=== PATIENT | female | born 1985 | race Caucasian/White ===

== ENCOUNTER 2023-03-07 21:29 | Outpatient (REF) | payer BC, SELFPAY ==
[2023-03-11 16:09] LABS: Age Gdln ACOG Testing Note (.); HPV Aptima Negative (Negative); IGP, Aptima HPV, rfx 16/18,45 Note (.)
== END 2023-03-07 21:30 | disposition home or self-care (01) ==
LOC: LAB 21:29
PROVIDERS: Visit Provider Obstetrics & Gynecology
DX: Z01.419 Encounter for gynecological examination (general) (routine) without abnormal findings (principal)
CPT/HCPCS: 87624; G0145

== ENCOUNTER 2023-04-11 12:19 | Outpatient (OUT) | payer BC, SELFPAY ==
--- OUTSIDE RECORDS SUMMARY | 2023-04-11 12:25 | XMS_ITS | CCD ---
Author Name Unknown Address [address] [place] [id number] Organization [facility] Care Team Providers Care Extraction Supervisor Name Role Phone REQUEST, DR SHERRELL LISTED Primary Care Unavaila ble WOLF ., DR RYAN Green Admitting Unavailable WOLF ., DR RYAN Green Attending Unavailable WOLF ., DR RYAN Green Consulting Unavailable WOLF ., DR RYAN Green Primary Care Unavailable WOLF ., DR RYAN Green Admitting Unavailable WOLF ., DR RYAN Green Attending Unavailable WOLF ., DR RYAN Green Consulting Unavailable REQUEST, DR WYNNE LISTED Primary Care Unavaila ble WOLF ., DR RYAN Green Admitting Unavailable WOLF ., DR RYAN Green Attending Unavailable WOLF ., DR RYAN Green Consulting Unavailable DAMON ., DR DELEON Attending Unavailable DAMON ., DR DELEON Consulting Unavailable DAMON ., DR DELEON Admitting Unavailable REQUEST, DR WYNNE LISTED Primary Care Unavaila ble MUNIRA, MARGOTH Admitting Unavailable REQUEST, DR WYNNE LISTED Primary Care Unavaila ble MUNIRA, MARGOTH Attending Unavailable MUNIRA, MARGOTH Consulting Unavailable REQUEST, DR WYNNE LISTED Primary Care Unavaila ble MUNIRA, MARGOTH Attending Unavailable MUNIRA, MARGOTH Consulting Unavailable MUNIRA, MARGOTH Admitting Unavailable NILMoisés Garcia Attending Unavailable DAMONADRIENNE Attending Unavailable Allergies Allergy Classification Reported Allergen(s) Allergy Type Date of Onset Reaction(s) Facility (1 source) predniSONE Drug Allergy 01-20-2016 [facility] Repository (1 source) rofecoxib; Translations: [Vioxx] Drug Allergy [facility] Repository Problems Active Problems Problem Classification Problem Date Documented Da te Episodic/Chronic Unclassified (3 sources) CONTACT W/AND (SUSP) EXPOS COVID-19; Translations: [CONTACT W/AND (SUSP) EXPOS COVID-19] Onset: 11-06-2021 Viral infection (1 source) COVID-19; Translations: [COVID-19] Onset: 11-03-2021 Past or Other Problems Problem Classification Problem Date Documented Date Episodic/Chronic Abdominal pain (4 sources) Unspecified abdominal pain; Translations: [UNSPECIFIED ABDOMINAL PAIN] Onset: 04-21-2022 Episodic Immunizations and screening for infectious disease (1 source) Encounter for screening for human papillomavirus (HPV); Translations: [ENC SCREENING HUMAN PAPILLOMAVIRUS] Onset: 03-06-2022 Episodic Other screening for suspected conditions (not mental disorders or infectious disease) (4 sources) Encounter for screening for malignant neoplasm of cervix; Translations: [ENC SCREENING MALIG NEOPLASM CERV] Onset: 03-02-2022 Episodic Unclassified (1 source) CONTACT W/AND (SUSP) EXPOS COVID-19; Translations: [CONTACT W/AND (SUSP) EXPOS COVID-19] Onset: 11-03-2021 Results Test Name Value Interpretation Reference Range Facility [facility] 08-11-2022 Lab Reports [id number] .[id number]:127 Normal [facility] Lab Reports [id number] .[id number]:127 Normal [facility] CBC AUTO DIFFon 08-06-2022 BASO # 0.0 103/ul Normal 0.0-0.1 [facility] Comment on above: Performed By: #### C BC #### [facility] [address] [place] [address] Dr. Mikhail Cooney Basophils/100 WBC (Bld) 0.4 % Normal 0.2-2.0 [facility] Comment on above: Performed By: #### C BC #### [facility] [address] [address] [address] Mikhail Cooney EO # 0.1 103/ul Normal 0.0-0.7 [facility] Comment on above: Performed By: #### C BC #### [facility] [address] [place] [address] Dr. Mikhail Cooney Eosinophils/100 WBC (Bld) 1.0 % Normal 0.9-7.0 [facility] Comment on above: Performed By: #### C BC #### [facility] [address] [place] [address] Dr. Mikhail Cooney Erythrocyte distribution width (RBC) [Ratio] 11.9 % Normal 11.0-15.0 [facility] Comment on above: Performed By: #### C BC #### [facility] [address] [place] [address] Dr. Mikhail Cooney Hematocrit (Bld) [Volume fraction] 43.0 % Normal 36.0-48.0 [facility] Comment on above: Performed By: #### C BC #### [facility] [address] [place] [address] Dr. Mikhail Cooney Hemoglobin (Bld) [Mass/Vol] 14.7 g/dL Normal 12.0-16.0 [facility] Comment on above: Performed By: #### C BC #### [facility] [address] [place] [address] Dr. Mikhail Cooney IG # 0.03 10e3/ul Normal 0.00-0.03 [facility] Comment on above: Performed By: #### C BC #### [facility] [address] [place] [address] Dr. Mikhail Cooney IG % 0.3 % Normal 0.0-0.5 [facility] Comment on above: Performed By: #### C BC #### [facility] [address] [place] [address] Dr. Mikhail Cooney LYMPH # 2.4 103/ul Normal 1.2-3.8 [facility] Comment on above: Performed By: #### C BC #### [facility] [address] [place] [address] Dr. Mikhail Cooney Lymphocytes/100 WBC (Bld) 24.4 % Normal 20.5-60.0 [facility] Comment on above: Performed By: #### C BC #### [facility] [address] [place] [address] Dr. Mikhail Cooney MANUAL DIFF REQ NO Normal [facility] Comment on above: Performed By: #### C BC #### [facility] [address] [address] [address] Mikhail Cooney MCH (RBC) [Entitic mass] 29.9 pg Normal 26.7-34.0 [facility] Comment on above: Performed By: #### C BC #### [facility] [address] [place] [address] Dr. Mihkail Cooney MCHC (RBC) [Mass/Vol] 34.2 g/dL Normal 29.9-35.2 [facility] Comment on above: Performed By: #### C BC #### [facility] [address] [place] [address] Dr. Mikhail Cooney MCV (RBC) [Entitic vol] 87.4 fL Normal 81.0-99.0 [facility] Comment on above: Performed By: #### C BC #### [facility] [address] [place] [address] Dr. Mikhail Cooney MONO # 0.6 103/ul Normal 0.3-0.8 [facility] Comment on above: Performed By: #### C BC #### [facility] [address] [place] [address] Dr. Mikhail Cooney Monocytes/100 WBC (Bld) 6.1 % Normal 1.7-12.0 [facility] Comment on above: Performed By: #### C BC #### [facility] [address] [place] [address] Dr. Mikhail Cooney NEUT # 6.7 103/ul Critically high 1.4-6.[address] [facility] Comment on above: Performed By: #### C BC #### [facility] [address] [place] [address] Dr. Mikhail Cooney Neutrophils/100 WBC (Bld) 67.8 % Normal 43.0-75.0 [facility] Comment on above: Performed By: #### C BC #### [facility] [address] [place] [address] Dr. Mikhail Cooney Platelet mean volume (Bld) [Entitic vol] 11.2 fL Normal 9.5-13.5 [facility] Comment on above: Performed By: #### C BC #### [facility] [address] [address] [address] Mikhail Cooney PLT 288 103/ul Normal 150-450 [facility] Comment on above: Performed By: #### C BC #### [facility] [address] [place] [address] Dr. Mikhail Cooney RBC 4.92 106/ul Normal 4.20-5.40 [facility] Comment on above: Performed By: #### C BC #### [facility] [address] [address] [address] Mikhail Cooney WBC 9.8 103/ul Normal 4.0-11.0 [facility] Comment on above: Performed By: #### C BC #### [facility] [address] [place] [address] Dr. Mikhail Cooney LIPID PROFILEon 08-06-2022 CHOL-HDL RATIO NORM SEE BELOW Normal [facility] Comment on above: Result Comment: 3.3 - 4.4 LOW RISK 4.4 - 7.1 AVERAGE RISK 7.1 - 11.0 MODERATE RISK >11.0 HIGH RISK Performed By: #### L IPID, CMP, TSH, T4 #### [facility] [address] [place] [address] Dr. Mikhail Cooney Cholesterol [Mass/Vol] 212 mg/dL Critically high <=200 [facility] Comment on above: Performed By: #### L IPID, CMP, TSH, T4 #### [facility] [address] [place] [address] Dr. Mikhail Cooney Cholesterol in HDL [Mass/Vol] 44 mg/dL Normal 40-60 [facility] Comment on above: Performed By: #### L IPID, CMP, TSH, T4 #### [facility] [address] [place] [address] Dr. Mikhail Cooney Cholesterol in LDL [Mass/Vol] 144.8 mg/dL Normal [facility] Comment on above: Performed By: #### L IPID, CMP, TSH, T4 #### [facility] [address] [place] [address] Dr. Mikhail Cooney Cholesterol.total/ Cholesterol in HDL [Mass ratio] 4.8 {ratio} Normal [facility] Comment on above: Performed By: #### L IPID, CMP, TSH, T4 #### [facility] [address] [address] [address] Mikhail Cooney HDL NORMAL > or = 60 mg/dl - LO W CARDIOVASCULAR RISK <40 mg/dl - HIGH CARDIOVASCULAR RISK Normal [facility] Comment on above: Performed By: #### L IPID, CMP, TSH, T4 #### [facility] [address] [address] [address] Mikhail Cooney LDL CALC NORMAL SEE BELOW Normal [facility] Comment on above: Result Comment: <100 mg/dl OPTIMAL 100 - 129 mg/dl NEAR OR ABOVE OPTIMAL 130 - 159 mg/dl BORDERLINE HIGH 160 - 189 mg/dl HIGH >190 mg/dl VERY HIGH Performed By: #### L IPID, CMP, TSH, T4 #### [facility] [address] [address] [address] Mikhail Cooney Triglyceride [Mass/Vol] 116 mg/dL Normal <=150 [facility] Comment on above: Performed By: #### L IPID, CMP, TSH, T4 #### [facility] [address] [address] [address] Mikhail Cooney VLDL CALC 23.2 mg/dL Normal [facility] Comment on above: Performed By: #### L IPID, CMP, TSH, T4 #### [facility] [address] [address] [address] Mikhail Cooney PROF 14(COMP METB)on 023 Albumin [Mass/Vol] 3.3 g/dL Critically low 3.4-5.0 [facility] Comment on above: Performed By: #### L IPID, CMP, TSH, T4 #### [facility] [address] [address] [address] Mikhail Cooney Albumin/Globulin [Mass ratio] 0.7 {ratio} Normal [facility] Comment on above: Performed By: #### L IPID, CMP, TSH, T4 #### [facility] [address] [place] [address] Dr. Mikhail Cooney ALP [Catalytic activity/Vol] 82 U/L Normal 46-116 [facility] Comment on above: Performed By: #### L IPID, CMP, TSH, T4 #### [facility] [address] [address] [address] Mikhail Cooney ALT [Catalytic activity/Vol] 32 U/L Normal 14-59 [facility] Comment on above: Performed By: #### L IPID, CMP, TSH, T4 #### [facility] [address] [address] [address] Mikhail Cooney Anion gap [Moles/Vol] 9.1 mmol/L Normal [facility] Comment on above: Performed By: #### L IPID, CMP, TSH, T4 #### [facility] [address] [place] [address] Dr. Mikhail Cooney AST [Catalytic activity/Vol] 19 U/L Normal 15-37 [facility] Comment on above: Performed By: #### L IPID, CMP, TSH, T4 #### [facility] [address] [place] [address] Dr. Mikhail Cooney Bilirubin [Mass/Vol] 0.5 mg/dL Normal 0.2-1.0 [facility] Comment on above: Performed By: #### L IPID, CMP, TSH, T4 #### [facility] [address] [place] [address] Dr. Mikhail Cooney Calcium [Mass/Vol] 9.1 mg/dL Normal 8.5-10.1 [facility] Comment on above: Performed By: #### L IPID, CMP, TSH, T4 #### [facility] [address] [place] [address] Dr. Mikhail Cooney Chloride [Moles/Vol] 104 mmol/L Normal 98-107 [facility] Comment on above: Performed By: #### L IPID, CMP, TSH, T4 #### [facility] [address] [address] [address] Mikhail Cooney CO2 [Moles/Vol] 27.6 mmol/L Normal 21.0-32.[address] [facility] Comment on above: Performed By: #### L IPID, CMP, TSH, T4 #### [facility] [address] [address] [address] Mikhail Cooney Creatinine [Mass/Vol] 1.01 mg/dL Normal 0.55-1.02 [facility] Comment on above: Performed By: #### L IPID, CMP, TSH, T4 #### [facility] [address] [place] [address] Dr. Mikhail Cooney EGFR-AF FAROESE >60 Normal >=[address] [facility] Comment on above: Performed By: #### L IPID, CMP, TSH, T4 #### [facility] [address] [place] [address] Dr. Mikhail Cooney EGFR-NON AF FAROESE >60 Normal >=60 [facility] Comment on above: Performed By: #### L IPID, CMP, TSH, T4 #### [facility] [address] [place] [address] Dr. Mikhail Cooney Globulin (S) [Mass/Vol] 4.5 g/dL Normal [facility] Comment on above: Performed By: #### L IPID, CMP, TSH, T4 #### [facility] [address] [place] [address] Dr. Mikhail Cooney Glucose [Mass/Vol] 93 mg/dL Normal 74-106 [facility] Comment on above: Performed By: #### L IPID, CMP, TSH, T4 #### [facility] [address] [place] [address] Dr. Mikhail Cooney Potassium [Moles/Vol] 3.7 mmol/L Normal 3.5-5.1 [facility] Comment on above: Performed By: #### L IPID, CMP, TSH, T4 #### [facility] [address] [place] [address] Dr. Mikhail Cooney Protein [Mass/Vol] 7.8 g/dL Normal 6.4-8.2 [facility] Comment on above: Performed By: #### L IPID, CMP, TSH, T4 #### [facility] [address] [place] [address] Dr. Mikhail Cooney Sodium [Moles/Vol] 137 mmol/L Normal 136-145 [facility] Comment on above: Performed By: #### L IPID, CMP, TSH, T4 #### [facility] [address] [place] [address] Dr. Mikhail Cooney Urea nitrogen [Mass/Vol] 13.0 mg/dL Normal 7.0-18.0 [facility] Comment on above: Performed By: #### L IPID, CMP, TSH, T4 #### [facility] [address] [place] [address] Dr. Mikhail Cooney Urea nitrogen/Creatinin e [Mass ratio] 12.9 mg/mg Normal [facility] Comment on above: Performed By: #### L IPID, CMP, TSH, T4 #### [facility] [address] [place] [address] Dr. Mikhail Cooney T4on 08-06-2022 T4 [Mass/Vol] 13.20 ug/dL Normal 4.80-13.90 [facility] Comment on above: Performed By: #### L IPID, CMP, TSH, T4 #### [facility] [address] [place] [address] Dr. Mikhail Cooney TSHon 08-06-2022 TSH 2.723 uIU/mL Normal 0.358-3.740 [facility] Comment on above: Performed By: #### L IPID, CMP, TSH, T4 #### [facility] [address] [place] [address] Dr. Mikhail Cooney Physician Referralon 023 Physician Referral [id number]:127 Normal [facility] CBC AUTO DIFFon 04-21-2022 BASO # 0.0 103/ul Normal 0.0-0.1 [facility] Comment on above: Performed By: #### C BC #### [facility] [address] [place] [address] Dr. Mikhail Cooney Basophils/100 WBC (Bld) 0.4 % Normal 0.2-2.0 [facility] Comment on above: Performed By: #### C BC #### [facility] [address] [place] [address] Dr. Mikhail Cooney EO # 0.1 103/ul Normal 0.0-0.7 [facility] Comment on above: Performed By: #### C BC #### [facility] [address] [place] [address] Dr. Mikhail Cooney Eosinophils/100 WBC (Bld) 1.3 % Normal 0.9-7.0 [facility] Comment on above: Performed By: #### C BC #### [facility] [address] [place] [address] Dr. Mikhail Cooney Erythrocyte distribution width (RBC) [Ratio] 11.9 % Normal 11.0-15.0 [facility] Comment on above: Performed By: #### C BC #### [facility] [address] [place] [address] Dr. Mikhail Cooney Hematocrit (Bld) [Volume fraction] 44.1 % Normal 36.0-48.0 [facility] Comment on above: Performed By: #### C BC #### [facility] [address] [place] [address] Dr. Mikhail Cooney Hemoglobin (Bld) [Mass/Vol] 14.9 g/dL Normal 12.0-16.0 [facility] Comment on above: Performed By: #### C BC #### [facility] [address] [place] [address] Dr. Mikhail Cooney IG # 0.02 10e3/ul Normal 0.00-0.03 [facility] Comment on above: Performed By: #### C BC #### [facility] [address] [place] [address] Dr. Mikhail Cooney IG % 0.3 % Normal 0.0-0.5 [facility] Comment on above: Performed By: #### C BC #### [facility] [address] [place] [address] Dr. Mikhail Cooney LYMPH # 2.4 103/ul Normal 1.2-3.8 [facility] Comment on above: Performed By: #### C BC #### [facility] [address] [place] [address] Dr. Mikhail Cooney Lymphocytes/100 WBC (Bld) 30.1 % Normal 20.5-60.0 [facility] Comment on above: Performed By: #### C BC #### [facility] [address] [place] [address] Dr. Mikhail Cooney MANUAL DIFF REQ NO Normal [facility] Comment on above: Performed By: #### C BC #### [facility] [address] [place] [address] Dr. Mikhail Cooney MCH (RBC) [Entitic mass] 29.6 pg Normal 26.7-34.0 [facility] Comment on above: Performed By: #### C BC #### [facility] [address] [place] [address] Dr. Mikhail Cooney MCHC (RBC) [Mass/Vol] 33.8 g/dL Normal 29.9-35.2 [facility] Comment on above: Performed By: #### C BC #### [facility] [address] [place] [address] Dr. Mikhail Cooney MCV (RBC) [Entitic vol] 87.5 fL Normal 81.0-99.0 [facility] Comment on above: Performed By: #### C BC #### [facility] [address] [place] [address] Dr. Mikhail Cooney MONO # 0.5 103/ul Normal 0.3-0.8 [facility] Comment on above: Performed By: #### C BC #### [facility] [address] [place] [address] Dr. Mikhail Cooney Monocytes/100 WBC (Bld) 6.9 % Normal 1.7-12.0 [facility] Comment on above: Performed By: #### C BC #### [facility] [address] [place] [address] Dr. Mikhail Cooney NEUT # 4.8 103/ul Normal 1.4-6.5 [facility] Comment on above: Performed By: #### C BC #### [facility] [address] [place] [address] Dr. Mikhail Cooney Neutrophils/100 WBC (Bld) 61.0 % Normal 43.0-75.0 [facility] Comment on above: Performed By: #### C BC #### [facility] [address] [place] [address] Dr. Mikhail Cooney Platelet mean volume (Bld) [Entitic vol] 11.7 fL Normal 9.5-13.5 [facility] Comment on above: Performed By: #### C BC #### [facility] [address] [place] [address] Dr. Mikhail Cooney PLT 235 103/ul Normal 150-450 [facility] Comment on above: Performed By: #### C BC #### [facility] [address] [place] [address] Dr. Mikhail Cooney RBC 5.04 106/ul Normal 4.20-5.40 [facility] Comment on above: Performed By: #### C BC #### [facility] [address] [place] [address] Dr. Mikhail Cooney WBC 7.8 103/ul Normal 4.0-11.0 [facility] Comment on above: Performed By: #### C BC #### [facility] [address] [place] [address] Dr. Mikhail Cooney LIPASEon 04-21-2022 Lipase [Catalytic activity/Vol] 126.0 U/L Normal 73.0-393.0 [facility] Comment on above: Performed By: #### L IPA, CMP #### [facility] [address] [place] [address] Dr. Mikhail Cooney PROF 14(COMP METB)on 023 Albumin [Mass/Vol] 3.2 g/dL Critically low 3.4-5.0 [facility] Comment on above: Performed By: #### L IPA, CMP #### [facility] [address] [place] [address] Dr. Mikhail Cooney Albumin/Globulin [Mass ratio] 0.8 {ratio} Normal [facility] Comment on above: Performed By: #### L IPA, CMP #### [facility] [address] [address] [address] Mikhail Cooney ALP [Catalytic activity/Vol] 87 U/L Normal 46-116 [facility] Comment on above: Performed By: #### L IPA, CMP #### [facility] [address] [address] [address] Mikhail Cooney ALT [Catalytic activity/Vol] 31 U/L Normal 14-59 [facility] Comment on above: Performed By: #### L IPA, CMP #### [facility] [address] [address] [address] Mikhail Cooney Anion gap [Moles/Vol] 10.4 mmol/L Normal [facility] Comment on above: Performed By: #### L IPA, CMP #### [facility] [address] [place] [address] Dr. Mikhail Cooney AST [Catalytic activity/Vol] 28 U/L Normal 15-37 [facility] Comment on above: Performed By: #### L IPA, CMP #### [facility] [address] [address] [address] Mikhail Cooney Bilirubin [Mass/Vol] 0.4 mg/dL Normal 0.2-1.0 [facility] Comment on above: Performed By: #### L IPA, CMP #### [facility] [address] [address] [address] Mikhail Cooney Calcium [Mass/Vol] 8.9 mg/dL Normal 8.5-10.1 [facility] Comment on above: Performed By: #### L IPA, CMP #### [facility] [address] [address] [address] Mikhail Cooney Chloride [Moles/Vol] 104 mmol/L Normal 98-107 [facility] Comment on above: Performed By: #### L IPA, CMP #### [facility] [address] [address] [address] Mikhail Cooney CO2 [Moles/Vol] 29.0 mmol/L Normal 21.0-32.[address] [facility] Comment on above: Performed By: #### L IPA, CMP #### [facility] [address] [address] [address] Mikhail Cooney Creatinine [Mass/Vol] 0.81 mg/dL Normal 0.55-1.02 [facility] Comment on above: Performed By: #### L IPA, CMP #### [facility] [address] [address] [address] Mikhail Cooney EGFR-AF FAROESE >60 Normal >=[address] [facility] Comment on above: Performed By: #### L IPA, CMP #### [facility] [address] [address] [address] Mikhail Cooney EGFR-NON AF FAROESE >60 Normal >=60 [facility] Comment on above: Performed By: #### L IPA, CMP #### [facility] [address] [place] [address] Dr. Mikhail Cooney Globulin (S) [Mass/Vol] 4.0 g/dL Normal [facility] Comment on above: Performed By: #### L IPA, CMP #### [facility] [address] [address] [address] Mikhail Cooney Glucose [Mass/Vol] 100 mg/dL Normal 74-106 [facility] Comment on above: Performed By: #### L IPA, CMP #### [facility] [address] [place] [address] Dr. Mikhail Cooney Potassium [Moles/Vol] 4.4 mmol/L Normal 3.5-5.1 [facility] Comment on above: Performed By: #### L IPA, CMP #### [facility] [address] [address] [address] Mikhail Cooney Protein [Mass/Vol] 7.2 g/dL Normal 6.4-8.2 [facility] Comment on above: Performed By: #### L IPA, CMP #### [facility] [address] [address] [address] Mikhail Cooney Sodium [Moles/Vol] 139 mmol/L Normal 136-145 [facility] Comment on above: Performed By: #### L IPA, CMP #### [facility] [address] [address] [address] Mikhail Cooney Urea nitrogen [Mass/Vol] 9.0 mg/dL Normal 7.0-18.0 [facility] Comment on above: Performed By: #### L IPA, CMP #### [facility] [address] [address] [address] Mikhail Cooney Urea nitrogen/Creatinin e [Mass ratio] 11.1 mg/mg Normal [facility] Comment on above: Performed By: #### L IPA, CMP #### [facility] [address] [place] [address] Dr. Mikhail Cooney PAP ACOG PANEL 2: 30 to 65on 03-09-[address] [facility] Comment on above: Result Comment: Perf ormed at: WB Performed By: #### C VDTBH #### [facility] [address] [place] [address] Dr. Mikhail Cooney Age Gdln ACOG Testing 30-[address] [facility] Comment on above: Performed By: #### C VDTBH #### [facility] [address] [place] [address] Dr. Mikhail Cooney DIAGNOSIS: Comment Normal [facility] Comment on above: Result Comment: NEGA TIVE FOR INTRAEPITHELIAL LESION OR MALIGNANCY. Performed at: WB Performed By: #### C VDTBH #### [facility] [address] [place] [address] Dr. Mikhail Cooney HPV Aptima Negative Normal Negative [facility] Comment on above: Result Comment: This nucleic acid amplification test detects fourteen high-risk HPV types (16,18,31,33,35,39,45,51,52,56,58,59,66,68) without differentiation. Performed at: =G Performed By: #### C VDTBH #### [facility] [address] [place] [address] Dr. Mikhail Cooney HPV Genotype Reflex Comment Normal [facility] Comment on above: Result Comment: Crit eria not met, HPV Genotype not performed. Performed at: WB Performed By: #### C VDTBH #### [facility] [address] [place] [address] Dr. Mikhail Cooney Methodology: Comment Normal [facility] Comment on above: Result Comment: This liquid based ThinPrep(R) pap test was screened with the use of an image guided system. Performed at: WB Performed By: #### C VDTBH #### [facility] [address] [place] [address] Dr. Mikhail Cooney Note: Comment Normal [facility] Comment on above: Result Comment: The Pap smear is a screening test designed to aid in the detection of premalignant and malignant conditions of the uterine cervix. It is not a diagnostic procedure and should not be used as the sole means of detecting cervical cancer. Both false-positive and false-negative reports do occur. . Performed at: WB Performed By: #### C VDTBH #### [facility] [address] [place] [address] Dr. Mikhail Cooney Performed by: Comment Normal [facility] Comment on above: Result Comment: Evangelista Contreras, City Collector (ASCP) Performed at: WB Performed By: #### C VDTBH #### [facility] [address] [place] [address] Dr. Mikhail Cooney Specimen adequacy: Comment Normal [facility] Comment on above: Result Comment: Sati sfactory for evaluation. Endocervical and/or squamous metaplastic cells (endocervical component) are present. Performed at: WB Performed By: #### C VDTBH #### [facility] [address] [place] [address] Dr. Mikhail Cooney ASYMPTOMATIC COVID-19 ANTIGE Non 11-03-2021 EUA Statement SEE BELOW [facility] Comment on above: Result Comment: This test has not been FDA cleared or approved, but has been authorized by the FDA under an Emergency Use Authorization (EUA) for use by authorized laboratories certified under CLIA that meet the requirements to perform moderate or high complexity testing. This test has been authorized only for the detection of proteins from SARS-CoV-2, not for any other viruses or pathogens. The emergency use of this test is authorized for the duration of the declaration that circumstances exist justifying the authorization of emergency use of in vitro diagnostic tests for detection and/or diagnosis of Covid-19 under section 564(b)(1) of the Act, 21 U.S.C. 360bbb-3(b)(1), unless the declaration is terminated or authorization is revoked sooner. Performed By: #### C VDAGA #### [facility] [address] [place] [address] Dr. Mikhail Cooney SARS-CoV-2 (COVID-19) RNA JORGE+probe Ql (Unsp spec) Negative Normal NEGATIVE [facility] Comment on above: Result Comment: Nega tive results are presumptive. They do not preclude infection and should not be used as the sole basis for treatment decisions. Additional confirmatory testing by a molecular method should be considered. Performed By: #### C VDAGA #### [facility] [address] [place] [address] Dr. Mikhail Cooney Covid-19 PCR (CVDTB)on 10-03 SARS-CoV-2 (COVID-19) RNA JORGE+probe Ql (Unsp spec) Detected Critically abnormal NOT DETECTED [facility] Comment on above: Result Comment: This test is not yet approved or cleared by the [place] FDA. When there are no FDA-approved or cleared tests available, and other criteria are met, FDA can make tests available under an emergency access mechanism called an Emergency Use Authorization (EUA). The EUA for this test is supported by the [place] of Health and Human Service's declaration that circumstances exist to justify the emergency use of in vitro diagnostics for the detection and/or diagnosis of the virus that causes COVID-19. This EUA will remain in effect for the duration of the COVID-19 declaration justifying emergency of IVDs, unless it is terminated or revoked by the FDA (after which the test may no longer be used). Performed By: #### C VDTBH #### [facility] [address] [place] [address] Dr. Mikhail Cooney Encounters Encounter Date Encounter Type Care Provider Facility Start: 03-07-2023 End: 03-07-2023 ambulatory ADRIENNE JOSE Not Available Start: 08-06-2022 ambulatory Moisés LITTLEJOHN Facility:[facility] Start: 08-06-2022 End: 08-07-[address] RYAN WOLF . Facility:[facility] Start: 05-05-2022 ambulatory Moisés LITTLEJOHN Facility :[facility] Start: 04-22-2022 ambulatory Moisés LITTLEJOHN Facility:[facility] Start: 04-21-2022 End: 04-22-2022 ambulatory NONE LISTED REQUEST Facility:[facility] Start: 03-02-2022 End: 03-02-[address] ADRIENNE JOSE . Facility:[facility] Start: 11-03-2021 End: 11-03-2021 ambulatory MARGOTH LOMBARDO Facility:[facility] Start: 10-29-2021 End: 10-29-2021 ambulatory NONE LISTED REQUEST Facility:[facility] Start: 08-11-2021 End: 08-12-2021 ambulatory NONE LISTED REQUEST Facility: Payers Date Payer Category Payer Unknown [id number] 1985 Unknown [id number] 2.16.84 [id number] 1985 Unknown [id number] 2.16.84 [id number] 1985 Unknown [id number] 2.16.84 [id number] 1985 Unknown [id number] 2.16.84 [id number] 1985 Unknown [id number] 2.16.8 [id number] 1985 Unknown [id number] 1958 Self-pay 1958 Unknown [id number] Unknown [id number] 2.16.84 [id number] Unknown [id number] 2.16.84 [id number] Summary Purpose Family History No Family History Records FoundNo Family History Records FoundNo Family History Records Found Advance Directives No Advanced Directives Records FoundNo Advanced Directives Records FoundNo Advanced Directives Records Found Additional Source Comments INFORMATION SOURCE (unrecogn ized section and content) DATE CREATED AUTHOR 08/06/2022 [facility] DATE CREATED AUTHOR AUTHOR'S ORGANIZ ATION 08/12/2022 Rohan Bunch [facility] DATE CREATED AUTHOR AUTHOR'S ORGANIZ ATION 03/09/2023 [facility] FOR RECORDS PERTAINING TO PATIENTS WHO ARE OR HAVE BEEN ENROLLED IN A CHEMICAL DEPENDENCY/SUBSTANCEABUSE PROGRAM, SOME INFORMATION MAY BE OMITTED. This clinical summary was aggregated from multiple sources. Caution should be exercised in using it in the provision of clinical care. This summary normalizes information from multiple sources, and as a consequence, information in this document may materially change the coding, format and clinical context of patient data. In addition, data may be omitted in some cases. CLINICAL DECISIONS SHOULD BE BASED ON THE PRIMARY CLINICAL RECORDS. [facility]. provides no warranty or guarantee of the accuracy or completeness of information in this document.
--- NOTE | 2023-04-11 12:41 | US_ITS ---
The [address] [address] Patient Name: BASIL CARRANZA MRN: [id number] date: 1985 Sex: F Assigned Patient Location: LAB Current Patient Location: LAB Accession/Order Number: [id number] Exam Date: 04/11/2023 12:42 Report Date: 04/11/2023 13:17 At the request of: ADRIENNE JOSE Procedure: US pelvis w/ transvaginal EXAMINATION: US pelvis w/ transvaginal HISTORY: encounter for weight loss management [id number], sterilization COMPARISON: No relevant comparison available. FINDINGS: Transabdominal and transvaginal images The uterus is normal in size, contour and echotexture measuring 8.9 x 4.3 x 5.4 cm. Anteverted. Endometrium measures 5 mm, normal The right ovary is normal measuring 3.7 x 1.8 x 2.7 cm. Normal color Doppler flow. Multiple subcentimeter areas of anechoic echogenicity noted peripherally consistent with follicles The left ovary is normal measuring 3.2 x 1.8 x 1.3 cm. Normal color Doppler flow. Multiple subcentimeter areas of anechoic echogenicity noted peripherally consistent with follicles No free fluid US/US pelvis w/ transvaginal IMPRESSION: Multiple peripheral subcentimeter follicles. 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
[2023-04-11 13:04] LABS: Basophils Percent Auto 0.4 % (0.2-2.0); Eosinophils Absolute Auto 0.1 10^3/uL (0.0-0.7); Eosinophils Percent Auto 1.7 % (0.9-7.0); Hematocrit 43.5 % (36.0-48.0); Hemoglobin 14.4 g/dL (12.0-16.0); Immature Granulocytes Abs Auto 0.01 10^3/uL (0.00-0.03); Immature Granulocytes Pct Auto 0.1 % (0.0-0.5); Lymphocytes Absolute Auto 2.7 10^3/uL (1.2-3.8); Lymphocytes Percent Auto 35.8 % (20.5-60.0); Mean Corpuscular HGB Conc 33.1 g/dL (29.9-35.2); Mean Corpuscular Hemoglobin 29.8 pg (26.7-34.0); Mean Corpuscular Volume 90.1 fL (81.0-99.0); Mean Platelet Volume 10.7 fL (9.5-13.5); Monocytes Absolute Auto 0.4 10^3/uL (0.3-0.8); Monocytes Percent Auto 5.7 % (1.7-12.0); Neutrophils Absolute Auto 4.2 10^3/uL (1.4-6.5); Neutrophils Percent Auto 56.3 % (43.0-75.0); Platelet Count 251 10^3/uL (150-450); Red Blood Count 4.83 10^6/uL (4.20-5.40); Red Cell Distribution Width 11.9 % (11.0-15.0); White Blood Count 7.4 10^3/uL (4.0-11.0)
[2023-04-11 14:14] LABS: Estimated Average Glucose 108 mg/dL; Glycohemoglobin A1C 5.4 % (4.5-6.2)
[2023-04-11 14:48] LABS: Free T4 0.89 ng/dL (0.76-1.46)
[2023-04-11 14:56] LABS: HCG Quantitative <1 mIU/mL; Thyroid Stimulating Hormone 2.248 uIU/mL (0.358-3.740)
[2023-04-12 04:09] LABS: FSH 2.6 mIU/mL (.); Luteinizing Hormone(LH) 1.3 mIU/mL (.)
[2023-04-14 16:09] LABS: DHEA, Serum 220 ng/dL (31-701)
== END 2023-04-11 12:20 | disposition home or self-care (01) ==
LOC: LAB 12:22
PROVIDERS: PCP Family Medicine; Visit Provider Obstetrics & Gynecology
DX: R12 Heartburn (principal); Z76.89 Persons encountering health services in other specified circumstances; Z30.09 Encounter for other general counseling and advice on contraception; K21.9 Gastro-esophageal reflux disease without esophagitis
CPT/HCPCS: 36415; 76830; 76856; 82626; 82627; 83001; 83002; 83036; 84439; 84443; 84702; 85025

== ENCOUNTER 2023-04-12 10:00 | Outpatient (REF) | payer BC, SELFPAY ==
--- OUTSIDE RECORDS SUMMARY | 2023-06-15 09:21 | XMS_ITS | CCD ---
Author Name Unknown Address [address] [place] [address] Organization [facility] Care Team Providers Care Linoleum Printer Name Role Phone REQUEST, DR SHERRELL LISTED Primary Care Unavaila ble WOLF ., DR RYAN Hu Admitting Unavailable WOLF ., DR RYAN Hu Attending Unavailable WOLF ., DR RYAN Hu Consulting Unavailable WOLF ., DR RYAN Hu Primary Care Unavailable WOLF ., DR RYAN Hu Admitting Unavailable WOLF ., DR RYAN Hu Attending Unavailable WOLF ., DR RYAN Hu Consulting Unavailable REQUEST, NONE LISTED Primary Care Unavaila ble WOLF ., DR RYAN Hu Admitting Unavailable WOLF ., DR RYAN Hu Attending Unavailable WOLF ., DR RYAN Hu Consulting Unavailable JIM ., DR DELEON Attending Unavailable JIM ., DR DELEON Consulting Unavailable JIM ., DR DELEON Admitting Unavailable REQUEST, NONE LISTED Primary Care Unavaila ble MUNIRA, MARGOTH Admitting Unavailable REQUEST, NONE LISTED Primary Care Unavaila ble MARGOTH LOMBARDO Attending Unavailable MARGOTH LOMBARDO Consulting Unavailable REQUEST, NONE LISTED Primary Care Unavaila ble MUNIRA, MARGOTH Attending Unavailable MUNIRA, MARGOTH Consulting Unavailable MUNIRA, MARGOTH Admitting Unavailable Moisés LITTLEJOHN Attending Unavailable Adrienne Fernandez Attending Provider Adrienne Fernandez Attending Unavailable Adrienne Fernandez Admitting Unavailable ADRIENNE FERNANDEZ Attending Unavailable MICHELLE KEITH Attending Unavailable ADRIENNE FERNANDEZ Attending Unavailable Raffaele Thomas MD Primary Care Provider [phone] Allergies Allergy Classification Reported Allergen(s) Allergy Type Date of Onset Reaction(s) Facility (1 source) predniSONE Drug Allergy 01-20-2016 [facility] Repository (1 source) rofecoxib; Translations: [Vioxx] Drug Allergy [facility] Repository Medications Current Medications Medication Drug Class(es) Dates Sig (Normalized) Sig (Original) cephalexin 500 mg oral capsule (2 sources) Cephalosporin Antibacterial Start: 4 End: 4 take 1 capsule by mouth in the morning cephalexin (Keflex) 500 MG capsule Indications: Postoperative examination Take 1 capsule (500 mg) by mouth in the morning and 1 capsule (500 mg) before bedtime. Do all this for 7 days. 14 capsule 0 05/12/2023 05/19/2023 Active methylPREDNISolone (2 sources) Corticosteroid Start: 4 methylPREDNISolone (Medrol Dospak) 4 MG tablets Indications: Postoperative examination Day 1: 6 tablets Day 2: 5 tablets Day 3: 4 tablets Day 4: 3 tablets Day 5: 2 tablets Day 6: 1 tablet 21 tablet 0 05/12/2023 Active Completed/Discontinued Medications Medication Drug Class(es) Dates Sig (Normalized) Sig (Original) ethinyl estradiol 0.035 mg / norethindrone 0.75 mg oral tablet (2 sources) Estrogen Start: 05-02-2023 End: 05-12-2023 take 1 tablet by mouth in the morning norethindrone-ethin yl estradiol (Nortrel ) 0.5/0.75/1-35 MG-MCG tablet Indications: Encounter for surveillance of contraceptive pills Take 1 tablet by mouth in the morning. 28 tablet 11 05/02/2023 05/12/2023 Discontinued (Therapy completed) Problems Active Problems Problem Classification Problem Date Documented Da te Episodic/Chronic Genitourinary symptoms and ill-defined conditions (2 sources) Dysuria; Translations: [Dysuria] 05-12-2023 Episodic Other aftercare (2 sources) Surgical follow-up; Translations: [Encounter for follow-up examination after completed treatment for conditions other than malignant neoplasm] 05-12-2023 Episodic Unclassified (3 sources) CONTACT W/AND (SUSP) EXPOS COVID-19; Translations: [CONTACT W/AND (SUSP) EXPOS COVID-19] Onset: 11-06-2021 Viral infection (1 source) COVID-19; Translations: [COVID-19] Onset: 08-02-2022 Past or Other Problems Problem Classification Problem [...] Test Name Value Interpretation Reference Range Facility Urinalysis macro (dipstick) panel (U)on 05-12-2023 Bilirubin, UA Negative Negative - 4(70) +++ mg/dL [facility] Blood, UA Positive Negative - 50 Cj/mcL [facility] Clarity, UA Clear [facility] Color, UA Yellow [facility] Glucose, UA Negative Negative - 1999(110) ++++ mg/dL [facility] Interpretation and review of laboratory results Abnormal [facility] Ketones, UA Negative Negative - 160(16) ++++ mg/dL [facility] Leukocytes, UA Positive Negative - 500+++ Kateryna/mcL [facility] Nitrite, UA Negative Negative - Positive [facility] pH, UA 6.0 5 - 9 [facility] Protein, UA Negative Negative - 2000(20) ++++ mg/dL [facility] Spec Grav, UA 1.015 1 - 1.03 [facility] Urobilinogen, UA 0.2 0.2 - 12 mg/dL [facility] 05-06-2023 L Specimen: [id number] Received: 05/09/23 Status: STEVE Link Num: [id number] Spec Type: Surgical Subm Dr: Adrienne Fernandez Tissues: A Fallopian Tube - Sterilization (SOTERO FT) Procedures: HE/3, Gross/Micro L2 Age/ Patient Sex Location Account Attending Physician Basil Carranza 37/F LABELL [id number] Adrienne Fernandez SPEC NUM: [id number] RECD: 05/09/23 STATUS: STEVE LINK NUM: [id number] SANTINO: 05/06/[address]: Adrienne Fernandez ENTERED: 05/09/23 [facility] DR: Christopher,Lab SPEC TYPE: Surgical DEPT: DESIRAE JAY ORDERED: HE/3, Gross/Micro L2 ORDERED: HE/3, Gross/Micro L2 Pathological Diagnosis Bilateral fallopian tubes, resection: No pathologic abnormality. Clinical Information Request for sterilization, menorrhagia, abnormal uterine bleeding, pelvic pain Gross Description Received in formalin labeled with the patient's name, date of and bilateral fallopian tubes are two purple-fairchild fimbriated fallopian tubes measuring 5.2 x 0.6 x 0.5 cm (inked black) and 5.6 x 0.7 x 0.5 cm. The uninked fallopian tube has an attached previously collapsed cyst measuring up to 1.5 cm. Each tube has a pinpoint lumen on cut section. Additionally received within the same container is a 1.5 x 1.2 x 0.7 cm fairchild-rivera, rubbery tissue with a rubbery, rivera-white cut surface. Data Recovery Planner sections are submitted in 3 cassettes as follows: A1-A2 - Data Recovery Planner fallopian tubes A3 - Detached tissue in its entirety Microscopic Description Three H E slides reviewed. The microscopic examination confirms the diagnosis. -------- Specimen: [id number] Received: 05/09/23 Status: ASADenice Link Num: [id number] Spec Type: Surgical Subm Dr: Adrienne Fernandez Tissues: A Fallopian Tube - Sterilization (SOTERO FT) Procedures: HE/3, Gross/Micro L2 -------- Patient: TereBasil [id number] (Continued) -------- Specimen: [id number] Received: 05/09/23 (Continued) Signed (signature on file) Patrick Post MD 05/10/23 2317 -------- Specimen: [id number] Received: 05/09/23 Status: STEVE Link Num: [id number] Spec Type: Surgical Subm Dr: Adrienne Fernandez Tissues: A Fallopian Tube - Sterilization (SOTERO FT) Procedures: OBDULIA/Shelli Montalvo/Jt L2 -------- Patient: Basil Carranza [id number] (Continued) -------- Specimen: [id number] Received: 05/09/23 (Continued) CPT Codes 98805 -------- -------- Specimen: [id number] Received: 05/09/23 Status: STEVE Link Num: [id number] Spec Type: Surgical Subm Dr: Adrienne Fernandez Tissues: A Fallopian Tube - Sterilization (SOTREO FT) Procedures: HE/Shelli Montalvo/Jt L2 -------- Patient: RushBasil hu [id number] (Continued) -------- Signed (signature on file) Patrick Post MD 05/10/23 2317 Normal [facility] Reportson 08-11-2022 Lab Reports [id number] .[id number]:[address] [facility] Lab Reports [id number]:[address] [facility] CBC AUTO DIFFon 08-06-2022 BASO # 0.0 103/ul Normal 0.0-0.1 [facility] Comment on above: Performed By: #### C BC #### [facility] [address] [place] [address] Dr. Mikhail Cooney Basophils/100 WBC (Bld) 0.4 % Normal 0.2-2.0 [facility] Comment on above: Performed By: #### C BC #### [facility] [address] [place] [address] Dr. Mikhail Cooney EO # 0.1 103/ul Normal 0.0-0.7 [facility] Comment on above: Performed By: #### C BC #### [facility] [address] [place] [address] Dr. Mikhail Cooney Eosinophils/100 WBC (Bld) 1.0 % Normal 0.9-7.0 [facility] Comment on above: Performed By: #### C BC #### [facility] [address] [place] [address] Dr. Mikhail Cooney Erythrocyte distribution width (RBC) [Ratio] 11.9 % Normal 11.0-15.0 [facility] Comment on above: Performed By: #### C BC #### [facility] [address] [place] [address] Dr. Mikhail Cooney Hematocrit (Bld) [Volume fraction] 43.0 % Normal 36.0-48.0 [facility] Comment on above: Performed By: #### C BC #### [facility] [address] [place] [address] Dr. Mikhail Cooney Hemoglobin (Bld) [Mass/Vol] 14.7 g/dL Normal 12.0-16.0 [facility] Comment on above: Performed By: #### C BC #### [facility] [address] [place] [address] Dr. Mikhail Cooney IG # 0.03 10e3/ul Normal 0.00-0.03 [facility] Comment on above: Performed By: #### C BC #### [facility] [address] [place] [address] Dr. Mikhail Cooney IG % 0.3 % Normal 0.0-0.5 [facility] Comment on above: Performed By: #### C BC #### [facility] [address] [place] [address] Dr. Mikhail Cooney LYMPH # 2.4 103/ul Normal 1.2-3.8 [facility] Comment on above: Performed By: #### C BC #### [facility] [address] [place] [address] Dr. Mikhail Cooney Lymphocytes/100 WBC (Bld) 24.4 % Normal 20.5-60.0 [facility] Comment on above: Performed By: #### C BC #### [facility] [address] [place] [address] Dr. Mikhail Cooney MANUAL DIFF REQ NO Normal [facility] Comment on above: Performed By: #### C BC #### [facility] [address] [place] [address] Dr. Mikhail Cooney MCH (RBC) [Entitic mass] 29.9 pg Normal 26.7-34.0 [facility] Comment on above: Performed By: #### C BC #### [facility] [address] [place] [address] Dr. Mikhail Cooney MCHC (RBC) [Mass/Vol] 34.2 g/dL Normal 29.9-35.2 [facility] Comment on above: Performed By: #### C BC #### [facility] [address] [address] [address] Mikhail Cooney MCV (RBC) [Entitic vol] 87.4 fL Normal 81.0-99.0 [facility] Comment on above: Performed By: #### C BC #### [facility] [address] [address] [address] Mikhail Cooney MONO # 0.6 103/ul Normal 0.3-0.8 [facility] Comment on above: Performed By: #### C BC #### [facility] [address] [address] [address] Mikhail Cooney Monocytes/100 WBC (Bld) 6.1 % Normal 1.7-12.0 [facility] Comment on above: Performed By: #### C BC #### [facility] [address] [address] [address] Mikhail Cooney NEUT # 6.7 103/ul Critically high 1.4-6.5 [facility] Comment on above: Performed By: #### C BC #### [facility] [address] [address] [address] Mikhail Cooney Neutrophils/100 WBC (Bld) 67.8 % Normal 43.0-75.0 [facility] Comment on above: Performed By: #### C BC #### [facility] [address] [address] [address] Mikhail Cooney Platelet mean volume (Bld) [Entitic vol] 11.2 fL Normal 9.5-13.5 [facility] Comment on above: Performed By: #### C BC #### [facility] [address] [address] [address] Mikhail Cooney PLT 288 103/ul Normal 150-450 [facility] Comment on above: Performed By: #### C BC #### [facility] [address] [address] [address] Mikhail Cooney RBC 4.92 106/ul Normal 4.20-5.40 [facility] Comment on above: Performed By: #### C BC #### [facility] [address] [address] [address] Mikhail Cooney WBC 9.8 103/ul Normal 4.0-11.0 [facility] Comment on above: Performed By: #### C BC #### [facility] [address] [address] [address] Mikhail Cooney LIPID PROFILEon 08-06-2022 CHOL-HDL RATIO NORM SEE BELOW Normal [facility] Comment on above: Result Comment: 3.3 - 4.4 LOW RISK 4.4 - 7.1 AVERAGE RISK 7.1 - 11.0 MODERATE RISK >11.0 HIGH RISK Performed By: #### L IPID, CMP, TSH, T4 #### [facility] [address] [place] [address] Dr. Mikhail Cooney Cholesterol [Mass/Vol] 212 mg/dL Critically high <=200 [facility] Comment on above: Performed By: #### L IPID, CMP, TSH, T4 #### [facility] [address] [address] [address] Mikhail Cooney Cholesterol in HDL [Mass/Vol] 44 mg/dL Normal 40-60 [facility] Comment on above: Performed By: #### L IPID, CMP, TSH, T4 #### [facility] [address] [place] [address] Dr. Mikhail Cooney Cholesterol in LDL [Mass/Vol] 144.8 mg/dL Normal [facility] Comment on above: Performed By: #### L IPID, CMP, TSH, T4 #### [facility] [address] [address] [address] Mikhail Cooney Cholesterol.total/C holesterol in HDL [Mass ratio] 4.8 {ratio} Normal [facility] Comment on above: Performed By: #### L IPID, CMP, TSH, T4 #### [facility] [address] [place] [address] Dr. Mikhail Cooney HDL NORMAL > or = 60 mg/dl - LO W CARDIOVASCULAR RISK <40 mg/dl - HIGH CARDIOVASCULAR RISK Normal [facility] Comment on above: Performed By: #### L IPID, CMP, TSH, T4 #### [facility] [address] [address] [address] Mikhail Cooney LDL CALC NORMAL SEE BELOW Normal [facility] Comment on above: Result Comment: <100 mg/dl OPTIMAL 100 - 129 mg/dl NEAR OR ABOVE OPTIMAL 130 - 159 mg/dl BORDERLINE HIGH 160 - 189 mg/dl HIGH >190 mg/dl VERY HIGH Performed By: #### L IPID, CMP, TSH, T4 #### [facility] [address] [address] [address] Mikhail Cooney Triglyceride [Mass/Vol] 116 mg/dL Normal <=150 [facility] Comment on above: Performed By: #### L IPID, CMP, TSH, T4 #### [facility] [address] [address] [address] Mikhail Cooney VLDL CALC 23.2 mg/dL Normal [facility] Comment on above: Performed By: #### L IPID, CMP, TSH, T4 #### [facility] [address] [address] [address] Mikhail Cooney PROF 14(COMP METB)on 023 Albumin [Mass/Vol] 3.3 g/dL Critically low 3.4-5.0 [facility] Comment on above: Performed By: #### L IPID, CMP, TSH, T4 #### [facility] [address] [address] [address] Mikhail Cooney Albumin/Globulin [Mass ratio] 0.7 {ratio} Normal [facility] Comment on above: Performed By: #### L IPID, CMP, TSH, T4 #### [facility] [address] [address] [address] Mikhail Cooney ALP [Catalytic activity/Vol] 82 U/L Normal 46-116 [facility] Comment on above: Performed By: #### L IPID, CMP, TSH, T4 #### [facility] [address] [address] [address] Mikhail Cooney ALT [Catalytic activity/Vol] 32 U/L Normal 14-59 [facility] Comment on above: Performed By: #### L IPID, CMP, TSH, T4 #### [facility] [address] [address] [address] Mikhail Cooney Anion gap [Moles/Vol] 9.1 mmol/L Normal [facility] Comment on above: Performed By: #### L IPID, CMP, TSH, T4 #### [facility] [address] [place] [address] Dr. Mikhail Cooney AST [Catalytic activity/Vol] 19 U/L Normal 15-37 [facility] Comment on above: Performed By: #### L IPID, CMP, TSH, T4 #### [facility] [address] [place] [address] Dr. Mikhail Cooney Bilirubin [Mass/Vol] 0.5 mg/dL Normal 0.2-1.0 [facility] Comment on above: Performed By: #### L IPID, CMP, TSH, T4 #### [facility] [address] [place] [address] Dr. Mikhail Cooney Calcium [Mass/Vol] 9.1 mg/dL Normal 8.5-10.1 [facility] Comment on above: Performed By: #### L IPID, CMP, TSH, T4 #### [facility] [address] [place] [address] Dr. Mikhail Cooney Chloride [Moles/Vol] 104 mmol/L Normal 98-107 [facility] Comment on above: Performed By: #### L IPID, CMP, TSH, T4 #### [facility] [address] [place] [address] Dr. Mikhail Cooney CO2 [Moles/Vol] 27.6 mmol/L Normal 21.0-32.0 [facility] Comment on above: Performed By: #### L IPID, CMP, TSH, T4 #### [facility] [address] [place] [address] Dr. Mikhail Cooney Creatinine [Mass/Vol] 1.01 mg/dL Normal 0.55-1.02 [facility] Comment on above: Performed By: #### L IPID, CMP, TSH, T4 #### [facility] [address] [place] [address] Dr. Mikhail Cooney EGFR-AF CITIZEN [place] >60 Normal >=60 [facility] Comment on above: Performed By: #### L IPID, CMP, TSH, T4 #### [facility] [address] [address] [address] Mikhail Cooney EGFR-NON AF CITIZEN OF [place] >60 Normal >=60 [facility] Comment on above: Performed By: #### L IPID, CMP, TSH, T4 #### [facility] [address] [address] [address] Mikhail Cooney Globulin (S) [Mass/Vol] 4.5 g/dL Normal [facility] Comment on above: Performed By: #### L IPID, CMP, TSH, T4 #### [facility] [address] [address] [address] Mikhail Cooney Glucose [Mass/Vol] 93 mg/dL Normal 74-106 [facility] Comment on above: Performed By: #### L IPID, CMP, TSH, T4 #### [facility] [address] [place] [address] Dr. Mikhail Cooney Potassium [Moles/Vol] 3.7 mmol/L Normal 3.5-5.1 [facility] Comment on above: Performed By: #### L IPID, CMP, TSH, T4 #### [facility] [address] [address] [address] Mikhail Cooney Protein [Mass/Vol] 7.8 g/dL Normal 6.4-8.2 [facility] Comment on above: Performed By: #### L IPID, CMP, TSH, T4 #### [facility] [address] [address] [address] Mikhail Cooney Sodium [Moles/Vol] 137 mmol/L Normal 136-145 [facility] Comment on above: Performed By: #### L IPID, CMP, TSH, T4 #### [facility] [address] [address] [address] Mikhail Cooney Urea nitrogen [Mass/Vol] 13.0 mg/dL Normal 7.0-18.0 [facility] Comment on above: Performed By: #### L IPID, CMP, TSH, T4 #### [facility] [address] [place] [address] Dr. Mikhail Cooney Urea nitrogen/Creatinine [Mass ratio] 12.9 mg/mg Normal [facility] Comment on above: Performed By: #### L IPID, CMP, TSH, T4 #### [facility] [address] [place] [address] Dr. Mikhail Cooney T4on 08-06-2022 T4 [Mass/Vol] 13.20 ug/dL Normal 4.80-13.90 [facility] Comment on above: Performed By: #### L IPID, CMP, TSH, T4 #### [facility] [address] [place] [address] Dr. Mikhail Cooney TSHon 08-06-2022 TSH 2.723 uIU/mL Normal 0.358-3.740 [facility] Comment on above: Performed By: #### L IPID, CMP, TSH, T4 #### [facility] [address] [place] [address] Dr. Mikhail Cooney Physician Referralon 023 Physician Referral [id number]:[address] [facility] CBC AUTO DIFFon 04-21-2022 BASO # 0.0 103/ul Normal 0.0-0.1 [facility] Comment on above: Performed By: #### C BC #### [facility] [address] [place] [address] Dr. Mikhail Cooney Basophils/100 WBC (Bld) 0.4 % Normal 0.2-2.0 [facility] Comment on above: Performed By: #### C BC #### [facility] [address] [place] [address] Dr. Mikhail Cooney EO # 0.1 103/ul Normal 0.0-0.7 [facility] Comment on above: Performed By: #### C BC #### [facility] [address] [place] [address] Dr. Mikhail Cooney Eosinophils/100 WBC (Bld) 1.3 % Normal 0.9-7.0 [facility] Comment on above: Performed By: #### C BC #### [facility] [address] [place] [address] Dr. Mikhail Cooney Erythrocyte distribution width (RBC) [Ratio] 11.9 % Normal 11.0-15.0 [facility] Comment on above: Performed By: #### C BC #### [facility] [address] [place] [address] Dr. Mikhail Cooney Hematocrit (Bld) [Volume fraction] 44.1 % Normal 36.0-48.0 [facility] Comment on above: Performed By: #### C BC #### [facility] [address] [place] [address] Dr. Mikhail Cooney Hemoglobin (Bld) [Mass/Vol] 14.9 g/dL Normal 12.0-16.0 [facility] Comment on above: Performed By: #### C BC #### [facility] [address] [place] [address] Dr. Mikhail Cooney IG # 0.02 10e3/ul Normal 0.00-0.03 [facility] Comment on above: Performed By: #### C BC #### [facility] [address] [place] [address] Dr. Mikhail Cooney IG % 0.3 % Normal 0.0-0.5 [facility] Comment on above: Performed By: #### C BC #### [facility] [address] [place] [address] Dr. Mikhail Cooney LYMPH # 2.4 103/ul Normal 1.2-3.8 [facility] Comment on above: Performed By: #### C BC #### [facility] [address] [place] [address] Dr. Mikhail Cooney Lymphocytes/100 WBC (Bld) 30.1 % Normal 20.5-60.0 [facility] Comment on above: Performed By: #### C BC #### [facility] [address] [place] [address] Dr. Mikhail Cooney MANUAL DIFF REQ NO Normal [facility] Comment on above: Performed By: #### C BC #### [facility] [address] [address] [address] Mikhail Cooney MCH (RBC) [Entitic mass] 29.6 pg Normal 26.7-34.0 [facility] Comment on above: Performed By: #### C BC #### [facility] [address] [address] [address] Mikhail Cooney MCHC (RBC) [Mass/Vol] 33.8 g/dL Normal 29.9-35.2 [facility] Comment on above: Performed By: #### C BC #### [facility] [address] [place] [address] Dr. Mikhail Cooney MCV (RBC) [Entitic vol] 87.5 fL Normal 81.0-99.0 [facility] Comment on above: Performed By: #### C BC #### [facility] [address] [place] [address] Dr. Mikhail Cooney MONO # 0.5 103/ul Normal 0.3-0.8 [facility] Comment on above: Performed By: #### C BC #### [facility] [address] [place] [address] Dr. Mikhail Cooney Monocytes/100 WBC (Bld) 6.9 % Normal 1.7-12.0 [facility] Comment on above: Performed By: #### C BC #### [facility] [address] [place] [address] Dr. Mikhail Cooney NEUT # 4.8 103/ul Normal 1.4-6.5 [facility] [place] [facility] Comment on above: Performed By: #### C BC #### [facility] [place] [facility] [address] [place] [address] Dr. Mikhail Cooney Neutrophils/100 WBC (Bld) 61.0 % Normal 43.0-75.0 [facility] [place] [facility] Comment on above: Performed By: #### C BC #### [facility] [place] [facility] [address] [place] [address] Dr. Mikhail Cooney Platelet mean volume (Bld) [Entitic vol] 11.7 fL Normal 9.5-13.5 [facility] Comment on above: Performed By: #### C BC #### [facility] [place] [facility] [address] [place] [address] Dr. Mikhail Cooney PLT 235 103/ul Normal 150-450 [facility] [place] [facility] Comment on above: Performed By: #### C BC #### [facility] [place] [facility] [address] [place] [address] Dr. Mikhail Cooney RBC 5.04 106/ul Normal 4.20-5.40 [facility] Comment on above: Performed By: #### C BC #### [facility] [place] [facility] [address] [place] [address] Dr. Mikhail Cooney WBC 7.8 103/ul Normal 4.0-11.0 [facility] Comment on above: Performed By: #### C BC #### [facility] [place] [facility] [address] [place] [address] Dr. Mikhail Cooney LIPASEon 04-21-2022 Lipase [Catalytic activity/Vol] 126.0 U/L Normal 73.0-393.0 [facility] Comment on above: Performed By: #### L IPA, CMP #### [facility] [place] [facility] [address] [place] [address] Dr. Mikhail Cooney PROF 14(COMP METB)on 023 Albumin [Mass/Vol] 3.2 g/dL Critically low 3.4-5.0 [facility] Comment on above: Performed By: #### L IPA, CMP #### [facility] [place] [facility] [address] [place] [address] Dr. Mikhail Cooney Albumin/Globulin [Mass ratio] 0.8 {ratio} Normal [facility] Comment on above: Performed By: #### L IPA, CMP #### [facility] [place] [facility] [address] [place] [address] Dr. Mikhail Cooney ALP [Catalytic activity/Vol] 87 U/L Normal 46-116 [facility] [place] [facility] Comment on above: Performed By: #### L IPA, CMP #### [facility] [place] [facility] [address] [place] [address] Dr. Mikhail Cooney ALT [Catalytic activity/Vol] 31 U/L Normal 14-59 [facility] Comment on above: Performed By: #### L IPA, CMP #### [facility] [place] [facility] [address] [address] [address] Mikhail Cooney Anion gap [Moles/Vol] 10.4 mmol/L Normal [facility] Comment on above: Performed By: #### L IPA, CMP #### [facility] [place] [facility] [address] [address] [address] Mikhail Cooney AST [Catalytic activity/Vol] 28 U/L Normal 15-37 [facility] Comment on above: Performed By: #### L IPA, CMP #### [facility] [place] [facility] [address] [address] [address] Mikhail Cooney Bilirubin [Mass/Vol] 0.4 mg/dL Normal 0.2-1.0 [facility] Comment on above: Performed By: #### L IPA, CMP #### [facility] [place] [facility] [address] [address] [address] Mikhail Cooney Calcium [Mass/Vol] 8.9 mg/dL Normal 8.5-10.1 [facility] Comment on above: Performed By: #### L IPA, CMP #### [facility] [place] [facility] [address] [address] [address] Mikhail Cooney Chloride [Moles/Vol] 104 mmol/L Normal 98-107 [facility] Comment on above: Performed By: #### L IPA, CMP #### [facility] [place] [facility] [address] [address] [address] Mikhail Cooney CO2 [Moles/Vol] 29.0 mmol/L Normal 21.0-32.0 [facility] Comment on above: Performed By: #### L IPA, CMP #### [facility] [place] [facility] [address] [address] [address] Mikhail Cooney Creatinine [Mass/Vol] 0.81 mg/dL Normal 0.55-1.02 [facility] Comment on above: Performed By: #### L IPA, CMP #### [facility] [place] [facility] [address] [address] [address] Mikhail Cooney EGFR-AF CITIZEN OF [place] >60 Normal >=60 [facility] Comment on above: Performed By: #### L IPA, CMP #### [facility] [place] [facility] [address] [address] [address] Mikhail Cooney EGFR-NON AF CITIZEN OF [place] >60 Normal >=60 [facility] Comment on above: Performed By: #### L IPA, CMP #### [facility] [place] [facility] [address] [address] [address] Mikhail Cooney Globulin (S) [Mass/Vol] 4.0 g/dL Normal [facility] Comment on above: Performed By: #### L IPA, CMP #### [facility] [place] [facility] [address] [address] [address] Mikhail Cooney Glucose [Mass/Vol] 100 mg/dL Normal 74-106 [facility] Comment on above: Performed By: #### L IPA, CMP #### [facility] [place] [facility] [address] [address] [address] Mikhail Cooney Potassium [Moles/Vol] 4.4 mmol/L Normal 3.5-5.1 [facility] Comment on above: Performed By: #### L IPA, CMP #### [facility] [place] [facility] [address] [address] [address] Mikhail Cooney Protein [Mass/Vol] 7.2 g/dL Normal 6.4-8.2 [facility] Comment on above: Performed By: #### L IPA, CMP #### [facility] [place] [facility] [address] [address] [address] Mikhail Cooney Sodium [Moles/Vol] 139 mmol/L Normal 136-145 [facility] Comment on above: Performed By: #### L IPA, CMP #### [facility] [place] [facility] [address] [address] [address] Mikhail Cooney Urea nitrogen [Mass/Vol] 9.0 mg/dL Normal 7.0-18.0 [facility] Comment on above: Performed By: #### L IPA, CMP #### [facility] [place] [facility] [address] [address] [address] Mikhail Cooney Urea nitrogen/Creatinine [Mass ratio] 11.1 mg/mg Normal [facility] Comment on above: Performed By: #### L IPA, CMP #### [facility] [place] [facility] [address] [address] [address] Mikhail Cooney PAP ACOG PANEL 2: 30 to 65on 03-09-2022 . . Normal [facility] Comment on above: Result Comment: Perf ormed at: WB Performed By: #### C VDTBH #### [facility] [place] [facility] [address] [place] [address] Dr. Mikhail Cooney Age Gdln ACOG Testing 30-65 [facility] Comment on above: Performed By: #### C VDTBH #### [facility] [place] [facility] [address] [address] [address] Mikhail Cooney DIAGNOSIS: Comment Normal [facility] Comment on above: Result Comment: NEGA TIVE FOR INTRAEPITHELIAL LESION OR MALIGNANCY. Performed at: WB Performed By: #### C VDTBH #### [facility] [place] [facility] [address] [place] [address] Dr. Mikhail Cooney HPV Aptima Negative Normal [facility] Comment on above: Result Comment: This nucleic acid amplification test detects fourteen high-risk HPV types (16,18,31,33,35,39,45,51,52,56,58,59,66,68) without differentiation. Performed at: =G Performed By: #### C VDTBH #### [facility] [place] [facility] [address] [place] [address] Dr. Mikhail Cooney HPV Genotype Reflex Comment Normal [facility] Comment on above: Result Comment: Crit eria not met, HPV Genotype not performed. Performed at: WB Performed By: #### C VDTBH #### [facility] [place] [facility] [address] [place] [address] Dr. Mikhail Cooney Methodology: Comment Normal [facility] Comment on above: Result Comment: This liquid based ThinPrep(R) pap test was screened with the use of an image guided system. Performed at: WB Performed By: #### C VDTBH #### [facility] [place] [facility] [address] [place] [address] Dr. Mikhail Cooney Note: Comment Normal [facility] Comment on above: Result Comment: The [...] WB Performed By: #### C VDTBH #### [facility] [place] [facility] [address] [place] [address] Dr. Mikhail Cooney Performed by: Comment Normal [facility] Comment on above: Result Comment: Evangelista Contreras, [employer] (ASCP) Performed at: WB Performed By: #### C VDTBH #### [facility] [place] [facility] [address] [place] [address] Dr. Mikhail Cooney Specimen adequacy: Comment Normal [facility] Comment on above: Result Comment: Sati sfactory for evaluation. Endocervical and/or squamous metaplastic cells (endocervical component) are present. Performed at: WB Performed By: #### C VDTBH #### [facility] [place] [facility] [address] [place] [address] Dr. Mikhail Cooney ASYMPTOMATIC COVID-19 ANTIGE Non 11-03-2021 EUA Statement SEE BELOW [facility] Comment on above: Result Comment: This test [...] sooner. Performed By: #### C VDAGA #### [facility] [place] [facility] [address] [place] [address] Dr. Mikhail Cooney SARS-CoV-2 (COVID-19) RNA JORGE+probe Ql (Unsp spec) Negative Normal NEGATIVE [facility] [place] [facility] Comment on above: Result Comment: Nega tive results are presumptive. They do not preclude infection and should not be used as the sole basis for treatment decisions. Additional confirmatory testing by a molecular method should be considered. Performed By: #### C VDAGA #### [facility] [place] [facility] [address] [place], [place] [address] Dr. Mikhail Cooney Covid-19 PCR ([facility])on 10-03 SARS-CoV-2 (COVID-19) RNA JORGE+probe Ql (Unsp spec) Detected Critically abnormal NOT DETECTED [facility] [place] [facility] Comment on above: Result Comment: This test is not yet approved or cleared by the [place] FDA. When there are no FDA-approved or cleared tests available, and other criteria are met, FDA can make tests available under an emergency access mechanism called an Emergency Use Authorization (EUA). The EUA for this test is supported by the [employer] of Health and Human Service's declaration that [...] longer be used). Performed By: #### C VDTB #### [facility] [place] [facility] [address] [place], [place] [address] Dr. Mikhail Cooney Vital Signs Date Time Vital Sign Value Performing Clinician Lawson orellana 05-12-2023 13:42-0500 Body mass index (BMI) [Ratio] 40.51 kg/m2 Michelle SARMIENTO Work Phone: [facility] 05-12-2023 13:42-0500 Body weight 113.85 kg Michelle SARMIENTO Work Phone: [facility] 05-12-2023 13:42-0500 Diastolic blood pressure 84 mm[Hg] Michelle SARMIENTO Work Phone: [facility] 05-12-2023 13:42-0500 Systolic blood pressure 126 mm[Hg] Michelle SARMIENTO Work Phone: [facility] Encounters Encounter Date Encounter Type Care Provider Facility Start: 05-12-2023 End: 05-12-2023 ambulatory MICHELLE KEITH Not Available Start: 05-12-2023 End: 05-12-2023 Postop follow up visit related to original px Michelle SRAMIENTO Work Phone: [facility] Comment on above: Postoperative examin ation; Dysuria Start: 05-06-2023 End: 05-06-2023 ambulatory Adrienne Jim Facility:[facility] Start: 05-06-2023 End: 05-06-2023 ambulatory Adrienne Jim Work Phone: [facility] Work Phone: Start: 05-06-2023 End: 05-06-2023 Departed Referred Adrienne Jim Work Phone: [facility] Start: 04-12-2023 End: 04-12-2023 ambulatory ADRIENNE FERNANDEZ Not Available Start: 03-07-2023 End: 03-07-2023 ambulatory ADRIENNE FERNANDEZ Not Available Start: 08-06-2022 ambulatory Moisés LITTLEJOHN Facility:[facility] Start: 08-06-2022 End: 08-07-[address] RYAN WOLF . Facility: Start: 05-05-2022 ambulatory Moisés LITTLEJOHN Facility :[facility] Start: 04-22-2022 ambulatory Moisés LITTLEJOHN Facility:[facility] Start: 04-21-2022 End: 04-22-2022 ambulatory NONE LISTED REQUEST Facility: Start: 03-02-2022 End: 03-02-[address] ADRIENNE FERNANDEZ . Facility:[facility] Start: 11-03-2021 End: 11-03-2021 ambulatory MARGOTH LOMBARDO Facility:[facility] Start: 10-29-2021 End: 10-29-2021 ambulatory NONE LISTED REQUEST Facility: Start: 08-11-2021 End: 08-12-2021 ambulatory NONE LISTED REQUEST Facility: Procedures Date Procedure Procedure Detail Performing Clinician Start: 05-12-2023 Urnls dip stick/tabl et rgnt non-auto w/o micrscp Michelle SARMIENTO Work Phone: Start: 03-02-2022 Microscopic observat ion [Identifier] in Cervix by Cyto stain Michelle SARMIENTO Work Phone: Plan of Treatment Date Care Activity Detail Author Start: 03-02-2027 Screening for malign ant neoplasm of cervix [facility] Start: 12-03-2022 Influenza vaccination Influenza Vacc ine (#1) [facility] Bacteria identified in Urine by Culture Urine culture Microbiology Routine Dysuria Ordered: 05/12/2023 [facility] Work Phone: Comment on above: Ordered: 05/12/2023 Payers Date Payer Category Payer Unknown BCBS BCBS xxxxxx [id number] 2022-Present [phone] [address] [place] [address] [id number] 2019 Unknown [id number] 1986 Unknown [id number] 1986 Unknown [id number] 1986 Unknown [id number] 1986 Unknown [id number] 1986 Unknown [id number] 1986 Unknown [id number] 1986 Unknown [id number] 1986 Unknown [id number] 1959 Self-pay 1959 Unknown [id number] Unknown [id number] Unknown [id number] Social History Date Type Detail Facility Tobacco smoking status [facility] Unknown if ever smoked [facility] Work Phone: Start: 1985 Sex Assigned At Female F [facility] Tobacco smoking status [facility] Tobacco smoking consumption unknown [facility] Start: 1985 Sex Assigned At Not on file [facility] Gender [facility] of Present illness Narrative 05-12-2023 GUILLERMINA Lugo - 05/12/2023 1:40 PM EST Note Date & Type Note Facility 05-12-2023 History of Presen t illness Narrative Reason for Appointment: Patient ID: Basil Carranza is a 37 y.o. female who presents for Post-op Visit Patient presents today for 1 Week Post Op appointment. Current Medications: has a current medication list which includes the following prescription(s): cephalexin and methylprednisolone. Medical History: Active Ambulatory Problems Diagnosis Date Noted No Active Ambulatory Problems Resolved Ambulatory Problems Diagnosis Date Noted No Resolved Ambulatory Problems No Additional Past Medical History No family history on file. Social History Tobacco Use Smoking status: Not on file Smokeless tobacco: Not on file Substance Use Topics Alcohol use: Not on file Drug use: Not on file Past Surgical History: Procedure Laterality Date ENDOMETRIAL ABLATION 05/06/2023 HYSTEROSCOPY 05/06/2023 SALPINGECTOMY Bilateral 05/06/2023 No Known Allergies Review of Systems: Review of Systems Constitutional: Negative. HENT: Negative. Eyes: Negative. Respiratory: Negative. Cardiovascular: Negative. Gastrointestinal: Negative. Genitourinary: Negative. Musculoskeletal: Negative. Skin: Negative. Neurological: Negative. All other systems reviewed and are negative. Hematological: Negative. Endocrine: Negative. Allergic/Immunologic: Negative. Objective Physical Exam Constitutional: Appearance: Normal appearance. She is normal weight. HENT: Head: Normocephalic. Cardiovascular: Rate and Rhythm: Normal rate. Pulses: Normal pulses. Pulmonary: Effort: Pulmonary effort is normal. Breath sounds: Normal breath sounds. Abdominal: Palpations: Abdomen is soft. Comments: Small amount of serous fluid drainage from umbilical incision Mild diffuse uticaria to abdomen Musculoskeletal: General: Normal range of motion. Neurological: General: No focal deficit present. Mental Status: She is alert and oriented to person, place, and time. Psychiatric: Mood and Affect: Mood normal. Behavior: Behavior normal. Thought Content: Thought content normal. Judgment: Judgment normal. Vitals and nursing note reviewed. Vitals: Estimated body mass index is 40.51 kg/m as calculated from the following: Height as of 03/07/23: 5' 6 . Weight as of this encounter: 251 lb. BP: 126/84 Patient's last menstrual period was 03/30/2023. Assessment/Plan Encounter Diagnoses Name Primary? Postoperative examination Dysuria Pt presents for one week post bilateral salpingectomy with ablation. Pt having some urinary urgency and small amount of drainage from umbilical incision.Pt also states mild hives to abdomen where hibiclens was used. Small amount of diffuse uticaria noted. Otherwise, pt doing well. UA here appears normal, we will send for culture. Pt will be given script for keflex and medrol dose hernandez. Documented by GUILLERMINA Lugo on behalf of: GUILLERMINA Lugo documented in this encounter [facility] Evaluation note Note Date & Type Note Facility Evaluation note [facility]: Evaluation note Note Date & Type Note Facility Evaluation note Diagnosis Postoperative examination Follow-up examination, following unspecified surgery Dysuria documented in this encounter [facility] Summary Purpose Family History No Family History Records FoundNo Family History Records FoundNo Family History Records FoundNo Family History Records Found Advance Directives No Advanced Directives Records FoundNo Advanced Directives Records FoundNo Advanced Directives Records FoundNo Advanced Directives Records Found Additional Source Comments INFORMATION SOURCE (unrecogn ized section and content) DATE CREATED AUTHOR 08/06/2022 [facility] DATE CREATED AUTHOR AUTHOR'S ORGANIZ ATION 08/12/2022 [facility] DATE CREATED AUTHOR AUTHOR'S ORGANIZ ATION 05/11/2023 [facility] DATE CREATED AUTHOR AUTHOR'S ORGANIZ ATION 05/13/2023 [facility] [employer] Care Teams (unrecognized sec tion and content) Team Status: Inactive Member Role Status Dates Adrienne Fernandez Attending Provider Active Start: Thea kraft 2023 End: May 06, 2023 [employer]inter Relationship Specialty Start Date End Date Raffaele Thomas MD PCP - General 03/07/23 Goals (unrecognized section and content) Goals may be documented in a n alternate section Reason for Visit (unrecogniz ed section and content) Reason Comments Post-op Visit FOR RECORDS PERTAINING TO PATIENTS WHO ARE [...] BE BASED ON THE PRIMARY CLINICAL RECORDS. [facility]. provides no warranty or guarantee of the accuracy or completeness of information in this document.
== END 2023-04-12 10:01 | disposition home or self-care (01) ==
LOC: LAB 10:00
PROVIDERS: PCP Family Medicine; Visit Provider Obstetrics & Gynecology
DX: N92.0 Excessive and frequent menstruation with regular cycle (principal); R10.2 Pelvic and perineal pain
CPT/HCPCS: 88305

== ENCOUNTER 2023-04-27 10:03 | Outpatient (OUT) | payer BC, SELFPAY ==
--- OUTSIDE RECORDS SUMMARY | 2023-04-27 10:07 | XMS_ITS | CCD ---
Author Name Unknown Address [address] [place] [id number] Organization [facility] Care Team Providers Care Manager School Name Role Phone REQUEST, DR SHERRELL LISTED [...] Attending Unavailable MUNIRA, MARGOTH Consulting Unavailable REQUEST, NONE LISTED Primary Care Unavaila ble MUNIRA, MARGOTH Attending Unavailable MUNIRA, MARGOTH Consulting Unavailable MUNIRA, MARGOTH Admitting Unavailable NILMoisés Garcia Attending Unavailable DAMON, ADRIENNE Attending Unavailable DAMON, ADRIENNE Attending Unavailable Allergies Allergy Classification Reported Allergen(s) Allergy Type Date of Onset Reaction(s) Facility (1 source) predniSONE Drug Allergy 01-20-2016 [facility] Repository (1 source) rofecoxib; Translations: [Vioxx] Drug Allergy [facility] Repository Problems Active Problems Problem Classification [...] Range Facility Lab Reportson 08-11-2022 Lab Reports [id number]:127 Normal [facility] Lab Reports [id number]:127 Normal [facility] CBC AUTO DIFFon 08-06-2022 BASO # 0.0 103/ul Normal 0.0-0.1 [facility] Comment on above: Performed By: #### C BC #### [facility] [address] [place] [address] Dr. Mikhail Cooney Basophils/100 WBC (Bld) 0.4 % Normal 0.2-2.0 [facility] Comment on above: Performed By: #### C BC #### [facility] [address] [address] [address] Mikhail Cooney EO # 0.1 103/ul Normal 0.0-0.7 [facility] Comment on above: Performed By: #### C BC #### [facility] [address] [place] [address] Dr. Mikhail Cooney Eosinophils/100 WBC (Bld) 1.0 % Normal 0.9-7.0 [facility] Comment on above: Performed By: #### C BC #### [facility] [address] [place] [address] Dr. Mikhail Cooney Erythrocyte distribution width (RBC) [Ratio] 11.9 % Normal 11.0-15.0 [facility] Comment on above: Performed By: #### C BC #### [facility] [address] [place] [address] Dr. Mikhail Cooney Hematocrit (Bld) [Volume fraction] 43.0 % Normal 36.0-48.0 [facility] Comment on above: Performed By: #### C BC #### [facility] [address] [place] [address] Dr. Mikhail Cooney Hemoglobin (Bld) [Mass/Vol] 14.7 g/dL Normal 12.0-16.0 [facility] Comment on above: Performed By: #### C BC #### [facility] [address] [place] [address] Dr. Mikhail Cooney IG # 0.03 10e3/ul Normal 0.00-0.03 [facility] Comment on above: Performed By: #### C BC #### [facility] [address] [place] [address] Dr. Mikhail Cooney IG % 0.3 % Normal 0.0-0.5 [facility] Comment on above: Performed By: #### C BC #### [facility] [address] [place] [address] Dr. Mikhail Cooney LYMPH # 2.4 103/ul Normal 1.2-3.8 [facility] Comment on above: Performed By: #### C BC #### [facility] [address] [place] [address] Dr. Mikhail Cooney Lymphocytes/100 WBC (Bld) 24.4 % Normal 20.5-60.0 [facility] Comment on above: Performed By: #### C BC #### [facility] [address] [place] [address] Dr. Mikhail Cooney MANUAL DIFF REQ NO Normal [facility] Comment on above: Performed By: #### C BC #### [facility] [address] [address] [address] Mikhail Cooney MCH (RBC) [Entitic mass] 29.9 pg Normal 26.7-34.0 [facility] Comment on above: Performed By: #### C BC #### [facility] [address] [place] [address] Dr. Mikhail Cooney MCHC (RBC) [Mass/Vol] 34.2 g/dL Normal 29.9-35.2 [facility] Comment on above: Performed By: #### C BC #### [facility] [address] [place] [address] Dr. Mikhail Cooney MCV (RBC) [Entitic vol] 87.4 fL Normal 81.0-99.0 [facility] Comment on above: Performed By: #### C BC #### [facility] [address] [place] [address] Dr. Mikhail Cooney MONO # 0.6 103/ul Normal 0.3-0.8 [facility] Comment on above: Performed By: #### C BC #### [facility] [address] [place] [address] Dr. Mikhali Cooney Monocytes/100 WBC (Bld) 6.1 % Normal 1.7-12.0 [facility] Comment on above: Performed By: #### C BC #### [facility] [address] [place] [address] Dr. Mikhail Cooney NEUT # 6.7 103/ul Critically high 1.4-6.5 [facility] Comment on above: Performed By: #### C BC #### [facility] [address] [place] [address] Dr. Mikhail Cooney Neutrophils/100 WBC (Bld) 67.8 % Normal 43.0-75.0 [facility] Comment on above: Performed By: #### C BC #### [facility] [address] [place] [address] Dr. Mikhail Cooney Platelet mean volume (Bld) [Entitic vol] 11.2 fL Normal 9.5-13.5 [facility] Comment on above: Performed By: #### C BC #### [facility] [address] [address] [address] Mikhail Cooney PLT 288 103/ul Normal 150-450 [facility] Comment on above: Performed By: #### C BC #### [facility] [address] [address] [address] Mikhail Cooney RBC 4.92 106/ul Normal 4.20-5.40 [facility] Comment on above: Performed By: #### C BC #### [facility] [address] [place] [address] Dr. Mikhail Cooney WBC 9.8 103/ul Normal 4.0-11.0 [facility] Comment on above: Performed By: #### C BC #### [facility] [address] [place] [address] Dr. Mikhail Cooney LIPID PROFILEon 08-06-2022 CHOL-HDL RATIO NORM SEE BELOW Normal [facility] Comment on above: Result Comment: 3.3 - 4.4 LOW RISK 4.4 - 7.1 AVERAGE RISK 7.1 - 11.0 MODERATE RISK >11.0 HIGH RISK Performed By: #### L IPID, CMP, TSH, T4 #### [facility] [address] [place] [address] Dr. Mikhail Cooney Cholesterol [Mass/Vol] 212 mg/dL Critically high <=200 [facility] Comment on above: Performed By: #### L IPID, CMP, TSH, T4 #### [facility] [address] [place] [address] Dr. Mikhail Cooney Cholesterol in HDL [Mass/Vol] 44 mg/dL Normal 40-60 [facility] Comment on above: Performed By: #### L IPID, CMP, TSH, T4 #### [facility] [address] [place] [address] Dr. Mikhail Cooney Cholesterol in LDL [Mass/Vol] 144.8 mg/dL Normal [facility] Comment on above: Performed By: #### L IPID, CMP, TSH, T4 #### [facility] [address] [place] [address] Dr. Mikhail Cooney Cholesterol.total/ Cholesterol in HDL [Mass ratio] 4.8 {ratio} Normal [facility] Comment on above: Performed By: #### L IPID, CMP, TSH, T4 #### [facility] [address] [address] [address] Mikhail Cooney HDL NORMAL > or = 60 mg/dl - LO W CARDIOVASCULAR RISK <40 mg/dl - HIGH CARDIOVASCULAR RISK Normal [facility] Comment on above: Performed By: #### L IPID, CMP, TSH, T4 #### [facility] [address] [address] [address] Mikhail Cooney LDL CALC NORMAL SEE BELOW Normal [facility] Comment on above: Result Comment: <100 mg/dl OPTIMAL 100 - 129 mg/dl NEAR OR ABOVE OPTIMAL 130 - 159 mg/dl BORDERLINE HIGH 160 - 189 mg/dl HIGH >190 mg/dl VERY HIGH Performed By: #### L IPID, CMP, TSH, T4 #### [facility] [address] [address] [address] Mikhail Cooney Triglyceride [Mass/Vol] 116 mg/dL Normal <=150 [facility] Comment on above: Performed By: #### L IPID, CMP, TSH, T4 #### [facility] [address] [address] [address] Mikhail Cooney VLDL CALC 23.2 mg/dL Normal [facility] Comment on above: Performed By: #### L IPID, CMP, TSH, T4 #### [facility] [address] [address] [address] Mikhail Cooney PROF 14(COMP METB)on 023 Albumin [Mass/Vol] 3.3 g/dL Critically low 3.4-5.0 [facility] Comment on above: Performed By: #### L IPID, CMP, TSH, T4 #### [facility] [address] [address] [address] Mikhail Cooney Albumin/Globulin [Mass ratio] 0.7 {ratio} Normal [facility] Comment on above: Performed By: #### L IPID, CMP, TSH, T4 #### [facility] [address] [address] [address] Mikhail Cooney ALP [Catalytic activity/Vol] 82 U/L Normal 46-116 [facility] Comment on above: Performed By: #### L IPID, CMP, TSH, T4 #### [facility] [address] [place] [address] Dr. Mikhail Cooney ALT [Catalytic activity/Vol] 32 U/L Normal 14-59 [facility] Comment on above: Performed By: #### L IPID, CMP, TSH, T4 #### [facility] [address] [place] [address] Dr. Mikhail Cooney Anion gap [Moles/Vol] 9.1 mmol/L Normal [facility] Comment on above: Performed By: #### L IPID, CMP, TSH, T4 #### [facility] [address] [place] [address] Dr. Mikhail Cooney AST [Catalytic activity/Vol] 19 U/L Normal 15-37 [facility] Comment on above: Performed By: #### L IPID, CMP, TSH, T4 #### [facility] [address] [place] [address] Dr. Mikhail Cooney Bilirubin [Mass/Vol] 0.5 mg/dL Normal 0.2-1.0 [facility] Comment on above: Performed By: #### L IPID, CMP, TSH, T4 #### [facility] [address] [place] [address] Dr. Mikhail Cooney Calcium [Mass/Vol] 9.1 mg/dL Normal 8.5-10.1 [facility] Comment on above: Performed By: #### L IPID, CMP, TSH, T4 #### [facility] [address] [address] [address] Mikhail Cooney Chloride [Moles/Vol] 104 mmol/L Normal 98-107 [facility] Comment on above: Performed By: #### L IPID, CMP, TSH, T4 #### [facility] [address] [place] [address] Dr. Mikhail Cooney CO2 [Moles/Vol] 27.6 mmol/L Normal 21.0-32.0 [facility] Comment on above: Performed By: #### L IPID, CMP, TSH, T4 #### [facility] [address] [address] [address] Mikhail Cooney Creatinine [Mass/Vol] 1.01 mg/dL Normal 0.55-1.02 [facility] Comment on above: Performed By: #### L IPID, CMP, TSH, T4 #### [facility] [address] [place] [address] Dr. Mikhail Cooney EGFR-AF PALESTINIAN >60 Normal >=60 [facility] Comment on above: Performed By: #### L IPID, CMP, TSH, T4 #### [facility] [address] [place] [address] Dr. Mikhail Cooney EGFR-NON AF PALESTINIAN >60 Normal >=60 [facility] Comment on above: Performed By: #### L IPID, CMP, TSH, T4 #### [facility] [address] [place] [address] Dr. Mikhail Cooney Globulin (S) [Mass/Vol] 4.5 g/dL Normal [facility] Comment on above: Performed By: #### L IPID, CMP, TSH, T4 #### [facility] [address] [place] [address] Dr. Mikhail Cooney Glucose [Mass/Vol] 93 mg/dL Normal 74-106 [facility] Comment on above: Performed By: #### L IPID, CMP, TSH, T4 #### [facility] [address] [place] [address] Dr. Mikhail Cooney Potassium [Moles/Vol] 3.7 mmol/L Normal 3.5-5.1 [facility] Comment on above: Performed By: #### L IPID, CMP, TSH, T4 #### [facility] [address] [place] [address] Dr. Mikhail Cooney Protein [Mass/Vol] 7.8 g/dL Normal 6.4-8.2 [facility] Comment on above: Performed By: #### L IPID, CMP, TSH, T4 #### [facility] [address] [place] [address] Dr. Mikhail Cooney Sodium [Moles/Vol] 137 mmol/L Normal 136-145 [facility] Comment on above: Performed By: #### L IPID, CMP, TSH, T4 #### [facility] [address] [place] [address] Dr. Mikhail Cooney Urea nitrogen [Mass/Vol] 13.0 mg/dL Normal 7.0-18.0 [facility] Comment on above: Performed By: #### L IPID, CMP, TSH, T4 #### [facility] [address] [place] [address] Dr. Mikhail Cooney Urea nitrogen/Creatinin e [Mass ratio] 12.9 mg/mg Normal [facility] Comment on above: Performed By: #### L IPID, CMP, TSH, T4 #### [facility] [address] [place] [address] Dr. Mikhail Cooney T4on 08-06-2022 T4 [Mass/Vol] 13.20 ug/dL Normal 4.80-13.90 [facility] Comment on above: Performed By: #### L IPID, CMP, TSH, T4 #### [facility] [address] [place] [address] Dr. Mikhail Cooney TSHon 08-06-2022 TSH 2.723 uIU/mL Normal 0.358-3.740 [facility] Comment on above: Performed By: #### L IPID, CMP, TSH, T4 #### [facility] [address] [place] [address] Dr. Mikhail Cooney Physician Referralon 023 Physician Referral [id number]:127 Normal [facility] CBC AUTO DIFFon 04-21-2022 BASO # 0.0 103/ul Normal 0.0-0.1 [facility] Comment on above: Performed By: #### C BC #### [facility] [address] [place] [address] Dr. Mikhail Cooney Basophils/100 WBC (Bld) 0.4 % Normal 0.2-2.0 [facility] Comment on above: Performed By: #### C BC #### [facility] [address] [place] [address] Dr. Mikhail Cooney EO # 0.1 103/ul Normal 0.0-0.7 [facility] Comment on above: Performed By: #### C BC #### [facility] [address] [place] [address] Dr. Mikhail Cooney Eosinophils/100 WBC (Bld) 1.3 % Normal 0.9-7.0 [facility] Comment on above: Performed By: #### C BC #### [facility] [address] [place] [address] Dr. Mikhail Cooney Erythrocyte distribution width (RBC) [Ratio] 11.9 % Normal 11.0-15.0 [facility] Comment on above: Performed By: #### C BC #### [facility] [address] [place] [address] Dr. Mikhail Cooney Hematocrit (Bld) [Volume fraction] 44.1 % Normal 36.0-48.0 [facility] Comment on above: Performed By: #### C BC #### [facility] [address] [place] [address] Dr. Mikhail Cooney Hemoglobin (Bld) [Mass/Vol] 14.9 g/dL Normal 12.0-16.0 [facility] Comment on above: Performed By: #### C BC #### [facility] [address] [place] [address] Dr. Mikhail Cooney IG # 0.02 10e3/ul Normal 0.00-0.03 [facility] Comment on above: Performed By: #### C BC #### [facility] [address] [place] [address] Dr. Mikhail Cooney IG % 0.3 % Normal 0.0-0.5 [facility] Comment on above: Performed By: #### C BC #### [facility] [address] [place] [address] Dr. Mikhail Cooney LYMPH # 2.4 103/ul Normal 1.2-3.8 [facility] Comment on above: Performed By: #### C BC #### [facility] [address] [place] [address] Dr. Mikhail Cooney Lymphocytes/100 WBC (Bld) 30.1 % Normal 20.5-60.0 [facility] Comment on above: Performed By: #### C BC #### [facility] [address] [place] [address] Dr. Mikhail Cooney MANUAL DIFF REQ NO Normal [facility] Comment on above: Performed By: #### C BC #### [facility] [address] [place] [address] Dr. Mikhail Cooney MCH (RBC) [Entitic mass] 29.6 pg Normal 26.7-34.0 [facility] Comment on above: Performed By: #### C BC #### [facility] [address] [place] [address] Dr. Mikhail Cooney MCHC (RBC) [Mass/Vol] 33.8 g/dL Normal 29.9-35.2 [facility] Comment on above: Performed By: #### C BC #### [facility] [address] [place] [address] Dr. Mikhail Cooney MCV (RBC) [Entitic vol] 87.5 fL Normal 81.0-99.0 [facility] Comment on above: Performed By: #### C BC #### [facility] [address] [place] [address] Dr. Mikhail Cooney MONO # 0.5 103/ul Normal 0.3-0.8 [facility] Comment on above: Performed By: #### C BC #### [facility] [address] [place] [address] Dr. Mikhail Cooney Monocytes/100 WBC (Bld) 6.9 % Normal 1.7-12.0 [facility] Comment on above: Performed By: #### C BC #### [facility] [address] [place] [address] Dr. Mikhail Cooney NEUT # 4.8 103/ul Normal 1.4-6.5 [facility] Comment on above: Performed By: #### C BC #### [facility] [address] [place] [address] Dr. Mikhail Cooney Neutrophils/100 WBC (Bld) 61.0 % Normal 43.0-75.0 [facility] Comment on above: Performed By: #### C BC #### [facility] [address] [place] [address] Dr. Mikhail Cooney Platelet mean volume (Bld) [Entitic vol] 11.7 fL Normal 9.5-13.5 [facility] Comment on above: Performed By: #### C BC #### [facility] [address] [place] [address] Dr. Mikhail Cooney PLT 235 103/ul Normal 150-450 [facility] Comment on above: Performed By: #### C BC #### [facility] [address] [place] [address] Dr. Mikhail Cooney RBC 5.04 106/ul Normal 4.20-5.40 [facility] Comment on above: Performed By: #### C BC #### [facility] [address] [place] [address] Dr. Mikhail Cooney WBC 7.8 103/ul Normal 4.0-11.0 [facility] Comment on above: Performed By: #### C BC #### [facility] [address] [place] [address] Dr. Mikhail Cooney LIPASEon 04-21-2022 Lipase [Catalytic activity/Vol] 126.0 U/L Normal 73.0-393.0 [facility] Comment on above: Performed By: #### L IPA, CMP #### [facility] [address] [place] [address] Dr. Mikhail Cooney PROF 14(COMP METB)on 023 Albumin [Mass/Vol] 3.2 g/dL Critically low 3.4-5.0 [facility] Comment on above: Performed By: #### L IPA, CMP #### [facility] [address] [place] [address] Dr. Mikhail Cooney Albumin/Globulin [Mass ratio] 0.8 {ratio} Normal [facility] Comment on above: Performed By: #### L IPA, CMP #### [facility] [address] [address] [address] Mikhail Cooney ALP [Catalytic activity/Vol] 87 U/L Normal 46-116 [facility] Comment on above: Performed By: #### L IPA, CMP #### [facility] [address] [address] [address] Mikhail Cooney ALT [Catalytic activity/Vol] 31 U/L Normal 14-59 [facility] Comment on above: Performed By: #### L IPA, CMP #### [facility] [address] [address] [address] Mikhail Cooney Anion gap [Moles/Vol] 10.4 mmol/L Normal [facility] Comment on above: Performed By: #### L IPA, CMP #### [facility] [address] [address] [address] Mikhail Cooney AST [Catalytic activity/Vol] 28 U/L Normal 15-37 [facility] Comment on above: Performed By: #### L IPA, CMP #### [facility] [address] [address] [address] Mikhail Cooney Bilirubin [Mass/Vol] 0.4 mg/dL Normal 0.2-1.0 [facility] Comment on above: Performed By: #### L IPA, CMP #### [facility] [address] [address] [address] Mikhail Cooney Calcium [Mass/Vol] 8.9 mg/dL Normal 8.5-10.1 [facility] Comment on above: Performed By: #### L IPA, CMP #### [facility] [address] [address] [address] Mikhail Cooney Chloride [Moles/Vol] 104 mmol/L Normal 98-107 [facility] Comment on above: Performed By: #### L IPA, CMP #### [facility] [address] [address] [address] Mikhail Cooney CO2 [Moles/Vol] 29.0 mmol/L Normal 21.0-32.0 [facility] Comment on above: Performed By: #### L IPA, CMP #### [facility] [address] [address] [address] Mikhail Cooney Creatinine [Mass/Vol] 0.81 mg/dL Normal 0.55-1.02 [facility] Comment on above: Performed By: #### L IPA, CMP #### [facility] [address] [address] [address] Mikhail Cooney EGFR-AF PALESTINIAN >60 Normal >=60 [facility] Comment on above: Performed By: #### L IPA, CMP #### [facility] [address] [address] [address] Mikhail Cooney EGFR-NON AF PALESTINIAN >60 Normal >=60 [facility] Comment on above: Performed By: #### L IPA, CMP #### [facility] [address] [place] [address] Dr. Mikhail Cooney Globulin (S) [Mass/Vol] 4.0 g/dL Normal [facility] Comment on above: Performed By: #### L IPA, CMP #### [facility] [address] [address] [address] Mikhail Cooney Glucose [Mass/Vol] 100 mg/dL Normal 74-106 [facility] Comment on above: Performed By: #### L IPA, CMP #### [facility] [address] [address] [address] Mikhail Cooney Potassium [Moles/Vol] 4.4 mmol/L Normal 3.5-5.1 [facility] Comment on above: Performed By: #### L IPA, CMP #### [facility] [address] [address] [address] Mikhail Cooney Protein [Mass/Vol] 7.2 g/dL Normal 6.4-8.2 [facility] Comment on above: Performed By: #### L IPA, CMP #### [facility] [address] [address] [address] Mikhail Cooney Sodium [Moles/Vol] 139 mmol/L Normal 136-145 [facility] Comment on above: Performed By: #### L IPA, CMP #### [facility] [address] [place] [address] Dr. Mikhail Cooney Urea nitrogen [Mass/Vol] 9.0 mg/dL Normal 7.0-18.0 [facility] Comment on above: Performed By: #### L IPA, CMP #### [facility] [address] [address] [address] Mikhail Cooney Urea nitrogen/Creatinin e [Mass ratio] 11.1 mg/mg Normal [facility] Comment on above: Performed By: #### L IPA, CMP #### [facility] [address] [place] [address] Dr. Mikhail Cooney PAP ACOG PANEL 2: 30 to 65on 03-09-2022 . . Normal [facility] Comment on above: Result Comment: Perf ormed at: WB Performed By: #### C VDTBH #### [facility] [address] [place] [address] Dr. Mikhail Cooney Age Gdln ACOG Testing - Normal [facility] Comment on above: Performed By: #### C VDTBH #### [facility] [address] [place] [address] Dr. Mikhail Cooney DIAGNOSIS: Comment Normal [facility] Comment on above: Result Comment: NEGA TIVE FOR INTRAEPITHELIAL LESION OR MALIGNANCY. Performed at: WB Performed By: #### C VDTBH #### [facility] [address] [place] [address] Dr. Mikhail Cooney HPV Aptima Negative Normal Negative [facility] Comment on above: Result Comment: This nucleic acid amplification test detects fourteen high-risk HPV types (16,18,31,33,35,39,45,51,52,56,58,59,66,68) without differentiation. Performed at: =G Performed By: #### C VDTBH #### [facility] [address] [place] [address] Dr. Mikhail Cooney HPV Genotype Reflex Comment Normal [facility] Comment on above: Result Comment: Crit eria not met, HPV Genotype not performed. Performed at: WB Performed By: #### C VDTBH #### [facility] [address] [place] [address] Dr. Mikhail Cooney Methodology: Comment [facility] Comment on above: Result Comment: This liquid based ThinPrep(R) pap test was screened with the use of an image guided system. Performed at: WB Performed By: #### C VDTBH #### [facility] [address] [place] [address] Dr. Mikhail Cooney Note: Comment Normal [facility] Comment on above: Result Comment: The Pap smear is a screening test designed to aid in the detection of premalignant and malignant conditions of the uterine cervix. It is not a diagnostic procedure and should not be used as the sole means of detecting cervical cancer. Both false-positive and false-negative reports do occur. . Performed at: WB Performed By: #### C VDTBH #### [facility] [address] [place] [address] Dr. Mikhail Cooney Performed by: Comment Normal [facility] Comment on above: Result Comment: Evangelista Contreras, Licensed Staff Mft (ASCP) Performed at: WB Performed By: #### C VDTBH #### [facility] [facility] [address] [place] [address] Dr. Mikhail Cooney Specimen adequacy: Comment Normal [facility] Comment on above: Result Comment: Sati sfactory for evaluation. Endocervical and/or squamous metaplastic cells (endocervical component) are present. Performed at: [facility] Performed By: #### C VDTBH #### [facility] [address] [place] [address] Dr. Mikhail Cooney ASYMPTOMATIC COVID-19 ANTIGE Non 11-03-2021 EUA Statement SEE BELOW [facility] Comment on above: Result Comment: This test [...] sooner. Performed By: #### C VDAGA #### [facility] [address] [place] [address] Dr. Mikhail Cooney SARS-CoV-2 (COVID-19) RNA JORGE+probe Ql (Unsp spec) Negative Normal NEGATIVE [facility] Comment on above: Result Comment: Nega tive results are presumptive. They do not preclude infection and should not be used as the sole basis for treatment decisions. Additional confirmatory testing by a molecular method should be considered. Performed By: #### C VDAGA #### [facility] [address] [place] [address] Dr. Mikhail Cooney Covid-19 PCR (CVDTB)on 10-03 SARS-CoV-2 (COVID-19) RNA JORGE+probe Ql (Unsp spec) Detected Critically abnormal NOT DETECTED [facility] Comment on above: Result Comment: This test is not yet approved or cleared by the [place] FDA. When there are no FDA-approved or cleared tests available, and other criteria are met, FDA can make tests available under an emergency access mechanism called an Emergency Use Authorization (EUA). The EUA for this test is supported by the Animal Care Taker of Health and Human Service's declaration that [...] used). Performed By: #### C VDTBH #### [facility] [address] [place], [place] [id number] Dr. Mikhail Cooney Encounters Encounter Date Encounter Type Care Provider Facility Start: 04-12-2023 End: 04-12-2023 ambulatory ADRIENNE JOSE Not Available Start: 03-07-2023 End: 03-07-2023 ambulatory ADRIENNE JOSE Not Available Start: 08-06-2022 ambulatory Moisés LITTLEJOHN Facility:[facility] Start: 08-06-2022 End: 08-07-[address] RYAN WOLF . Facility:[facility] Start: 05-05-2022 ambulatory Moisés LITTLEJOHN Facility :[facility] Start: 04-22-2022 ambulatory Moissé LITTLEJOHN Facility:[facility] Start: 04-21-2022 End: 04-22-2022 ambulatory NONE LISTED REQUEST Facility:[facility] Start: 03-02-2022 End: 03-02-[address] ADRIENNE JOSE . Facility:[facility] Start: 11-03-2021 End: 11-03-2021 ambulatory MARGOTH LOMBARDO Facility:[facility] Start: 10-29-2021 End: 10-29-2021 ambulatory NONE LISTED REQUEST Facility:[facility] Start: 08-11-2021 End: 08-12-2021 ambulatory NONE LISTED REQUEST Facility: Payers Date Payer Category Payer Unknown [id number] 1985 Unknown [id number] 2.16.84 [id number] 1985 Unknown [id number] 2.16.84 [id number] 1986 Unknown [id number] 2.16.84 [id number] 1986 Unknown [id number] 2.16.84 [id number] 1986 Unknown [id number] 2.16.8 [id number] 1986 Unknown [id number] 2.16.84 [id number] 1986 Unknown [id number] 2.16.840 [id number] 1959 Self-pay 1958 Unknown [id number] Unknown [id number] 2.16.84 [id number] Unknown [id number] 2.16.84 [id number] Summary Purpose Family History No Family History Records FoundNo Family History Records FoundNo Family History Records Found Advance Directives No Advanced Directives Records FoundNo Advanced Directives Records FoundNo Advanced Directives Records Found Additional Source Comments INFORMATION SOURCE (unrecogn ized section and content) DATE CREATED AUTHOR 08/06/2022 Candis White [facility] DATE CREATED AUTHOR AUTHOR'S ORGANIZ ATION 08/12/2022 [facility] DATE CREATED AUTHOR AUTHOR'S ORGANIZ ATION 04/13/2023 [facility] EPIC FOR RECORDS PERTAINING TO PATIENTS WHO ARE [...] BE BASED ON THE PRIMARY CLINICAL RECORDS. [facility]. provides no warranty or guarantee of the accuracy or completeness of information in this document.
== END 2023-04-27 10:04 | disposition home or self-care (01) ==
LOC: PST 10:04
PROVIDERS: PCP Family Medicine; Visit Provider Obstetrics & Gynecology
DX: Z01.818 Encounter for other preprocedural examination (principal); Z30.2 Encounter for sterilization; N92.0 Excessive and frequent menstruation with regular cycle; N93.9 Abnormal uterine and vaginal bleeding, unspecified

== ENCOUNTER 2023-05-06 08:02 | Day surgery (SDC) | payer BC, SELFPAY ==
[2023-04-27 10:31] VITALS: BP 142/91; PULSE 85; RESP 18; TEMP 36.4; O2SAT 97; BMI 39.8
[2023-05-06] VITALS (14 sets, daily range): BP systolic 132–173; BP diastolic 76–116; PULSE 64–93; RESP 8–19; TEMP 36.4; O2SAT 94–100; BMI 40.4
--- OUTSIDE RECORDS SUMMARY | 2023-05-06 08:04 | XMS_ITS | CCD ---
Author Name Unknown Address [address] [place] [id number] Organization [facility] Care Team Providers Care List Of First Job Ideas Name Role Phone REQUEST, DR SHERRELL LISTED [...] (1 source) rofecoxib; Translations: [Vioxx] Drug Allergy [facility] Repository Problems Active Problems Problem Classification Problem [...] Range Facility [facility] Reportson 08-11-2022 Lab Reports [id number]:127 Normal [facility] Lab Reports [id number] .[id number]:127 Normal [facility] CBC AUTO DIFFon 08-06-2022 BASO # 0.0 103/ul Normal 0.0-0.1 [facility] Comment on above: Performed By: #### C BC #### [facility] [address] [place] [address] Dr. Mikhail Cooney Basophils/100 WBC (Bld) 0.4 % Normal 0.2-2.0 [facility] Comment on above: Performed By: #### C BC #### [facility] [address] [address] [address] Mikhail Cooney EO # 0.1 103/ul Normal 0.0-0.7 [facility] Comment on above: Performed By: #### C BC #### [facility] [address] [place] [address] Dr. Mikhail Cooney Eosinophils/100 WBC (Bld) 1.0 % Normal 0.9-7.0 [facility] Comment on above: Performed By: #### C BC #### [facility] [address] [place] [address] Dr. Mikhail Cooney Erythrocyte distribution width (RBC) [Ratio] 11.9 % Normal 11.0-15.0 [facility] Comment on above: Performed By: #### C BC #### [facility] [address] [place] [address] Dr. Mikhail Cooney Hematocrit (Bld) [Volume fraction] 43.0 % Normal 36.0-48.0 [facility] Comment on above: Performed By: #### C BC #### [facility] [address] [place] [address] Dr. Mikhail Cooney Hemoglobin (Bld) [Mass/Vol] 14.7 g/dL Normal 12.0-16.0 [facility] Comment on above: Performed By: #### C BC #### [facility] [address] [place] [address] Dr. Mikhali Cooney IG # 0.03 10e3/ul Normal 0.00-0.03 [facility] Comment on above: Performed By: #### C BC #### [facility] [address] [place] [address] Dr. Mikhail Cooney IG % 0.3 % Normal 0.0-0.5 [facility] Comment on above: Performed By: #### C BC #### [facility] [address] [place] [address] Dr. Mikhail Cooney LYMPH # 2.4 103/ul Normal 1.2-3.8 [facility] Comment on above: Performed By: #### C BC #### [facility] [address] [place] [address] Dr. Mikhail Cooney Lymphocytes/100 WBC (Bld) 24.4 % Normal 20.5-60.0 [facility] Comment on above: Performed By: #### C BC #### [facility] [address] [place] [address] Dr. Mikhail Cooney MANUAL DIFF REQ NO Normal [facility] Comment on above: Performed By: #### C BC #### [facility] [address] [address] [address] Mikhail Cooney MCH (RBC) [Entitic mass] 29.9 pg Normal 26.7-34.0 [facility] Comment on above: Performed By: #### C BC #### [facility] [address] [place] [address] Dr. Mikhail Cooney MCHC (RBC) [Mass/Vol] 34.2 g/dL Normal 29.9-35.2 [facility] Comment on above: Performed By: #### C BC #### [facility] [address] [place] [address] Dr. Mikhail Cooney MCV (RBC) [Entitic vol] 87.4 fL Normal 81.0-99.0 [facility] Comment on above: Performed By: #### C BC #### [facility] [address] [place] [address] Dr. Mikhail Cooney MONO # 0.6 103/ul Normal 0.3-0.8 [facility] Comment on above: Performed By: #### C BC #### [facility] [address] [place] [address] Dr. Mikhail Cooney Monocytes/100 WBC (Bld) 6.1 % Normal 1.7-12.0 [facility] Comment on above: Performed By: #### C BC #### [facility] [address] [place] [address] Dr. Mikhail Cooney NEUT # 6.7 103/ul Critically high 1.4-6.5 [facility] Comment on above: Performed By: #### C BC #### [facility] [address] [place] [address] Dr. Mikhail Cooney Neutrophils/100 WBC (Bld) 67.8 % Normal 43.0-75.0 [facility] Comment on above: Performed By: #### C BC #### [facility] [address] [place] [address] Dr. Mikhail Cooney Platelet mean volume (Bld) [Entitic vol] 11.2 fL Normal 9.5-13.5 [facility] Comment on above: Performed By: #### C BC #### [facility] [address] [address] [address] Mikhail Cooney PLT 288 103/ul Normal 150-450 [facility] Comment on above: Performed By: #### C BC #### [facility] [address] [address] [address] Mikhail Cooney RBC 4.92 106/ul Normal 4.20-5.40 [facility] Comment on above: Performed By: #### C BC #### [facility] [address] [place] [address] Dr. Mikhail Cooney WBC 9.8 103/ul Normal 4.0-11.0 [facility] Comment on above: Performed By: #### C BC #### [facility] [address] [place] [address] Dr. Mikhail Cooney LIPID PROFILEon 08-06-2022 CHOL-HDL RATIO NORM SEE BELOW Normal [facility] Comment on above: Result Comment: 3.3 - 4.4 LOW RISK 4.4 - 7.1 AVERAGE RISK 7.1 - 11.0 MODERATE RISK >11.0 HIGH RISK Performed By: #### L IPID, CMP, TSH, T4 #### [facility] [address] [place] [address] Dr. Mikhail Cooney Cholesterol [Mass/Vol] 212 mg/dL Critically high <=200 [facility] Comment on above: Performed By: #### L IPID, CMP, TSH, T4 #### [facility] [address] [place] [address] Dr. Mikhail Cooney Cholesterol in HDL [Mass/Vol] 44 mg/dL Normal 40-60 [facility] Comment on above: Performed By: #### L IPID, CMP, TSH, T4 #### [facility] [address] [place] [address] Dr. Mikhail Cooney Cholesterol in LDL [Mass/Vol] 144.8 mg/dL Normal [facility] Comment on above: Performed By: #### L IPID, CMP, TSH, T4 #### [facility] [address] [place] [address] Dr. Mikhail Cooney Cholesterol.total/ Cholesterol in HDL [Mass ratio] 4.8 {ratio} Normal [facility] Comment on above: Performed By: #### L IPID, CMP, TSH, T4 #### [facility] [address] [address] [address] Mikhail Cooney HDL NORMAL > or = 60 mg/dl - LO W CARDIOVASCULAR RISK <40 mg/dl - HIGH CARDIOVASCULAR RISK Normal [facility] Comment on above: Performed By: #### L IPID, CMP, TSH, T4 #### [facility] [address] [address] [address] Mikhail Cooney LDL CALC NORMAL SEE BELOW Normal [facility] Comment on above: Result Comment: <100 mg/dl OPTIMAL 100 - 129 mg/dl NEAR OR ABOVE OPTIMAL 130 - 159 mg/dl BORDERLINE HIGH 160 - 189 mg/dl HIGH >190 mg/dl VERY HIGH Performed By: #### L IPID, CMP, TSH, T4 #### [facility] [address] [address] [address] Mikhail Cooney Triglyceride [Mass/Vol] 116 mg/dL Normal <=150 [facility] Comment on above: Performed By: #### L IPID, CMP, TSH, T4 #### [facility] [address] [address] [address] Mikhail Cooney VLDL CALC 23.2 mg/dL Normal [facility] Comment on above: Performed By: #### L IPID, CMP, TSH, T4 #### [facility] [address] [address] [address] Mikhail Cooney PROF 14(COMP METB)on 023 Albumin [Mass/Vol] 3.3 g/dL Critically low 3.4-5.0 [facility] Comment on above: Performed By: #### L IPID, CMP, TSH, T4 #### [facility] [address] [address] [address] Mikhail Cooney Albumin/Globulin [Mass ratio] 0.7 {ratio} Normal [facility] Comment on above: Performed By: #### L IPID, CMP, TSH, T4 #### [facility] [address] [address] [address] Mikhail Cooney ALP [Catalytic activity/Vol] 82 U/L Normal 46-116 [facility] Comment on above: Performed By: #### L IPID, CMP, TSH, T4 #### [facility] [address] [place] [address] Dr. Mikhail Cooney ALT [Catalytic activity/Vol] 32 U/L Normal 14-59 [facility] Comment on above: Performed By: #### L IPID, CMP, TSH, T4 #### [facility] [address] [place] [address] Dr. Mikhail Cooney Anion gap [Moles/Vol] 9.1 mmol/L Normal [facility] Comment on above: Performed By: #### L IPID, CMP, TSH, T4 #### [facility] [address] [place] [address] Dr. Mikhail Cooney AST [Catalytic activity/Vol] 19 U/L Normal 15-37 [facility] Comment on above: Performed By: #### L IPID, CMP, TSH, T4 #### [facility] [address] [place] [address] Dr. Mikhail Cooney Bilirubin [Mass/Vol] 0.5 mg/dL Normal 0.2-1.0 [facility] Comment on above: Performed By: #### L IPID, CMP, TSH, T4 #### [facility] [address] [place] [address] Dr. Mikhail Cooney Calcium [Mass/Vol] 9.1 mg/dL Normal 8.5-10.1 [facility] Comment on above: Performed By: #### L IPID, CMP, TSH, T4 #### [facility] [address] [address] [address] Mikhail Cooney Chloride [Moles/Vol] 104 mmol/L Normal 98-107 [facility] Comment on above: Performed By: #### L IPID, CMP, TSH, T4 #### [facility] [address] [place] [address] Dr. Mikhail Cooney CO2 [Moles/Vol] 27.6 mmol/L Normal 21.0-32.0 [facility] Comment on above: Performed By: #### L IPID, CMP, TSH, T4 #### [facility] [address] [address] [address] Mikhail Cooney Creatinine [Mass/Vol] 1.01 mg/dL Normal 0.55-1.02 [facility] Comment on above: Performed By: #### L IPID, CMP, TSH, T4 #### [facility] [address] [place] [address] Dr. Mikhail Cooney EGFR-AF STATELESS >60 Normal >=[address] [facility] Comment on above: Performed By: #### L IPID, CMP, TSH, T4 #### [facility] [address] [place] [address] Dr. Mikhail Cooney EGFR-NON AF STATELESS >60 Normal >=60 [facility] Comment on above: Performed By: #### L IPID, CMP, TSH, T4 #### [facility] [address] [place] [address] Dr. Mikhail Cooney Globulin (S) [Mass/Vol] 4.5 g/dL Normal [facility] Comment on above: Performed By: #### L IPID, CMP, TSH, T4 #### [facility] [address] [place] [address] Dr. Mikhail Cooney Glucose [Mass/Vol] 93 mg/dL Normal 74-[address] [facility] Comment on above: Performed By: #### L IPID, CMP, TSH, T4 #### [facility] [address] [place] [address] Dr. Mikhail Cooney Potassium [Moles/Vol] 3.7 mmol/L Normal 3.5-5.1 [facility] Comment on above: Performed By: #### L IPID, CMP, TSH, T4 #### [facility] [address] [place] [address] Dr. Mikhail Cooney Protein [Mass/Vol] 7.8 g/dL Normal 6.4-8.[address] [facility] Comment on above: Performed By: #### L IPID, CMP, TSH, T4 #### [facility] [address] [place] [address] Dr. Mikhail Cooney Sodium [Moles/Vol] 137 mmol/L Normal 136-145 [facility] Comment on above: Performed By: #### L IPID, CMP, TSH, T4 #### [facility] [address] [place] [address] Dr. Mikhail Cooney Urea nitrogen [Mass/Vol] 13.0 mg/dL Normal 7.0-18.0 [facility] Comment on above: Performed By: #### L IPID, CMP, TSH, T4 #### [facility] [address] [place] [address] Dr. Mikhail Cooney Urea nitrogen/Creatinin e [Mass ratio] 12.9 mg/mg Normal [facility] Comment on above: Performed By: #### L IPID, CMP, TSH, T4 #### [facility] [address] [place] [address] Dr. Mikhail Cooney T4on 08-06-2022 T4 [Mass/Vol] 13.20 ug/dL Normal 4.80-13.90 [facility] Comment on above: Performed By: #### L IPID, CMP, TSH, T4 #### [facility] [address] [place] [address] Dr. Mikhail Cooney TSHon 08-06-2022 TSH 2.723 uIU/mL Normal 0.358-3.740 [facility] Comment on above: Performed By: #### L IPID, CMP, TSH, T4 #### [facility] [address] [place] [address] Dr. Mikhail Cooney Physician Referralon 023 Physician Referral [id number]:127 Normal [facility] CBC AUTO DIFFon 04-21-2022 BASO # 0.0 103/ul Normal 0.0-0.1 [facility] Comment on above: Performed By: #### C BC #### [facility] [address] [place] [address] Dr. Mikhail Cooney Basophils/100 WBC (Bld) 0.4 % Normal 0.2-2.0 [facility] Comment on above: Performed By: #### C BC #### [facility] [address] [place] [address] Dr. Mikhail Cooney EO # 0.1 103/ul Normal 0.0-0.7 [facility] Comment on above: Performed By: #### C BC #### [facility] [address] [place] [address] Dr. Mikhail Cooney Eosinophils/100 WBC (Bld) 1.3 % Normal 0.9-7.0 [facility] Comment on above: Performed By: #### C BC #### [facility] [address] [place] [address] Dr. Mikhail Cooney Erythrocyte distribution width (RBC) [Ratio] 11.9 % Normal 11.0-15.0 [facility] Comment on above: Performed By: #### C BC #### [facility] [address] [place] [address] Dr. Mikhail Cooney Hematocrit (Bld) [Volume fraction] 44.1 % Normal 36.0-48.0 [facility] Comment on above: Performed By: #### C BC #### [facility] [address] [place] [address] Dr. Mikhail Cooney Hemoglobin (Bld) [Mass/Vol] 14.9 g/dL Normal 12.0-16.0 [facility] Comment on above: Performed By: #### C BC #### [facility] [address] [place] [address] Dr. Mikhail Cooney IG # 0.02 10e3/ul Normal 0.00-0.03 [facility] Comment on above: Performed By: #### C BC #### [facility] [address] [place] [address] Dr. Mikhail Cooney IG % 0.3 % Normal 0.0-0.5 [facility] Comment on above: Performed By: #### C BC #### [facility] [address] [place] [address] Dr. Mikhail Cooney LYMPH # 2.4 103/ul Normal 1.2-3.8 [facility] Comment on above: Performed By: #### C BC #### [facility] [address] [place] [address] Dr. Mikhail Cooney Lymphocytes/100 WBC (Bld) 30.1 % Normal 20.5-60.0 [facility] Comment on above: Performed By: #### C BC #### [facility] [address] [place] [address] Dr. Mikhail Cooney MANUAL DIFF REQ NO Normal [facility] Comment on above: Performed By: #### C BC #### [facility] [address] [place] [address] Dr. Mikhail Cooney MCH (RBC) [Entitic mass] 29.6 pg Normal 26.7-34.0 [facility] Comment on above: Performed By: #### C BC #### [facility] [address] [place] [address] Dr. Mikhail Cooney MCHC (RBC) [Mass/Vol] 33.8 g/dL Normal 29.9-35.2 [facility] Comment on above: Performed By: #### C BC #### [facility] [address] [place] [address] Dr. Mikhail Cooney MCV (RBC) [Entitic vol] 87.5 fL Normal 81.0-99.0 [facility] Comment on above: Performed By: #### C BC #### [facility] [address] [place] [address] Dr. Mikhail Cooney MONO # 0.5 103/ul Normal 0.3-0.8 [facility] Comment on above: Performed By: #### C BC #### [facility] [address] [place] [address] Dr. Mikhail Cooney Monocytes/100 WBC (Bld) 6.9 % Normal 1.7-12.0 [facility] Comment on above: Performed By: #### C BC #### [facility] [address] [place] [address] Dr. Mikhail Cooney NEUT # 4.8 103/ul Normal 1.4-6.5 [facility] Comment on above: Performed By: #### C BC #### [facility] [address] [place] [address] Dr. Mikhail Cooney Neutrophils/100 WBC (Bld) 61.0 % Normal 43.0-75.0 [facility] Comment on above: Performed By: #### C BC #### [facility] [address] [place] [address] Dr. Mikhail Cooney Platelet mean volume (Bld) [Entitic vol] 11.7 fL Normal 9.5-13.5 [facility] Comment on above: Performed By: #### C BC #### [facility] [address] [place] [address] Dr. Mikhail Cooney PLT 235 103/ul Normal 150-450 [facility] Comment on above: Performed By: #### C BC #### [facility] [address] [place] [address] Dr. Mikhail Cooney RBC 5.04 106/ul Normal 4.20-5.40 [facility] Comment on above: Performed By: #### C BC #### [facility] [address] [place] [address] Dr. Mikhail Cooney WBC 7.8 103/ul Normal 4.0-11.0 [facility] Comment on above: Performed By: #### C BC #### [facility] [address] [place] [address] Dr. Mikhail Cooney LIPASEon 04-21-2022 Lipase [Catalytic activity/Vol] 126.0 U/L Normal 73.0-393.0 [facility] Comment on above: Performed By: #### L IPA, CMP #### [facility] [address] [place] [address] Dr. Mikhail Cooney PROF 14(COMP METB)on 023 Albumin [Mass/Vol] 3.2 g/dL Critically low 3.4-5.0 [facility] Comment on above: Performed By: #### L IPA, CMP #### [facility] [address] [place] [address] Dr. Mikhail Cooney Albumin/Globulin [Mass ratio] 0.8 {ratio} Normal [facility] Comment on above: Performed By: #### L IPA, CMP #### [facility] [address] [address] [address] Mikhail Cooney ALP [Catalytic activity/Vol] 87 U/L Normal 46-116 [facility] Comment on above: Performed By: #### L IPA, CMP #### [facility] [address] [address] [address] Mikhail Cooney ALT [Catalytic activity/Vol] 31 U/L Normal 14-59 [facility] Comment on above: Performed By: #### L IPA, CMP #### [facility] [address] [address] [address] Mikhail Cooney Anion gap [Moles/Vol] 10.4 mmol/L Normal [facility] Comment on above: Performed By: #### L IPA, CMP #### [facility] [address] [address] [address] Mikhail Cooney AST [Catalytic activity/Vol] 28 U/L Normal 15-37 [facility] Comment on above: Performed By: #### L IPA, CMP #### [facility] [address] [address] [address] Mikhail Cooney Bilirubin [Mass/Vol] 0.4 mg/dL Normal 0.2-1.0 [facility] Comment on above: Performed By: #### L IPA, CMP #### [facility] [address] [address] [address] Mikhail Cooney Calcium [Mass/Vol] 8.9 mg/dL Normal 8.5-10.1 [facility] Comment on above: Performed By: #### L IPA, CMP #### [facility] [address] [address] [address] Mikhail Cooney Chloride [Moles/Vol] 104 mmol/L Normal 98-107 [facility] Comment on above: Performed By: #### L IPA, CMP #### [facility] [address] [address] [address] Mikhail Cooney CO2 [Moles/Vol] 29.0 mmol/L Normal 21.0-32.[address] [facility] Comment on above: Performed By: #### L IPA, CMP #### [facility] [address] [address] [address] Mikhail Cooney Creatinine [Mass/Vol] 0.81 mg/dL Normal 0.55-1.02 [facility] Comment on above: Performed By: #### L IPA, CMP #### [facility] [address] [address] [address] Mikhail Cooney EGFR-AF STATELESS >60 Normal >=60 [facility] Comment on above: Performed By: #### L IPA, CMP #### [facility] [address] [address] [address] Mikhail Cooney EGFR-NON AF STATELESS >60 Normal >=60 [facility] Comment on above: Performed By: #### L IPA, CMP #### [facility] [address] [place] [address] Dr. Mikhail Cooney Globulin (S) [Mass/Vol] 4.0 g/dL Normal [facility] Comment on above: Performed By: #### L IPA, CMP #### [facility] [address] [address] [address] Mikhail Cooney Glucose [Mass/Vol] 100 mg/dL Normal 74-[address] [facility] Comment on above: Performed By: #### L IPA, CMP #### [facility] [address] [address] [address] Mikhail Cooney Potassium [Moles/Vol] 4.4 mmol/L Normal 3.5-5.1 [facility] Comment on above: Performed By: #### L IPA, CMP #### [facility] [address] [address] [address] Mikhail Cooney Protein [Mass/Vol] 7.2 g/dL Normal 6.4-8.[address] [facility] Comment on above: Performed By: #### L IPA, CMP #### [facility] [address] [address] [address] Mikhail Cooney Sodium [Moles/Vol] 139 mmol/L Normal 136-[address] [facility] Comment on above: Performed By: #### L IPA, CMP #### [facility] [address] [place] [address] Dr. Mikhail Cooney Urea nitrogen [Mass/Vol] 9.0 mg/dL Normal 7.0-18.0 [facility] Comment on above: Performed By: #### L IPA, CMP #### [facility] [address] [address] [address] Mikhail Cooney Urea nitrogen/Creatinin e [Mass ratio] 11.1 mg/mg Normal [facility] Comment on above: Performed By: #### L IPA, CMP #### [facility] [facility] [address] [place] [address] Dr. Mikhail Cooney PAP ACOG PANEL 2: 30 to 65on 03-09-2022 . . Normal [facility] Comment on above: Result Comment: Perf ormed at: WB Performed By: #### C VDTBH #### [facility] [address] [place] [address] Dr. Mikhail Cooney Age Gdln ACOG Testing - Normal [facility] Comment on above: Performed By: #### C VDTBH #### [facility] [address] [place] [address] Dr. Mikhail Cooney DIAGNOSIS: Comment Normal [facility] Comment on above: Result Comment: NEGA TIVE FOR INTRAEPITHELIAL LESION OR MALIGNANCY. Performed at: WB Performed By: #### C VDTBH #### [facility] [address] [place] [address] Dr. Mikhail Cooney HPV Aptima Negative Normal Negative [facility] Comment on above: Result Comment: This nucleic acid amplification test detects fourteen high-risk HPV types (16,18,31,33,35,39,45,51,52,56,58,59,66,68) without differentiation. Performed at: =G Performed By: #### C VDTBH #### [facility] [address] [place] [address] Dr. Mikhail Cooney HPV Genotype Reflex Comment Normal [facility] Comment on above: Result Comment: Crit eria not met, HPV Genotype not performed. Performed at: WB Performed By: #### C VDTBH #### [facility] [address] [place] [address] Dr. Mikhail Cooney Methodology: Comment [facility] Comment on above: Result Comment: This liquid based ThinPrep(R) pap test was screened with the use of an image guided system. Performed at: WB Performed By: #### C VDTBH #### [facility] [address] [place] [address] Dr. Mikhail Cooney Note: Comment Normal [facility] Comment on above: Result Comment: The [...] C VDTBH #### [facility] [address] [place] [address] Dr. Mikhail Cooney Performed by: Comment Normal [facility] Comment on above: Result Comment: Evangelista Contreras, Pump House Operator (ASCP) Performed at: WB Performed By: #### C VDTBH #### [facility] [address] [place] [address] Dr. Mikhail Cooney Specimen adequacy: Comment Normal [facility] Comment on above: Result Comment: Sati sfactory for evaluation. Endocervical and/or squamous metaplastic cells (endocervical component) are present. Performed at: WB Performed By: #### C VDTBH #### [facility] [address] [place] [address] Dr. Mikhail Cooney ASYMPTOMATIC COVID-19 ANTIGE Non 11-03-2021 EUA Statement SEE BELOW [facility] Comment on above: Result Comment: [...] C VDAGA #### [facility] [address] [place] [address] Dr. Mikhail Cooney SARS-CoV-2 (COVID-19) RNA JORGE+probe [...] C VDAGA #### [facility] [address] [place] [address] Dr. Mikhail Cooney Covid-19 PCR (CVDTB)on 10-03 [...] for this test is supported by the Software Support Representative of Health and Human Service's declaration that [...] C VDTBH #### [facility] [address] [place], [place] [id number] Dr. Mikhail Cooney Encounters Encounter Date Encounter [...] Facility: Payers Date Payer Category Payer Unknown [id number] 1985 Unknown [id number] 2.16.84 [id number] 1985 Unknown [id number] 2.16.84 [id number] 1985 Unknown [id number] 2.16.84 [id number] 1985 Unknown [id number] 2.16.84 [id number] 1986 Unknown [id number] 2.16.8 [id number] 1986 Unknown [id number] 2.16.84 [id number] 1986 Unknown [id number] [id number] 1958 Self-pay 1958 Unknown [id number] Unknown [id number] 2.16.84 [id number] Unknown [id number] 2.16.84 [id number] Summary Purpose Family History No Family History Records FoundNo Family History Records FoundNo Family History Records Found Advance Directives No Advanced Directives Records FoundNo Advanced Directives Records FoundNo Advanced Directives Records Found Additional Source Comments INFORMATION SOURCE (unrecogn ized section and content) DATE CREATED AUTHOR 08/06/2022 [facility] DATE CREATED AUTHOR AUTHOR'S ORGANIZ ATION 08/12/2022 [facility] DATE CREATED AUTHOR AUTHOR'S ORGANIZ ATION 04/13/2023 [facility] EPIC FOR RECORDS PERTAINING TO [...] ON THE PRIMARY CLINICAL RECORDS. [facility]. provides no warranty or guarantee of the accuracy or completeness of information in this document.
[2023-05-06 08:12] LABS: Basophils Percent Auto 0.4 % (0.2-2.0); Eosinophils Absolute Auto 0.1 10^3/uL (0.0-0.7); Hematocrit 41.5 % (36.0-48.0); Hemoglobin 13.9 g/dL (12.0-16.0); Immature Granulocytes Abs Auto 0.01 10^3/uL (0.00-0.03); Immature Granulocytes Pct Auto 0.1 % (0.0-0.5); Lymphocytes Absolute Auto 2.7 10^3/uL (1.2-3.8); Lymphocytes Percent Auto 38.2 % (20.5-60.0); Mean Corpuscular HGB Conc 33.5 g/dL (29.9-35.2); Mean Corpuscular Hemoglobin 29.8 pg (26.7-34.0); Mean Corpuscular Volume 88.9 fL (81.0-99.0); Mean Platelet Volume 10.4 fL (9.5-13.5); Monocytes Absolute Auto 0.5 10^3/uL (0.3-0.8); Monocytes Percent Auto 7.7 % (1.7-12.0); Neutrophils Absolute Auto 3.6 10^3/uL (1.4-6.5); Neutrophils Percent Auto 51.6 % (43.0-75.0); Platelet Count 245 10^3/uL (150-450); Red Blood Count 4.67 10^6/uL (4.20-5.40); Red Cell Distribution Width 11.9 % (11.0-15.0); White Blood Count 7.1 10^3/uL (4.0-11.0)
[2023-05-06 08:32] LABS: HCG Quantitative <1 mIU/mL
--- NOTE | 2023-05-06 08:56 | PC.NURSE ---
Dr. Will made aware of elevated BP of 162/116.
[2023-05-06] MEDS: LACTATED RINGER'S SOLUTION 1,000 ML 50 ML IV (09:13)
--- NOTE | 2023-05-06 11:48 | PM.ONB ---
Brief Operative Note Date of procedure: 05/06/23 Pre-op diagnosis: menorrhagia, desires permanent sterilization Post-op diagnosis: same as pre-op Procedure: NAME OF PROCEDURE: robotic assisted Laparoscopic bilateral salpingectomy, with Kary endometrial ablation with hysteroscopy PROCEDURE: The patient was taken back to the OR where she was prepped and draped in the normal sterile fashion after being placed in the dorsal lithotomy position, after being placed under general anesthesia without difficulty. a weighted speculum was then placed into the vagina. Pap and endometrial bx were performed without difficultyThe anterior lip was grasped with a single tooth tenaculum. The patient was then sounded to approximatley 9cm. The patient was gently sounded using Hegar dilators and the hysteroscope was passed through the cervix into the uterus where both ostia were seen. No gross evidence of polyps, fibroids or malignancy. The cervical length was noted to be 4cm. The Kary ablation apparatus was set to approximately 5cm in length. This was placed in through the cervix and into the uterus. After the seal was tested, at that time the total ablation of 120 seconds was performed with the Kary without difficulty. All instruments were removed from the vagina. A wet sponge stick was placed into the patient's vagina. Attention was then turned to the patient's abdomen, where a scalpel was used to make a small infraumbilical incision. The S retractors were then used to dissect the underlying layers until the fascia could be seen. The fascia was then grasped with Papi clamps and tented up. A knife was then used to make a small incision to the fascia. The muscle was identified, at that time two sutures of #0 Vicryl on a GI needlewas then used and placed through the fascia. The peritoneum was then identified and entered bluntly. The 10-4 Minna was then placed into the patient's abdomen. This was confirmed with direct visualization of the bowel, using the laparoscope. The patient's abdomen was then insufflated using approximately 4 liters of CO2 gas. Survey of the patient's abdomen demonstrated normal appearing ovaries, uterus and tubes. A second and third lateral robotic ports, which was 8mm in size, was then placed laterally after incision was made in the skin under direct visualization. the robotic arms were engaged. The patient's tube on the patient's right side was identified. The tube was then tented up using a grasper. The ligasure was used to transect and coagulate the mesosalpingx from the fimbriated end to the insertion at the uterus, the tube was amputated and removed in its entirety.? Excellent hemostasis was noted. ?This was performed on the contralateral sideas well. The lateral ports were then moved under direct visualization with excellent hemostasis. The abdomen was deinsufflated. All instruments were removed from the patient's abdomen. The fascia was closed using the #0 Vicryl on GI needle. The skin was closed using 4-0 Vicryl subcuticularly. All instruments were removed from the patient's vagina as well. The patient was taken out of the dorsal lithotomy position and placed in the supine position and taken to recovery in stable condition. Sponge, lap and needle counts were correct x2. ??? Anesthesia: LEN Surgeon: Mitch Fernandez Agricultural Education Instructor: Savanah Jimenez Estimated blood loss (mL): 5 Pathology: other (tubes) Condition: stable Disposition: PACU Urinary Catheter Management Urinary Catheter Management Urethral: Cath placed during this visit: no
--- NOTE | 2023-05-06 12:34 | PC.NURSE ---
Patient states she has lots of cramping. Patient does not want pain meds at this time. currently has a warm pack to the abdomen.
[2023-05-06] MEDS: HYDROCODONE/ACET 5-325 MG TABLET 1 TAB PO (12:59)
== END 2023-05-06 14:15 | disposition home or self-care (01) ==
PROVIDERS: PCP Family Medicine; Visit Provider Obstetrics & Gynecology
PROC: (CPT 840; principal; 2023-05-06 09:30)
PROC: (CPT 840; 2023-05-06 09:30)
DX: Z30.2 Encounter for sterilization (principal); I10 Essential (primary) hypertension; Z86.16 Personal history of COVID-19; N92.0 Excessive and frequent menstruation with regular cycle; R10.2 Pelvic and perineal pain; N93.9 Abnormal uterine and vaginal bleeding, unspecified
CPT/HCPCS: 58563; 58661; 84702; 85025; 88302; 93005; 99281; J1100; J1885; J2250; J2405; J2704; J3010

== ENCOUNTER 2023-05-06 14:23 | Emergency (ER) | payer BC, SELFPAY ==
--- NOTE | 2023-05-06 14:28 | ECG_ITS ---
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
[2023-05-06 14:29] VITALS: BP 144/91; PULSE 74; RESP 18; TEMP 36.7; O2SAT 98; BMI 39.1
--- NOTE | 2023-05-06 14:48 | ED_ITS ---
HPI - Dizziness General Chief Complaint: Dizziness Stated Complaint: HIGH BLOOD PRESSURE Time Seen by Provider: 05/06/23 14:38 Source: patient Mode of arrival: walk-in Limitations: no limitations History of Present Illness HPI Narrative: This patient was sent to us from postop evaluation here at this hospital. She just underwent a laparoscopic salpingectomy by Dr. Fernandez. We are awaiting the anesthesia records. The surgical note is completed and there is no complications during the procedure. He has not been treated for hypertension previously. When she was upstairs recovering she says she felt blurriness of vision. At this time she feels much better when I saw her blood pressure was 144/90. It was initially low but higher than that when she came to the department I am trying to decide if she was given any medications upstairs for her blood pressure. 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 Related Data Home Medications Medication Instructions Recorded Confirmed norethindrone-e.estradiol 1 tab PO DAILY 04/27/23 05/06/23 triphasic 0.5 mg/0.75 mg/1 mg-35 mcg tablet (Nortrel (28)) Previous Rx's Medication Instructions Recorded hydrocodone 5 mg-acetaminophen 325 1 tab PO Q4H PRN pain 4 days #16 05/06/23 mg tablet tabs ibuprofen 800 mg tablet 800 mg PO Q8H PRN pain 14 days #40 05/06/23 tabs Allergies Allergy/AdvReac Type Severity Reaction Status Date / Time No Known Drug Allergies Allergy Verified 04/27/23 10:15 [facility] Medical History (Updated 05/06/23 @ 15:14 by Manuel Traore MD) COVID-19 ?U07.1 - COVID-19 (ICD-10) Abnormal uterine bleeding ?N93.9 - Abnormal uterine and vaginal bleeding, unspecified (ICD-10) Menorrhagia ?N92.0 - Excessive and frequent menstruation with regular cycle (ICD-10) Pelvic pain ?R10.2 - Pelvic and perineal pain (ICD-10) Heartburn ?R12 - Heartburn (ICD-10) Request for sterilization ?Z30.2 - Encounter for sterilization (ICD-10) Surgical History (Updated 01/24/24 @ 10:19 by Sherice Whitlock NP) History of tonsillectomy ?Z90.89 - Acquired absence of other organs (ICD-10) Family History (Updated 04/27/23 @ 10:19 by Sherice Whitlock NP) Other Family history of breast cancer Family history of diabetes mellitus Family history of hypertension Family history of myocardial infarction Family history of pancreatic cancer Family history of renal failure Social History (Updated 04/27/23 @ 10:16 by Sherice Whitlock NP) Within the past year, how often did you have a drink containing alcohol: never Score interpretation: A score less than 3 is consistent with normal alcohol consumption. 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 She has no evidence of confusion or amnesia. She remembers the events leading up to surgery. She says she is extraordinarily emotionally distraught and distressed before the procedure for a number of reasons. I have reviewed anesthesia notes and her blood pressure. She has recently stopped taking blood pressure medicine because she had successful weight loss but unfortunately now she has gained a little bit of weight after stopping the Ozempic. She does not have any chest pain or shortness of breath. Her lungs were clear with no wheeze rales or rhonchi. Heart sounds are normal with no S3-S4 or murmur. Her legs do not show any evidence of edema. Peripheral vascular supply is normal. Neck is soft and supple she does not have a headache. She does not have any blurred vision or double vision. Constitutional Vital Signs, click to edit/add: Last Vital Signs Temp 98.1 F 05/06/23 14:29 Pulse 74 05/06/23 14:29 Resp 18 05/06/23 14:29 BP 144/91 H 05/06/23 14:29 Pulse Ox 98 05/06/23 14:29 Course Vital Signs Vital signs: Vital Signs Temperature 98.1 F 05/06/23 14:29 Pulse Rate 74 05/06/23 14:29 Respiratory Rate 18 05/06/23 14:29 Blood Pressure 144/91 H 05/06/23 14:29 Pulse Oximetry 98 05/06/23 14:29 Temperature 98.1 F 05/06/23 14:29 Pulse Rate 74 05/06/23 14:29 Respiratory Rate 18 05/06/23 14:29 Blood Pressure 144/91 H 05/06/23 14:29 Pulse Oximetry 98 05/06/23 14:29 MDM - Dizziness MDM Narrative Medical decision making narrative: Her blood pressure came down very nicely with no therapeutic intervention. I have requested that she take her blood pressure at home and record it daily so that we can determine any trends. Salt restriction was discussed. She has an appointment to see her surgeon in 2 weeks. She also has a local primary care doctor to follow-up with as necessary. 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 Discharge Plan Discharge Chief Complaint: Dizziness Clinical Impression: Hypertension Patient Disposition: Home, Self-Care Time of Disposition Decision: 15:13 Prescriptions / Home Meds: No Action Nortrel (28) 0.5/0.75/1 mg- 35 mcg tablet 1 tab PO DAILY ibuprofen 800 mg tablet 800 mg PO Q8H PRN (Reason: pain) 14 Days Qty: 40 0RF hydrocodone-acetaminophen 5-325 mg tablet 1 tab PO Q4H PRN (Reason: pain) 4 Days Qty: 16 0RF Additional Instructions: Check your blood pressure daily and record for your doctor., Salt restriction, follow-up with PCP as needed Stand Alone Forms: Portal Instructions Referrals: Raffaele Thomas MD [Primary Care Provider] - 1 week
--- OUTSIDE RECORDS SUMMARY | 2023-05-06 14:55 | XMS_ITS | CCD ---
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 Repository (1 source) rofecoxib; Translations: [Vioxx] Drug Allergy [facility] Repository Problems Active Problems Problem Classification Problem [...] Range Facility Lab Reportson 08-11-2022 Lab Reports [id number] .[id number]:127 Normal [facility] Lab Reports [id number] .[id number]:127 Normal [facility] CBC AUTO DIFFon 08-06-2022 BASO # 0.0 103/ul Normal 0.0-0.1 [facility] Comment on above: Performed By: #### C BC #### [facility] [address] [place] [address] Dr. Mikhail Cooney Basophils/100 WBC (Bld) 0.4 % Normal 0.2-2.0 [facility] Comment on above: Performed By: #### C BC #### [facility] [address] [address] [address] Mikhail Cooney EO # 0.1 103/ul Normal 0.0-0.7 [facility] Comment on above: Performed By: #### C BC #### [facility] [address] [place] [address] Dr. Mikhail Cooney Eosinophils/100 WBC (Bld) 1.0 % Normal 0.9-7.0 [facility] Comment on above: Performed By: #### C BC #### [facility] [address] [place] [address] Dr. Mikhail Cooney Erythrocyte distribution width (RBC) [Ratio] 11.9 % Normal 11.0-15.0 [facility] Comment on above: Performed By: #### C BC #### [facility] [address] [place] [address] Dr. Mikhail Cooney Hematocrit (Bld) [Volume fraction] 43.0 % Normal 36.0-48.0 [facility] Comment on above: Performed By: #### C BC #### [facility] [address] [place] [address] Dr. Mikhail Cooney Hemoglobin (Bld) [Mass/Vol] 14.7 g/dL Normal 12.0-16.0 [facility] Comment on above: Performed By: #### C BC #### [facility] [address] [place] [address] Dr. Mikhail Cooney IG # 0.03 10e3/ul Normal 0.00-0.03 [facility] Comment on above: Performed By: #### C BC #### [facility] [address] [place] [address] Dr. Mikhail Cooney IG % 0.3 % Normal 0.0-0.5 [facility] Comment on above: Performed By: #### C BC #### [facility] [address] [place] [address] Dr. Mikhail Cooney LYMPH # 2.4 103/ul Normal 1.2-3.8 [facility] Comment on above: Performed By: #### C BC #### [facility] [address] [place] [address] Dr. Mikhail Cooney Lymphocytes/100 WBC (Bld) 24.4 % Normal 20.5-60.0 [facility] Comment on above: Performed By: #### C BC #### [facility] [address] [place] [address] Dr. Mikhail Cooney MANUAL DIFF REQ NO Normal [facility] Comment on above: Performed By: #### C BC #### [facility] [address] [address] [address] Mikhail Cooney MCH (RBC) [Entitic mass] 29.9 pg Normal 26.7-34.0 [facility] Comment on above: Performed By: #### C BC #### [facility] [address] [place] [address] Dr. Mikhail Cooney MCHC (RBC) [Mass/Vol] 34.2 g/dL Normal 29.9-35.[address] [facility] Comment on above: Performed By: #### C BC #### [facility] [address] [place] [address] Dr. Mikhail Cooney MCV (RBC) [Entitic vol] 87.4 fL Normal 81.0-99.0 [facility] Comment on above: Performed By: #### C BC #### [facility] [address] [place] [address] Dr. Mikhail Cooney MONO # 0.6 103/ul Normal 0.3-0.8 [facility] Comment on above: Performed By: #### C BC #### [facility] [address] [place] [address] Dr. Mikhail Cooney Monocytes/100 WBC (Bld) 6.1 % Normal 1.7-12.0 [facility] Comment on above: Performed By: #### C BC #### [facility] [address] [place] [address] Dr. Mikhail Cooney NEUT # 6.7 103/ul Critically high 1.4-6.5 [facility] Comment on above: Performed By: #### C BC #### [facility] [address] [place] [address] Dr. Mikhail Cooney Neutrophils/100 WBC (Bld) 67.8 % Normal 43.0-75.[address] [facility] Comment on above: Performed By: #### C BC #### [facility] [address] [place] [address] Dr. Mikhail Cooney Platelet mean volume (Bld) [Entitic vol] 11.2 fL Normal 9.5-13.[address] [facility] Comment on above: Performed By: #### C BC #### [facility] [address] [address] [address] Mikhail Cooney PLT 288 103/ul Normal 150-[address] [facility] Comment on above: Performed By: #### C BC #### [facility] [address] [address] [address] Mikhail Cooney RBC 4.92 106/ul Normal 4.20-5.[address] [facility] Comment on above: Performed By: #### C BC #### [facility] [address] [place] [address] Dr. Mikhail Cooney WBC 9.8 103/ul Normal 4.0-11.[address] [facility] Comment on above: Performed By: #### C BC #### [facility] [address] [place] [address] Dr. Mikhail Cooney LIPID PROFILEon 08-06-2022 CHOL-HDL RATIO NORM SEE BELOW Normal [facility] Comment on above: Result Comment: 3.3 - 4.4 LOW RISK 4.4 - 7.1 AVERAGE RISK 7.1 - 11.0 MODERATE RISK >11.0 HIGH RISK Performed By: #### L IPID, CMP, TSH, T4 #### [facility] [address] [place] [address] Dr. Mikhail Cooney Cholesterol [Mass/Vol] 212 mg/dL Critically high <=200 [facility] Comment on above: Performed By: #### L IPID, CMP, TSH, T4 #### [facility] [address] [place] [address] Dr. Mikhail Cooney Cholesterol in HDL [Mass/Vol] 44 mg/dL Normal 40-[address] [facility] Comment on above: Performed By: #### L IPID, CMP, TSH, T4 #### [facility] [address] [place] [address] Dr. Mikhail Cooney Cholesterol in LDL [Mass/Vol] 144.8 mg/dL Normal [facility] Comment on above: Performed By: #### L IPID, CMP, TSH, T4 #### [facility] [address] [place] [address] Dr. Mikhail Cooney Cholesterol.total/ Cholesterol in HDL [Mass ratio] 4.8 {ratio} Normal [facility] Comment on above: Performed By: #### L IPID, CMP, TSH, T4 #### [facility] [address] [address] [address] Mikhail Cooney HDL NORMAL > or = 60 mg/dl - LO W CARDIOVASCULAR RISK <40 mg/dl - HIGH CARDIOVASCULAR RISK Normal [facility] Comment on above: Performed By: #### L IPID, CMP, TSH, T4 #### [facility] [address] [address] [address] Mikhail Cooney LDL CALC NORMAL SEE BELOW Normal [facility] Comment on above: Result Comment: <100 mg/dl OPTIMAL 100 - 129 mg/dl NEAR OR ABOVE OPTIMAL 130 - 159 mg/dl BORDERLINE HIGH 160 - 189 mg/dl HIGH >190 mg/dl VERY HIGH Performed By: #### L IPID, CMP, TSH, T4 #### [facility] [address] [address] [address] Mikhail Cooney Triglyceride [Mass/Vol] 116 mg/dL Normal <=150 [facility] Comment on above: Performed By: #### L IPID, CMP, TSH, T4 #### [facility] [address] [address] [address] Mikhail Cooney VLDL CALC 23.2 mg/dL Normal [facility] Comment on above: Performed By: #### L IPID, CMP, TSH, T4 #### [facility] [address] [address] [address] Mikhail Cooney PROF 14(COMP METB)on 023 Albumin [Mass/Vol] 3.3 g/dL Critically low 3.4-5.[address] [facility] Comment on above: Performed By: #### L IPID, CMP, TSH, T4 #### [facility] [address] [address] [address] Mikhail Cooney Albumin/Globulin [Mass ratio] 0.7 {ratio} Normal [facility] Comment on above: Performed By: #### L IPID, CMP, TSH, T4 #### [facility] [address] [address] [address] Mikhail Cooney ALP [Catalytic activity/Vol] 82 U/L Normal 46-116 [facility] Comment on above: Performed By: #### L IPID, CMP, TSH, T4 #### [facility] [address] [place] [address] Dr. Mikhail Cooney ALT [Catalytic activity/Vol] 32 U/L Normal 14-59 [facility] Comment on above: Performed By: #### L IPID, CMP, TSH, T4 #### [facility] [address] [place] [address] Dr. Mikhail Cooney Anion gap [Moles/Vol] 9.1 mmol/L Normal [facility] Comment on above: Performed By: #### L IPID, CMP, TSH, T4 #### [facility] [address] [place] [address] Dr. Mikhail Cooney AST [Catalytic activity/Vol] 19 U/L Normal 15-37 [facility] Comment on above: Performed By: #### L IPID, CMP, TSH, T4 #### [facility] [address] [place] [address] Dr. Mikhail Cooney Bilirubin [Mass/Vol] 0.5 mg/dL Normal 0.2-1.0 [facility] Comment on above: Performed By: #### L IPID, CMP, TSH, T4 #### [facility] [address] [place] [address] Dr. Mikhail Cooney Calcium [Mass/Vol] 9.1 mg/dL Normal 8.5-10.1 [facility] Comment on above: Performed By: #### L IPID, CMP, TSH, T4 #### [facility] [address] [address] [address] Mikhail Cooney Chloride [Moles/Vol] 104 mmol/L Normal 98-107 [facility] Comment on above: Performed By: #### L IPID, CMP, TSH, T4 #### [facility] [address] [place] [address] Dr. Mikhail Cooney CO2 [Moles/Vol] 27.6 mmol/L Normal 21.0-32.0 [facility] Comment on above: Performed By: #### L IPID, CMP, TSH, T4 #### [facility] [address] [address] [address] Mikhail Cooney Creatinine [Mass/Vol] 1.01 mg/dL Normal 0.55-1.02 [facility] Comment on above: Performed By: #### L IPID, CMP, TSH, T4 #### [facility] [address] [place] [address] Dr. Mikhail Cooney EGFR-AF BELIZEAN >60 Normal >=60 [facility] Comment on above: Performed By: #### L IPID, CMP, TSH, T4 #### [facility] [address] [place] [address] Dr. Mikhail Cooney EGFR-NON AF BELIZEAN >60 Normal >=60 [facility] Comment on above: Performed By: #### L IPID, CMP, TSH, T4 #### [facility] [address] [place] [address] Dr. Mikhail Cooney Globulin (S) [Mass/Vol] 4.5 g/dL Normal [facility] Comment on above: Performed By: #### L IPID, CMP, TSH, T4 #### [facility] [address] [place] [address] Dr. Mikhail Cooney Glucose [Mass/Vol] 93 mg/dL Normal 74-106 [facility] Comment on above: Performed By: #### L IPID, CMP, TSH, T4 #### [facility] [address] [place] [address] Dr. Mikhail Cooney Potassium [Moles/Vol] 3.7 mmol/L Normal 3.5-5.[address] [facility] Comment on above: Performed By: #### L IPID, CMP, TSH, T4 #### [facility] [address] [place] [address] Dr. Mikhail Cooney Protein [Mass/Vol] 7.8 g/dL Normal 6.4-8.2 [facility] Comment on above: Performed By: #### L IPID, CMP, TSH, T4 #### [facility] [address] [place] [address] Dr. Mikhail Cooney Sodium [Moles/Vol] 137 mmol/L Normal 136-145 [facility] Comment on above: Performed By: #### L IPID, CMP, TSH, T4 #### [facility] [address] [place] [address] Dr. Mikhail Cooney Urea nitrogen [Mass/Vol] 13.0 mg/dL Normal 7.0-18.0 [facility] Comment on above: Performed By: #### L IPID, CMP, TSH, T4 #### [facility] [address] [place] [address] Dr. Mikhail Cooney Urea nitrogen/Creatinin e [Mass ratio] 12.9 mg/mg Normal [facility] Comment on above: Performed By: #### L IPID, CMP, TSH, T4 #### [facility] [address] [place] [address] Dr. Mikhail Cooney T4on 08-06-2022 T4 [Mass/Vol] 13.20 ug/dL Normal 4.80-13.90 [facility] Comment on above: Performed By: #### L IPID, CMP, TSH, T4 #### [facility] [address] [place] [address] Dr. Mikhail Cooney TSHon 08-06-2022 TSH 2.723 uIU/mL Normal 0.358-3.740 [facility] Comment on above: Performed By: #### L IPID, CMP, TSH, T4 #### [facility] [address] [place] [address] Dr. Mikhail Cooney Physician Referralon 023 Physician Referral [id number] .[id number]:127 Normal [facility] CBC AUTO DIFFon 04-21-2022 BASO # 0.0 103/ul Normal 0.0-0.1 [facility] Comment on above: Performed By: #### C BC #### [facility] [address] [place] [address] Dr. Mikhail Cooney Basophils/100 WBC (Bld) 0.4 % Normal 0.2-2.0 [facility] Comment on above: Performed By: #### C BC #### [facility] [address] [place] [address] Dr. Mikhail Cooney EO # 0.1 103/ul Normal 0.0-0.7 [facility] Comment on above: Performed By: #### C BC #### [facility] [address] [place] [address] Dr. Mikhail Cooney Eosinophils/100 WBC (Bld) 1.3 % Normal 0.9-7.0 [facility] Comment on above: Performed By: #### C BC #### [facility] [address] [place] [address] Dr. Mikhail Cooney Erythrocyte distribution width (RBC) [Ratio] 11.9 % Normal 11.0-15.0 [facility] Comment on above: Performed By: #### C BC #### [facility] [address] [place] [address] Dr. Mikhail Cooney Hematocrit (Bld) [Volume fraction] 44.1 % Normal 36.0-48.0 [facility] Comment on above: Performed By: #### C BC #### [facility] [address] [place] [address] Dr. Mikhail Cooney Hemoglobin (Bld) [Mass/Vol] 14.9 g/dL Normal 12.0-16.0 [facility] Comment on above: Performed By: #### C BC #### [facility] [address] [place] [address] Dr. Mikhail Cooney IG # 0.02 10e3/ul Normal 0.00-0.03 [facility] Comment on above: Performed By: #### C BC #### [facility] [address] [place] [address] Dr. Mikhail Cooney IG % 0.3 % Normal 0.0-0.[address] [facility] Comment on above: Performed By: #### C BC #### [facility] [address] [place] [address] Dr. Mikhail Cooney LYMPH # 2.4 103/ul Normal 1.2-3.8 [facility] Comment on above: Performed By: #### C BC #### [facility] [address] [place] [address] Dr. Mikhail Cooney Lymphocytes/100 WBC (Bld) 30.1 % Normal 20.5-60.0 [facility] Comment on above: Performed By: #### C BC #### [facility] [address] [place] [address] Dr. Mikhail Cooney MANUAL DIFF REQ NO Normal [facility] Comment on above: Performed By: #### C BC #### [facility] [address] [place] [address] Dr. Mikhail Cooney MCH (RBC) [Entitic mass] 29.6 pg Normal 26.7-34.0 [facility] Comment on above: Performed By: #### C BC #### [facility] [address] [place] [address] Dr. Mikhail Cooney MCHC (RBC) [Mass/Vol] 33.8 g/dL Normal 29.9-35.2 [facility] Comment on above: Performed By: #### C BC #### [facility] [address] [place] [address] Dr. Mikhail Cooney MCV (RBC) [Entitic vol] 87.5 fL Normal 81.0-99.0 [facility] Comment on above: Performed By: #### C BC #### [facility] [address] [place] [address] Dr. Mikhail Cooney MONO # 0.5 103/ul Normal 0.3-0.8 [facility] Comment on above: Performed By: #### C BC #### [facility] [address] [place] [address] Dr. Mikhail Cooney Monocytes/100 WBC (Bld) 6.9 % Normal 1.7-12.[address] [facility] Comment on above: Performed By: #### C BC #### [facility] [address] [place] [address] Dr. Mikhail Cooney NEUT # 4.8 103/ul Normal 1.4-6.[address] [facility] Comment on above: Performed By: #### C BC #### [facility] [address] [place] [address] Dr. Mikhail Cooney Neutrophils/100 WBC (Bld) 61.0 % Normal 43.0-75.0 [facility] Comment on above: Performed By: #### C BC #### [facility] [address] [place] [address] Dr. Mikhail Cooney Platelet mean volume (Bld) [Entitic vol] 11.7 fL Normal 9.5-13.5 [facility] Comment on above: Performed By: #### C BC #### [facility] [address] [place] [address] Dr. Mikhail Cooney PLT 235 103/ul Normal 150-450 [facility] Comment on above: Performed By: #### C BC #### [facility] [address] [place] [address] Dr. Mikhail Cooney RBC 5.04 106/ul Normal 4.20-5.40 [facility] Comment on above: Performed By: #### C BC #### [facility] [address] [place] [address] Dr. Mikhail Cooney WBC 7.8 103/ul Normal 4.0-11.0 [facility] Comment on above: Performed By: #### C BC #### [facility] [address] [place] [address] Dr. Mikhail Cooney LIPASEon 04-21-2022 Lipase [Catalytic activity/Vol] 126.0 U/L Normal 73.0-393.0 [facility] Comment on above: Performed By: #### L IPA, CMP #### [facility] [address] [place] [address] Dr. Mikhail oConey PROF 14(COMP METB)on 023 Albumin [Mass/Vol] 3.2 g/dL Critically low 3.4-5.[address] [facility] Comment on above: Performed By: #### L IPA, CMP #### [facility] [address] [place] [address] Dr. Mikhail Cooney Albumin/Globulin [Mass ratio] 0.8 {ratio} Normal [facility] Comment on above: Performed By: #### L IPA, CMP #### [facility] [address] [address] [address] Mikhail Cooney ALP [Catalytic activity/Vol] 87 U/L Normal 46-116 [facility] Comment on above: Performed By: #### L IPA, CMP #### [facility] [address] [address] [address] Mikhail Cooney ALT [Catalytic activity/Vol] 31 U/L Normal 14-59 [facility] Comment on above: Performed By: #### L IPA, CMP #### [facility] [address] [address] [address] Mikhail Cooney Anion gap [Moles/Vol] 10.4 mmol/L Normal [facility] Comment on above: Performed By: #### L IPA, CMP #### [facility] [address] [address] [address] Mikhail Cooney AST [Catalytic activity/Vol] 28 U/L Normal 15-37 [facility] Comment on above: Performed By: #### L IPA, CMP #### [facility] [address] [address] [address] Mikhail Cooney Bilirubin [Mass/Vol] 0.4 mg/dL Normal 0.2-1.0 [facility] Comment on above: Performed By: #### L IPA, CMP #### [facility] [address] [address] [address] Mikhail Cooney Calcium [Mass/Vol] 8.9 mg/dL Normal 8.5-10.1 [facility] Comment on above: Performed By: #### L IPA, CMP #### [facility] [address] [address] [address] Mikhail Cooney Chloride [Moles/Vol] 104 mmol/L Normal 98-107 [facility] Comment on above: Performed By: #### L IPA, CMP #### [facility] [address] [address] [address] Mikhail Cooney CO2 [Moles/Vol] 29.0 mmol/L Normal 21.0-32.0 [facility] Comment on above: Performed By: #### L IPA, CMP #### [facility] [address] [address] [address] Mikhail Cooney Creatinine [Mass/Vol] 0.81 mg/dL Normal 0.55-1.[address] [facility] Comment on above: Performed By: #### L IPA, CMP #### [facility] [address] [address] [address] Mikhail Cooney EGFR-AF BELIZEAN >60 Normal >=60 [facility] Comment on above: Performed By: #### L IPA, CMP #### [facility] [address] [address] [address] Mikhail Cooney EGFR-NON AF BELIZEAN >60 Normal >=60 [facility] Comment on above: Performed By: #### L IPA, CMP #### [facility] [address] [place] [address] Dr. Mikhail Cooney Globulin (S) [Mass/Vol] 4.0 g/dL Normal [facility] Comment on above: Performed By: #### L IPA, CMP #### [facility] [address] [address] [address] Mikhail Cooney Glucose [Mass/Vol] 100 mg/dL Normal 74-106 [facility] Comment on above: Performed By: #### L IPA, CMP #### [facility] [address] [address] [address] Mikhail Cooney Potassium [Moles/Vol] 4.4 mmol/L Normal 3.5-5.[address] [facility] Comment on above: Performed By: #### L IPA, CMP #### [facility] [address] [address] [address] Mikhail Cooney Protein [Mass/Vol] 7.2 g/dL Normal 6.4-8.2 [facility] Comment on above: Performed By: #### L IPA, CMP #### [facility] [address] [address] [address] Mikhail Cooney Sodium [Moles/Vol] 139 mmol/L Normal 136-145 [facility] Comment on above: Performed By: #### L IPA, CMP #### [facility] [address] [place] [address] Dr. Mikhail Cooney Urea nitrogen [Mass/Vol] 9.0 mg/dL Normal 7.0-18.0 [facility] Comment on above: Performed By: #### L IPA, CMP #### [facility] [address] [address] [address] Mikhail Cooney Urea nitrogen/Creatinin e [Mass ratio] 11.1 mg/mg Normal [facility] Comment on above: Performed By: #### L IPA, CMP #### [facility] [address] [place] [address] Dr. Mikhail Cooney PAP ACOG PANEL 2: 31 to 66on 03-09-2022 . . Normal [facility] Comment on above: Result Comment: Perf ormed at: WB Performed By: #### C VDTBH #### [facility] [address] [place] [address] Dr. Mikhail Cooney Age Gdln ACOG Testing - Normal [facility] Comment on above: Performed By: #### C VDTBH #### [facility] [address] [place] [address] Dr. Mikhail Cooney DIAGNOSIS: Comment Normal [facility] Comment on above: Result Comment: NEGA TIVE FOR INTRAEPITHELIAL LESION OR MALIGNANCY. Performed at: WB Performed By: #### C VDTBH #### [facility] [address] [place] [address] Dr. Mikhail Cooney HPV Aptima Negative Normal Negative [facility] Comment on above: Result Comment: This nucleic acid amplification test detects fourteen high-risk HPV types (16,18,31,33,35,39,45,51,52,56,58,59,66,68) without differentiation. Performed at: =G Performed By: #### C VDTBH #### [facility] [address] [place] [address] Dr. Mikhail Cooney HPV Genotype Reflex Comment Normal [facility] Comment on above: Result Comment: Crit eria not met, HPV Genotype not performed. Performed at: WB Performed By: #### C VDTBH #### [facility] [address] [place] [address] Dr. Mikhail Cooney Methodology: Comment [facility] Comment on above: Result Comment: This liquid based ThinPrep(R) pap test was screened with the use of an image guided system. Performed at: WB Performed By: #### C VDTBH #### [facility] [address] [place] [address] Dr. Mikhail Cooney Note: Comment Normal [facility] Comment on above: Result Comment: The Pap smear is a screening test designed to aid in the detection of premalignant and malignant conditions of the uterine cervix. It is not a diagnostic procedure and should not be used as the sole means of detecting cervical cancer. Both false-positive and false-negative reports do occur. . Performed at: WB Performed By: #### C VDTBH #### [facility] [address] [place] [address] Dr. Mikhail Cooney Performed by: Comment Normal [facility] Comment on above: Result Comment: Evangelista Contreras, Computer Numeric Control Setter (ASCP) Performed at: WB Performed By: #### C VDTBH #### [facility] [address] [place] [address] Dr. Mikhail Cooney Specimen adequacy: Comment Normal [facility] Comment on above: Result Comment: Sati sfactory for evaluation. Endocervical and/or squamous metaplastic cells (endocervical component) are present. Performed at: WB Performed By: #### C VDTBH #### [facility] [address] [place] [address] Dr. Mikhail Cooney ASYMPTOMATIC COVID-19 ANTIGE Non 11-03-2021 EUA Statement SEE BELOW [facility] Comment on above: Result Comment: This test [...] sooner. Performed By: #### C VDAGA #### [facility] [address] [place] [address] Dr. Mikhail Cooney SARS-CoV-2 (COVID-19) RNA JORGE+probe Ql (Unsp spec) Negative Normal NEGATIVE [facility] Comment on above: Result Comment: Nega tive results are presumptive. They do not preclude infection and should not be used as the sole basis for treatment decisions. Additional confirmatory testing by a molecular method should be considered. Performed By: #### C VDAGA #### [facility] [address] [place] [address] Dr. Mikhail Cooney Covid-19 PCR (CVDTB)on 10-03 SARS-CoV-2 (COVID-19) RNA JORGE+probe Ql (Unsp spec) Detected Critically abnormal NOT DETECTED [facility] Comment on above: Result Comment: This test is not yet approved or cleared by the [place] FDA. When there are no FDA-approved or cleared tests available, and other criteria are met, FDA can make tests available under an emergency access mechanism called an Emergency Use Authorization (EUA). The EUA for this test is supported by the Phot[employer] Contact Printer of Health and Human Service's declaration that [...] used). Performed By: #### C VDTBH #### [facility] [address] [place], [place] [id number] Dr. Mikhail Cooney Encounters Encounter Date Encounter [...] Facility: Payers Date Payer Category Payer Unknown [id number] 1985 Unknown [id number] 2.16.84 [id number] 1986 Unknown [id number] 2.16.84 [id number] 1986 Unknown [id number] 2.16.84 [id number] 1986 Unknown [id number] 2.16.84 [id number] 1986 Unknown [id number] 2.16.8 [id number] 1986 Unknown [id number] 2.16.84 [id number] 1986 Unknown [id number] 2.16.840 .[id number] 1959 Self-pay 1958 Unknown [id number] Unknown [id number] 2.16.84 [id number] Unknown [id number] 2.16.84 [id number] Summary Purpose Family History No Family History Records FoundNo Family History Records FoundNo Family History Records Found Advance Directives No Advanced Directives Records FoundNo Advanced Directives Records FoundNo Advanced Directives Records Found Additional Source Comments INFORMATION SOURCE (unrecogn ized section and content) DATE CREATED AUTHOR 08/06/2022 [facility] DATE CREATED AUTHOR AUTHOR'S ORGANIZ ATION 08/12/2022 [facility] DATE CREATED AUTHOR AUTHOR'S ORGANIZ ATION 04/13/2023 [facility] EPIC FOR RECORDS PERTAINING [...] BE BASED ON THE PRIMARY CLINICAL RECORDS. [facility] [employer] [facility] provides no warranty or guarantee of the accuracy or completeness of information in this document.
== END 2023-05-06 15:28 | disposition home or self-care (01) ==
PROVIDERS: Emergency Provider Emergency Medicine Emergency Medical Services; PCP Family Medicine
DX: I10 Essential (primary) hypertension (principal); Z86.16 Personal history of COVID-19
CPT/HCPCS: 93005; 99281

== ENCOUNTER 2023-12-13 07:18 | Outpatient (OUT) | payer BC, SELFPAY ==
--- OUTSIDE RECORDS SUMMARY | 2023-12-13 07:21 | XMS_ITS | CCD ---
Author Organization [facility] CliniSytn Care Team Providers Care Hand Braille Transcriber Name Role Phone REQUEST, DR NONE LISTED Primary Care Unavaila ble WOLF ., DR RYAN Green Admitting Unavailable WOLF ., DR RYAN Green Attending Unavailable WOLF ., DR RYAN Green Consulting Unavailable WOLF ., DR RYAN Green Primary Care Unavailable WOLF ., DR RYAN Green Admitting Unavailable WOLF ., DR RYAN Green Attending Unavailable WOLF ., DR RYAN Green Consulting Unavailable REQUEST, NONE LISTED Primary Care Unavaila ble WOLF ., DR RYAN Green Admitting Unavailable WOLF ., DR RYAN Green Attending Unavailable WOLF ., DR RYAN Green Consulting Unavailable JIM ., DR DELEON Attending Unavailable JIM ., DR DELEON Consulting Unavailable JIM ., DR DELEON Admitting Unavailable REQUEST, DR NONE LISTED Primary Care Unavaila ble MUNIRA, MARGOTH Admitting Unavailable REQUEST, NONE LISTED Primary Care Unavaila ble MUNIRA, MARGOTH Attending Unavailable MUNIRA, MARGOTH Consulting Unavailable REQUEST, DR NONE LISTED Primary Care Unavaila ble MUNIRA, MARGOTH Attending Unavailable MUNIRA, MARGOTH Consulting Unavailable MUNIRA, MARGOTH Admitting Unavailable Moisés LITTLEJOHN Attending Unavailable Adrienne Fernandez Attending Provider Adrienne Fernandez Attending Unavailable Adrienne Fernandez Admitting Unavailable Raffaele Romero MD Primary Care Provider ADRIENNE FERNANDEZ Attending Unavailable MICHELLE KEITH Attending Unavailable ADRIENNE FERNANDEZ Attending Unavailable RAFFAELE ROMERO Attending Unavailable Allergies Allergy Classification Reported Allergen(s) Allergy Type Date of Onset Reaction(s) Facility (1 source) predniSONE Drug Allergy 01-20-2016 [facility] Repository (1 source) rofecoxib; Translations: [Vioxx] Drug Allergy [facility] Repository Medications Current Medications Medication Drug Class(es) Dates Sig (Normalized) Sig (Original) cephalexin 500 mg oral capsule (2 sources) Cephalosporin Antibacterial Start: End: take 1 capsule by mouth in the [...] UA Negative Negative - 4(70) +++ mg/dL [facility] Blood, UA Positive Negative - 50 Cj/mcL [facility] Clarity, UA Clear [facility] Color, UA Yellow [facility] Glucose, UA Negative Negative - 1999(110) ++++ mg/dL [facility] Interpretation and review of laboratory results Abnormal [facility] Ketones, UA Negative Negative - 160(16) ++++ mg/dL [facility] Leukocytes, UA Positive Negative - 500+++ Kateryna/mcL [facility] Nitrite, UA Negative Negative - Positive [facility] pH, UA 6.0 5 - 9 [facility] Protein, UA Negative Negative - 2000(20) ++++ mg/dL [facility] Spec Grav, UA 1.015 1 - 1.03 [facility] Urobilinogen, UA 0.2 0.2 - 12 mg/dL [facility] 05-06-2023 L Specimen: [id number] Received: 05/09/23 Status: STEVE Link Num: [id number] Spec Type: Surgical Subm Dr: Adrienne Fernandez Tissues: A Fallopian Tube - Sterilization (SOTERO FT) Procedures: HE/3, Gross/Micro L2 Age/ Patient Sex Location Account Attending Physician Basil Carranza 37/F LABELL [id number] Adrienne Fernandez SPEC NUM: [id number] RECD: 05/09/23 STATUS: STEVE LINK NUM: [id number] SANTINO: 05/06/[address]: Adrienne Fernandez ENTERED: 05/09/23 [facility] DR: Christopher,Lab SPEC TYPE: Surgical DEPT: DESIRAE JAY ORDERED: HE/3, Gross/Micro L2 ORDERED: HE, Gross/Micro L2 Pathological Diagnosis Bilateral fallopian tubes, [...] tissue with a rubbery, rivera-white cut surface. [facility] sections are submitted in 3 cassettes as follows: A1-A2 - [facility] fallopian tubes A3 - Detached tissue in its entirety Microscopic Description Three H E slides reviewed. The microscopic examination confirms the diagnosis. -------- Specimen: [id number] Received: 05/09/23 Status: STEVE Link Num: [id number] Spec Type: Surgical Subm Dr: Adrienne Fernandez Tissues: A Fallopian Tube - Sterilization (SOTERO FT) Procedures: HE/3, Gross/Micro L2 -------- Patient: Basil Carranza [id number] (Continued) -------- Specimen: [id number] Received: 05/09/23 (Continued) Signed (signature on file) Patrick Post MD 05/10/23 2317 -------- Specimen: [id number] Received: 05/09/23 Status: STEVE Link Num: [id number] Spec Type: Surgical Subm Dr: Adrienne Fernandez Tissues: A Fallopian Tube - Sterilization (SOTERO FT) Procedures: OBDULIA/Shelli Montalvo/Jt L2 -------- Patient: TereBasil [id number] (Continued) -------- Specimen: [id number] Received: 05/09/23 (Continued) CPT Codes 15220 -------- -------- Specimen: [id number] Received: 05/09/23 Status: STEVE Link Num: [id number] Spec Type: Surgical Subm Dr: Adrienne Fernandez Tissues: A Fallopian Tube - Sterilization (SOTERO FT) Procedures: HE/Shelli Montalvo/Jt L2 -------- Patient: Basil Carranza [id number] (Continued) -------- Signed (signature on file) Patrick Post MD 05/10/23 2317 [facility] Lab Reportson 08-11-2022 Lab Reports [id number] .[id number]:127 Normal [facility] Lab Reports [id number] .[id number]:127 Normal [facility] CBC AUTO DIFFon 08-06-2022 BASO # 0.0 103/ul Normal 0.0-0.1 [facility] Comment on above: Performed By: #### C BC #### [facility] [address] [place] [address] Dr. Mikhail Cooney Basophils/100 WBC (Bld) 0.4 % Normal 0.2-2.0 [facility] Comment on above: Performed By: #### C BC #### [facility] [address] [place] [address] Dr. Mikhail Cooney EO # 0.1 103/ul Normal 0.0-0.7 [facility] Comment on above: Performed By: #### C BC #### [facility] [address] [place] [address] Dr. Mikhail Cooney Eosinophils/100 WBC (Bld) 1.0 % Normal 0.9-7.0 [facility] Comment on above: Performed By: #### C BC #### [facility] [address] [place] [address] Dr. Mikhail Cooney Erythrocyte distribution width (RBC) [Ratio] 11.9 % Normal 11.0-15.0 [facility] Comment on above: Performed By: #### C BC #### [facility] [address] [place] [address] Dr. Mikhail Cooney Hematocrit (Bld) [Volume fraction] 43.0 % Normal 36.0-48.0 [facility] Comment on above: Performed By: #### C BC #### [facility] [address] [place] [address] Dr. Mikhail Cooney Hemoglobin (Bld) [Mass/Vol] 14.7 g/dL Normal 12.0-16.0 [facility] Comment on above: Performed By: #### C BC #### [facility] [address] [place] [address] Dr. Mikhail Cooney IG # 0.03 10e3/ul Normal 0.00-0.03 [facility] Comment on above: Performed By: #### C BC #### [facility] [address] [place] [address] Dr. Mikhail Cooney IG % 0.3 % Normal 0.0-0.5 [facility] Comment on above: Performed By: #### C BC #### [facility] [address] [place] [address] Dr. Mikhail Cooney LYMPH # 2.4 103/ul Normal 1.2-3.8 [facility] Comment on above: Performed By: #### C BC #### [facility] [address] [place] [address] Dr. Mikhail Cooney Lymphocytes/100 WBC (Bld) 24.4 % Normal 20.5-60.0 [facility] Comment on above: Performed By: #### C BC #### [facility] [address] [place] [address] Dr. Mikhail Cooney MANUAL DIFF REQ NO Normal [facility] Comment on above: Performed By: #### C BC #### [facility] [address] [place] [address] Dr. Mikhail Cooney MCH (RBC) [Entitic mass] 29.9 pg Normal 26.7-34.0 [facility] Comment on above: Performed By: #### C BC #### [facility] [address] [place] [address] Dr. Mikhail Cooney MCHC (RBC) [Mass/Vol] 34.2 g/dL Normal 29.9-35.2 [facility] Comment on above: Performed By: #### C BC #### [facility] [address] [place] [address] Dr. Mikhail Cooney MCV (RBC) [Entitic vol] 87.4 fL Normal 81.0-99.0 [facility] Comment on above: Performed By: #### C BC #### [facility] [address] [place] [address] Dr. Mikhail Cooney MONO # 0.6 103/ul Normal 0.3-0.8 [facility] Comment on above: Performed By: #### C BC #### [facility] [address] [place] [address] Dr. Mikhail Cooney Monocytes/100 WBC (Bld) 6.1 % Normal 1.7-12.0 [facility] Comment on above: Performed By: #### C BC #### [facility] [address] [place] [address] Dr. Mikhail Cooney NEUT # 6.7 103/ul Critically high 1.4-6.5 [facility] Comment on above: Performed By: #### C BC #### [facility] [address] [place] [address] Dr. Mikhail Cooney Neutrophils/100 WBC (Bld) 67.8 % Normal 43.0-75.0 [facility] Comment on above: Performed By: #### C BC #### [facility] [address] [place] [address] Dr. Mikhail Cooney Platelet mean volume (Bld) [Entitic vol] 11.2 fL Normal 9.5-13.5 [facility] Comment on above: Performed By: #### C BC #### [facility] [address] [place] [address] Dr. Mikhail Cooney PLT 288 103/ul Normal 150-450 [facility] Comment on above: Performed By: #### C BC #### [facility] [address] [place] [address] Dr. Mikhail Cooney RBC 4.92 106/ul Normal 4.20-5.40 [facility] Comment on above: Performed By: #### C BC #### [facility] [address] [place] [address] Dr. Mikhail Cooney WBC 9.8 103/ul Normal 4.0-11.0 [facility] Comment on above: Performed By: #### C BC #### [facility] [address] [address] [address] Mikhail Cooney LIPID PROFILEon 08-06-2022 CHOL-HDL RATIO NORM SEE BELOW Normal [facility] Comment on above: Result Comment: 3.3 - 4.4 LOW RISK 4.4 - 7.1 AVERAGE RISK 7.1 - 11.0 MODERATE RISK >11.0 HIGH RISK Performed By: #### L IPID, CMP, TSH, T4 #### [facility] [address] [address] [address] Mikhail Cooney Cholesterol [Mass/Vol] 212 mg/dL Critically high <=200 [facility] Comment on above: Performed By: #### L IPID, CMP, TSH, T4 #### [facility] [address] [address] [address] Mikhail Cooney Cholesterol in HDL [Mass/Vol] 44 mg/dL Normal 40-60 [facility] Comment on above: Performed By: #### L IPID, CMP, TSH, T4 #### [facility] [address] [address] [address] Mikhail Cooney Cholesterol in LDL [Mass/Vol] 144.8 mg/dL Normal [facility] Comment on above: Performed By: #### L IPID, CMP, TSH, T4 #### [facility] [address] [address] [address] Mikhail Cooney Cholesterol.total/C holesterol in HDL [Mass ratio] 4.8 {ratio} Normal [facility] Comment on above: Performed By: #### L IPID, CMP, TSH, T4 #### [facility] [address] [address] [address] Mikhail Cooney HDL NORMAL > or = 60 mg/dl - LO W CARDIOVASCULAR RISK <40 mg/dl - HIGH CARDIOVASCULAR RISK Normal [facility] Comment on above: Performed By: #### L IPID, CMP, TSH, T4 #### [facility] [address] [address] [address] Mikhail Cooney LDL CALC NORMAL SEE BELOW Normal [facility] Comment on above: Result Comment: <100 mg/dl OPTIMAL 100 - 129 mg/dl NEAR OR ABOVE OPTIMAL 130 - 159 mg/dl BORDERLINE HIGH 160 - 189 mg/dl HIGH >190 mg/dl VERY HIGH Performed By: #### L IPID, CMP, TSH, T4 #### [facility] [address] [address] [address] Mikhail Cooney Triglyceride [Mass/Vol] 116 mg/dL Normal <=150 [facility] Comment on above: Performed By: #### L IPID, CMP, TSH, T4 #### [facility] [address] [address] [address] Mikhail Cooney VLDL CALC 23.2 mg/dL Normal [facility] Comment on above: Performed By: #### L IPID, CMP, TSH, T4 #### [facility] [address] [address] [address] Mikhail Cooney PROF 14(COMP METB)on 023 Albumin [Mass/Vol] 3.3 g/dL Critically low 3.4-5.0 [facility] Comment on above: Performed By: #### L IPID, CMP, TSH, T4 #### [facility] [address] [address] [address] Mikhail Cooney Albumin/Globulin [Mass ratio] 0.7 {ratio} Normal [facility] Comment on above: Performed By: #### L IPID, CMP, TSH, T4 #### [facility] [address] [address] [address] Mikhail Cooney ALP [Catalytic activity/Vol] 82 U/L Normal 46-116 [facility] Comment on above: Performed By: #### L IPID, CMP, TSH, T4 #### [facility] [address] [address] [address] Mikhail Cooney ALT [Catalytic activity/Vol] 32 U/L Normal 14-59 [facility] Comment on above: Performed By: #### L IPID, CMP, TSH, T4 #### [facility] [address] [address] [address] Mikhail Cooney Anion gap [Moles/Vol] 9.1 mmol/L Normal [facility] Comment on above: Performed By: #### L IPID, CMP, TSH, T4 #### [facility] [address] [address] [address] Mikhail Cooney AST [Catalytic activity/Vol] 19 U/L Normal 15-37 [facility] Comment on above: Performed By: #### L IPID, CMP, TSH, T4 #### [facility] [address] [address] [address] Mikhail Cooney Bilirubin [Mass/Vol] 0.5 mg/dL Normal 0.2-1.0 [facility] Comment on above: Performed By: #### L IPID, CMP, TSH, T4 #### [facility] [address] [place] [address] Dr. Mikhail Cooney Calcium [Mass/Vol] 9.1 mg/dL Normal 8.5-10.1 [facility] Comment on above: Performed By: #### L IPID, CMP, TSH, T4 #### [facility] [address] [place] [address] Dr. Mikhail Cooney Chloride [Moles/Vol] 104 mmol/L Normal 98-107 [facility] Comment on above: Performed By: #### L IPID, CMP, TSH, T4 #### [facility] [address] [place] [address] Dr. Mikhail Cooney CO2 [Moles/Vol] 27.6 mmol/L Normal 21.0-32.0 [facility] Comment on above: Performed By: #### L IPID, CMP, TSH, T4 #### [facility] [address] [place] [address] Dr. Mikhail Cooney Creatinine [Mass/Vol] 1.01 mg/dL Normal 0.55-1.02 [facility] Comment on above: Performed By: #### L IPID, CMP, TSH, T4 #### [facility] [address] [place] [address] Dr. Mikhail Cooney EGFR-AF GAMBIAN >60 Normal >=60 [facility] Comment on above: Performed By: #### L IPID, CMP, TSH, T4 #### [facility] [address] [address] [address] Mikhail Cooney EGFR-NON AF GAMBIAN >60 Normal >=60 [facility] Comment on above: Performed By: #### L IPID, CMP, TSH, T4 #### [facility] [address] [address] [address] Mikhail Cooney Globulin (S) [Mass/Vol] 4.5 g/dL Normal [facility] Comment on above: Performed By: #### L IPID, CMP, TSH, T4 #### [facility] [address] [address] [address] Mikhail Cooney Glucose [Mass/Vol] 93 mg/dL Normal 74-106 [facility] Comment on above: Performed By: #### L IPID, CMP, TSH, T4 #### [facility] [address] [place] [address] Dr. Mikhail Cooney Potassium [Moles/Vol] 3.7 mmol/L Normal 3.5-5.1 [facility] Comment on above: Performed By: #### L IPID, CMP, TSH, T4 #### [facility] [address] [place] [address] Dr. Mikhail Cooney Protein [Mass/Vol] 7.8 g/dL Normal 6.4-8.2 [facility] Comment on above: Performed By: #### L IPID, CMP, TSH, T4 #### [facility] [address] [address] [address] Mikhail Cooney Sodium [Moles/Vol] 137 mmol/L Normal 136-145 [facility] Comment on above: Performed By: #### L IPID, CMP, TSH, T4 #### [facility] [address] [place] [address] Dr. Mikhail Cooney Urea nitrogen [Mass/Vol] 13.0 mg/dL Normal 7.0-18.0 [facility] Comment on above: Performed By: #### L IPID, CMP, TSH, T4 #### [facility] [address] [place] [address] Dr. Mikhail Cooney Urea nitrogen/Creatinine [Mass ratio] 12.9 mg/mg Normal [facility] Comment on above: Performed By: #### L IPID, CMP, TSH, T4 #### [facility] [address] [place] [address] Dr. Mikhail Cooney T4on 08-06-2022 T4 [Mass/Vol] 13.20 ug/dL Normal 4.80-13.90 [facility] Comment on above: Performed By: #### L IPID, CMP, TSH, T4 #### [facility] [address] [place] [address] Dr. Mikhail Cooney TSHon 08-06-2022 TSH 2.723 uIU/mL Normal 0.358-3.740 [facility] Comment on above: Performed By: #### L IPID, CMP, TSH, T4 #### [facility] [address] [place] [address] Dr. Mikhail Cooney Physician Referralon 023 Physician Referral [id number] .[id number]:127 Normal [facility] CBC AUTO DIFFon 04-21-2022 BASO # 0.0 103/ul Normal 0.0-0.1 [facility] Comment on above: Performed By: #### C BC #### [facility] [address] [place] [address] Dr. Mikhail Cooney Basophils/100 WBC (Bld) 0.4 % Normal 0.2-2.0 [facility] Comment on above: Performed By: #### C BC #### [facility] [address] [place] [address] Dr. Mikhail Cooney EO # 0.1 103/ul Normal 0.0-0.7 [facility] Comment on above: Performed By: #### C BC #### [facility] [address] [place] [address] Dr. Mikhail Cooney Eosinophils/100 WBC (Bld) 1.3 % Normal 0.9-7.0 [facility] Comment on above: Performed By: #### C BC #### [facility] [address] [place] [address] Dr. Mikhail Cooney Erythrocyte distribution width (RBC) [Ratio] 11.9 % Normal 11.0-15.0 [facility] Comment on above: Performed By: #### C BC #### [facility] [address] [place] [address] Dr. Mikhail Cooney Hematocrit (Bld) [Volume fraction] 44.1 % Normal 36.0-48.0 [facility] Comment on above: Performed By: #### C BC #### [facility] [address] [place] [address] Dr. Mikhail Cooney Hemoglobin (Bld) [Mass/Vol] 14.9 g/dL Normal 12.0-16.0 [facility] Comment on above: Performed By: #### C BC #### [facility] [address] [place] [address] Dr. Mikhail Cooney IG # 0.02 10e3/ul Normal 0.00-0.03 [facility] Comment on above: Performed By: #### C BC #### [facility] [address] [place] [address] Dr. Mikhail Cooney IG % 0.3 % Normal 0.0-0.5 [facility] Comment on above: Performed By: #### C BC #### [facility] [address] [place] [address] Dr. Mikhail Cooney LYMPH # 2.4 103/ul Normal 1.2-3.8 [facility] Comment on above: Performed By: #### C BC #### [facility] [address] [place] [address] Dr. Mikhail Cooney Lymphocytes/100 WBC (Bld) 30.1 % Normal 20.5-60.0 [facility] Comment on above: Performed By: #### C BC #### [facility] [address] [place] [address] Dr. Mikhail Cooney MANUAL DIFF REQ NO Normal [facility] Comment on above: Performed By: #### C BC #### [facility] [address] [place] [address] Dr. Mikhail Cooney MCH (RBC) [Entitic mass] 29.6 pg Normal 26.7-34.0 [facility] Comment on above: Performed By: #### C BC #### [facility] [address] [place] [address] Dr. Mikhail Cooney MCHC (RBC) [Mass/Vol] 33.8 g/dL Normal 29.9-35.2 [facility] Comment on above: Performed By: #### C BC #### [facility] [address] [place] [address] Dr. Mikhail Cooney MCV (RBC) [Entitic vol] 87.5 fL Normal 81.0-99.0 [facility] Comment on above: Performed By: #### C BC #### [facility] [address] [place] [address] Dr. Mikhail Cooney MONO # 0.5 103/ul Normal 0.3-0.8 [facility] Comment on above: Performed By: #### C BC #### [facility] [address] [place] [address] Dr. Mikhail Cooney Monocytes/100 WBC (Bld) 6.9 % Normal 1.7-12.0 [facility] Comment on above: Performed By: #### C BC #### [facility] [address] [place] [address] Dr. Mikhail Cooney NEUT # 4.8 103/ul Normal 1.4-6.5 [facility] Comment on above: Performed By: #### C BC #### [facility] [address] [place] [address] Dr. Mikhail Cooney Neutrophils/100 WBC (Bld) 61.0 % Normal 43.0-75.0 [facility] Comment on above: Performed By: #### C BC #### [facility] [address] [place] [address] Dr. Mikhail Cooney Platelet mean volume (Bld) [Entitic vol] 11.7 fL Normal 9.5-13.5 [facility] Comment on above: Performed By: #### C BC #### [facility] [address] [place] [address] Dr. Mikhail Cooney PLT 235 103/ul Normal 150-450 [facility] Comment on above: Performed By: #### C BC #### [facility] [address] [place] [address] Dr. Mikhail Cooney RBC 5.04 106/ul Normal 4.20-5.40 [facility] Comment on above: Performed By: #### C BC #### [facility] [address] [place] [address] Dr. Mikhail Cooney WBC 7.8 103/ul Normal 4.0-11.0 [facility] Comment on above: Performed By: #### C BC #### [facility] [address] [place] [address] Dr. Mikhail Cooney LIPASEon 04-21-2022 Lipase [Catalytic activity/Vol] 126.0 U/L Normal 73.0-393.0 [facility] Comment on above: Performed By: #### L IPA, CMP #### [facility] [address] [place] [address] Dr. Mikhail Cooney PROF 14(COMP METB)on 023 Albumin [Mass/Vol] 3.2 g/dL Critically low 3.4-5.0 [facility] Comment on above: Performed By: #### L IPA, CMP #### [facility] [address] [place] [address] Dr. Mikhail Cooney Albumin/Globulin [Mass ratio] 0.8 {ratio} Normal [facility] Comment on above: Performed By: #### L IPA, CMP #### [facility] [address] [place] [address] Dr. Mikhail Cooney ALP [Catalytic activity/Vol] 87 U/L Normal 46-116 [facility] Comment on above: Performed By: #### L IPA, CMP #### [facility] [address] [place] [address] Dr. Mikhail Cooney ALT [Catalytic activity/Vol] 31 U/L Normal 14-59 [facility] Comment on above: Performed By: #### L IPA, CMP #### [facility] [address] [address] [address] Mikhail Cooney Anion gap [Moles/Vol] 10.4 mmol/L Normal [facility] Comment on above: Performed By: #### L IPA, CMP #### [facility] [address] [address] [address] Mikhail Cooney AST [Catalytic activity/Vol] 28 U/L Normal 15-37 [facility] Comment on above: Performed By: #### L IPA, CMP #### [facility] [address] [address] [address] Mikhail Cooney Bilirubin [Mass/Vol] 0.4 mg/dL Normal 0.2-1.0 [facility] Comment on above: Performed By: #### L IPA, CMP #### [facility] [address] [address] [address] Mikhail Cooney Calcium [Mass/Vol] 8.9 mg/dL Normal 8.5-10.1 [facility] Comment on above: Performed By: #### L IPA, CMP #### [facility] [address] [address] [address] Mikhail Cooney Chloride [Moles/Vol] 104 mmol/L Normal 98-107 [facility] Comment on above: Performed By: #### L IPA, CMP #### [facility] [address] [address] [address] Mikhail Cooney CO2 [Moles/Vol] 29.0 mmol/L Normal 21.0-32.0 [facility] Comment on above: Performed By: #### L IPA, CMP #### [facility] [address] [address] [address] Mikhail Cooney Creatinine [Mass/Vol] 0.81 mg/dL Normal 0.55-1.02 [facility] Comment on above: Performed By: #### L IPA, CMP #### [facility] [address] [address] [address] Mikhail Cooney EGFR-AF GAMBIAN >60 Normal >=60 [facility] Comment on above: Performed By: #### L IPA, CMP #### [facility] [address] [address] [address] Mikhail Cooney EGFR-NON AF GAMBIAN >60 Normal >=60 [facility] Comment on above: Performed By: #### L IPA, CMP #### [facility] [address] [address] [address] Mikhail Cooney Globulin (S) [Mass/Vol] 4.0 g/dL Normal [facility] Comment on above: Performed By: #### L IPA, CMP #### [facility] [address] [address] [address] Mikhail Cooney Glucose [Mass/Vol] 100 mg/dL Normal 74-106 [facility] Comment on above: Performed By: #### L IPA, CMP #### [facility] [address] [place] [address] Dr. Mikhail Cooney Potassium [Moles/Vol] 4.4 mmol/L Normal 3.5-5.1 [facility] Comment on above: Performed By: #### L IPA, CMP #### [facility] [address] [place] [address] Dr. Mikhail Cooney Protein [Mass/Vol] 7.2 g/dL Normal 6.4-8.2 [facility] Comment on above: Performed By: #### L IPA, CMP #### [facility] [address] [address] [address] Mikhail Cooney Sodium [Moles/Vol] 139 mmol/L Normal 136-145 [facility] Comment on above: Performed By: #### L IPA, CMP #### [facility] [address] [place] [address] Dr. Mikhail Cooney Urea nitrogen [Mass/Vol] 9.0 mg/dL Normal 7.0-18.0 [facility] Comment on above: Performed By: #### L IPA, CMP #### [facility] [address] [place] [address] Dr. Mikhail Cooney Urea nitrogen/Creatinine [Mass ratio] 11.1 mg/mg Normal [facility] Comment on above: Performed By: #### L IPA, CMP #### [facility] [address] [address] [address] Mikhail Cooney PAP ACOG PANEL 2: 30 to 65on 03-09-2022 . . Normal [facility] Comment on above: Result Comment: Perf ormed at: WB Performed By: #### C VDTBH #### [facility] [address] [address] [address] Mikhail Cooney Age Gdln ACOG Testing 30-65 Normal [facility] Comment on above: Performed By: #### C VDTBH #### [facility] [address] [address] [address] Mikhail Cooney DIAGNOSIS: Comment Normal [facility] Comment on above: Result Comment: NEGA TIVE FOR INTRAEPITHELIAL LESION OR MALIGNANCY. Performed at: WB Performed By: #### C VDTBH #### [facility] [address] [place] [address] Dr. Mikhail Cooney HPV Aptima Negative Normal Negative [facility] Comment on above: Result Comment: This nucleic acid amplification test detects fourteen high-risk HPV types (16,18,31,33,35,39,45,51,52,56,58,59,66,68) without differentiation. Performed at: =G Performed By: #### C VDTBH #### [facility] [address] [address] [address] Mikhail Cooney HPV Genotype Reflex Comment Normal [facility] Comment on above: Result Comment: Crit eria not met, HPV Genotype not performed. Performed at: WB Performed By: #### C VDTBH #### [facility] [address] [place] [address] Dr. Mikhail Cooney Methodology: Comment [facility] Comment on above: Result Comment: This liquid based ThinPrep(R) pap test was screened with the use of an image guided system. Performed at: WB Performed By: #### C VDTBH #### [facility] [address] [place] [address] Dr. Mikhail Cooney Note: Comment Normal [facility] Comment on above: Result Comment: The Pap smear is a screening test designed to aid in the detection of premalignant and malignant conditions of the uterine cervix. It is not a diagnostic procedure and should not be used as the sole means of detecting cervical cancer. Both false-positive and false-negative reports do occur. . Performed at: WB Performed By: #### C VDTBH #### [facility] [address] [place] [address] Dr. Mikhail Cooney Performed by: Comment Normal [facility] Comment on above: Result Comment: Evangelista Contreras, Wool Cleaner (ASCP) Performed at: WB Performed By: #### C VDTBH #### [facility] [address] [address] [address] Mikhail Cooney Specimen adequacy: Comment Normal [facility] Comment on above: Result Comment: Sati sfactory for evaluation. Endocervical and/or squamous metaplastic cells (endocervical component) are present. Performed at: WB Performed By: #### C VDTBH #### [facility] [address] [place] [address] Dr. Mikhail Cooney ASYMPTOMATIC COVID-19 ANTIGE Non 11-03-2021 EUA Statement SEE BELOW Normal [facility] Comment on above: Result Comment: This [...] sooner. Performed By: #### C VDAGA #### [facility] [address] [place] [address] Dr. Mikhail Cooney SARS-CoV-2 (COVID-19) RNA JORGE+probe Ql (Unsp spec) Negative Normal NEGATIVE [facility] Comment on above: Result Comment: Nega tive results are presumptive. They do not preclude infection and should not be used as the sole basis for treatment decisions. Additional confirmatory testing by a molecular method should be considered. Performed By: #### [facility] #### [facility] [address] [place], [place] [id number] Dr. Mikhail Cooney Covid-19 PCR ([facility])on 10-03 SARS-CoV-2 (COVID-19) RNA JORGE+probe Ql (Unsp spec) Detected Critically abnormal NOT DETECTED [facility] Comment on above: Result Comment: This test is not yet approved or cleared by the [place] FDA. When there are no FDA-approved or cleared tests available, and other criteria are met, FDA can make tests available under an emergency access mechanism called an Emergency Use Authorization (EUA). The EUA for this test is supported by the [place] of Health and Human Service's declaration that [...] used). Performed By: #### C VDTB #### [facility] [address] [place], [place] [id number] Dr. Mikhail Cooney Vital Signs Date Time Vital Sign Value Performing Clinician Faci lity 05-12-2023 13:42-0500 Body mass index (BMI) [Ratio] 40.51 kg/m2 Michelle SARMIENTO Work Phone: [facility] 05-12-2023 13:42-0500 Body weight 113.85 kg Michelle SARMIENTO Work Phone: [facility] 05-12-2023 13:42-0500 Diastolic blood pressure 84 mm[Hg] Michelle SARMIENTO Work Phone: [facility] 05-12-2023 13:42-0500 Systolic blood pressure 126 mm[Hg] Michelle SARMIENTO Work Phone: [facility] Healthcare Encounters Encounter Date Encounter Type Care Provider Facility Start: 12-08-2023 End: 12-08-2023 ambulatory RAFFAELE ROMERO Not Available Start: 05-12-2023 End: 05-12-2023 Postop follow up visit related to original px Michelle Keith PA Work Phone: [facility] Comment on above: Postoperative examin ation; Dysuria Start: 05-12-2023 End: 05-12-2023 ambulatory MICHELLE KEITH Not Available Start: 05-06-2023 End: 05-06-2023 ambulatory Adrienne Jim Facility:[facility] Start: 05-06-2023 End: 05-06-2023 ambulatory Adrienne Jim Work Phone: [facility] Work Phone: Start: 05-06-2023 End: 05-06-2023 Departed Referred Adrienne Jim Work Phone: [facility] Start: 04-12-2023 End: 04-12-2023 ambulatory ADRIENNE FERNANDEZ Not Available Start: 03-07-2023 End: 03-07-2023 ambulatory ADRIENNE JIM Not Available Start: 08-06-2022 ambulatory Moisés LITTLEJOHN [...] Payer Unknown BCBS BCBS xxxxxx [id number] 2022-Present [phone] [address] [place] [address] [id number] 2019 Unknown [id number] 1986 Unknown [id number] 1986 Unknown [id number] 1986 Unknown [id number] 1986 Unknown [id number] 1986 Unknown [id number] [id number] 1986 Unknown [id number] [id number] 1986 Unknown [id number] [id number] 1986 Unknown [id number] [id number] 1986 Unknown [id number] 1959 Self-pay 1958 Unknown [id number] Unknown [id number] Unknown [id number] Social History Date Type Detail Facility Tobacco smoking status [facility] Unknown if ever smoked [facility] Work Phone: Start: 1985 Sex Assigned At Female F [facility] Tobacco smoking status [facility] Tobacco smoking consumption unknown [facility] Healthcare Start: 1986 Sex Assigned At Not on file [facility] Gender identity Not on file [facility] are History of Present illness Narrative 05-12-2023 [...] Note Facility Evaluation note [facility] Work Phone: Evaluation note Note Date & [...] DATE CREATED AUTHOR AUTHOR'S ORGANIZ ATION 08/12/2022 [facility] DATE CREATED AUTHOR AUTHOR'S ORGANIZ ATION 05/11/[address] 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 [employer] provides no warranty or guarantee of the accuracy or completeness of information in this document.
[2023-12-13 07:35] LABS: Basophils Percent Auto 0.5 % (0.2-2.0); Eosinophils Absolute Auto 0.2 10^3/uL (0.0-0.7); Eosinophils Percent Auto 1.9 % (0.9-7.0); Hematocrit 43.6 % (36.0-48.0); Hemoglobin 14.9 g/dL (12.0-16.0); Immature Granulocytes Abs Auto 0.01 10^3/uL (0.00-0.03); Immature Granulocytes Pct Auto 0.1 % (0.0-0.5); Lymphocytes Absolute Auto 2.5 10^3/uL (1.2-3.8); Lymphocytes Percent Auto 31.7 % (20.5-60.0); Mean Corpuscular HGB Conc 34.2 g/dL (29.9-35.2); Mean Corpuscular Hemoglobin 30.4 pg (26.7-34.0); Mean Platelet Volume 10.8 fL (9.5-13.5); Monocytes Absolute Auto 0.5 10^3/uL (0.3-0.8); Monocytes Percent Auto 6.4 % (1.7-12.0); Neutrophils Absolute Auto 4.6 10^3/uL (1.4-6.5); Neutrophils Percent Auto 59.4 % (43.0-75.0); Platelet Count 231 10^3/uL (150-450); Red Cell Distribution Width 11.8 % (11.0-15.0); White Blood Count 7.8 10^3/uL (4.0-11.0)
[2023-12-13 08:08] LABS: Estimated Average Glucose 97 mg/dL
[2023-12-13 08:17] LABS: Alanine Aminotransferase 24 U/L (14-59); Albumin Level 3.7 g/dL (3.4-5.0); Alkaline Phosphatase 103 U/L (46-116); Anion Gap 15.7; Aspartate Amino Transferase 20 U/L (15-37); BUN Creatinine Ratio 15.2; Bilirubin Total 0.6 mg/dL (0.2-1.0); Calcium 9.3 mg/dL (8.5-10.1); Carbon Dioxide 25.6 mmol/L (21.0-32.0); Chloride 103 mmol/L (98-107); Chol HDL Ratio 3.5; Cholesterol 204 mg/dL (<=200); Estimated GFR (African America >60 (>=60); Estimated GFR (Non-African Ame >60 (>=60); Globulin 3.6 g/dL; Glucose 96 mg/dL (74-106); HDL Cholesterol 58 mg/dL (40-60); Potassium 4.3 mmol/L (3.5-5.1); Sodium 140 mmol/L (136-145); Thyroid Stimulating Hormone 2.695 uIU/mL (0.358-3.740); Total Protein 7.3 g/dL (6.4-8.2); Triglycerides 84 mg/dL (<=150); VLDL CHOLESTEROL 16.8 mg/dL
== END 2023-12-13 07:19 | disposition home or self-care (01) ==
LOC: LAB 07:19
PROVIDERS: PCP Family Medicine; Visit Provider Family Medicine
DX: Z00.00 Encounter for general adult medical examination without abnormal findings (principal)
CPT/HCPCS: 36415; 80053; 80061; 83036; 84443; 85025

== ENCOUNTER 2024-09-20 14:53 | Outpatient (REF) | payer BC, SELFPAY ==
--- OUTSIDE RECORDS SUMMARY | 2024-09-20 15:07 | XMS_ITS | CCD ---
Author Organization [facility] Care Team Providers Care Ict Support Technicians Name Role Phone REQUEST, DR NONE LISTED [...] Unavailable Raffaele Romero MD Primary Care Provider [phone] ADRIENNE FERNANDEZ Attending Unavailable MICHELLE KEITH Attending Unavailable ADRIENNE FERNANDEZ Attending Unavailable RAFFAELE ROMERO Attending Unavailable Raffaele Romero MD Primary Care Provider Raffaele Romero MD Unavailable Allergies Allergy Classification Reported Allergen(s) Allergy Type Date of Onset Reaction(s) Facility (1 source) predniSONE Drug Allergy 01-20-2016 [facility] Repository (1 source) rofecoxib; Translations: [Vioxx] Drug Allergy [facility] Repository Medications Current Medications Medication Drug Class(es) Dates Sig (Normalized) Sig (Original) busPIRone hydrochloride 15 mg oral tablet (10 sources) Start: 03-30-2024 End: 09-20-2024 take 1 tablet by mouth twice daily as needed for anxiety busPIRone (Buspar) 15 MG tablet Indications: KATHY (generalized anxiety disorder) TAKE 1 TABLET BY MOUTH 2 TIMES A DAY NEEDED (ANXIETY) 180 tablet 1 03/30/2024 09/20/2024 Discontinued Start: 03-08-2024 End: 03-08-2024 take 1 tablet by mouth twice daily as needed busPIRone (Buspar) 7.5 MG tablet Indications: KATHY (generalized anxiety disorder) (CMS/HCC) Take 1 tablet (7.5 mg) by mouth 2 (two) times a day as needed (Anxiet) 60 tablet 2 03/08/2024 03/08/2024 Discontinued (Reorder) Start: 03-08-2024 take 1 tablet by juan a th twice daily as needed busPIRone (Buspar) 15 MG tablet Indications: KATHY (generalized anxiety disorder) (CMS/HCC) Take 1 tablet (15 mg) by mouth 2 (two) times a day as needed (Anxiet) 60 tablet 2 03/08/2024 Active cephalexin 500 mg oral capsule (2 sources) Cephalosporin Antibacterial Start: 05-12-2023 End: 05-19-2023 take 1 capsule by mouth in the morning cephalexin (Keflex) 500 MG capsule Indications: Postoperative examination Take 1 capsule (500 mg) by mouth in the morning and 1 capsule (500 mg) before bedtime. Do all this for 7 days. 14 capsule 0 05/12/2023 05/19/2023 Active 24 hr metFORMIN hydrochloride 500 mg extended release oral tablet (13 sources) Biguanide Start: 03-08-2024 End: 09-20-2024 take 2 tablets by mouth every twenty-four hours at mealtime metFORMIN XR (Glucophage-XR) 500 MG 24 hr tablet Indications: PCOS (polycystic ovarian syndrome) Take 2 tablets (1,000 mg) by mouth in the evening. Take with meals Do not crush, chew, or split. 60 tablet 5 03/08/2024 09/20/2024 Discontinued Start: 12-08-2023 End: 03-08-2024 take 1 tablet by mouth every twenty-four hours at mealtime metFORMIN XR (Glucophage-XR) 500 MG 24 hr tablet Indications: PCOS (polycystic ovarian syndrome) Take 1 tablet (500 mg) by mouth in the evening. Take with meals Do not crush, chew, or split. 30 tablet 5 12/08/2023 03/08/2024 Discontinued (Reorder) predniSONE 50 mg oral tablet (4 sources) Start: 09-19-2024 End: 09-25-2024 take 1 tablet by mouth once daily predniSONE (Deltasone) 50 MG tablet Indications: Chronic pain of right knee Take 1 tablet (50 mg) by mouth Daily for 6 days 6 tablet 09/19/2024 09/25/2024 Active sertraline 25 mg oral tablet (7 sources) Serotonin Reuptake Inhibitor Start: 07-03-2024 End: 09-20-2024 take 1 tablet by mouth once daily sertraline (Zoloft) 25 MG tablet Indications: KATHY (generalized anxiety disorder) TAKE 1 TABLET BY MOUTH EVERY DAY 90 tablet 1 07/03/2024 09/20/2024 Discontinued Start: 03-08-2024 take 1 tablet by juan a th once daily sertraline (Zoloft) 25 MG tablet Indications: KATHY (generalized anxiety disorder) (CMS/HCC) Take 1 tablet (25 mg) by mouth Daily 30 tablet 3 03/08/2024 Active Start: 03-08-2024 take 1 tablet by juan a th once daily sertraline (Zoloft) 25 MG tablet Indications: KATHY (generalized anxiety disorder) (CMS/HCC) Take 1 tablet (25 mg) by mouth Daily 30 tablet 3 03/08/2024 Active Start: 03-08-2024 take 1 tablet by juan a th once daily sertraline (Zoloft) 25 MG tablet Indications: KATHY (generalized anxiety disorder) (CMS/HCC) Take 1 tablet (25 mg) by mouth Daily 30 tablet 3 03/08/2024 Active Completed/Discontinued Medications Medication Drug Class(es) Dates Sig (Normalized) Sig (Original) ethinyl estradiol 0.035 mg / norethindrone 0.75 mg oral tablet (2 sources) Estrogen Start: 4 End: 4 take 1 tablet by mouth in the morning norethindrone-ethinyl estradiol (Nortrel ) 0.5/0.75/1-35 MG-MCG tablet Indications: Encounter for surveillance of contraceptive pills Take 1 tablet by mouth in the morning. 28 tablet 11 05/02/2023 05/12/2023 Discontinued (Therapy completed) methylPREDNISolone (4 sources) Corticosteroid Start: 4 End: 4 methylPREDNISolone (Medrol Dospak) 4 MG tablets Indications: Postoperative examination Day 1: 6 tablets Day 2: 5 tablets Day 3: 4 tablets Day 4: 3 tablets Day 5: 2 tablets Day 6: 1 tablet 21 tablet 05/12/2023 12/07/2023 Discontinued Start: 05-12-2023 methylPREDNISo lone (Medrol Dospak) 4 MG tablets Indications: Postoperative examination Day 1: 6 tablets Day 2: 5 tablets Day 3: 4 tablets Day 4: 3 tablets Day 5: 2 tablets Day 6: 1 tablet 21 tablet 0 05/12/2023 Active Problems Active Problems Problem Classification Problem Date Documented Da te Episodic/Chronic Anxiety disorders (10 sources) Generalized anxiety disorder; Translations: [Generalized anxiety disorder] Onset: 03-08-2024 03-08-2024 Chronic Genitourinary symptoms and ill-defined conditions (2 sources) Dysuria; Translations: [Dysuria] 05-12-2023 Episodic Other aftercare (2 sources) Surgical follow-up; Translations: [Encounter for follow-up examination after completed treatment for conditions other than malignant neoplasm] 05-12-2023 Episodic Other endocrine disorders (16 sources) Polycystic ovary syndrome; Translations: [Polycystic ovarian syndrome] Onset: 12-07-2023 12-07-2023 Chronic Other non-traumatic joint disorders (5 sources) Pain in right knee; Translations: [Pain in joint, lower leg] Onset: 09-19-2024 09-19-2024 Episodic Other nutritional; endocrine; and metabolic disorders (14 sources) Insulin resistance; Translations: [Insulin resistance] Onset: 12-07-2023 12-07-2023 Chronic Other nutritional; endocrine; and metabolic disorders (7 sources) Morbid obesity; Translations: [Morbid (severe) obesity due to excess calories] Onset: 12-07-2023 12-07-2023 Chronic Other nutritional; endocrine; and metabolic disorders (9 sources) Severe obesity; Translations: [Class 3 severe obesity due to excess calories with serious comorbidity and body mass index (BMI) of 40.0 to 44.9 in adult ([facility])] Onset: 12-07-2023 03-08-2024 Chronic Other nutritional; endocrine; and metabolic disorders (2 sources) Body mass index 30+ - obesity; Translations: [Body mass index (BMI) 38.0-38.9, adult] 12-08-2023 Chronic Unclassified (3 sources) CONTACT W/AND (SUSP) EXPOS [...] SCREENING MALIG NEOPLASM CERV] Onset: 03-02-2022 Episodic Spondylosis; intervertebral disc disorders; other back problems (12 sources) Pain in the coccyx; Translations: [Sacrococcygeal disorders, not elsewhere classified] Onset: 12-08-2023 12-08-2023 Episodic Unclassified (1 source) CONTACT W/AND (SUSP) EXPOS COVID-19; Translations: [CONTACT W/AND (SUSP) EXPOS COVID-19] Onset: 11-03-2021 Results Test Name Value Interpretation Reference Range Facility ALL CBC WITH AUTO DIFFon BASOPHILS ABSOLUTE AUTO 0.0 [facility] Basophils/100 WBC (Bld) 0.5 % 0.2 - 2.0 % [facility] Eosinophils/100 WBC (Bld) 1.9 % 0.9 - 7.0 % [facility] Erythrocyte distribution width (RBC) [Ratio] 11.8 % 11.0 - 15.0 % [facility] Hematocrit (Bld) [Volume fraction] 43.6 % 36.0 - 48.0 % [facility] Hemoglobin (Bld) [Mass/Vol] 14.9 g/dL 12.0 - 16.0 g/dL [facility] IMMATURE GRANULOCYTES ABS AUTO 0.01 [facility] Immature granulocytes/100 WBC (Bld) 0.1 % 0.0 - 0.5 % [facility] LYMPHOCYTES ABSOLUTE AUTO 2.5 [facility] Lymphocytes/100 WBC (Bld) 31.7 % 20.5 - 60.0 % [facility] MCH (RBC) [Entitic mass] 30.4 pg 26.7 - 34.0 pg [facility] MCHC (RBC) [Mass/Vol] 34.2 g/dL 29.9 - 35.2 g/dL [facility] MCV (RBC) [Entitic vol] 89.0 fL 81.0 - 99.0 fL [facility] MONOCYTES ABSOLUTE AUTO 0.5 [facility] Monocytes/100 WBC (Bld) 6.4 % 1.7 - 12.0 % [facility] NEUTROPHILS ABSOLUTE AUTO 4.6 [facility] Neutrophils/100 WBC (Bld) 59.4 % 43.0 - 75.0 % [facility] Platelet mean volume (Bld) [Entitic vol] 10.8 fL 9.5 - 13.5 fL [facility] EO # 0.2 [facility] PLT 231 [facility] RBC 4.90 [facility] WBC 7.8 [facility] Urinalysis macro (dipstick) panel (U)on 05-12-2023 Bilirubin, UA Negative Negative - 4(70) +++ mg/dL [facility] Blood, UA Positive Negative - 50 Cj/mcL [facility] Clarity, UA Clear [facility] Color, UA Yellow [facility] Glucose, UA Negative Negative - 2000(110) ++++ mg/dL [facility] Interpretation and review of laboratory results Abnormal [facility] Ketones, UA Negative Negative - 160(16) ++++ mg/dL [facility] Leukocytes, UA Positive Negative - 500+++ Kateryna/mcL [facility] Nitrite, UA Negative Negative - Positive [facility] pH, UA 6.0 5 - 9 [facility] Protein, UA Negative Negative - 1999(20) ++++ mg/dL [facility] Spec Grav, UA 1.015 1 - 1.03 [facility] Urobilinogen, UA 0.2 0.2 - 12 mg/dL [facility] 05-06-2023 L Specimen: [id number] Received: 05/09/23 Status: STEVE [place] Num: [id number] Spec Type: Surgical Subm Dr: Adrienne Fernandez Tissues: A Fallopian Tube - Sterilization (SOTERO FT) Procedures: HE/3, Gross/Micro L2 Age/ Patient Sex Location Account Attending Physician MaryQueenie 37/F LABELL [id number] Adrienne Fernandez SPEC NUM: [id number] RECD: 05/09/23 STATUS: STEVE LINK NUM: [id number] SANTINO: 05/06/[address]: Adrienne Fernandez ENTERED: 05/09/23 [facility] DR: Christopher,Lab SPEC TYPE: Surgical DEPT: DESIRAE [...] tissue with a rubbery, rivera-white cut surface. Clinique Counter Manager sections are submitted in 3 cassettes as follows: A1-A2 - Clinique Counter Manager fallopian tubes A3 - Detached tissue in its entirety Microscopic Description Three H E slides reviewed. The microscopic examination confirms the diagnosis. -------- Specimen: [id number] Received: 05/09/23 Status: STEVE Link Num: [id number] Spec Type: Surgical Subm Dr: Adrienne Fernandez Tissues: A Fallopian Tube - Sterilization (SOTERO FT) Procedures: /, Gross/Micro L2 -------- Patient: RushfritzQueenie [id number] (Continued) -------- Specimen: [id number] Received: 05/09/23 (Continued) Signed (signature on file) Patrick Post MD 05/10/23 2317 -------- Specimen: [id number] Received: 05/09/23 Status: STEVE Link Num: [id number] Spec Type: Surgical Subm Dr: Adrienne Ricci: A Fallopian Tube - Sterilization (SOTERO FT) Procedures: HE/3, Gross/Jt L2 -------- Patient: Queenie Hernandez [id number] (Continued) -------- Specimen: [id number] Received: 05/09/23 (Continued) CPT Codes 29683 -------- -------- Specimen: [id number] Received: 05/09/23 Status: STEVE Link Num: [id number] Spec Type: Surgical Subm Dr: Adrienne Jim Tissues: A Fallopian Tube - Sterilization (SOTERO FT) Procedures: HE/3, Gross/Jt L2 -------- Patient: Queenie Hernandez [id number] (Continued) -------- Signed (signature on file) Patrick Post MD 05/10/23 2317 Normal [facility] Lab Reportson 08-11-2022 Lab Reports [id number] .[id number]:127 Normal [facility] Lab Reports [id number] .[id number]:127 Normal [facility] CBC AUTO DIFFon 08-06-2022 BASO # 0.0 103/ul Normal 0.0-0.1 [facility] Comment on above: Performed By: #### C BC #### [facility] [address] [place] [address] Dr. Mikhail Cooney Basophils/100 WBC (Bld) 0.4 % Normal 0.2-2.0 [facility] Comment on above: Performed By: #### C BC #### [facility] [address] [address] [address] Mikhail Cooney EO # 0.1 103/ul Normal 0.0-0.7 [facility] Comment on above: Performed By: #### C BC #### [facility] [address] [place] [address] Dr. Mikhail Cooney Eosinophils/100 WBC (Bld) 1.0 % Normal 0.9-7.0 [facility] Comment on above: Performed By: #### C BC #### [facility] [address] [place] [address] Dr. Mikhail Cooney Erythrocyte distribution width (RBC) [Ratio] 11.9 % Normal 11.0-15.0 [facility] Comment on above: Performed By: #### C BC #### [facility] [address] [place] [address] Dr. Mikhail Cooney Hematocrit (Bld) [Volume fraction] 43.0 % Normal 36.0-48.0 [facility] Comment on above: Performed By: #### C BC #### [facility] [address] [place] [address] Dr. Mikhail Cooney Hemoglobin (Bld) [Mass/Vol] 14.7 g/dL Normal 12.0-16.0 [facility] Comment on above: Performed By: #### C BC #### [facility] [address] [place] [address] Dr. Mikhail Cooney IG # 0.03 10e3/ul Normal 0.00-0.03 [facility] Comment on above: Performed By: #### C BC #### [facility] [address] [place] [address] Dr. Mikhail Cooney IG % 0.3 % Normal 0.0-0.5 [facility] Comment on above: Performed By: #### C BC #### [facility] [address] [place] [address] Dr. Mikhail Cooney LYMPH # 2.4 103/ul Normal 1.2-3.8 [facility] Comment on above: Performed By: #### C BC #### [facility] [address] [place] [address] Dr. Mikhail Cooney Lymphocytes/100 WBC (Bld) 24.4 % Normal 20.5-60.0 [facility] Comment on above: Performed By: #### C BC #### [facility] [address] [place] [address] Dr. Mikhail Cooney MANUAL DIFF REQ NO Normal [facility] Comment on above: Performed By: #### C BC #### [facility] [address] [place] [address] Dr. Mikhail Cooney MCH (RBC) [Entitic mass] 29.9 pg Normal 26.7-34.0 [facility] Comment on above: Performed By: #### C BC #### [facility] [address] [place] [address] Dr. Mikhail Cooney MCHC (RBC) [Mass/Vol] 34.2 g/dL Normal 29.9-35.2 [facility] Comment on above: Performed By: #### C BC #### [facility] [address] [place] [address] Dr. Mikhail Cooney MCV (RBC) [Entitic vol] 87.4 fL Normal 81.0-99.0 [facility] Comment on above: Performed By: #### C BC #### [facility] [address] [place] [address] Dr. Mikhail Cooney MONO # 0.6 103/ul Normal 0.3-0.8 [facility] Comment on above: Performed By: #### C BC #### [facility] [address] [place] [address] Dr. Mikhail Cooney Monocytes/100 WBC (Bld) 6.1 % Normal 1.7-12.0 [facility] Comment on above: Performed By: #### C BC #### [facility] [address] [place] [address] Dr. Mikhail Cooney NEUT # 6.7 103/ul Critically high 1.4-6.5 [facility] Comment on above: Performed By: #### C BC #### [facility] [address] [place] [address] Dr. Mikhail Cooney Neutrophils/100 WBC (Bld) 67.8 % Normal 43.0-75.0 [facility] Comment on above: Performed By: #### C BC #### [facility] [address] [place] [address] Dr. Mikhail Cooney Platelet mean volume (Bld) [Entitic vol] 11.2 fL Normal 9.5-13.5 [facility] Comment on above: Performed By: #### C BC #### [facility] [address] [place] [address] Dr. Mikhail Cooney PLT 288 103/ul Normal 150-450 [facility] Comment on above: Performed By: #### C BC #### [facility] [address] [place] [address] Dr. Mikhail Cooney RBC 4.92 106/ul Normal 4.20-5.40 [facility] Comment on above: Performed By: #### C BC #### [facility] [address] [place] [address] Dr. Mikhail Cooney WBC 9.8 103/ul Normal 4.0-11.0 [facility] Comment on above: Performed By: #### C BC #### [facility] [address] [place] [address] Dr. Mikhail Cooney LIPID PROFILEon 08-06-2022 CHOL-HDL RATIO NORM SEE BELOW Normal [facility] Comment on above: Result Comment: 3.3 - 4.4 LOW RISK 4.4 - 7.1 AVERAGE RISK 7.1 - 11.0 MODERATE RISK >11.0 HIGH RISK Performed By: #### L IPID, CMP, TSH, T4 #### [facility] [address] [place] [address] Dr. Mikhail Cooney Cholesterol [Mass/Vol] 212 mg/dL Critically high <=200 [facility] Comment on above: Performed By: #### L IPID, CMP, TSH, T4 #### [facility] [address] [place] [address] Dr. Mikhail Cooney Cholesterol in HDL [Mass/Vol] 44 mg/dL Normal 40-60 [facility] Comment on above: Performed By: #### L IPID, CMP, TSH, T4 #### [facility] [address] [place] [address] Dr. Mikhail Cooney Cholesterol in LDL [Mass/Vol] 144.8 mg/dL Normal [facility] Comment on above: Performed By: #### L IPID, CMP, TSH, T4 #### [facility] [address] [address] [address] Mikhail Cooney Cholesterol.total/C holesterol in HDL [Mass ratio] 4.8 {ratio} Normal [facility] Comment on above: Performed By: #### L IPID, CMP, TSH, T4 #### [facility] [address] [address] [address] Mikhail Cooney HDL NORMAL > or = 60 mg/dl - LO W CARDIOVASCULAR RISK <40 mg/dl - HIGH CARDIOVASCULAR RISK Normal [facility] Comment on above: Performed By: #### L IPID, CMP, TSH, T4 #### [facility] [address] [address] [address] Mikhail Cooney LDL CALC NORMAL SEE BELOW Normal [facility] Comment on above: Result Comment: <100 mg/dl OPTIMAL 100 - 129 mg/dl NEAR OR ABOVE OPTIMAL 130 - 159 mg/dl BORDERLINE HIGH 160 - 189 mg/dl HIGH >190 mg/dl VERY HIGH Performed By: #### L IPID, CMP, TSH, T4 #### [facility] [address] [address] [address] Mikhail Cooney Triglyceride [Mass/Vol] 116 mg/dL Normal <=150 [facility] Comment on above: Performed By: #### L IPID, CMP, TSH, T4 #### [facility] [address] [address] [address] Mikhail Cooney VLDL CALC 23.2 mg/dL Normal [facility] Comment on above: Performed By: #### L IPID, CMP, TSH, T4 #### [facility] [address] [address] [address] Mikhail Cooney PROF 14(COMP METB)on 023 Albumin [Mass/Vol] 3.3 g/dL Critically low 3.4-5.0 Th e [facility] Comment on above: Performed By: #### L IPID, CMP, TSH, T4 #### [facility] [address] [place] [address] Dr. Mikhail Cooney Albumin/Globulin [Mass ratio] 0.7 {ratio} Normal [facility] Comment on above: Performed By: #### L IPID, CMP, TSH, T4 #### [facility] [address] [place] [address] Dr. Mikhail Cooney ALP [Catalytic activity/Vol] 82 U/L Normal 46-116 [facility] Comment on above: Performed By: #### L IPID, CMP, TSH, T4 #### [facility] [address] [place] [address] Dr. Mikhail Cooney ALT [Catalytic activity/Vol] 32 U/L Normal 14-59 [facility] Comment on above: Performed By: #### L IPID, CMP, TSH, T4 #### [facility] [address] [place] [address] Dr. Mikhail Cooney Anion gap [Moles/Vol] 9.1 mmol/L Normal [facility] Comment on above: Performed By: #### L IPID, CMP, TSH, T4 #### [facility] [address] [place] [address] Dr. Mikhail Cooney AST [Catalytic activity/Vol] 19 U/L Normal 15-37 [facility] Comment on above: Performed By: #### L IPID, CMP, TSH, T4 #### [facility] [address] [place] [address] Dr. Mikhail Cooney Bilirubin [Mass/Vol] 0.5 mg/dL Normal 0.2-1.0 [facility] Comment on above: Performed By: #### L IPID, CMP, TSH, T4 #### [facility] [address] [place] [address] Dr. Mikhail Cooney Calcium [Mass/Vol] 9.1 mg/dL Normal 8.5-10.1 [facility] Comment on above: Performed By: #### L IPID, CMP, TSH, T4 #### [facility] [address] [place] [address] Dr. Mikhail Cooney Chloride [Moles/Vol] 104 mmol/L Normal 98-107 [facility] Comment on above: Performed By: #### L IPID, CMP, TSH, T4 #### [facility] [address] [address] [address] Mikhail Cooney CO2 [Moles/Vol] 27.6 mmol/L Normal 21.0-32.0 [facility] Comment on above: Performed By: #### L IPID, CMP, TSH, T4 #### [facility] [address] [place] [address] Dr. Mikhail Cooney Creatinine [Mass/Vol] 1.01 mg/dL Normal 0.55-1.02 [facility] Comment on above: Performed By: #### L IPID, CMP, TSH, T4 #### [facility] [address] [place] [address] Dr. Mikhail Cooney EGFR-AF BURUNDIAN >60 Normal >=60 [facility] Comment on above: Performed By: #### L IPID, CMP, TSH, T4 #### [facility] [address] [address] [address] Mikhail Cooney EGFR-NON AF BURUNDIAN >60 Normal >=60 [facility] Comment on above: Performed By: #### L IPID, CMP, TSH, T4 #### [facility] [address] [place] [address] Dr. Mikhail Cooney Globulin (S) [Mass/Vol] 4.5 g/dL Normal [facility] Comment on above: Performed By: #### L IPID, CMP, TSH, T4 #### [facility] [address] [address] [address] Mikhail Cooney Glucose [Mass/Vol] 93 mg/dL Normal 74-106 [facility] Comment on above: Performed By: #### L IPID, CMP, TSH, T4 #### [facility] [address] [place] [address] Dr. Mikhail Cooney Potassium [Moles/Vol] 3.7 mmol/L Normal 3.5-5.1 [facility] Comment on above: Performed By: #### L IPID, CMP, TSH, T4 #### [facility] [address] [place] [address] Dr. Mikhail Cooney Protein [Mass/Vol] 7.8 g/dL Normal 6.4-8.2 [facility] Comment on above: Performed By: #### L IPID, CMP, TSH, T4 #### [facility] [address] [place] [address] Dr. Mikhail Cooney Sodium [Moles/Vol] 137 mmol/L Normal 136-145 [facility] Comment on above: Performed By: #### L IPID, CMP, TSH, T4 #### [facility] [address] [place] [address] Dr. Mikhail Cooney Urea nitrogen [Mass/Vol] 13.0 mg/dL Normal 7.0-18.0 [facility] Comment on above: Performed By: #### L IPID, CMP, TSH, T4 #### [facility] [address] [place] [address] Dr. Mikhail Cooney Urea nitrogen/Creatinine [Mass ratio] 12.9 mg/mg Normal [facility] Comment on above: Performed By: #### L IPID, CMP, TSH, T4 #### [facility] [address] [place] [address] Dr. Mikhail Cooney T4on 08-06-2022 T4 [Mass/Vol] 13.20 ug/dL Normal 4.80-13.90 [facility] Comment on above: Performed By: #### L IPID, CMP, TSH, T4 #### [facility] [address] [place] [address] Dr. Mikhail Cooney TSHon 08-06-2022 TSH 2.723 uIU/mL Normal 0.358-3.740 [facility] Comment on above: Performed By: #### L IPID, CMP, TSH, T4 #### [facility] [address] [place] [address] Dr. Mikhail Cooney Physician Referralon 023 Physician Referral [id number] Normal [facility] CBC AUTO DIFFon 04-21-2022 BASO # 0.0 103/ul Normal 0.0-0.1 [facility] Comment on above: Performed By: #### C BC #### [facility] [address] [place] [address] Dr. Mikhail Cooney Basophils/100 WBC (Bld) 0.4 % Normal 0.2-2.0 [facility] Comment on above: Performed By: #### C BC #### [facility] [address] [place] [address] Dr. Mikhail Cooney EO # 0.1 103/ul Normal 0.0-0.7 [facility] Comment on above: Performed By: #### C BC #### [facility] [address] [place] [address] Dr. Mikhail Cooney Eosinophils/100 WBC (Bld) 1.3 % Normal 0.9-7.0 [facility] Comment on above: Performed By: #### C BC #### [facility] [address] [place] [address] Dr. Mikhail Cooney Erythrocyte distribution width (RBC) [Ratio] 11.9 % Normal 11.0-15.0 [facility] Comment on above: Performed By: #### C BC #### [facility] [address] [place] [address] Dr. Mikhail Cooney Hematocrit (Bld) [Volume fraction] 44.1 % Normal 36.0-48.0 [facility] Comment on above: Performed By: #### C BC #### [facility] [address] [place] [address] Dr. Mikhail Cooney Hemoglobin (Bld) [Mass/Vol] 14.9 g/dL Normal 12.0-16.0 [facility] Comment on above: Performed By: #### C BC #### [facility] [address] [place] [address] Dr. Mikhail Cooney IG # 0.02 10e3/ul Normal 0.00-0.03 [facility] Comment on above: Performed By: #### C BC #### [facility] [address] [place] [address] Dr. Mikhail Cooney IG % 0.3 % Normal 0.0-0.5 [facility] Comment on above: Performed By: #### C BC #### [facility] [address] [place] [address] Dr. Mikhail Cooney LYMPH # 2.4 103/ul Normal 1.2-3.8 [facility] Comment on above: Performed By: #### C BC #### [facility] [address] [place] [address] Dr. Mikhail Cooney Lymphocytes/100 WBC (Bld) 30.1 % Normal 20.5-60.0 [facility] Comment on above: Performed By: #### C BC #### [facility] [address] [place] [address] Dr. Mikhail Cooney MANUAL DIFF REQ NO Normal [facility] Comment on above: Performed By: #### C BC #### [facility] [address] [place] [address] Dr. Mikhail Cooney MCH (RBC) [Entitic mass] 29.6 pg Normal 26.7-34.0 [facility] Comment on above: Performed By: #### C BC #### [facility] [address] [place] [address] Dr. Mikhail Cooney MCHC (RBC) [Mass/Vol] 33.8 g/dL Normal 29.9-35.2 [facility] Comment on above: Performed By: #### C BC #### [facility] [address] [place] [address] Dr. Mikhail Cooney MCV (RBC) [Entitic vol] 87.5 fL Normal 81.0-99.0 [facility] Comment on above: Performed By: #### C BC #### [facility] [address] [place] [address] Dr. Mikhail Cooney MONO # 0.5 103/ul Normal 0.3-0.8 [facility] Comment on above: Performed By: #### C BC #### [facility] [address] [place] [address] Dr. Mikhail Cooney Monocytes/100 WBC (Bld) 6.9 % Normal 1.7-12.0 [facility] Comment on above: Performed By: #### C BC #### [facility] [address] [address] [address] Mikhail Cooney NEUT # 4.8 103/ul Normal 1.4-6.5 [facility] Comment on above: Performed By: #### C BC #### [facility] [address] [place] [address] Dr. Mikhail Cooney Neutrophils/100 WBC (Bld) 61.0 % Normal 43.0-75.0 [facility] Comment on above: Performed By: #### C BC #### [facility] [address] [place] [address] Dr. Mikhail Cooney Platelet mean volume (Bld) [Entitic vol] 11.7 fL Normal 9.5-13.5 [facility] Comment on above: Performed By: #### C BC #### [facility] [address] [place] [address] Dr. Mikhail Cooney PLT 235 103/ul Normal 150-450 [facility] Comment on above: Performed By: #### C BC #### [facility] [address] [place] [address] Dr. Mikhail Cooney RBC 5.04 106/ul Normal 4.20-5.40 [facility] Comment on above: Performed By: #### C BC #### [facility] [address] [place] [address] Dr. Mikhail Cooney WBC 7.8 103/ul Normal 4.0-11.0 [facility] Comment on above: Performed By: #### C BC #### [facility] [address] [place] [address] Dr. Mikhail Cooney LIPASEon 04-21-2022 Lipase [Catalytic activity/Vol] 126.0 U/L Normal 73.0-393.0 [facility] Comment on above: Performed By: #### L IPA, CMP #### [facility] [address] [place] [address] Dr. Mikhail Cooney PROF 14(COMP METB)on 023 Albumin [Mass/Vol] 3.2 g/dL Critically low 3.4-5.0 Th e [facility] Comment on above: Performed By: #### L IPA, CMP #### [facility] [address] [address] [address] Mikhail Cooney Albumin/Globulin [Mass ratio] 0.8 {ratio} Normal [facility] Comment on above: Performed By: #### L IPA, CMP #### [facility] [address] [address] [address] Mikhail Cooney ALP [Catalytic activity/Vol] 87 U/L Normal 46-116 [facility] Comment on above: Performed By: #### L IPA, CMP #### [facility] [address] [address] [address] Mikhail Cooney ALT [Catalytic activity/Vol] 31 U/L Normal 14-59 [facility] Comment on above: Performed By: #### L IPA, CMP #### [facility] [address] [address] [address] Mikhail Cooney Anion gap [Moles/Vol] 10.4 mmol/L Normal [facility] Comment on above: Performed By: #### L IPA, CMP #### [facility] [address] [address] [address] Mikhail Cooney AST [Catalytic activity/Vol] 28 U/L Normal 15-37 [facility] Comment on above: Performed By: #### L IPA, CMP #### [facility] [address] [address] [address] Mikhail Cooney Bilirubin [Mass/Vol] 0.4 mg/dL Normal 0.2-1.0 [facility] Comment on above: Performed By: #### L IPA, CMP #### [facility] [address] [address] [address] Mikhail Cooney Calcium [Mass/Vol] 8.9 mg/dL Normal 8.5-10.1 [facility] Comment on above: Performed By: #### L IPA, CMP #### [facility] [address] [address] [address] Mikhail Cooney Chloride [Moles/Vol] 104 mmol/L Normal 98-107 [facility] Comment on above: Performed By: #### L IPA, CMP #### [facility] [address] [address] [address] Mikhail Cooney CO2 [Moles/Vol] 29.0 mmol/L Normal 21.0-32.0 [facility] Comment on above: Performed By: #### L IPA, CMP #### [facility] [address] [address] [address] Mikhail Cooney Creatinine [Mass/Vol] 0.81 mg/dL Normal 0.55-1.02 [facility] Comment on above: Performed By: #### L IPA, CMP #### [facility] [address] [address] [address] Mikhail Cooney EGFR-AF BURUNDIAN >60 Normal >=60 [facility] Comment on above: Performed By: #### L IPA, CMP #### [facility] [address] [address] [address] Mikhail Cooney EGFR-NON AF BURUNDIAN >60 Normal >=60 [facility] Comment on above: Performed By: #### L IPA, CMP #### [facility] [address] [address] [address] Mikhail Cooney Globulin (S) [Mass/Vol] 4.0 g/dL Normal [facility] Comment on above: Performed By: #### L IPA, CMP #### [facility] [address] [address] [address] Mikhail Cooney Glucose [Mass/Vol] 100 mg/dL Normal 74-106 [facility] Comment on above: Performed By: #### L IPA, CMP #### [facility] [address] [address] [address] Mikhail Cooney Potassium [Moles/Vol] 4.4 mmol/L Normal 3.5-5.1 [facility] Comment on above: Performed By: #### L IPA, CMP #### [facility] [address] [address] [address] Mikhail Cooney Protein [Mass/Vol] 7.2 g/dL Normal 6.4-8.2 [facility] Comment on above: Performed By: #### L IPA, CMP #### [facility] [address] [address] [address] Mikhail Cooney Sodium [Moles/Vol] 139 mmol/L Normal 136-145 [facility] Comment on above: Performed By: #### L IPA, CMP #### [facility] [address] [address] [address] Mikhail Cooney Urea nitrogen [Mass/Vol] 9.0 mg/dL Normal 7.0-18.0 [facility] Comment on above: Performed By: #### L IPA, CMP #### [facility] [address] [address] [address] Mikhail Cooney Urea nitrogen/Creatinine [Mass ratio] 11.1 mg/mg Normal [facility] Comment on above: Performed By: #### L IPA, CMP #### [facility] [address] [place] [address] Dr. Mikhail Cooney PAP ACOG PANEL 2: 30 to 65on 03-09-2022 . . Normal [facility] Comment on above: Result Comment: Perf ormed at: WB Performed By: #### C VDTBH #### [facility] [address] [place] [address] Dr. Mikhail Cooney Age Gdln ACOG Testing 30-65 [facility] Comment on above: Performed By: #### C VDTBH #### [facility] [address] [place] [address] Dr. Mikhail Cooney DIAGNOSIS: Comment Normal [facility] Comment on above: Result Comment: NEGA TIVE FOR INTRAEPITHELIAL LESION OR MALIGNANCY. Performed at: WB Performed By: #### C VDTBH #### [facility] [address] [address] [address] Mikhail Cooney HPV Aptima Negative Normal Negative [facility] Comment on above: Result Comment: This nucleic acid amplification test detects fourteen high-risk HPV types (16,18,31,33,35,39,45,51,52,56,58,59,66,68) without differentiation. Performed at: =G Performed By: #### C VDTBH #### [facility] [address] [place] [address] Dr. Mikhail Coonye HPV Genotype Reflex Comment Normal [facility] Comment on above: Result Comment: Crit brenda not met, HPV Genotype not performed. Performed at: WB Performed By: #### C VDTBH #### [facility] [address] [place] [address] Dr. Mikhail Cooney Methodology: Comment Normal [facility] Comment on above: Result Comment: This liquid based ThinPrep(R) pap test was screened with the use of an image guided system. Performed at: WB Performed By: #### C VDTBH #### [facility] [address] [place] [address] Dr. Mikhail Cooney Note: Comment Normal [facility] Comment on above: Result Comment: The Pap smear is a screening test designed to aid in the detection of premalignant and malignant conditions of the uterine cervix. It is not a diagnostic procedure and should not be used as the sole means of detecting cervical cancer. Both false-positive and false-negative reports do occur. . Performed at: WB Performed By: #### C VDTBH #### [facility] [address] [place] [address] Dr. Mikhail Cooney Performed by: Comment Normal [facility] Comment on above: Result Comment: Evangelista Contreras, Shift Mechanic (ASCP) Performed at: WB Performed By: #### C VDTBH #### [facility] [address] [place] [address] Dr. Mikhail Cooney Specimen adequacy: Comment Normal [facility] Comment on above: Result Comment: Sati sfactory for evaluation. Endocervical and/or squamous metaplastic cells (endocervical component) are present. Performed at: WB Performed By: #### C VDTBH #### [facility] [address] [place] [address] Dr. Mikhail Cooney ASYMPTOMATIC COVID-19 ANTIGE Non 11-03-2021 EUA Statement SEE BELOW [facility] Comment on above: Result Comment: This [...] sooner. Performed By: #### C VDAGA #### [facility] [address] [place] [address] Dr. Mikhail Cooney SARS-CoV-2 (COVID-19) RNA JORGE+probe Ql (Unsp spec) Negative Normal NEGATIVE [facility] Comment on above: Result Comment: Nega tive results are presumptive. They do not preclude infection and should not be used as the sole basis for treatment decisions. Additional confirmatory testing by a molecular method should be considered. Performed By: #### C VDAGA #### [facility] [address] [place] [address] Dr. Mikhail Cooney Covid-19 PCR (CVDTB)on 10-03 SARS-CoV-2 (COVID-19) RNA JORGE+probe Ql (Unsp spec) Detected Critically abnormal NOT DETECTED [facility] Comment on above: Result Comment: This test is not yet approved or cleared by the [place] FDA. When there are no FDA-approved or cleared tests available, and other criteria are met, FDA can make tests available under an emergency access mechanism called an Emergency Use Authorization (EUA). The EUA for this test is supported by the Solids Control Technician of Health and Human Service's declaration that [...] used). Performed By: #### C VDTBH #### [facility] [address] [address] [address] Mikhail Cooney Vital Signs Date Time Vital Sign Value Performing Clinician Lawson orellana 09-20-2024 09:23-0400 Body height 167.6 cm Adrienne Jim DO Work Phone: [facility] 09-20-2024 09:23-0400 Body mass index (BMI) [Ratio] 41.4 kg/m2 Adrienne Jim DO Work Phone: [facility] 09-20-2024 09:23-0400 Body weight 116.35 kg Adrienne Jim DO Work Phone: [facility] 09-20-2024 09:23-0400 Diastolic blood pressure 100 mm[Hg] Adrienne Jim DO Work Phone: [facility] 09-20-2024 09:23-0400 Systolic blood pressure 140 mm[Hg] Adrienne Jim DO Work Phone: [facility] 03-08-2024 09:22-0500 Body height 167.6 cm Raffaele Romero MD Work Phone: [facility] 03-08-2024 09:22-0500 Body mass index (BMI) [Ratio] 41.8 kg/m2 Raffaele Romero MD Work Phone: [facility] 03-08-2024 09:22-0500 Body temperature 97.5 [degF] Raffaele Romero MD Work Phone: [facility] 03-08-2024 09:22-0500 Body weight 117.48 kg Raffaele Romero MD Work Phone: [facility] 03-08-2024 09:22-0500 Diastolic blood pressure 64 mm[Hg] Raffaele Romero MD Work Phone: [facility] 03-08-2024 09:22-0500 Heart rate 94 /min Raffaele Romero MD Work Phone: [facility] 03-08-2024 09:22-0500 Respiratory rate 22 /min Raffaele Romero MD Work Phone: [facility] 03-08-2024 09:22-0500 SaO2% (BldA) [Mass fraction] 98 % Raffaele Romero MD Work Phone: [facility] 03-08-2024 09:22-0500 Systolic blood pressure 132 mm[Hg] Raffaele Romero MD Work Phone: [facility] 12-08-2023 09:50-0400 Body height 167.6 cm Raffaele Romero MD Work Phone: [facility] 12-08-2023 09:50-0400 Body mass index (BMI) [Ratio] 41.16 kg/m2 Raffaele Romero MD Work Phone: [facility] 12-08-2023 09:50-0400 Body temperature 97.81 [degF] Raffaele Romero MD Work Phone: [facility] 12-08-2023 09:50-0400 Body weight 115.67 kg Raffaele Romero MD Work Phone: [facility] 12-08-2023 09:50-0400 Diastolic blood pressure 82 mm[Hg] Raffaele Romero MD Work Phone: [facility] 12-08-2023 09:50-0400 Heart rate 49 /min Raffaele Romero MD Work Phone: [facility] 12-08-2023 09:50-0400 Respiratory rate 20 /min Raffaele Romero MD Work Phone: [facility] 12-08-2023 09:50-0400 SaO2% (BldA) [Mass fraction] 97 % Raffaele Romero MD Work Phone: [facility] 12-08-2023 09:50-0400 Systolic blood pressure 142 mm[Hg] Raffaele Romero MD Work Phone: [facility] 05-12-2023 13:42-0500 Body mass index (BMI) [Ratio] 40.51 kg/m2 Michelle SARMIENTO Work Phone: [facility] 05-12-2023 13:42-0500 Body weight 113.85 kg Michelle SARMIENTO Work Phone: [facility] 05-12-2023 13:42-0500 Diastolic blood pressure 84 mm[Hg] Michelle SARMIENTO Work Phone: [facility] 05-12-2023 13:42-0500 Systolic blood pressure 126 mm[Hg] Michelle SARMIENTO Work Phone: [facility] Encounters Encounter Date Encounter Type Care Provider Facility Start: 09-20-2024 End: 09-20-2024 Bamboo flowsheet Adrienne Jim DO Work Phone: [facility] Start: 09-20-2024 End: 09-20-2024 Bamboo flowsheet Adrienne Jim DO Work Phone: [facility] Start: 09-20-2024 End: 09-20-2024 Patient encounter procedure Adrienne Jim DO Work Phone: [facility] Start: 09-20-2024 End: 09-20-2024 Periodic preventive med est patient 18-39 yrs Adrienne Jim DO Work Phone: [facility] Comment on above: Well woman exam with routine gynecological exam Start: 09-19-2024 End: 09-19-2024 Orders Only Raffaele Romero MD Work Phone: [facility] Comment on above: Chronic pain of righ t knee (Primary Dx) Start: 03-08-2024 End: 03-08-2024 Bamboo flowsheet Raffaele Romero MD Work Phone: [facility] Start: 03-08-2024 End: 03-08-2024 Bamboo flowsheet Raffaele Romero MD Work Phone: [facility] Start: 03-08-2024 End: 03-08-2024 Telephone encounter Raffaele Romero MD Work Phone: [facility] Start: 03-08-2024 End: 03-08-2024 Office outpatient visit 25 minutes Raffaele Romero MD Work Phone: [facility] Comment on above: KATHY (generalized anx iety disorder) ([facility]) (Primary Dx); PCOS (polycystic ovarian syndrome); Insulin resistance; Class 3 severe obesity due to excess calories with serious comorbidity and body mass index (BMI) of 40.0 to 44.9 in adult ([facility]) Start: 12-13-2023 End: 12-13-2023 Clinisync Result Encounter Raffaele Romero MD Work Phone: [facility] External Department Unsolicited Start: 12-13-2023 End: 12-13-2023 Clinisync Result Encounter Raffaele Romero MD Work Phone: [facility] External Department Unsolicited Start: 12-08-2023 End: 12-08-2023 Bamboo flowsheet Raffaele Romero MD Work Phone: [facility] Start: 12-08-2023 End: 12-08-2023 Bamboo flowsheet Raffaele Romero MD Work Phone: [facility] Start: 12-08-2023 End: 12-08-2023 Patient encounter procedure Raffaele Romero MD Work Phone: [facility] Start: 12-08-2023 End: 12-08-2023 Periodic preventive med est patient 18-39 yrs Raffaele Romero MD Work Phone: [facility] Comment on above: Annual physical exam (Primary Dx); Morbid obesity due to excess calories ([facility]); PCOS (polycystic ovarian syndrome); Body mass index (BMI) 38.0-38.9, adult Start: 12-08-2023 End: 12-08-2023 ambulatory RAFFAELE ROMERO Not Available Start: 05-12-2023 End: 05-12-2023 Postop follow up visit related to original px Michelle SARMIENTO Work Phone: [facility] Comment on above: Postoperative examin ation; Dysuria Start: 05-12-2023 End: 05-12-2023 ambulatory MICHELLE KEITH Not Available Start: 05-06-2023 End: 05-06-2023 ambulatory Adrienne Fernandez Facility:[facility] Start: 05-06-2023 End: 05-06-2023 ambulatory Adrienneleslee Caldwello Work Phone: [facility] Work Phone: Start: 05-06-2023 End: 05-06-2023 Departed Referred Adrienne Jim Work Phone: [facility] Start: 04-12-2023 End: 04-12-2023 ambulatory ADRIENNE JIM Not Available Start: 03-07-2023 End: 03-07-2023 ambulatory ADRIENNE JIM Not Available Start: 08-06-2022 ambulatory Moisés LITTLEJOHN [facility] Start: 08-06-2022 End: 08-07-[address] RYAN WOLF . Facility: Start: 05-05-2022 ambulatory Moisés LITTLEJOHN Facility : [facility] Start: 04-22-2022 ambulatory Moisés LITTLEJOHN Facility:[facility] Start: 04-21-2022 End: 04-22-2022 ambulatory NONE LISTED REQUEST Facility: Start: 03-02-2022 End: 03-02-[address] ADRIENNE FERNANDEZ . Facility: Start: 11-03-2021 End: 11-03-2021 ambulatory MARGOTH LOMBARDO Facility: Start: 10-29-2021 End: 10-29-2021 ambulatory NONE LISTED REQUEST Facility: Start: 08-11-2021 End: 08-12-2021 ambulatory NONE LISTED REQUEST Facility: Procedures Date Procedure Procedure Detail Performing Clinician Start: 12-13-2023 ALL CBC WITH AUTO DIFF Raffaele Romero MD Work Phone: Start: 05-12-2023 Urnls dip stick/tabl et rgnt non-auto w/o micrscp Michelle SARMIENTO Work Phone: Start: 03-02-2022 Microscopic observat ion [Identifier] in Cervix by Cyto stain Michelle SARMIENTO Work Phone: Plan of Treatment Date Care Activity Detail Author Start: 03-02-2027 Screening for malign ant neoplasm of cervix [facility] Start: 09-20-2024 End: 09-20-2024 Patient encounter procedure 09/20/2024 9:00 AM EDT Office Visit [facility] [address] [place] [phone] Adrienne Fernandez, DO [address] [place] [address] [facility] Start: 05-09-2024 End: 05-09-2024 Patient encounter procedure 05/09/2024 9:30 AM EST Office Visit [facility] [address] [place] [address] Raffaele Romero MD [address] [place] [phone] [facility] Start: 03-08-2024 End: 03-08-2024 Patient encounter procedure 03/08/2024 9:15 AM EST [facility] [address] [place] [address] Raffaele Romero MD [address] [place] [phone] [facility] Start: 12-08-2023 End: 12-08-2023 Patient encounter procedure 12/08/2023 9:15 AM EDT Office Visit [facility] [address] [place] [address] Raffaele Romero MD [address] [place] [phone] Arrived [facility] Comment on above: Arrived Start: 12-04-2023 Influenza vaccination Influenza Vacc ine (#1) [facility] Start: 12-03-2022 Influenza vaccination Influenza Vacc ine (#1) [facility] Bacteria identified in Urine by Culture Urine culture Microbiology Routine Dysuria Ordered: 05/12/2023 [facility] Work Phone: Comment on above: Ordered: 05/12/2023 Cytology Cervical or vaginal smear or scraping study Pap Smear Pathology and Cytology Routine Well woman exam with routine gynecological exam Ordered: 09/20/2024 [facility] Work Phone: Comment on above: Ordered: 09/20/2024 Human papilloma viru s DNA [Presence] in Unspecified specimen by Probe with amplification HPV DNA probe, amplified Microbiology Routine Well woman exam with routine gynecological exam Ordered: 09/20/2024 [facility] Comment on above: Ordered: 09/20/2024 Immunizations Immunization Date Immunization Notes Care Provider [facility] 02-19-2024 influenza virus vacc ine, unspecified formulation Raffaele Romero MD Work Phone: [facility] Healthcare Payers Date Payer Category Payer [facility] BCBS [id number] 2022 Unknown BCBS BCBS [id number] 2022-Present [phone] [address] [place] [address] [id number] 2019 Unknown [id number] 1986 Unknown [id number] [id number]. 593 1986 Unknown [id number] 2.16.840.1.990172.3.579.2. 593 1986 Unknown [id number] 2.16.840.1.919323.3.579.2. 593 1986 Unknown [id number] 2.16.840.1.967908.3.579.2. 593 1986 Unknown [id number] 2.16.840.1.742956.3.579.2. 727 1986 Unknown [id number] 2.16.840.1.721413.3.579.2. 1259 1986 Unknown [id number] 2.16.840.1.834086.3.579.2. 1259 1986 Unknown [id number] 2.16.840.1.672498.3.579.2. 1259 1986 Unknown [id number] 2.16.840.1.369193.3.579.2. 1259 1959 Self-pay 1959 Unknown [id number] Unknown [id number] 2.16.840.1.221111.3.579.2. 593 Unknown [id number] [id number]. 593 Social History Date Type Detail Facility Tobacco smoking stat [facility] Unknown if ever smoked [facility] Work Phone: Start: 1985 Sex Assigned At Female [facility] consumption unknown [facility] Start: 1985 Sex Assigned At Not on file [facility] Start: 12-07-2023 End: 03-08-2024 Gender identity Not on file [facility] Start: 12-08-2023 Tobacco smoking status NHIS Never smoked tobacco [facility] Start: 12-08-2023 Tobacco use and exposure Smokeless tobacco non-user [facility] Start: 12-07-2023 End: 03-08-2024 History of Social function [facility] How often do you nee d to have someone help you when you read instructions, pamphlets, or other written material from your doctor or pharmacy [SILS] Rarely [facility] Do you belong to any clubs or organizations such as sikh groups, unions, fraternal or athletic groups, or school groups? Yes [facility] Are you now , , , , never or living with a partner? [facility] How often to you hav e a drink containing alcohol? Never [facility] How hard is it for y ou to pay for the very basics like food, housing, medical care, and heating Not very hard [facility] Do you feel stress - tense, restless, nervous, or anxious, or unable to sleep at night because your mind is troubled all the time - these days [OSQ] Rather much [facility] (I/We) worried wheth er (my/our) food would run out before (I/we) got money to buy more. Never true [facility] In the past 12 month s, was there a time when you were not able to pay the mortgage or rent on time? No [facility] How often do you nee d to have someone help you when you read instructions, pamphlets, or other written material from your doctor or pharmacy [SILS] Rarely [facility] Clinical Notes 05-12-2023 to 09-20-2024 GUILLERMINA Lugo - 09/20/2024 9:00 AM EDTTelephone Encounter - Raffaele Romero MD - 03/08/2024 12:04 PM ESTTelephone Encounter - Raffaele Romero MD - 03/08/2024 12:04 PM EST Note Date & Type Note Facility 09-20-2024 History of Presen t illness Narrative Reason for Appointment: Patient ID: Queenie Hernandez is a 38 y.o. female who presents for Well Women Visit Patient presents today for Annual Exam. MEDICATIONS Current Outpatient Medications Medication Instructions busPIRone (Buspar) 7.5 MG tablet As needed predniSONE (DELTASONE) 50 mg, Oral, Daily ALLERGIES No Known Allergies PROBLEMS Active Ambulatory Problems Diagnosis Date Noted Insulin resistance 12/07/2023 PCOS (polycystic ovarian syndrome) 12/07/2023 Class 3 severe obesity due to excess calories with serious comorbidity and body mass index (BMI) of 40.0 to 44.9 in adult ([facility]) 12/07/2023 Nontraumatic coccydynia 12/08/2023 Annual physical exam 12/08/2023 KATHY (generalized anxiety disorder) 03/08/2024 Chronic pain of right knee 09/19/2024 Resolved Ambulatory Problems Diagnosis Date Noted No Resolved Ambulatory Problems No Additional Past Medical History HISTORY PAST MEDICAL HISTORY SOCIAL HISTORY History reviewed. No pertinent past medical history. Social History Tobacco Use Smoking status: Never Smokeless tobacco: Never Substance Use Topics Alcohol use: Not on file Drug use: Not on file FAMILY HISTORY No family history on file. SURGICAL HISTORY Past Surgical History: Procedure Laterality Date ENDOMETRIAL ABLATION 05/06/2023 HYSTEROSCOPY 05/06/2023 SALPINGECTOMY Bilateral 05/06/2023 REVIEW OF SYSTEMS Review of Systems: Review of Systems Constitutional: Negative. HENT: Negative. Eyes: Negative. Respiratory: Negative. Cardiovascular: Negative. Gastrointestinal: Negative. Genitourinary: Negative. Musculoskeletal: Negative. Skin: Negative. Neurological: Negative. All other systems reviewed and are negative. Hematological: Negative. Endocrine: Negative. Allergic/Immunologic: Negative. OBJECTIVE Objective: Physical Exam Constitutional: Appearance: Normal appearance. Genitourinary: Right Adnexa: not tender and no mass present. Left Adnexa: not tender and no mass present. No cervical discharge. Breasts: Breasts are soft. Right: Normal. Left: Normal. HENT: Head: Normocephalic. Nose: Nose normal. Mouth/Throat: Mouth: Mucous membranes are moist. Cardiovascular: Rate and Rhythm: Normal rate. Pulmonary: Effort: Pulmonary effort is normal. Abdominal: General: Bowel sounds are normal. Palpations: Abdomen is soft. Musculoskeletal: General: Normal range of motion. Cervical back: Normal range of motion. Neurological: General: No focal deficit present. Mental Status: She is alert. Skin: General: Skin is warm and dry. Psychiatric: Mood and Affect: Mood normal. Vitals and nursing note reviewed. Exam conducted with a ehs specialist present. Vitals: Estimated body mass index is 41.4 kg/m as calculated from the following: Height as of this encounter: 5' 6 . Weight as of this encounter: 256 lb 8 oz. BP: (!) 140/100 No LMP recorded. ASSESSMENT & PLAN ICD-10-CM 1. Well woman exam with routine gynecological exam Z01.419 Pap Smear HPV DNA probe, amplified Annual Exam: Patient presents today for an annual exam. Patient states she is doing well and has no complaints. Pap was obtained without difficulty. Orders Placed This Encounter Procedures HPV DNA probe, amplified Patient continues to have heavy vaginal bleeding patient wishes to move forward with hysterectomy Follow Up: Patient is to return in one year for annual unless needed otherwise. Documented by GUILLERMINA Lugo on behalf of: Adrienne Fernandez DO documented in this encounter [facility] 03-08-2024 Telephone encount er Note New script sent. [facility] 03-08-2024 Miscellaneous Notes Formattin g of this note might be different from the original. New script sent. Patient called states insurance will not pay for 7.5 mg tablet, but will pay for a 15mg so she could cut it in half. clm documented in this encounter [facility] 03-08-2024 Telephone encount er Note Patient called states insurance will not pay for 7.5 mg tablet, but will pay for a 15mg so she could cut it in half. clm [facility] 03-08-2024 History of Presen t illness Narrative Associated Problem(s): Insulin resistance Increase metformin Associated Problem(s): PCOS (polycystic ovarian syndrome) Increase metformin Associated Problem(s): KATHY (generalized anxiety disorder) ([facility]) Worsening symptoms and start zoloft. Warned will take 2-3 weeks to notice improvement in mood. Use buspar PRN. Associated Problem(s): Class 3 severe obesity due to excess calories with serious comorbidity and body mass index (BMI) of 40.0 to 44.9 in adult ([facility]) Discussed proper diet and regular aerobic exercise. Recommend Weight Watchers and need to limit calories and smaller portions. Need to increase activity and regular aerobic exercise several days a week for 30 minutes at a time. Subjective Patient ID: Queenie Hernandez is a 38 y.o. female who presents for Follow-up (3M). Follow up PCOS and weight. Started metformin last visit and tolerating well. Weight up 4 pounds. Trying to stay active and walk few days a week. Tries to watch diet and eat healthy. Increased fruits and vegetables. Smaller portions and limits snacking. Tries to limit total daily calories. C/o anxiety. Nervous and worry all the time. Stressed out and overwhelmed. Thought racing and hard to clear mind. [place], irritable and snapping at others. Easily upset and overreact. Worry about different scenarios with her children and causes stress. Prior prozac and celexa made her feel off and stopped. Review of Systems Respiratory: Negative for cough, shortness of breath and wheezing. Cardiovascular: Negative for chest pain and palpitations. Gastrointestinal: Negative for abdominal pain, diarrhea, nausea and vomiting. Genitourinary: Negative for dysuria. Objective Physical Exam Constitutional: General: She is not in acute distress. Appearance: Normal appearance. HENT: Head: Normocephalic. Right Ear: Tympanic membrane normal. Left Ear: Tympanic membrane normal. Eyes: Extraocular Movements: Extraocular movements intact. Pupils: Pupils are equal, round, and reactive to light. Cardiovascular: Rate and Rhythm: Normal rate and regular rhythm. Heart sounds: No murmur heard. No friction rub. No gallop. Pulmonary: Effort: Pulmonary effort is normal. Breath sounds: Normal breath sounds. No wheezing, rhonchi or rales. Abdominal: General: Bowel sounds are normal. There is no distension. Palpations: Abdomen is soft. Tenderness: There is no abdominal tenderness. There is no guarding or rebound. Musculoskeletal: Cervical back: Neck supple. Right lower leg: No edema. Left lower leg: No edema. Neurological: Mental Status: She is alert. Assessment/Plan Problem List Items Addressed This Visit Insulin resistance Increase metformin PCOS (polycystic ovarian syndrome) Increase metformin Relevant Medications metFORMIN XR (Glucophage-XR) 500 MG 24 hr tablet Class 3 severe obesity due to excess calories with serious comorbidity and body mass index (BMI) of 40.0 to 44.9 in adult ([facility]) Discussed proper diet and regular aerobic exercise. Recommend Weight Watchers and need to limit calories and smaller portions. Need to increase activity and regular aerobic exercise several days a week for 30 minutes at a time. KATHY (generalized anxiety disorder) ([facility]) - Primary Worsening symptoms and start zoloft. Warned will take 2-3 weeks to notice improvement in mood. Use buspar PRN. Relevant Medications sertraline (Zoloft) 25 MG tablet busPIRone (Buspar) 7.5 MG tablet documented in this encounter [facility] 12-08-2023 History of Presen t illness Narrative Associated Problem(s): Morbid obesity due to excess calories ([facility]) Discussed proper diet and regular aerobic exercise. Recommend Weight Watchers and need to limit calories and smaller portions. Need to increase activity and regular aerobic exercise several days a week for 30 minutes at a time. Associated Problem(s): PCOS (polycystic ovarian syndrome) History of PCOS and start metformin. Associated Problem(s): Annual physical exam Due for labs. Discussed proper diet and regular aerobic exercise. Need aerobic exercise 5-6 days a week for 30 minutes at a time. Smaller portions and limit total calories. Colonoscopy after age 45. Tetanus every 10 years. Advised not to smoke. Discussed daily Aspirin therapy. Images from the original note were not included. Subjective Patient ID: Queenie Hernandez is a 38 y.o. female who presents for Annual Exam (wellness). Presents for annual PE. Patient feels well today. Weight up 29 pounds in the past year. Remains active and walks several days a week. Tries to watch diet and eat healthy. Increased fruits and vegetables. Smaller portions and limits snacking. Tries to limit total daily calories. Previously lost weight with ozempic but insurance doesn't cover. Gaining weight since. History of PCOS and insulin resistance. Feels much worse around menses but doesn't want to go back on OCP. Review of Systems Respiratory: Negative for cough, shortness of breath and wheezing. Cardiovascular: Negative for chest pain and palpitations. Gastrointestinal: Negative for abdominal pain, diarrhea, nausea and vomiting. Genitourinary: Negative for dysuria. Objective Physical Exam Constitutional: General: She is not in acute distress. Appearance: Normal appearance. HENT: Head: Normocephalic. Right Ear: Tympanic membrane normal. Left Ear: Tympanic membrane normal. Eyes: Extraocular Movements: Extraocular movements intact. Pupils: Pupils are equal, round, and reactive to light. Cardiovascular: Rate and Rhythm: Normal rate and regular rhythm. Heart sounds: No murmur heard. No friction rub. No gallop. Pulmonary: Effort: Pulmonary effort is normal. Breath sounds: Normal breath sounds. No wheezing, rhonchi or rales. Abdominal: General: Bowel sounds are normal. There is no distension. Palpations: Abdomen is soft. Tenderness: There is no abdominal tenderness. There is no guarding or rebound. Musculoskeletal: General: No swelling or tenderness. Cervical back: Neck supple. Right lower leg: No edema. Left lower leg: No edema. Skin: Findings: No erythema or rash. Neurological: General: No focal deficit present. Mental Status: She is alert and oriented to person, place, and time. Cranial Nerves: No cranial nerve deficit. Motor: No weakness. Gait: Gait normal. Assessment/Plan Problem List Items Addressed This Visit PCOS (polycystic ovarian syndrome) History of PCOS and start metformin. Relevant Medications metFORMIN XR (Glucophage-XR) 500 MG 24 hr tablet Morbid obesity due to excess calories (CMS/HCC) Discussed proper diet and regular aerobic exercise. Recommend Weight Watchers and need to limit calories and smaller portions. Need to increase activity and regular aerobic exercise several days a week for 30 minutes at a time. Annual physical exam - Primary Due for labs. Discussed proper diet and regular aerobic exercise. Need aerobic exercise 5-6 days a week for 30 minutes at a time. Smaller portions and limit total calories. Colonoscopy after age 45. Tetanus every 10 years. Advised not to smoke. Discussed daily Aspirin therapy. documented in this encounter [facility] 05-12-2023 History of Presen t illness Narrative Reason for Appointment: Patient ID: Queenie Hernandez is a 37 y.o. female who presents [...] in this encounter [facility] Evaluation note No assessment inform ation available [facility] Work Phone: Evaluation note Diagnosis Postoperative examination Follow-up examination, following unspecified surgery Dysuria documented in this encounter [facility]* Diagnosis Annual physical exam- Primary Routine general medical examination at a health care facility Morbid obesity due to excess calories (CMS/HCC) PCOS (polycystic ovarian syndrome) Polycystic ovaries Body mass index (BMI) 38.0-38.9, adult KATHY (generalized anxiety disorder) (CMS/HCC)- Primary Generalized anxiety disorder PCOS (polycystic ovarian syndrome) Polycystic ovaries Insulin resistance Other abnormal glucose Class 3 severe obesity due to excess calories with serious comorbidity and body mass index (BMI) of 40.0 to 44.9 in adult (CMS/HCC) documented [facility] Diagnosis Annual physical exam- Primary Routine general medical examination at a health care facility Morbid obesity due to excess calories (CMS/HCC) PCOS (polycystic ovarian syndrome) Polycystic ovaries Body mass index (BMI) 38.0-38.9, adult KATHY (generalized anxiety disorder) ([facility])- Primary Generalized anxiety disorder PCOS (polycystic ovarian syndrome) Polycystic ovaries Insulin resistance Other abnormal glucose Class 3 severe obesity due to excess calories with serious comorbidity and body mass index (BMI) of 40.0 to 44.9 in adult ([facility]) KATHY (generalized anxiety disorder) ([facility] Generalized anxiety disorder documented [facility] Diagnosis Annual physical exam- Primary Routine general medical examination at a health care facility Morbid obesity due to excess calories ([facility]) PCOS (polycystic ovarian syndrome) Polycystic ovaries Body mass index (BMI) 38.0-38.9, adult [facility] Diagnosis Annual physical exam- Primary Routine general medical examination at a health care facility Morbid obesity due to excess calories ([facility]) PCOS (polycystic ovarian syndrome) Polycystic ovaries Body mass index (BMI) 38.0-38.9, adult KATHY (generalized anxiety disorder)- Primary Generalized anxiety disorder PCOS (polycystic ovarian syndrome) Polycystic ovaries Insulin resistance Other abnormal glucose Class 3 severe obesity due to excess calories with serious comorbidity and body mass index (BMI) of 40.0 to 44.9 in adult ([facility]) Chronic pain of right knee- Primary documented in [facility] Diagnosis Annual physical exam- Primary Routine general medical examination at a health care facility Morbid obesity due to excess calories ([facility]) PCOS (polycystic ovarian syndrome) Polycystic ovaries Body mass index (BMI) 38.0-38.9, adult KATHY (generalized anxiety disorder)- Primary Generalized anxiety disorder PCOS (polycystic ovarian syndrome) Polycystic ovaries Insulin resistance Other abnormal glucose Class 3 severe obesity due to excess calories with serious comorbidity and body mass index (BMI) of 40.0 to 44.9 in adult ([facility]) Well woman exam with routine gynecological exam Routine gynecological examination documented in this encounter [facility] Summary [...] content) DATE CREATED AUTHOR 08/06/2022 [facility] DATE CREATED AUTHOR AUTHOR'S ORGANIZ ATION 08/12/2022 Rohan Bunch [facility] DATE CREATED AUTHOR AUTHOR'S ORGANIZ ATION 05/11/2023 [facility] DATE CREATED AUTHOR AUTHOR'S ORGANIZ ATION 12/09/2023 [facility] DATE CREATED AUTHOR AUTHOR'S ORGANIZ ATION 01/27/2024 [facility] Care Teams (unrecognized sec tion and content) Team Status: Inactive Member Role Status Dates Adrienne Fernandez Attending Provider Active Start: janneth 2023 End: May 06, 2023 [employer] Relationship Specialty Start Date End Date Raffaele Romero MD PCP - General 03/07/23 [employer] Relationship Specialty Start Date End Date Raffaele Romero MD [address] [place] [phone] PCP - General Family Medicine 12/08/23 Raffaele Romero MD [address] [place] [phone] PCP - [facility] 02/03/24 [employer] Relationship Specialty Start Date End Date Raffaele Romero MD [address] [place] [phone] PCP - General Family Medicine 12/08/23 Raffaele Romero MD [address] [place] [phone] PCP - [facility] 02/03/24 [employer] Relationship Specialty Start Date End Date Raffaele Romero MD [address] [place] [phone] PCP - General Family Medicine 12/08/23 [employer] Relationship Specialty Start Date End Date Raffaele Romero MD [address] [place] [phone] PCP [facility] 12/08/23 [employer] Relationship Specialty Start Date End Date Raffaele Romero MD [address] [place] [phone] [facility] 12/08/23 [employer] Relationship Specialty Start Date End Date Raffaele Romero MD [address] [place] [phone] PCP [facility] 12/08/23 [employer] Relationship Specialty Start Date End Date Raffaele Romero MD [address] [place] [phone] PCP [facility] 12/08/23 [employer] Relationship Specialty Start Date End Date Raffaele Romero MD [address] [place] [id number] PCP [facility] 12/08/23 Goals (unrecognized section and content) Goals may be documented in a n alternate section Reason for Visit (unrecogniz ed section and content) Reason Comments Post-op Visit Reason Comments Follow-up 3M Reason Comments Annual Exam wellness Reason Comments Well Women Visit FOR RECORDS PERTAINING TO PATIENTS WHO [...] BE BASED ON THE PRIMARY CLINICAL RECORDS. [facility]. provides no warranty or guarantee of the accuracy or completeness of information in this document.
[2024-09-24 15:09] LABS: Age Gdln ACOG Testing Note (.); HPV Aptima Negative (Negative); IGP, Aptima HPV, rfx 16/18,45 Note (.)
== END 2024-09-20 14:54 | disposition home or self-care (01) ==
LOC: LAB 14:53
PROVIDERS: PCP Family Medicine; Visit Provider Obstetrics & Gynecology
DX: Z01.419 Encounter for gynecological examination (general) (routine) without abnormal findings (principal)
CPT/HCPCS: 87624; 88175

== ENCOUNTER 2024-09-21 14:53 | Outpatient (OUT) | payer BC, SELFPAY ==
--- NOTE | 2024-09-21 | XR_ITS ---
[place] [address] Patient Name: BASIL CARRANZA MRN: [id number] date: 1985 Sex: F Assigned Patient Location: [facility] Current Patient Location: [facility] Accession/Order Number: [id number] Exam Date: 09/21/2024 16:05 Report Date: 09/21/2024 16:06 At the request of: GOKUL ROMERO MD Procedure: XR knee RT 2V 2 views right knee plain film COMPARISON: None HISTORY: Right knee pain for 3 weeks ACUTE FINDINGS: No acute findings DEGENERATIVE CHANGE: Unremarkable SOFT TISSUE FINDINGS: Unremarkable JOINT EFFUSION: None POSTOP CHANGES: None BONE MINERALIZATION: Adequate XR/XR knee RT 2V IMPRESSION: No acute findings Impression dictated by: Cody Chaudhary M.D. 09/21/2024 4:06 PM Dictation Location: [place] [address] Electronically authenticated by: [id number] Y Date: 09/21/2024 16:06
== END 2024-09-21 14:54 | disposition home or self-care (01) ==
LOC: RAD 14:56
PROVIDERS: PCP Family Medicine; Visit Provider Family Medicine
DX: M25.561 Pain in right knee (principal); G89.29 Other chronic pain
CPT/HCPCS: 73560

== ENCOUNTER 2025-02-25 10:53 | Outpatient (OUT) | payer BC, SELFPAY ==
--- OUTSIDE RECORDS SUMMARY | 2025-02-25 10:59 | XMS_ITS | Clinical Summary ---
Author Organization [facility] Address [address] [place] [address] Care Team Providers Care Car Pick Up Driver Name Role Phone Raffaele Thomas MD Primary Care Provider [phone] Allergies No known active allergies Medications MedicationSigDispense QuantityRefillsLast FilledStart DateEnd DateStatus busPIRone (Buspar) 7.5 MG tablet Take by mouth if neededActive predniSONE (Deltasone) 10 MG tablet Indications:Poison teto dermatitis6 PO daily x 3 days, 4 PO daily x 3 days, 2 PO daily x 3 days, 1 PO daily x 3 days 39 tablet Discontinued(Therapy completed) Active Problems ProblemNoted DateDiagnosed DateChronic pain of right knee09/19/2024GAD (generalized anxiety disorder)03/08/2024 Assessment & Plan (03/08/2024 10:11 AM EST): Worsening symptoms and start zoloft. Warned will take 2-3 weeks to notice improvement in mood. Use buspar PRN. Nontraumatic aqxfxzlzcs78/05/2024nnual physical exam12/08/2023 Assessment & Plan (12/08/2023 10:07 AM EDT): Due for labs. Discussed proper diet and regular aerobic exercise. Need aerobic exercise 5-6 days a week for 30 minutes at a time. Smaller portions and limit total calories. Colonoscopy after age 45. Tetanus every 10 years. Advised not to smoke. Discussed daily Aspirin therapy. Insulin mxmletrdxv91/04/2024 Assessment & Plan (03/08/2024 10:12 AM EST): Increase metformin PCOS (polycystic ovarian syndrome)12/07/2023 Assessment & Plan (03/08/2024 10:11 AM EST): Increase metformin Assessment & Plan (12/08/2023 10:08 AM EDT): History of PCOS and start metformin. Class 3 severe obesity due to excess calories with serious comorbidity and body mass index (BMI) of40.0 to 44.9 in adult12/07/2023 Assessment & Plan (03/08/2024 10:11 AM EST): Discussed proper diet and regular aerobic exercise. Recommend Weight Watchers and need to limit calories and smaller portions. Need to increase activity and regular aerobic exercise several days a week for 30 minutes at a time. Assessment & Plan (12/08/2023 10:08 AM EDT): Discussed proper diet and regular aerobic exercise. Recommend Weight Watchers and need to limit calories and smaller portions. Need to increase activity and regular aerobic exercise several days a week for 30 minutes at a time. Encounters DateTypeDepartmentCare JgfzDnnoczwnmfc69/04/2025 8:40 [place] [address] Mitch Fernandez DO Pre-op evaluation; Menorrhagia with regular cycle; Abnormal uterine bleeding (AUB); Dysmenorrhea; Dyspareunia in female; Pelvic pain02/05/2025amboo flowsheet [facility] [place] [address] [place] [address] Mitch Fernandez DO 02/04/2025Travelfrom Last 3 Months Social History Tobacco UseTypesPacks/DayYears UsedDateSmoking Tobacco: NeverSmokeless Tobacco: Never Tobacco Cessation:Counseling Given: Not Answered B1300 Health LiteracyAnswerDate RecordedHow often do you need to have someone help you when you read instructions, pamphlets, or other written material from your doctor or pharmacy?Irbaje6312/07/2023Social Connection and Isolation Panel AnswerDate RecordedIn a typical week, how many times do you talk on the phone with family, friends, or neighbors?More than three times a week12/07/2023How often do you get together with friends or relatives?Once a week12/07/2023How often do you attend sikh or oriental orthodox services?More than 4 times per year 12/07/2023o you belong to any clubs or organizations such as sikh groups, unions, fraternal or athletic groups, or school groups?Yes12/07/2023How often do you attend meetings of the clubs or organizations you belong to?More than 4 times per year12/07/2023re you , , , , never , or living with a partner?Ibwbljmwe61/04/2024UDIT-CAnswerDate Recorded Q1: How often do you have a drink containing alcohol?Never12/07/2023Q2: How many drinks containing alcohol do you have on a typical day when you are drinking? Patient does not drink12/07/2023Q3: How often do you have six or more drinks on one occasion?Never12/07/2023Overall Financial Resource Strain (CARDIA)AnswerDate RecordedHow hard is it for you to pay for the very basics like food, housing, medical care, and heating?Not very hard12/07/2023[facility] [place] [facility] - Occupational Stress QuestionnaireAnswerDate RecordedDo you feel stress - tense, restless, nervous, or anxious, or unable to sleep at night because yourmind is troubled all the time - these days?Rather much12/07/2023 Exercise Vital SignAnswerDate RecordedOn average, how many days per week do you engage in moderate to strenuous exercise (like a brisk walk)?5 days12/07/2023On average, how many minutes do you engage in exercise at this level?60 min 12/07/2023Hunger Vital SignAnswerDate RecordedWithin the past 12 months, you worried that your food would run out before you got the money to buymore.Never true09/04/2024Within the past 12 months, the food you bought just didn't last and you didn't have money to get more.Never true12/07/2023RAPARE - TransportationAnswerDate RecordedIn the past 12 months, has lack of transportation kept you from medical appointments or from getting medications?No 12/07/2023In the past 12 months, has lack of transportation kept you from meetings, work, or from getting things needed for daily living?No12/07/2023 Housing Stability Vital SignAnswerDate RecordedIn the last 12 months, was there a time when you were not able to pay the mortgage or rent on time?No12/07/2023In the past 12 months, how many times have you moved where you were living?0 12/07/2023t any time in the past 12 months, were you homeless or living in a custodial (including now)?No12/07/2023CommentsNoSex and Gender Information ValueDate RecordedSex Assigned at BirthNot on fileLegal TeiMgvaye04/15/2023 7:06 PM EDTGender IdentityNot on fileSexual OrientationNot on file Last Filed Vital Signs Vital SignReadingTime TakenCommentsBlood Yjpdwskt229/7811 8:44 AM EST Osubw771103/08/2024 9:22 AM XGUNsvbjkyvefw16.4 ??C (97.5 ??F)03/08/2024 9:22 AM ESTRespiratory Tmnr659405/09/2023 9:22 AM ESTOxygen Fnkklakkim43%03/08/2024 9:22 AM ESTInhaled Oxygen Concentration--Feofoq035 kg (256 lb)02/05/2025 8:44 AM EST Sjolzm720.6 cm (5' 6 )02/05/2025 8:44 AM ESTBody Mass Index41.32104/07/2024 8:44 AM EST Plan of Treatment DateTypeDepartmentCare Team (Latest Contact Info)Jorpzhfsoem22/29/2026 10:00 AM EDTOffice Visit [facility] [address] [address] Mitch Fernandez, [address] [place] [address] Insurance Care Teams Team MemberRelationshipSpecialtyStart DateEnd Date Raffaele Thomas MD [address] [place] [address] PCP - GeneralFamily Medicine12/08/23
--- OUTSIDE RECORDS SUMMARY | 2025-02-25 10:59 | XMS_ITS | Clinical Summary ---
Author Organization [employer] [facility] tem Address [id number] [address] [place] [address] Care Team Providers Care Cloth Spreader Screen Printing Name Role Phone No Pcp, No Pcp Primary Care Provider Unavailabl e Social History Tobacco UseTypesPacks/DayYears UsedDateSmoking Tobacco: Never AssessedChildcare AnswerDate FomelysxOkigdpijaJkggibk18/12/2019EmploymentAnswerDate Recorded MqacmsrsbkSorfnrs85/12/2019Purpose - LifeAnswerDate RecordedPurpose and direction in wnnwUryqgvz75/11/2021CommentsUnknownSex and Gender InformationValueDate RecordedSex Assigned at BirthNot on fileLegal SexFemale 02/14/2015 12:10 AM ESTGender IdentityNot on fileSexual OrientationNot on file Plan of Treatment Not on file Medical Devices Not on file Care Teams Team MemberRelationshipSpecialtyStart DateEnd Date No Pcp, [place] [address] [facility] - [facility]
--- OUTSIDE RECORDS SUMMARY | 2025-02-25 11:05 | XMS_ITS | CCD ---
Author Organization [facility] [place] [facility] Team Providers Care Clinical Pharmacy Specialist Name Role Phone REQUEST, DR NONE LISTED [...] MARGOTH Admitting Unavailable Moisés LITTLEJOHN Attending Unavailable Jim, Adrienne Attending Provider [phone] Adrienne Fernandez Attending Unavailable Adrienne Fernandez Admitting Unavailable Raffaele Romero MD Primary Care Provider ADRIENNE FERNANDEZ Attending Unavailable MICHELLE TRUJILLO Attending Unavailable ADRIENNE FERNANDEZ Attending Unavailable RAFFAELE ROMERO Attending Unavailable Raffaele Romero MD Primary Care Provider [phone] Raffaele Romero MD Unavailable Raffaele Romero MD Primary Care Provider Raffaele Romero MD Primary Care Provider [phone] Raffaele Romero MD Unavailable ADRIENNE FERNANDEZ Attending Unavailable ADRIENNE FERNANDEZ Attending Unavailable RAFFAELE ROMERO Attending Unavailable Allergies Allergy ClassificationReported Allergen(s)Allergy TypeDate of OnsetReaction(s) Facility (1 source)predniSONEDrug Iahiavp50-36-5201[facility] (1 source)rofecoxib; Translations: [Vioxx][facility] Medications Current Medications MedicationDrug Class(es)DatesSig (Normalized)Sig (Original)busPIRone hydrochloride 15 mg oral tablet (16 sources)Start: 03-30-2024 End: 87-48-9086vaso 1 tablet by mouth twice daily as needed for anxietybusPIRone (Buspar) 15 MG tablet Indications: KATHY (generalized anxiety disorder) TAKE 1 TABLET BY MOUTH 2 TIMES A DAY NEEDED (ANXIETY) 180 tablet 1 03/30/2024 09/20/2024 DiscontinuedStart: 03-08-2024 End: 50-70-9075qlcv 1 tablet by mouth twice daily as neededbusPIRone (Buspar) 7.5 MG tablet Indications: KATHY (generalized anxiety disorder) (CMS/HCC) Take 1 tablet (7.5 mg) by mouth 2 (two) times a day as needed (Anxiet) 60 tablet 2 03/08/2024 03/08/2024 Discontinued (Reorder)Start: 19-19-3842tabt 1 tablet by mouth twice daily as neededbusPIRone (Buspar) 15 MG tablet Indications: KATHY (generalized anxiety disorder) (CMS/HCC) Take 1 tablet (15 mg) by mouth 2 (two) times a day as needed (Anxiet) 60 tablet 2 03/08/2024 Activecephalexin 500 mg oral capsule (2 sources)Cephalosporin AntibacterialStart: 05-12-2023 End: 00-25-7727xyls 1 capsule by mouth in the morningcephalexin (Keflex) 500 MG capsule Indications: Postoperative examination Take 1 capsule (500 mg) by mouth in the morning and 1 capsule (500 mg) before bedtime. Do all this for 7 days. 14 capsule 0 05/12/2023 05/19/2023 Lsbxwd98 hr metFORMIN hydrochloride 500 mg extended release oral tablet (13 sources)BiguanideStart: 03-08-2024 End: 98-60-2592pgeq 2 tablets by mouth every twenty-four hours at mealtime metFORMIN XR (Glucophage-XR) 500 MG 24 hr tablet Indications: PCOS (polycystic ovarian syndrome) Take 2 tablets (1,000 mg) by mouth in the evening. Take with meals Do not crush, chew, or split. 60 tablet 5 03/08/2024 09/20/2024 DiscontinuedStart: 12-08-2023 End: 82-65-3749eoyr 1 tablet by mouth every twenty-four hours at mealtime metFORMIN XR (Glucophage-XR) 500 MG 24 hr tablet Indications: PCOS (polycystic ovarian syndrome) Take 1 tablet (500 mg) by mouth in the evening. Take with meals Do not crush, chew, or split. 30 tablet 5 12/08/2023 03/08/2024 Discontinued (Reorder)sertraline 25 mg oral tablet (7 sources)Serotonin Reuptake InhibitorStart: 07-03-2024 End: 28-45-5870cnas 1 tablet by mouth once dailysertraline (Zoloft) 25 MG tablet Indications: KATHY (generalized anxiety disorder) TAKE 1 TABLET BY MOUTH EVERY DAY 90 tablet 1 07/03/2024 09/20/2024 DiscontinuedStart: 08-17-7483koqa 1 tablet by mouth once dailysertraline (Zoloft) 25 MG tablet Indications: KATHY (generalized anxiety disorder) (CMS/HCC) Take 1 tablet (25 mg) by mouth Daily 30 tablet 3 03/08/2024 ActiveStart: 18-01-2758nplo 1 tablet by mouth once daily sertraline (Zoloft) 25 MG tablet Indications: KATHY (generalized anxiety disorder) (CMS/HCC) Take 1 tablet (25 mg) by mouth Daily 30 tablet 3 03/08/2024 Active Start: 43-84-6292rbfb 1 tablet by mouth once dailysertraline (Zoloft) 25 MG tablet Indications: KATHY (generalized anxiety disorder) (CMS/HCC) Take 1 tablet (25 mg) by mouth Daily 30 tablet 3 03/08/2024 Active Completed/Discontinued Medications MedicationDrug Class(es)DatesSig (Normalized)Sig (Original)ethinyl estradiol 0.035 mg / norethindrone 0.75 mg oral tablet (2 sources)EstrogenStart: 05-02-2023 End: 46-91-1973sjjv 1 tablet by mouth in the morningnorethindrone-ethinyl estradiol (Nortrel ) 0.5/0.75/1-35 MG-MCG tablet Indications: Encounter for surveillance of contraceptive pills Take 1 tablet by mouth in the morning. 28 tablet 11 05/02/2023 05/12/2023 Discontinued (Therapy completed) methylPREDNISolone (4 sources)CorticosteroidStart: 05-12-2023 End: 94-29-0154urbgyjZGRPPCHdrvjv (Medrol Dospak) 4 MG tablets Indications: Postoperative examination Day 1: 6 tablets Day 2: 5 tablets Day 3: 4 tablets Day 4: 3 tablets Day 5: 2 tablets Day 6: 1 tablet 21 tablet 05/12/2023 12/07/2023 DiscontinuedStart: 23-41-0072gtrcxnXFWTVRRhshlz (Medrol Dospak) 4 MG tablets Indications: Postoperative examination Day 1: 6 tablets Day 2: 5 tablets Day 3: 4 tablets Day 4: 3 tablets Day 5: 2 tablets Day 6: 1 tablet 21 tablet 0 05/12/2023 ActivepredniSONE 10 mg oral tablet (12 sources)Start: 10-01-2024 End: 90-88-4815yihw 6 tablets by mouth once daily, then take 4 tablets by mouth once daily, then take 2 tablets bymouth once daily, then take 1 tablet by mouth once dailypredniSONE (Deltasone) 10 MG tablet Indications: Poison teto dermatitis 6 PO daily x 3 days, 4 PO daily x 3 days, 2 PO daily x 3 days, 1 PO daily x 3 days 39 tablet 10/01/2024 02/05/2025 Discontinued (Therapy completed)Start: 09-19-2024 End: 56-90-1402cvba 1 tablet by mouth once dailypredniSONE (Deltasone) 50 MG tablet Indications: Chronic pain of right knee Take 1 tablet (50 mg) by mouth Daily for 6 days 6 tablet 09/19/2024 10/01/2024 Discontinued Problems Active Problems Problem ClassificationProblemDateDocumented DateEpisodic/ChronicAllergic reactions (2 sources)Contact dermatitis due to poison teto; Translations: [Allergic contact dermatitis due to plants, except food]26-90-5709JbxpcicdFbregae disorders (19 sources)Generalized anxiety disorder; Translations: [Generalized anxiety disorder]Onset: 591076-19-4602DyxialoMiiyuzpmedfft symptoms and ill- defined conditions (2 sources)Dysuria; Translations: [Dysuria]32-52-6393CgnhlmgdQbmqcorzi disorders (2 sources)Menorrhagia; Translations: [Excessive and frequent menstruation with regular cycle]97-89-6970WptbnscVrmpq aftercare (2 sources)Surgical follow-up; Translations: [Encounter for follow-up examination after completed treatment for conditions other than malignant neoplasm]12-15-1159JjcpdelyZizvq endocrine disorders (20 sources)Polycystic ovary syndrome; Translations: [Polycystic ovarian syndrome]Onset: 331935-30-2892GqiafilSsbvq female genital disorders (1 source)Abnormal uterine bleeding; Translations: [Abnormal uterine and vaginal bleeding, unspecified]77-35-8541ShgyeejIorom female genital disorders (1 source)Pain in female genitalia on intercourse; Translations: [Unspecified dyspareunia]85-59-1513MyrwifkVlgsu nutritional; endocrine; and metabolic disorders (20 sources)Insulin resistance; Translations: [Insulin resistance]Onset: 353155-69-6416VazzcqsMmoit nutritional; endocrine; and metabolic disorders (7 sources)Morbid obesity; Translations: [Morbid (severe) obesity due to excess calories]Onset: 252020-90-8352IdryrvkNdtpq nutritional; endocrine; and metabolic disorders (18 sources)Severe obesity; Translations: [Class 3 severe obesity due to excess calories with serious comorbidity and body mass index (BMI) of 40.0 to 44.9 in adult ([facility])]Onset: 563380-10-7061DsnpjfkXuwqz nutritional; endocrine; and metabolic disorders (2 sources)Body mass index 30+ - obesity; Translations: [Body mass index (BMI) 38.0-38.9, adult]67-19-1270EwywyqhNihgqexfqpet (3 sources)CONTACT W/AND (SUSP) EXPOS COVID-19; Translations: [CONTACT W/AND (SUSP) EXPOS COVID-19]Onset: 61-00-8529Dstlmiqtziow (1 source)Pain in pelvis; Translations: [Pelvic pain]08-56-2221Hiqos infection (1 source)COVID-19; Translations: [COVID-19]Onset: 11-03-2021 Past or Other Problems Problem ClassificationProblemDateDocumented DateEpisodic/ChronicAbdominal pain (4 sources)Unspecified abdominal pain; Translations: [UNSPECIFIED ABDOMINAL PAIN]Onset: 46-25-4176XtoggrscWdzieqoewionh and screening for infectious disease (1 source)Encounter for screening for human papillomavirus (HPV); Translations: [ENC SCREENING HUMAN PAPILLOMAVIRUS]Onset: 47-07-9583MzhzovzoZbouc non-traumatic joint disorders (15 sources)Pain in right knee; Translations: [Pain in joint, lower leg]Onset: 319481-60-9254AwyaexbxDzpge screening for suspected conditions (not mental disorders or infectious disease) (4 sources)Encounter for screening for malignant neoplasm of cervix; Translations: [ENC SCREENING MALIG NEOPLASM CERV]Onset: 05-79-8375Bwyjwdqw Spondylosis; intervertebral disc disorders; other back problems (20 sources)Pain in the coccyx; Translations: [Sacrococcygeal disorders, not elsewhere classified]Onset: 419382-31-0316TrkeomllEfosnvqmtwvb (1 source)CONTACT W/AND (SUSP) EXPOS COVID-19; Translations: [CONTACT W/AND (SUSP) EXPOS COVID-19]Onset: 11-03-2021 Results Test NameValueInterpretationReference RangeFacilityIGP,APTIMA HPV,AGE GDLNon 45-51-6683MMM GDLN ACOG TESTINGNote.NOMS HealthcareComment on above:TESTS RESULT FLAG UNITS REF RANGE LAB Clinician Provided Cytology Information Source.............Cervix;Endocervix No. of containers..01 ThinPrep Vial Age Algo ACOG Aleida... 30-65 01 FLAG LEGEND: L-Low Normal,H-High Normal,LL-Alert Low,HH-Alert High <-Panic Low,>-Panic High,A-Abnormal,AA-Critical Abnormal Performed at: 01 =[address] [address] Abby Owen MD, HPV APTIMANegativeNegativeNOMS HealthcareComment on above:This nucleic acid amplification test detects fourteen high- risk HPV types (16,18,31,33,35,39,45,51,52,56,58,59,66,68) without differentiation. Performed at: =[address] [id number] Building Components Designer: Abby Owen MD, Phone: [phone] Performed at: [address] [id number] Building Components Designer: Abby Owen MD, Phone: [phone] IGP, APTIMA HPV, RFX 16/18,45Note.NOMS HealthcareComment on above:TESTS RESULT FLAG UNITS REF RANGE LAB DIAGNOSIS: 02 NEGATIVE FOR INTRAEPITHELIAL LESION OR MALIGNANCY. Specimen adequacy: 02 Satisfactory for evaluation. Endocervical and/or squamous metaplastic cells (endocervical component) are present. Performed by: Maria Ines Jimenez, Glass Pulverizer Equipment Operator ([facility]) . Note: Note 02 The Pap smear is a screening test designed to aid in the detection of premalignant and malignant conditions of the uterine cervix. It is not a diagnostic procedure and should not be used as the sole means of detecting cervical cancer. Both false-positive and false-negative reports do occur. Test Methodology: Note 02 This liquid based ThinPrep(R) pap test was screened with the use of an image guided system. HPV Genotype Reflex Note 02 Criteria not met, HPV Genotype not performed. FLAG LEGEND: L-Low Normal,H-High Normal,LL-Alert Low,HH-Alert High <-Panic Low,>-Panic High,A-Abnormal,AA-Critical Abnormal Performed at: [address] [facility] [address] [address] Abby Owen MD, BRUSH-SPATULA CERVIX ENDOCERVIX [facility] CLOUD HOSPITALNCNOPemiscot Memorial Health SystemsXR Knee - right 1 or 2 Viewson 34-39-4247[address] [address] XRay Report Signed Patient: BASIL CARRANZA MR#: [id number] : 1985 Acct:[id number] Age/Sex: 38 / F ADM Date: 09/21/24 Loc: RAD Attending Dr: Raffaele Romero M.D. Ordering Physician: Raffaele Romero M.D. Date of Service: 09/21/24 Procedure(s): XR knee RT 2V Accession Number(s): [id number] cc: Raffaele Romero M.D. [address] [address] Patient Name: BASIL CARRANZA MRN: [facility]:[id number] date: 1985 Sex: F Assigned Patient Location: [facility] Current Patient Location: RAD Accession/Order Number: [id number] Exam Date: 09/21/2024 16:05 Report Date: 09/21/2024 16:06 At the request of: RAFFAELE ROMERO MD Procedure: XR knee RT 2V 2 views right knee plain film COMPARISON: None HISTORY: Right knee pain for 3 weeks ACUTE FINDINGS: No acute findings DEGENERATIVE CHANGE: Unremarkable SOFT TISSUE FINDINGS: Unremarkable JOINT EFFUSION: None POSTOP CHANGES: None BONE MINERALIZATION: Adequate XR/XR knee RT 2V IMPRESSION: No acute findings Impression dictated by: Cody Chaudhary M.D. 09/21/2024 4:06 PM Dictation Location: [place] [address] Electronically authenticated by: [id number] Y Date: 09/21/2024 16:06 Dictated By: Cody Chaudhary D.O. Signed By: 09/21/24 1608 DD/ 1606 TD/TT: Accredited Legal Secretary:TBHRadiology, Radiologist, MD - 09/21/2024 [place] [address] XRay Report Signed Patient: BASIL CARRANZA MR#: [id number] : 1985 Acct:[id number] Age/Sex: 38 / F ADM Date: 09/21/24 Loc: RAD Attending Dr: Raffaele Romero M.D. Ordering Physician: Raffaele Romero M.D. Date of Service: 09/21/24 Procedure(s): XR knee RT 2V Accession Number(s): [id number] cc: Raffaele Romero M.D. The [address] [address] Patient Name: BASIL CARRANZA MRN: [id number]:[id number] date: 1985 Sex: F Assigned Patient Location: [facility] Current Patient Location: RAD Accession/Order Number: [id number] Exam Date: 09/21/2024 16:05 Report Date: 09/21/2024 16:06 At the request of: RAFFAELE ROMERO MD Procedure: XR knee RT 2V 2 views right knee plain film COMPARISON: None HISTORY: Right knee pain for 3 weeks ACUTE FINDINGS: No acute findings DEGENERATIVE CHANGE: Unremarkable SOFT TISSUE FINDINGS: Unremarkable JOINT EFFUSION: None POSTOP CHANGES: None BONE MINERALIZATION: Adequate XR/XR knee RT 2V IMPRESSION: No acute findings Impression dictated by: Cody Chaudhary M.D. 09/21/2024 4:06 PM Dictation Location: [place] [address] Electronically authenticated by: [id number] Y Date: 09/21/2024 16:06 Dictated By: Cody Chaudhary D.O. Signed By: 09/21/24 1608 DD/ 05 TD/TT: Accredited Legal Secretary: CATALINA HealthcareRadiology Study observation (narrative)NOMS HealthcareXR Knee - right 1 or 2 ViewsOrdered By: Radiologist Radiology on 67-40-5618XFNMWestern [facility] Mental Health Center Work Phone: all CBC WITH AUTO DIFFon 05-58-5759IBPNGTLNT ABSOLUTE AUTO0.0NOMS HealthcareBasophils/100 WBC (Bld)0.5 %0.2 - 2.0 %[facility] Eosinophils/100 WBC (Bld)1.9 %0.9 - 7.0 %[facility] HealthcareErythrocyte distribution width (RBC) [Ratio]11.8 %11.0 - 15.0 %NOM HealthcareHematocrit (Bld) [Volume fraction]43.6 %36.0 - 48.0 %[facility] HealthcareHemoglobin (Bld) [Mass/Vol]14.9 g/dL 12.0 - 16.0 g/dLWestern Missouri Mental Health CenterIMMATURE GRANULOCYTES ABS AUTO0.01NOPemiscot Memorial Health Systems Immature granulocytes/100 WBC (Bld)0.1 %0.0 - 0.5 %NOM HealthcareLYMPHOCYTES ABSOLUTE AUTO2.5NOMT HealthcareLymphocytes/100 WBC (Bld)31.7 %20.5 - 60.0 %[facility] Health CenterMCH (RBC) [Entitic mass]30.4 pg26.7 - 34.0 pgNOSaint Francis Hospital & Health ServicesHC (RBC) [Mass/Vol]34.2 g/dL29.9 - 35.2 g/dLNOMS HealthcareMCV (RBC) [Entitic vol]89.0 fL 81.0 - 99.0 fLNOMS HealthcareMONOCYTES ABSOLUTE AUTO0.5NOMS Healthcare Monocytes/100 WBC (Bld)6.4 %1.7 - 12.0 %NOMS HealthcareNEUTROPHILS ABSOLUTE AUTO 4.6NOMS HealthcareNeutrophils/100 WBC (Bld)59.4 %43.0 - 75.0 %[facility] Platelet mean volume (Bld) [Entitic vol]10.8 fL9.5 - 13.5 fLNOMS HealthcareTBH EO #0.2NOMS HealthcareTBH EEZ294ZHUH HealthcareTBH RBC4.90NOMS HealthcareTBH WBC 7.8NOMS HealthcareCLINISYNCNOMS HealthcareUrinalysis macro (dipstick) panel (U) on 58-11-0050Tdojxqlwb, UANegativeNegative - 4(70) +++ mg/dLNOMS Healthcare Blood, UAPositiveNegative - 50 Cj/mcLNOMS HealthcareClarity, UAClearNOMS HealthcareColor, UAYellowNOMS HealthcareGlucose, UANegativeNegative - 2000(110) ++++ mg/dLNOMS HealthcareInterpretation and review of laboratory resultsAbnormal NOMS HealthcareKetones, UANegativeNegative - 160(16) ++++ mg/dLNOMS Healthcare Leukocytes, UAPositiveNegative - 500+++ Kateryna/mcLNOMS HealthcareNitrite, UA NegativeNegative - PositiveNOMS HealthcarepH, UA6.05 - 9NOMS HealthcareProtein, UANegativeNegative - 2000(20) ++++ mg/dLNOMS HealthcareSpec Grav, UA1.0151 - 1.03NOMS HealthcareUrobilinogen, UA0.20.2 - 12 mg/dLNOMS HealthcareNOMS HealthcareLon 36-32-7238ZCphyadzq: [id number] Received: 05/09/23 Status: STEVE Brower Num: [id number] Spec Type: Surgical Subm Dr: Adrienne Fernandez Tissues: A Fallopian Tube - Sterilization (SOTERO FT) Procedures: HE/3, Gross/Micro L2 Age/ Patient Sex Location Account Attending Physician Basil Carranza 37/F LABELL [id number] Adrienne Fernandez SPEC NUM: [id number] RECD: 05/09/23 STATUS: STEVE BROWER NUM: [id number] SANTINO: 05/06/[address]: Adrienne Fernandez ENTERED: 05/09/23 [facility] DR: Christopher,Lab SPEC TYPE: Surgical [...] a 1.5 x 1.2 x 0.7 cm fairchild- rivera, rubbery tissue with a rubbery, rivera-white cut surface. Board Certified Family Physician sections are submitted in 3 cassettes as follows: A1-A2 - Board Certified Family Physician fallopian tubes A3 - Detached tissue in its entirety Microscopic Description Three H E slides reviewed. The microscopic examination confirms the diagnosis. Specimen: [id number] Received: 05/09/23 Status: ASADenice Brower Num: [id number] Spec Type: Surgical Subm Dr: Adrienne Fernandez Tissues: A Fallopian Tube - Sterilization (SOTERO FT) Procedures: HE/3, Gross/Micro L2 Patient: Basil Carranza [id number] (Continued) Specimen: [id number] Received: 05/09/23 (Continued) Signed (signature on file) Patrick Post MD 05/10/237 Specimen: [id number] Received: 05/09/23 Status: STEVE Brower Num: [id number] Spec Type: Surgical Subm Dr: Adrienne Fernandez Tissues: A Fallopian Tube - Sterilization (SOTERO FT) Procedures: HE/3Shelli/Jt L2 Patient: MaryBasil [id number] (Continued) Specimen: [id number] Received: 05/09/23 (Continued) CPT Codes 78326 Specimen: [id number] Received: 05/09/23 Status: STEVE Brower Num: [id number] Spec Type: Surgical Subm Dr: Adrienne Fernandez Tissues: A Fallopian Tube - Sterilization (SOTERO FT) Procedures: HE/Shelli Montalvo/Jt L2 Patient: RushBasil green [id number] (Continued) Signed (signature on file) Patrick Post MD 05/10/[address] [place], [place] [address]ALL DEHYDROEPIANDROSTERONEon 54-52-6215LKAO, EFWYR069 ng/dL31 - 701 ng/dLNOMS HealthcareComment on above:This test was developed and its performance characteristics determined by [facility]. It has not been cleared or approved by the Food and Drug Administration. Performed at: [address] [id number] Building Components Designer: Antwan Grant MD, Phone: [phone] CLINISYAZNOMT HealthcareALL DHEA SULFATEon 95-84-3346FRWC-RNEUMRF513.0 ug/dL57.3 - 279.2 ug/dLNOMT HealthcareALL FOLLICLE STIMULATING HORMONEon 54-99-0485WKG2.6. mIU/mLNOMS HealthcareComment on above:Adult Female Range Follicular phase 3.5 - 12.5 Ovulation phase 4.7 - 21.5 Luteal phase 1.7 - 7.7 Postmenopausal 25.8 - 134.8 Performed at: [address] [id number] Building Components Designer: Liban Aponte PhD, Phone: [phone] ALL LUTEINIZING HORMONEon 60-57-0625ZZQHFDGFTDD HORMONE(LH)1.3. mIU/mLNOMS HealthcareComment on above:Adult Female Range Follicular phase 2.4 - 12.6 Ovulation phase 14.0 - 95.6 Luteal phase 1.0 - 11.4 Postmenopausal 7.7 - 58.5 No Panel Informationon 31-09-2545RHFNENMJUPQKY HealthcareALL THYROID STIM HORMONEon 50-20-3418YLR Qn2.248 m[IU]/LNOMS HealthcareALL THYROXINE (T4) FREEon 69-14-1992Gzbx T4 [Mass/Vol]0.89 ng/dL0.76 - 1.46 ng/dLNOMT HealthcareMLR HEMOGLOBIN A1Con 10-01-6491Sarzots [Mass/Vol]108 mg/dLWestern Missouri Mental Health CenterHbA1c (Bld) [Mass fraction]5.4 %4.5 - 6.2 %NOMS HealthcareComment on above:ADA RECOMMENDED LIMIT 4.0 - 6.0 ADA THERAPEUTIC TARGET < 7.0 ACTION SUGGESTED > 7.0 CLINISYDelta Medical CenterNo Panel Informationon 88-60-2474ZEUQJMGFFZJKZWilson, [place] [address] Ultrasound Report Signed Patient: BASIL CARRANZA MR#: [id number] : 1985 Acct:[id number] Age/Sex: 37 / F ADM Date: 04/11/23 Loc: LAB Attending Dr: Adrienne Fernandez D.O. Ordering Physician: Adrienne Fernandez D.O. Date of Service: 04/11/23 Procedure(s): US pelvis w/ transvaginal Accession Number(s): [id number] cc: Adrienne Fernandez D.O.; Raffaele Romero M.D. [place] [address] Patient Name: BASIL CARRANZA MRN: [facility]:[id number] date: 1985 Sex: F Assigned Patient Location: LAB Current Patient Location: LAB Accession/Order Number: [id number] Exam Date: 04/11/2023 12:42 Report Date: 04/11/2023 13:17 At the request of: ADRIENNE FERNANDEZ Procedure: US pelvis w/ transvaginal EXAMINATION: US pelvis w/ transvaginal HISTORY: encounter for weight loss management Z789, sterilization COMPARISON: No relevant comparison available. FINDINGS: Transabdominal and transvaginal images The uterus is normal in size, contour and echotexture measuring 8.9 x 4.3 x 5.4 cm. Anteverted. Endometrium measures 5 mm, normal The right ovary is normal measuring 3.7 x 1.8 x 2.7 cm. Normal color Doppler flow. Multiple subcentimeter areas of anechoic echogenicity noted peripherally consistent with follicles The left ovary is normal measuring 3.2 x 1.8 x 1.3 cm. Normal color Doppler flow. Multiple subcentimeter areas of anechoic echogenicity noted peripherally consistent with follicles No free fluid US/US pelvis w/ transvaginal IMPRESSION: Multiple peripheral subcentimeter follicles. Consider polycystic ovarian morphology Electronically authenticated by: TOMASZ MUÑOZ Date: 04/11/2023 13:17 Dictated By: Tomasz Muñoz M.D. Signed By: 04/11/23 1319 DD/ 1317 TD/TT: Accredited Legal Secretary:TBHRadiology Study observation (narrative)PowerPotNo Panel InformationOrdered By: Radiologist Radiology on 04-11-2023 [employer]Pot Work Phone: TBT PREG QUANT HCGon 40-36-9285XHW QUANTITATIVE<1 mIU/mLNOMS HealthcareComment on above:5-50 0.2-1 WEEK 50-500 1-2 WEEKS 100-5,000 2-3 WEEKS 500-10,000 3-4 WEEKS 1,000-50,000 4-5 WEEKS 10,000-100,000 5-6 WEEKS 15,000-200,000 6-8 WEEKS 10,000-100,000 2-3 MONTHS US PELVIS W/ TRANSVAGINALon 52-11-6005Ldxzlfdlw, Radiologist, - 04/11/2023 [place] [address] Ultrasound Report Signed Patient: BASIL CARRANZA MR#: [id number] : 1985 Acct:[id number] Age/Sex: 37 / F ADM Date: 04/11/23 Loc: LAB Attending Dr: Adrienne Fernandez D.O. Ordering Physician: Adrienne Fernandez D.O. Date of Service: 04/11/23 Procedure(s): US pelvis w/ transvaginal Accession Number(s): [id number] cc: Adrienne Fernandez D.O.; Raffaele Romero M.D. The [address] [address] Patient Name: BASIL CARRANAZ MRN: [facility]:[id number] date: 1985 Sex: F Assigned Patient Location: LAB Current Patient Location: LAB Accession/Order Number: [id number] Exam Date: 04/11/2023 12:42 Report Date: 04/11/2023 13:17 At the request of: ADRIENNE FERNANDEZ Procedure: US pelvis w/ transvaginal EXAMINATION: US pelvis w/ transvaginal HISTORY: encounter for weight loss management Z789, sterilization COMPARISON: No relevant comparison available. FINDINGS: Transabdominal and transvaginal images The uterus is normal in size, contour and echotexture measuring 8.9 x 4.3 x 5.4 cm. Anteverted. Endometrium measures 5 mm, normal The right ovary is normal measuring 3.7 x 1.8 x 2.7 cm. Normal color Doppler flow. Multiple subcentimeter areas of anechoic echogenicity noted peripherally consistent with follicles The left ovary is normal measuring 3.2 x 1.8 x 1.3 cm. Normal color Doppler flow. Multiple subcentimeter areas of anechoic echogenicity noted peripherally consistent with follicles No free fluid US/US pelvis w/ transvaginal IMPRESSION: Multiple peripheral subcentimeter follicles. Consider polycystic ovarian morphology Electronically authenticated by: TOMASZ MUÑOZ Date: 04/11/2023 13:17 Dictated By: Tomasz Muñoz M.D. Signed By: 04/11/23 1319 DD/ 1317 TD/TT: Accredited Legal Secretary: CATAL[facility] HealthcareRadiology, Radiologist, - 06/08/2023 [place] [address] Ultrasound Report Signed Patient: BASIL CARRANZA MR#: [id number] : 1985 Acct:[id number] Age/Sex: 37 / F ADM Date: 04/11/23 Loc: LAB Attending Dr: Adrienne Fernandez D.O. Ordering Physician: Adrienne Fernandez D.O. Date of Service: 04/11/23 Procedure(s): US pelvis w/ transvaginal Accession Number(s): [id number] cc: Adrienne Fernandez D.O.; Raffaele Romero M.D. The [address] [address] Patient Name: BASIL CARRANZA MRN: [id number] date: 1985 Sex: F Assigned Patient Location: LAB Current Patient Location: LAB Accession/Order Number: [id number] Exam Date: 04/11/2023 12:42 Report Date: 04/11/2023 13:17 At the request of: ADRIENNE FERNANDEZ Procedure: US pelvis w/ transvaginal EXAMINATION: US pelvis w/ transvaginal HISTORY: encounter for weight loss management Z789, sterilization COMPARISON: No relevant comparison available. FINDINGS: Transabdominal and transvaginal images The uterus is normal in size, contour and echotexture measuring 8.9 x 4.3 x 5.4 cm. Anteverted. Endometrium measures 5 mm, normal The right ovary is normal measuring 3.7 x 1.8 x 2.7 cm. Normal color Doppler flow. Multiple subcentimeter areas of anechoic echogenicity noted peripherally consistent with follicles The left ovary is normal measuring 3.2 x 1.8 x 1.3 cm. Normal color Doppler flow. Multiple subcentimeter areas of anechoic echogenicity noted peripherally consistent with follicles No free fluid US/US pelvis w/ transvaginal IMPRESSION: Multiple peripheral subcentimeter follicles. Consider polycystic ovarian morphology Electronically authenticated by: TOMASZ MUÑOZ Date: 04/11/2023 13:17 Dictated By: Tomasz Muñoz M.D. Signed By: 04/11/23 1319 DD/ 1317 TD/TT: Accredited Legal Secretary: CATALINA [facility] Reportson [id number] Reports [id number]:127NormalUc West [facility] HospitalLab [id number]#1.00CD:127NormOhioHealth Grant Medical CenterCBC AUTO DIFFon 13-06-0218LSLT #0.0 103/ulNormal0.0-0.1The [facility] HospitalComment on above:Performed By: #### CBC #### [facility] [address] [address] [address] Mikhail CooneyBasophils/100 WBC (Bld)0.4 %Normal0.2-2.0The [facility] Comment on above:Performed By: #### CBC #### [facility] [address] [place] [address] Dr. Mikhail Hammer #0.1 103/ulNormal0.0-0.7The [facility] HospitalComment on above: Performed By: #### CBC #### [facility] [address] [place] [address] Dr. Mikhail Valleosinophils/100 WBC (Bld)1.0 %Normal0.9-7.0The [facility] Comment on above:Performed By: #### CBC #### [facility] [address] [place] [address] Dr. Mikhail Vallerythrocyte distribution width (RBC) [Ratio]11.9 %Uovsml38.0-15.0 The [facility] HospitalComment on above:Performed By: #### CBC #### [facility] [address] [place] [address] Dr. Mikhail CooneyHematocrit (Bld) [Volume fraction]43.0 %Wytzxy88.0-48.0The [facility] HospitalComment on above:Performed By: #### CBC #### [facility] [address] [place] [address] Dr. Mikhail CooneyHemoglobin (Bld) [Mass/Vol]14.7 g/fPRfqjwq19.0-16.0The [facility] HospitalComment on above:Performed By: #### CBC #### [facility] [address] [place] [address] Dr. Mikhail Brooks #0.03 10e3/ulNormal0.00-0.03The [facility] HospitalComment on above:Performed By: #### CBC #### [facility] [address] [place] [address] Dr. Mikhail Brooks %0.3 %Normal0.0-0.5The [facility] HospitalComment on above: Performed By: #### CBC #### [facility] [address] [place] [address] Dr. Mikhail Rosario #2.4 103/ulNormal1.2-3.8The [facility] HospitalComment on above:Performed By: #### CBC #### [facility] [address] [place] [address] Dr. Mikhail Garzahocytes/100 WBC (Bld)24.4 %Tdwzmu41.5-60.0The [facility] HospitalComment on above:Performed By: #### CBC #### [facility] [address] [place] [address] Dr. Mikhail Humphrey DIFF REQNONormalThe [facility] HospitalComment on above: Performed By: #### CBC #### [facility] [address] [place] [address] Dr. Mikhail Alas (RBC) [Entitic mass]29.9 ykPvrqkr84.7-34.0The [facility] HospitalComment on above:Performed By: #### CBC #### [facility] [address] [place] [address] Dr. Mikhail Drummond (RBC) [Mass/Vol]34.2 g/cJHoknep42.9-35.2The [facility] on above:Performed By: #### CBC #### [facility] [address] [place] [address] Dr. Mikhail Camacho (RBC) [Entitic vol]87.4 gOKquyok34.0-99.0The [facility] HospitalCompine rest christian mental [facility] services on above:Performed By: #### CBC #### [facility] [address] [place] [address] Dr. Mikhail Mcgrath #0.6 103/ulNormal0.3-0.8The [facility] on above:Performed By: #### CBC #### [facility] [address] [place] [address] Dr. Mikhail Willsocytes/100 WBC (Bld)6.1 %Normal1.7-12.0The [facility] Comment on above:Performed By: #### CBC #### [facility] [address] [place] [address] Dr. Mikhail Lee #6.7 103/ulCritically high1.4-6.5The [facility] Comment on above:Performed By: #### CBC #### [facility] [address] [place] [address] Dr. Mikhail Garciautrophils/100 WBC (Bld)67.8 %Qhzpxq77.0-75.0The [facility] HospitalComment on above:Performed By: #### CBC #### [facility] [address] [place] [address] Dr. Mikhail Elenalet mean volume (Bld) [Entitic vol]11.2 fLNormal9.5-13.5The [facility] HospitalComment on above:Performed By: #### CBC #### [facility] [address] [place] [address] Dr. Mikhail CooneyPLT288 103/dxRazxmc018-235Adt [facility] HospitalComment on above: Performed By: #### CBC #### [facility] [address] [place] [address] Dr. Mikhail CooneyRBC4.92 106/ulNormal4.20-5.40The [facility] HospitalComment on above:Performed By: #### CBC #### [facility] [address] [place] [address] Dr. Mikhail CooneyWBC9.8 103/ulNormal4.0-11.0The [facility] HospitalComment on above: Performed By: #### CBC #### [facility] [address] [place] [address] Dr. Mikhail CooneyLIPID PROFILEon [id number]-HDL RATIO NORMSEE Glenbeigh HospitalComment on above:Result Comment: 3.3 - 4.4 LOW RISK 4.4 - 7.1 AVERAGE RISK 7.1 - 11.0 MODERATE RISK >11.0 HIGH RISKPerformed By: #### LIPID, CMP, TSH, T4 #### [facility] [address] [address] [address] Mikhail CooneyCholesterol [Mass/Vol]212 mg/dLCritically high<=200The [facility] on above:Performed By: #### LIPID, CMP, TSH, T4 #### [facility] [address] [address] [address] Mikhail CooneyCholesterol in HDL [Mass/Vol]44 mg/tIAequel34-98Hvq [facility] HospitalComment on above:Performed By: #### LIPID, CMP, TSH, T4 #### [facility] [address] [address] [address] Mikhail CooneyCholesterol in LDL [Mass/Vol]144.8 mg/dLNewark HospitalComment on above:Performed By: #### LIPID, CMP, TSH, T4 #### [facility] [address] [place] [address] Dr. Mikhail Whaley.total/Cholesterol in HDL [Mass ratio]4.8 {ratio} NormalThe [facility] HospitalComment on above:Performed By: #### LIPID, CMP, TSH, T4 #### [facility] [address] [place] [address] Dr. Mikhail Levin NORMAL> or = 60 mg/dl - LOW CARDIOVASCULAR RISK <40 mg/dl - HIGH CARDIOVASCULAR RISKNewark HospitalComment on above:Performed By: #### LIPID, CMP, TSH, T4 #### [facility] [address] [address] [address] Mikhail CooneyLDL CALC NORMALSEE BELOWNoHarrison Community HospitalComment on above:Result Comment: <100 mg/dl OPTIMAL 100 - 129 mg/dl NEAR OR ABOVE OPTIMAL 130 - 159 mg/dl BORDERLINE HIGH 160 - 189 mg/dl HIGH >190 mg/dl VERY HIGH Performed By: #### LIPID, CMP, TSH, T4 #### [facility] [address] [place] [address] Dr. Mikhail CooneyTriglyceride [Mass/Vol]116 mg/dLNormal<=150The [facility] Comment on above:Performed By: #### LIPID, CMP, TSH, T4 #### [facility] [address] [address] [address] Mikhail MensahLDL CALC23.2 mg/dLNormalThe [facility] HospitalComment on above: Performed By: #### LIPID, CMP, TSH, T4 #### [facility] [address] [address] [address] Mikhail Ferrer 14(COMP METB)on 69-34-1312Qtopuqh [Mass/Vol]3.3 g/dL Critically low3.4-5.0The [facility] HospitalComment on above:Performed By: #### LIPID, CMP, TSH, T4 #### [facility] [address] [address] [address] Mikhail CooneyAlbumin/Globulin [Mass ratio]0.7 {ratio}NormalThe [facility] HospitalComment on above:Performed By: #### LIPID, CMP, TSH, T4 #### [facility] [address] [address] [address] Mikhail Becker [Catalytic activity/Vol]82 U/DJxbagn37-898Bda Main Campus Medical Centerment on above:Performed By: #### LIPID, CMP, TSH, T4 #### [facility] [address] [place] [address] Dr. Mikhail Abel [Catalytic activity/Vol]32 U/EFvxtqj85-83Ujb [facility] HospitalComment on above:Performed By: #### LIPID, CMP, TSH, T4 #### [facility] [address] [place] [address] Dr. Mikhail Hameed gap [Moles/Vol]9.1 mmol/LNormalCleveland Clinic Euclid HospitalComment on above:Performed By: #### LIPID, CMP, TSH, T4 #### [facility] [address] [place] [address] Dr. Mikhail Fuentes [Catalytic activity/Vol]19 U/HUulgps94-65Lbn [facility] HospitalComment on above:Performed By: #### LIPID, CMP, TSH, T4 #### [facility] [address] [address] [address] Mikhail CooneyBilirubin [Mass/Vol]0.5 mg/dLNormal0.2-1.0The [facility] Comment on above:Performed By: #### LIPID, CMP, TSH, T4 #### [facility] [address] [place] [address] Dr. Mikhail CooneyCalcium [Mass/Vol]9.1 mg/dLNormal8.5-10.1The [facility] Comment on above:Performed By: #### LIPID, CMP, TSH, T4 #### [facility] [address] [place] [address] Dr. Mikhail CooneyChloride [Moles/Vol]104 mmol/ZWzkkto17-568YufCleveland Clinic Euclid Hospital Comment on above:Performed By: #### LIPID, CMP, TSH, T4 #### [facility] [address] [place] [address] Dr. Mikhail CooneyCO2 [Moles/Vol]27.6 mmol/CEmhbsm28.0-32.0[facility] Comment on above:Performed By: #### LIPID, CMP, TSH, T4 #### [facility] [address] [place] [address] Dr. Mikhail CooneyCreatinine [Mass/Vol]1.01 mg/dLNormal0.55-1.02[facility]ucl[facility] HospitalComment on above:Performed By: #### LIPID, CMP, TSH, T4 #### [facility] [address] [place] [address] Dr. Mikhail ValleGFR-AF MALTESE>60Normal>=60The [facility] HospitalComment on above:Performed By: #### LIPID, CMP, TSH, T4 #### [facility] [address] [place] [address] Dr. Mikhail ValleGFR-NON AF MALTESE>60Normal>=60The [facility] HospitalComment on above:Performed By: #### LIPID, CMP, TSH, T4 #### [facility] [address] [place] [address] Dr. Mikhail CooneyGlobulin (S) [Mass/Vol]4.5 g/dLNormalThe Christopher HospitalComment on above:Performed By: #### LIPID, CMP, TSH, T4 #### [facility] [address] [address] [address] Mikhail CooneyGlucose [Mass/Vol]93 mg/uGHejqhq08-183IkeCleveland Clinic Euclid Hospital Comment on above:Performed By: #### LIPID, CMP, TSH, T4 #### [facility] [address] [place] [address] Dr. Mikhail CooneyPotassium [Moles/Vol]3.7 mmol/LNormal3.5-5.1The [facility] Comment on above:Performed By: #### LIPID, CMP, TSH, T4 #### [facility] [address] [place] [address] Dr. Mikhail CooneyProtein [Mass/Vol]7.8 g/dLNormal6.4-8.2[facility] Comment on above:Performed By: #### LIPID, CMP, TSH, T4 #### [facility] [address] [place] [address] Dr. Mikhail CooneySodium [Moles/Vol]137 mmol/KNxjqwk129-248NyhCleveland Clinic Euclid Hospital Comment on above:Performed By: #### LIPID, CMP, TSH, T4 #### [facility] [address] [place] [address] Dr. Mikhail CooneyUrea nitrogen [Mass/Vol]13.0 mg/dLNormal7.0-18.0The [facility] HospitalComment on above:Performed By: #### LIPID, CMP, TSH, T4 #### [facility] [address] [place] [address] Dr. Mikhail CooneyUrea nitrogen/Creatinine [Mass ratio]12.9 mg/mgNoHarrison Community HospitalComment on above:Performed By: #### LIPID, CMP, TSH, T4 #### [facility] [address] [place] [address] Dr. Mikhail CooneyT4on [id number] [Mass/Vol]13.20 ug/dLNormal4.80-13.90The [facility] HospitalComment on above:Performed By: #### LIPID, CMP, TSH, T4 #### [facility] [address] [place] [address] Dr. Mikhail Hollins 74-06-1935SGX8.723 uIU/mLNormal0.358-3.740C[facility] Clinic Euclid HospitalComment on above:Performed By: #### LIPID, CMP, TSH, T4 #### [facility] [address] [place] [address] Dr. Mikhail Watson Referralon [id number] Referral [id number]:[address] [place] [address] AUTO DIFFon [id number] #0.0 103/ulNormal0.0-0.1The [facility] HospitalComment on above:Performed By: #### CBC #### [facility] [address] [place] [address] Dr. Mikhail CooneyBasophils/100 WBC (Bld)0.4 %Normal0.2-2.0[facility] Comment on above:Performed By: #### CBC #### [facility] [address] [place] [address] Dr. Mikhail Hammer #0.1 103/ulNormal0.0-0.7The [facility] HospitalComment on above: Performed By: #### CBC #### [facility] [address] [place] [address] Dr. Mikhail Valleosinophils/100 WBC (Bld)1.3 %Normal0.9-7.0[facility] Comment on above:Performed By: #### CBC #### [facility] [address] [place] [address] Dr. Mikhail Vallerythrocyte distribution width (RBC) [Ratio]11.9 %Jujglw25.0-15.0 The [facility] HospitalComment on above:Performed By: #### CBC #### [facility] [address] [place] [address] Dr. Mikhail CooneyHematocrit (Bld) [Volume fraction]44.1 %Acpfqv42.0-48.0The [facility] HospitalComment on above:Performed By: #### CBC #### [facility] [address] [place] [address] Dr. Mikhail CooneyHemoglobin (Bld) [Mass/Vol]14.9 g/rJGpucjr49.0-16.0The [facility] HospitalComment on above:Performed By: #### CBC #### [facility] [address] [place] [address] Dr. Mikhail Brooks #0.02 10e3/ulNormal0.00-0.03The [facility] HospitalComment on above:Performed By: #### CBC #### [facility] [address] [place] [address] Dr. Mikhail Brooks %0.3 %Normal0.0-0.5The [facility] HospitalComment on above: Performed By: #### CBC #### [facility] [address] [place] [address] Dr. Mikhail Rosario #2.4 103/ulNormal1.2-3.8The [facility] HospitalComment on above:Performed By: #### CBC #### [facility] [address] [place] [address] Dr. Mikhail Beaversmphocytes/100 WBC (Bld)30.1 %Bzhosf37.5-60.0The [facility] HospitalComment on above:Performed By: #### CBC #### [facility] [address] [place] [address] Dr. Mikhail WinterUAL DIFF REQNONormalThe [facility] HospitalComment on above: Performed By: #### CBC #### [facility] [address] [place] [address] Dr. Mikhail Alas (RBC) [Entitic mass]29.6 zvIpddzy29.7-34.0The [facility] HospitalComment on above:Performed By: #### CBC #### [facility] [address] [place] [address] Dr. Mikhail DrummondHC (RBC) [Mass/Vol]33.8 g/tRXeqjhv56.9-35.2The [facility] HospitalComment on above:Performed By: #### CBC #### [facility] [address] [place] [address] Dr. Mikhail DrummondV (RBC) [Entitic vol]87.5 yWHeejdv38.0-99.0The [facility] HospitalComment on above:Performed By: #### CBC #### [facility] [address] [place] [address] Dr. Mikhail Mcgrath #0.5 103/ulNormal0.3-0.8The [facility] HospitalComment on above:Performed By: #### CBC #### [facility] [address] [place] [address] Dr. Mikhail Willsocytes/100 WBC (Bld)6.9 %Normal1.7-12.0The [facility] Comment on above:Performed By: #### CBC #### [facility] [address] [place] [address] Dr. Mikhail Lee #4.8 103/ulNormal1.4-6.5The [facility] HospitalComment on above:Performed By: #### CBC #### [facility] [address] [place] [address] Dr. Mikhail Garciautrophils/100 WBC (Bld)61.0 %Huzlrw07.0-75.0The [facility] HospitalComment on above:Performed By: #### CBC #### [facility] [address] [place] [address] Dr. Mikhail Elenalet mean volume (Bld) [Entitic vol]11.7 fLNormal9.5-13.5The [facility] HospitalComment on above:Performed By: #### CBC #### [facility] [address] [place] [address] Dr. Mikhail LópezT235 103/wbLffyfh554-124Qgi [facility] HospitalComment on above: Performed By: #### CBC #### [facility] [address] [address] [address] Mikhail CooneyRBC5.04 106/ulNormal4.20-5.40The [facility] HospitalComment on above:Performed By: #### CBC #### [facility] [address] [place] [address] Dr. Mikhail CooneyWBC7.8 103/ulNormal4.0-11.0The [facility] HospitalComment on above: Performed By: #### CBC #### [facility] [address] [place] [address] Dr. Mikhail CooneyLIPASEon 98-67-8561Iognao [Catalytic activity/Vol]126.0 U/LNormal 73.0-393.0The [facility] HospitalComment on above:Performed By: #### LIPA, CMP #### [facility] [address] [place] [address] Dr. Mikhail CooneyPROF 14(COMP METB)on 19-98-9794Ddasyct [Mass/Vol]3.2 g/dL Critically low3.4-5.0The [facility] HospitalComment on above:Performed By: #### LIPA, CMP #### [facility] [address] [place] [address] Dr. Mikhail CooneyAlbumin/Globulin [Mass ratio]0.8 {ratio}NormalThe [facility] HospitalComment on above:Performed By: #### LIPA, CMP #### [facility] [address] [place] [address] Dr. Mikhail CourtneyP [Catalytic activity/Vol]87 U/OHbzmra40-020Sft [facility] HospitalComment on above:Performed By: #### LIPA, CMP #### [facility] [address] [place] [address] Dr. Mikhail Abel [Catalytic activity/Vol]31 U/FSyiwmo93-80Mzi [facility] HospitalComment on above:Performed By: #### LIPA, CMP #### [facility] [address] [place] [address] Dr. Mikhail Hameed gap [Moles/Vol]10.4 mmol/LNormalThe [facility] Comment on above:Performed By: #### LIPA, CMP #### [facility] [address] [address] [address] Mikhail CooneyAST [Catalytic activity/Vol]28 U/RLvtgqq19-66Nrd [facility] HospitalComment on above:Performed By: #### LIPA, CMP #### [facility] [address] [place] [address] Dr. Mikhail CooneyBilirubin [Mass/Vol]0.4 mg/dLNormal0.2-1.0The [facility] Comment on above:Performed By: #### LIPA, CMP #### [facility] [address] [place] [address] Dr. Mikhail CooneyCalcium [Mass/Vol]8.9 mg/dLNormal8.5-10.1The [facility] Comment on above:Performed By: #### LIPA, CMP #### [facility] [address] [place] [address] Dr. Mikhail CooneyChloride [Moles/Vol]104 mmol/MCpggjl79-674Etc [facility] Comment on above:Performed By: #### LIPA, CMP #### [facility] [address] [place] [address] Dr. Mikhail CooneyCO2 [Moles/Vol]29.0 mmol/YRzfptp68.0-32.0[facility] Comment on above:Performed By: #### LIPA, CMP #### [facility] [address] [place] [address] Dr. Mikhail CooneyCreatinine [Mass/Vol]0.81 mg/dLNormal0.55-1.02The [facility] HospitalComment on above:Performed By: #### LIPA, CMP #### [facility] [address] [place] [address] Dr. Mikhail ValleGFR-AF MALTESE>60Normal>=60The [facility] HospitalComment on above:Performed By: #### LIPA, CMP #### [facility] [address] [place] [address] Dr. Mikhail ValleGFR-NON AF MALTESE>60Normal>=60The [facility] HospitalComment on above:Performed By: #### LIPA, CMP #### [facility] [address] [address] [address] Mikhail CooneyGlobulin (S) [Mass/Vol]4.0 g/dLNormToledo HospitalComment on above:Performed By: #### LIPA, CMP #### [facility] [address] [place] [address] Dr. Mikhail CooneyGlucose [Mass/Vol]100 mg/qLTxmrni05-091DjlCleveland Clinic E[facility] Hospital Comment on above:Performed By: #### LIPA, CMP #### [facility] [address] [place] [address] Dr. Mikhail CooneyPotassium [Moles/Vol]4.4 mmol/LNormal3.5-5.1[facility] Comment on above:Performed By: #### LIPA, CMP #### [facility] [address] [place] [address] Dr. Mikhail CooneyProtein [Mass/Vol]7.2 g/dLNormal6.4-8.2[facility] Comment on above:Performed By: #### LIPA, CMP #### [facility] [address] [place] [address] Dr. Mikhail CooneySodium [Moles/Vol]139 mmol/DEarbpu362-662TscCleveland Clinic Euclid Hospital Comment on above:Performed By: #### LIPA, CMP #### [facility] [address] [place] [address] Dr. Mikhail CooneyUrea nitrogen [Mass/Vol]9.0 mg/dLNormal7.0-18.0The [facility] HospitalComment on above:Performed By: #### LIPA, CMP #### [facility] [address] [place] [address] Dr. Mikhail CooneyUrea nitrogen/Creatinine [Mass ratio]11.1 mg/mgNormToledo HospitalComment on above:Performed By: #### LIPA, CMP #### [facility] [address] [place] [address] Dr. Mikhail Copeland ACOG PANEL 2: 30 to 65on 03-09-2022..NormalCity [facility] on above:Result Comment: Performed at: WBPerformed By: #### CVDTBH #### [facility] [address] [place] [address] Dr. Mikhail Grant Gdln ACOG Dgnnshr51-81CxcyzwIamHarrison Community HospitalComment on above:Performed By: #### CVDTBH #### [facility] [address] [place] [address] Dr. Mikhail CooneyDIAGNOSIS:CommentTrumbull Regional Medical Center on above: Result Comment: NEGATIVE FOR INTRAEPITHELIAL LESION OR MALIGNANCY. Performed at: WBPerformed By: #### CVDTBH #### [facility] [address] [place] [address] Dr. Mikhail CooneyHPDov AptimaNegativeNormalNegativeCity Hospital on above:Result Comment: This nucleic acid amplification test detects fourteen high-risk HPV types (16,18,31,33,35,39,45,51,52,56,58,59,66,68) without differentiation. Performed at: =GPerformed By: #### CVDTBH #### [facility] [address] [place] [address] Dr. Mikhail CooneyHPDov Genotype ReflexCommentTrumbull Regional Medical Center on above:Result Comment: Criteria not met, HPV Genotype not performed. Performed at: WBPerformed By: #### CVDTBH #### [facility] [address] [place] [address] Dr. Mikhail CooneyMethodology:CommentTrumbull Regional Medical Center on above: Result Comment: This liquid based ThinPrep(R) pap test was screened with the use of an image guided system. Performed at: WBPerformed By: #### CVDTBH #### [facility] [address] [place] [address] Dr. Mikhail CooneyNote:CommentTrumbull Regional Medical Center on above:Result Comment: The Pap smear is a screening test designed to aid in the detection of premalignant and malignant conditions of the uterine cervix. It is not a diagnostic procedure and should not be used as the sole means of detecting cervical cancer. Both false-positive and false-negative reports do occur. . Performed at: WBPerformed By: #### CVDTBH #### [facility] [address] [place] [address] Dr. Mikhail CooneyPerformed by:CommentTrumbull Regional Medical Center on above: Result Comment: Zeenat Contreras, Cartridge Loading Operator (ASCP) Performed at: WBPerformed By: #### CVDTBH #### [facility] [address] [place] [address] Dr. Mikhail CooneySpecimen adequacy:[facility] on above:Result Comment: Satisfactory for evaluation. Endocervical and/or squamous metaplastic cells (endocervical component) are present. Performed at: WBPerformed By: #### CVDTBH #### [facility] [address] [place] [address] Dr. Mikhail CooneyASYMPTOMATIC COVID-19 ANTIGENon 69-29-0425ELH StatementSEE BELOW NormalThe [facility] on above:Result Comment: This test has not been FDA [...] declaration is terminated or authorization is revoked sooner.Performed By: #### CVDAGA #### [facility] [address] [place] [address] Dr. Mikhail Fonseca-CoV-2 (COVID-19) RNA JORGE+probe Ql (Unsp spec)NegativeNormal NEGATIVEThe [facility] on above:Result Comment: Negative results are presumptive. They do not preclude infection and should not be used as the sole basis for treatment decisions. Additional confirmatory testing by a molecular method should be considered.Performed By: #### CVDAGA #### [facility] [address] [place], [place] [address] Dr. Mikhail CooneyCovid-19 PCR ([facility])on 82-62-8981EVUP-CoV-2 (COVID-19) RNA JORGE+probe Ql (Unsp spec)DetectedCritically abnormalNOT DETECTEDThe [facility] HospitalCompine rest [facility] on above:Result Comment: This test is not yet approved or cleared by the [place] FDA. When there are no FDA-approved or cleared tests available, and other criteria are met, FDA can make tests available under an emergency access mechanism called an Emergency Use Authorization (EUA). The EUA for this test is supported by the [place] of Health and Human Service's declaration that circumstances exist to justify the emergency use of in vitro diagnostics for the detection and/or diagnosis of the virusthat causes COVID-19. This EUA will remain in effect for the duration of the COVID-19 declaration ju stifying emergency of IVDs, unless it is terminated or revoked by the FDA (after which the test mayno longer be used).Performed By: #### CVDTBH #### [facility] [address] [place], [place] [address] Dr. Mikhail Cooney Vital Signs Date TimeVital SignValuePerforming IbsaebgmzUmymxfqo35-35-9901 08:44-0500Body rcxekn297.6 cmCorey [employer] DO Work Phone: [facility] CenterNzyqsllvjt82-18-0576 08:44-0500Body mass index (BMI) [Ratio]41.32 kg/u4Cyiwe [employer] Work Phone: [facility] CenterGhybbttjko92-49-9140 08:44-0500Body zeyqnl714.12 kgCore [employer] Work Phone: [facility] CenterYvzxbgtzzd09-02-3993 08:44-0500Diastolic blood pokkpkpe80 mm[Hg]Adrienne [employer] Work Phone: [facility] CenterFzvuxouwnz81-27-8718 08:44-0500Systolic blood kfbtepcr250 mm[Hg]Adrienne Caldwello DO Work Phone: [facility] CenterNvzqpuzwbw66-36-1978 09:23-0400Body iqshqc839.6 cmCoreleslee Caldwello DO Work Phone: [facility] CenterHxoffvtctx65-92-7489 09:23-0400Body mass index (BMI) [Ratio]41.4 kg/y8Foebf Jim DO Work Phone: [facility] CenterUbyxbzhyez83-75-7748 09:23-0400Body uzrdkt568.35 kgCoreleslee Fernandez DO Work Phone: [facility] CenterZhbqvhzrok09-91-5457 09:23-0400Diastolic blood zruiwhvq072 mm[Hg]Adrienne Fernandez DO Work Phone: [facility] CenterQcrpsiobtd79-39-5315 09:23-0400Systolic blood srflnovn607 mm[Hg]Adrienne Fernandez DO Work Phone: [facility] CenterNuokwtbvwx98-28-4196 09:22-0500Body dacfyh700.6 cmRaffaele Romero MD Work Phone: [facility] CenterKbmtxpwujt37-72-1470 09:22-0500Body mass index (BMI) [Ratio]41.8 kg/m2Raffaele Romero MD Work Phone: [facility] CenterVljfpilyof81-97-0569 09:22-0500Body temperature 97.5 [degF]Raffaele Romero MD Work Phone: [facility] CenterJhlpsxbcir32-57-6580 09:22-0500Body .48 kgRaffaele Romero MD Work Phone: [facility] CenterMqxsjlicgu74-98-8977 09:22-0500Diastolic blood wqcdwbso44 mm[Hg]Raffaele Romero MD Work Phone: [facility] CenterHknzlbmkvs47-82-7914 09:22-0500Heart rate94 /min Raffaele Romero MD Work Phone: [facility] CenterPtybrkcukp82-35-5491 09:22-0500Respiratory rate22 /minRaffaele Romero MD Work Phone: [facility] CenterQuoiemsqxy23-09-9631 09:22-6087RxT8% (BldA) [Mass fraction]98 %Raffaele Romero MD Work Phone: [facility] CenterQldcjdzaaw01-13-0327 09:22-0500Systolic blood uatwijxd247 mm[Hg]Raffaele Romero MD Work Phone: [facility] CenterVrwspimzdj91-22-2188 09:50-0400Body fodauf978.6 cmRaffaele Romero MD Work Phone: [facility] CenterPnhelxexyy23-69-8883 09:50-0400Body mass index (BMI) [Ratio]41.16 kg/m2Raffaele Romero MD Work Phone: [facility] CenterQgqaafzxta86-89-4756 09:50-0400Body temperature 97.81 [degF]Raffaele Romero MD Work Phone: [facility] CenterMpvhvirfee63-41-7084 09:50-0400Body bnwcfy483.67 kgRaffaele Romero MD Work Phone: [facility] CenterPakpuhjgrz07-49-8718 09:50-0400Diastolic blood wvjibgpn44 mm[Hg]Raffaele Romero MD Work Phone: [facility] CenterLjcvtgylbv78-18-8473 09:50-0400Heart rate49 /min Raffaele Romero MD Work Phone: [place] [address]Qfdlgcgcxk43-05-6300 09:50-0400Respiratory rate20 /minRaffaele Romero MD Work Phone: [facility] CenterYskkkjvxoq06-26-4533 09:50-7497PqN2% (BldA) [Mass fraction]97 %Raffaele Romero MD Work Phone: [facility] CenterMgpadsdcse36-49-1420 09:50-0400Systolic blood ahrbnuab109 mm[Hg]Raffaele Romero MD Work Phone: [facility] CenterAuyepqlbao66-73-4962 13:42-0500Body mass index (BMI) [Ratio]40.51 kg/m2Michelle Cassandra SARMIENTO Work Phone: noP[facility] SystemsWdmzxscpgq25-59-1072 13:42-0500Body .85 kgMichelle Cassandra SARMIENTO Work Phone: noPemiscot [facility] Health SystemsLalsyzfqam65-43-8676 13:42-0500Diastolic blood vtxwhuwm22 mm[Hg]Michelle SARMIENTO Work Phone: noPemiscot [facility] Health SystemsCmtjmefhon45-69-4386 13:42-0500Systolic blood mm[Hg]Michelle SARMIENTO Work Phone: noMT [facility] Encounters Encounter DateEncounter TypeCare ProviderFacilityStart: 02-05-2025 End: 57-15-5703Zrtgfh flowsheetCorey [employer]endor[employer] Work Phone: noms [facility] OBGYNStart: 02-05-2025 End: 71-75-0924Llodua flowsheetCorey Jim DO Work Phone: noms Christopher OBGYNStart: 02-05-2025 End: 84-34-1799Rwyrzp outpatient visit 15 minutesCorey VendorStack Work Phone: noms Christopher OBGYNComment on above:Pre-op evaluation; Menorrhagia with regular cycle; Abnormal uterine bleeding (AUB); Dysmenorrhea; Dyspareunia in female; Pelvic painStart: 02-05-2025 End: 47-33-9920Tdlldotlzwlvp examination doneCorey Jim DO Work Phone: noMS HealthcareStart: 02-05-2025 End: 89-08-4392fkxloftdmwLHHNB FAZIONot AvailableStart: 10-01-2024 End: 76-68-7619XcccunMayra Romero MD Work Phone: noms [facility] FMComment on above:Poison teto dermatitis (Primary Dx)Poison teto dermatitisStart: 09-21-2024 End: 77-44-4411Dvhllgwsf Result EncounterRaffaele Romero MD Work Phone: NOYX External Department UnsolicitedStart: 09-21-2024 End: 72-76-3520Vtawcaljl Result EncounterRaffaele Romero MD Work Phone: NOYR External Department UnsolicitedStart: 09-20-2024 End: 50-10-7064Nhfmnm flowsheetCorey Jim DO Work Phone: NOTJ BCP OBStart: 09-20-2024 End: 99-66-9827Ckehhi flowsheetCorey Jim DO Work Phone: NOZT BCP OBStart: 09-20-2024 End: 34-82-5703Voexnemfb Result EncounterGeneric External Data ProviderNOMS External Department UnsolicitedStart: 09-20-2024 End: 64-20-3451swicdjlxdaBGOSQ FAZIONot AvailableStart: 09-20-2024 End: 61-34-3925Ppmgcyv encounter procedureCorey Jim DO Work Phone: NORK HealthcareStart: 09-20-2024 End: 02-64-0181Adfndtwc preventive med est patient 18-39 yrsCorey Jim DO Work Phone: NOXS BCP OBComment on above:Well woman exam with routine gynecological examStart: 09-19-2024 End: 99-88-7439Slqboj OnlyRaffaele Romero MD Work Phone: NOMS CWM FMComment on above:Chronic pain of right knee (Primary Dx)Start: 03-08-2024 End: 61-45-9530Ckkpgf flowsPauly Romero MD Work Phone: NOMS CWM FMStart: 03-08-2024 End: 32-59-4988Ufkrsh Jacqueline Romero MD Work Phone: NOMS CWM FMStart: 03-08-2024 End: 30-86-4045Iznkbpycg encounterRaffaele Romero MD Work Phone: NOXF CWM FMStart: 03-08-2024 End: 47-56-9769Wqyyod outpatient visit 25 minutesRaffaele Romero MD Work Phone: noms CWM FMComment on above:KATHY (generalized anxiety disorder) (CMS/HCC) (Primary Dx); PCOS (polycystic ovarian syndrome); Insulin resistance; Class 3 severe obesity due to excess calories with serious comorbidity and body mass index (BMI) of40.0 to 44.9 in adult (CMS/HCC)Start: 03-08-2024 End: 64-48-0152qvdpqghojxOFVH NADERERNot AvailableStart: 12-13-2023 End: 08-76-6071Eifqvsapf Result EncounterRaffaele Romero MD Work Phone: noms External Department UnsolicitedStart: 12-13-2023 End: 04-58-2836Divhmotou Result EncounterRaffaele Romero MD Work Phone: noms External Department UnsolicitedStart: 12-08-2023 End: 52-00-6553Rwavcm flowsPauly Romero MD Work Phone: noms CWM FMStart: 12-08-2023 End: 98-46-1778Ympcnu Jacqueline Romero MD Work Phone: noms CWM FMStart: 12-08-2023 End: 39-01-1347Mezqtvc encounter procedureRaffaele Romero MD Work Phone: noms HealthcareStart: 12-08-2023 End: 26-16-9715Yilcezfd preventive med est patient 18-39 yrsRaffaele Romero MD Work Phone: noms CWM FMComment on above:Annual physical exam (Primary Dx); Morbid obesity due to excess calories (CMS/HCC); PCOS (polycystic ovarian syndrome); Body mass index (BMI) 38.0-38.9, adultStart: 12-08-2023 End: 50-91-0858ijpgbdjpycCZMB NADERERNot AvailableStart: 05-12-2023 End: 09-78-8176Kvcxba follow up visit related to original Aaron Trujillo GUILLERMINA Work Phone: NOMS BCP OBComment on above:Postoperative examination; DysuriaStart: 05-12-2023 End: 31-76-9136mvemzpwkgbAIH RAMEYRobin AvailableStart: 05-06-2023 End: 48-68-1316fslsmgflvxZgjsv FazioFacility:[facility] Start: 05-06-2023 End: 34-56-2692lepqjawbayXqczz Jim Work Phone: [facility] Work Phone: Start: 05-06-2023 End: 86-37-9817Qpwnijxn ReferredCorey Jim Work Phone: [facility]-LAB Path Spec [facility] HospStart: 04-12-2023 End: 74-50-5623iiwchwmgguWGKEL FAZIONot AvailableStart: 04-11-2023 End: 93-14-8008Kckojjybz Result EncounterGeneric External Data ProviderNOMS External Department UnsolicitedStart: 04-11-2023 End: 84-37-1393Hzxvxctzr Result EncounterGeneric External Data ProviderNOMS External Department UnsolicitedStart: 03-07-2023 End: 41-78-2006iizuakjpayOFITW FAZIONot AvailableStart: 90-63-3475mhxycaaveb Moisés NILLFacility:[facility] BellevueStart: 08-06-2022 End: 85-31-3000dwnphswibiJX RYAN WOLF .Facility:Z7Gbvyp: 72-40-2109nhjdpmbmpp Moisés Garzon NILRadhaFacility: BellevueStart: 91-70-7166jyfnrlnahoLuovftd NILL Facility: evueStart: 04-21-2022 End: 29-45-1879xuuuregpayUZ NONE LISTED REQUESTFacility:T3Juhqz: 03-02-2022 End: 33-59-9674dgpfrktqxjYE ADRIENNE FERNANDEZ .Facility:Q9Xvtus: 11-03-2021 End: 16-38-1231zmzndjdbqvZUHRBAQC EBERLYFacility:L4Xfjqt: 10-29-2021 End: 33-43-8392tmvpvjpcirEI NONE LISTED REQUESTFacility:G6Issxw: 08-11-2021 End: 35-84-5961iodtccetvnLN NONE LISTED REQUESTFacility:H1 Procedures DateProcedureProcedure DetailPerforming ClinicianStart: 83-02-3110Vknheyzdzo examination knee 1/2 Yoko Romero MD Work Phone: Start: 19-64-1374TIK,APTIMA HPV,AGE GDLNCorey Jim DO Work Phone: Start: 92-27-7558Xdsjynthaul observation [Identifier] in Cervix by Cyto stainRaffaele Romero MD Work Phone: Start: 66-11-5353EDK CBC WITH AUTO DIFFRaffaele Romero MD Work Phone: Start: 71-01-5888Lcwlf dip stick/tablet rgnt non-auto w/o micrscpAmy Cassandra SARMIENTO Work Phone: Start: 25-21-2135HD PELVIS W/ TRANSVAGINALGeneric External Data ProviderStart: 64-66-7503VZT DEHYDROEPIANDROSTERONECorey Jim DO Work Phone: Start: 05-73-4557QOI DHEA SULFATECorey Jim DO Work Phone: Start: 16-87-0643JPG FOLLICLE STIMULATING HORMONECorey Jim DO Work Phone: Start: 29-52-2626UIF LUTEINIZING HORMONECorey Jim DO Work Phone: Start: 01-41-6575XMT THYROID STIM HORMONECorey Jim DO Work Phone: Start: 67-18-5645AOX THYROXINE (T4) FREECorey Jim DO Work Phone: Start: 65-08-0578OHO HEMOGLOBIN F8CJibgz Jim DO Work Phone: Start: 01-41-3526HXU PREG QUANT HCGCorey Jim DO Work Phone: Start: 51-52-9518Dcucasmjixi observation [Identifier] in Cervix by Cyto stainMichelle SARMIENTO Work Phone: Plan of Treatment DateCare ActivityDetailAuthorStart: 97-30-4938Xmzmhxwtf for malignant neoplasm of cervixPap SmearNOMS HealthcareStart: 61-03-5976Ehdndsoez for malignant neoplasm of cervixNOMS HealthcareStart: 09-30-2025 End: 53-10-8347Hgegrpi encounter procedureNOMS BCP OBStart: 02-05-2025 End: 84-64-3826Mqmeofs encounter procedureNOMS BCP OBComment on above:Arrived Start: 91-21-7543Qutyuhcyl vaccinationInfluenza Vaccine (#1)[facility] Healthcare Start: 09-20-2024 End: 80-08-9962Rqdyvij encounter /19/2025 9:00 AM EDT [facility] [address] [place] [phone] Adrienne Fernandez, DO [address] [place] [address] NOMS BCP OBStart: 09-19-2024 End: 15-41-3002YB Knee - right 1 or 2 ViewsXR knee 1 or 2 views right Imaging Routine Chronic pain of right knee Expected: 09/19/2024, Expires: 09/19/2025NOMT Healthcare Work Phone: Comment on above:Expected: 09/19/2024, Expires: 09/19/2025Start: 05-09-2024 End: 93-39-8444Xwjcrpt encounter fxnnqxcei45/05/2025 9:30 AM EST Office Visit [facility] [address] [place] [phone] Raffaele Romero MD [address] [place] [phone] NOM[facility] FAWN FMStart: 03-08-2024 End: 72-96-8600Skooogn encounter /05/2024 9:15 AM EST Office Visit [facility] [address] [place] [phone] Raffaele Romero MD [address] [place] [phone] NOMJeanette AUGUSTINE FMStart: 12-08-2023 End: 67-82-1958Aobgiak encounter hrstljosb67/05/2024 9:15 AM EDT Office Visit [facility] [address] [place] [address] Raffaele Romero MD [address] [place] [phone] [facility]LAKEWOOD [facility] FMComment on above:ArrivedStart: 31-33-6462Irzfkmtlw vaccinationInfluenza Vaccine (#1)NOMS HealthcareStart: 57-08-1886Sfhhikwqp vaccinationInfluenza Vaccine (#1)[facility] HealthcareBacteria identified in Urine by CultureUrine culture Microbiology Routine Dysuria Ordered: 05/12/2023[facility] Work Phone: comment on above:Ordered: 05/12/2023ytology Cervical or vaginal smear or scraping studyPap Smear Pathology and Cytology Routine Well woman exam with routine gynecological exam Ordered: 09/20/2024[facility] Healthcare Work Phone: comment on above:Ordered: 09/20/2024Human papilloma virus DNA [Presence] in Unspecified specimen by Probe with amplificationHPV DNA probe, amplified Microbiology Routine Well woman exam with routine gynecological exam Ordered: 09/20/2024[facility] HealthcareComment on above:Ordered: 09/20/2024 Immunizations Immunization DateImmunizationNotesCare JlgkslqkLcqjznkg79-15-7571zutylrhev virus vaccine, unspecified formulationAvenir Behavioral Health Center At Surprise William RALPH Work Phone: [facility] Healthcare Payers DatePayer CategoryPayerPolicy [id number] [facility] [id number] [facility] [id number] 2022-Present [phone] [address] [place] [address] [id number] [id number] 2.0.1.250646.3.57[id number] 2..1.707376.3.57[id number] 2..1.762331.3.57[id number] 2.0.1.670279.3.579.[id number] 2.0.1.190571.3.579.2.4[id number] 2.0.1.943744.3.579.[id number] 2.0.1.752021.3.579.2.[id number] 2.16.840.1.010609.3.579.2.344521-52-4876Cbamqbh201690 2..840.1.562294.3.579.2.282[id number] 2.16.840.1.704072.3.57[id number] 2..840.1.851664.3.579.2.662391-40-2527Uhlzqoy2435038 2.16.840.1.986694.3.579.2.869913-65-7938Wufo-[id number] [id number] 2.16.840.1.191[id number] 2.0.1.192374.3.579.2.593 Social History DateTypeDetailFacilityTobacco smoking status NHISUnknown if ever smokedSelect Medical [facility] Work Phone: Start: 30-09-1789Jsz Assigned At BirthFeACMC Healthcare SystemTobacco smoking status NHISTobacco smoking consumption unknownNOMS HealthcareStart: 38-32-3415Ipl Assigned At BirthNot on fileNOMS HealthcareStart: 12-07-2023 End: 50-79-2706Crvlvv identityNot on fileNOMS HealthcareStart: 57-90-8047Kqxgspo smoking status NHISNever smoked tobaccoNOMS HealthcareStart: 92-17-2463Lcnonnf use and exposureSmokeless tobacco non-userNOMS HealthcareStart: 12-07-2023 End: 08-11-2257Camccbq of Social functionNOMS HealthcareStart: 45-33-8033Klz often do you need to have someone help you when you read instructions, pamphlets, or other written material from your doctor or pharmacy [SILS]Rarely NOMS HealthcareDo you belong to any clubs or organizations such as congregational groups, unions, fraternal or athletic groups, or school groups?YesNOMS HealthcareAre you now , , , , never or living with a partner?SeparatedNOMS HealthcareHow often to you have a drink containing alcohol?NeverNOMS HealthcareHow hard is it for you to pay for the very basics like food, housing, medical care, and heatingNot very hardNOMS HealthcareDo you feel stress - tense, restless, nervous, or anxious, or unable to sleep at night because yourmind is troubled all the time - these days [OSQ] Rather muchNOMS Healthcare(I/We) worried whether (my/our) food would run out before (I/we) got money to buy more.Never trueNOMS HealthcareIn the past 12 months, was there a time when you were not able to pay the mortgage or rent on time?NoNOMS HealthcareHow often do you need to have someone help you when you read instructions, pamphlets, or other written material from your doctor or pharmacy [SILS]RarelyNOMT Healthcare Functional Status HrfeDjmvjmcxfpGalvvrZjluueow78-97-8642Btfvt score [AUDIT-C]0 12/07/2023 6:52 PM EDT [facility] HospitalZassomznjh01-53-6762Thk often do you have a drink containing alcohol?Never 12/07/2023 6:52 PM EDT Scoreoidanderson, Generic [facility] CenterPgqqmmdlvd77-22-0831Xwwmnruirb statusPatient does not drink 12/07/2023 6:52 PM EDT Scoreoidanderson, Generic Patient does not drinkWestern Missouri Mental Health CenterQalmeogmqk43-99-5352Ozm often do you have 6 or more drinks on 1 occasion?Never 12/07/2023 6:52 PM EDT [facility], Generic [facility] Clinical Notes 05-12-2023 to 02-05-2025 Note Date & HdmoOplrBgpsyzaz08-30-8308 History of Present illness Narrative* Abigail Paz - 02/05/2025 8:40 AM EST Reason for Appointment: Patient ID: Basil Carranza is a 39 y.o. female who presents for Pre-op Visit Patient presents today for Pre Op appointment. Patient is scheduled to undergo Da Zuleyka assisted Laparoscopic Hysterectomy, possible exploratory laparotomy, possible BSO, possible cystoscopy on 03/06/[address] Fernandez at [facility]. MEDICATIONS Current Outpatient Medications Medication Instructions busPIRone (Buspar) 7.5 MG tablet As needed ALLERGIES No Known Allergies PROBLEMS Active Ambulatory Problems Diagnosis Date Noted Insulin resistance 12/07/2023 PCOS (polycystic ovarian syndrome) 12/07/2023 Class 3 severe obesity due to excess calories with serious comorbidity and body mass index (BMI) of40.0 to 44.9 in adult ([facility]) 12/07/2023 Nontraumatic coccydynia 12/08/2023 Annual physical exam 12/08/2023 KATHY (generalized anxiety disorder) 03/08/2024 Chronic pain of right knee 09/19/2024 Resolved Ambulatory Problems Diagnosis Date Noted No Resolved Ambulatory Problems No Additional Past Medical History HISTORY PAST MEDICAL HISTORY SOCIAL HISTORY No past medical history on file. Social History Tobacco Use Smoking status: Never [...] Respiratory: Negative. Cardiovascular: Negative. Gastrointestinal: Negative. Genitourinary: Positive for dyspareunia, menstrual problem and pelvic pain. Musculoskeletal: Negative. Skin: Negative. Neurological: Negative. All other systems reviewed and are negative. Hematological: Negative. Endocrine: Negative. Allergic/Immunologic: Negative. OBJECTIVE Objective: Physical Exam Constitutional: Appearance: Normal appearance. She is well-developed. Cardiovascular: Rate and Rhythm: Normal rate and regular rhythm. Pulmonary: Effort: Pulmonary effort is normal. Breath sounds: Normal breath sounds. Abdominal: General: Bowel sounds are normal. There is no distension. Palpations: Abdomen is soft. Tenderness: There is no abdominal tenderness. There is no guarding or rebound. Musculoskeletal: General: No swelling. Normal range of motion. Right lower leg: No edema. Left lower leg: No edema. Neurological: Mental Status: She is alert and oriented to person, place, and time. Skin: General: Skin is warm and dry. Psychiatric: Mood and Affect: Mood normal. Behavior: Behavior normal. Vitals and nursing note reviewed. Exam conducted with a manufacturing operations manager present. Vitals: Estimated body mass index is 41.32 kg/m as calculated from the following: Height as of this encounter: 5' 6 . Weight as of this encounter: 256 lb. BP: 130/78 Patient's last menstrual period was 01/30/2025 (approximate). ASSESSMENT & PLAN ICD-10-CM 1. Pre-op evaluation Z01.818 2. Menorrhagia with regular cycle N92.0 3. Abnormal uterine bleeding (AUB) N93.9 4. Dysmenorrhea N94.6 5. Dyspareunia in female N94.10 6. Pelvic pain R10.20 Pre Op: Patient is doing well but has complaints of AUB, dysmenorrhea,dyspareunia, pelvic pain. I have discussed conservative management vs. surgical management with the patient in detail and patient desiressurgical management at this time. Patient will undergo Da Zuleyka assisted Laparoscopic Hysterectomy,possible exploratory laparotomy, possible BSO, possible cystoscopy on 03/06/25. Surgical consents were signed, mmc was reviewed, and patient is to proceed to [facility] OR. Follow Up: Patient is to follow up at 1 & 6 weeks post operative to assess proper healing and recovery from procedure. Documented by Monserrat Gallegos LPN on behalf of: Adrienne Fernandez DO documented in this encounterWestern Missouri Mental Health CenterEdzmsypmzh03-85-0346 History of Present illness Narrative* GUILLERMINA Lugo - 09/20/2024 9:00 AM EDT Reason for Appointment: Patient ID: Basil Carranza is a 38 y.o. female who presents [...] mass index (BMI) of40.0 to 44.9 in adult ([facility]) 12/07/2023 Nontraumatic coccydynia 12/08/2023 Annual physical exam [...] nursing note reviewed. Exam conducted with a manufacturing operations manager present. Vitals: Estimated body mass index is [...] of: Adrienne Fernandez DO [facility] Telephone encounter Note* Telephone Encounter - Raffaele Romero MD - 09/19/2024 3:03 PM EDT X-ray order in chart, please fax to hospital. [facility] [id number] Miscellaneous Notes* Telephone Encounter - Raffaele Romero MD - 09/19/2024 3:03 PM EDT X-ray order in chart, please fax to hospital. * Telephone Encounter - Saba Oglesby - 09/19/2024 9:29 AM EDT Basil Carranza has twisted her knee and is having knee pain. She would like an X-Ray order called into [facility]. Her number is [phone]. [facility] Telephone encounter Note* Telephone Encounter - Saba Oglesby - 09/19/2024 9:29 AM EDT Basil Carranza has twisted her knee and is having knee pain. She would like an X-Ray order called into [facility]. Her number is [phone]. [facility] [id number] Telephone encounter Note* Telephone Encounter - Raffaele Romero MD - 03/08/2024 12:04 PM EST New script sent. [facility] [id number] Miscellaneous Notes* Telephone Encounter - Raffaele Romero MD - 03/08/2024 12:04 PM EST New script sent. * Telephone Encounter - DUNIA EID - 03/08/2024 11:39 AM EST Patient called states insurance will not pay for 7.5 mg tablet, but will pay for a 15mg so she could cut it in half. clm documented in this encounterWestern [facility] [id number] Telephone encounter Note* Telephone Encounter - DUNIA EID - 03/08/2024 11:39 AM EST Patient called states insurance will not pay for 7.5 mg tablet, but will pay for a 15mg so she could cut it in half. clm [facility] [id number] History of Present illness Narrative* Raffaele Romero MD - 03/08/2024 10:12 AM ESTAssociated Problem(s): Insulin resistance Increase metformin * Raffaele Romero MD - 03/08/2024 10:11 AM ESTAssociated Problem(s): PCOS (polycystic ovarian syndrome) Increase metformin * Raffaele Romero MD - 03/08/2024 10:11 AM ESTAssociated Problem(s): KATHY (generalized anxiety disorder) ([facility]) Worsening symptoms and start zoloft. Warned will take 2-3 weeks to notice improvement in mood. Use buspar PRN. * Raffaele Romero MD - 03/08/2024 10:11 AM ESTAssociated Problem(s): Class 3 severe obesity due to excess calories with serious comorbidity and body mass index (BMI) of 40.0 to 44.9 in adult ([facility]) Discussed proper diet and regular aerobic exercise. Recommend Weight Watchers and need to limit calories and smaller portions. Need to increase activity and regular aerobic exercise several days a week for 30 minutes at a time. * Raffaele Romero MD - 03/08/2024 9:15 AM EST Subjective Patient ID: Basil Carranza is a 38 y.o. female who presents [...] mass index (BMI) of40.0 to 44.9 in adult ([facility]) Discussed proper diet and regular aerobic exercise. Recommend Weight Watchers and need to limit calories and smaller portions. Need to increase activity and regular aerobic exercise several days a week for 30 minutes at a time. KATHY (generalized anxiety disorder) ([facility]) - Primary Worsening symptoms and start zoloft. Warned will take 2-3 weeks to notice improvement in mood. Use buspar PRN. Relevant Medications sertraline (Zoloft) 25 MG tablet busPIRone (Buspar) 7.5 MG tablet documented in this encounterWestern [facility] Health [id number] History of Present illness Narrative* Raffaele Romero MD - 12/08/2023 10:08 AM EDTAssociated Problem(s): Morbid obesity due to excess calories ([facility]) Discussed proper diet and regular aerobic exercise. Recommend Weight Watchers and need to limit calories and smaller portions. Need to increase activity and regular aerobic exercise several days a week for 30 minutes at a time. * Raffaele Romero MD - 12/08/2023 10:08 AM EDTAssociated Problem(s): PCOS (polycystic ovarian syndrome) History of PCOS and start metformin. * Raffaele Romero MD - 12/08/2023 10:07 AM EDTAssociated Problem(s): Annual physical exam Due for labs. Discussed proper diet and regular aerobic exercise. Need aerobic exercise 5-6 days a week for 30 minutes at a time. Smaller portions and limit total calories. Colonoscopy after age 45. Tetanus every 10 years. Advised not to smoke. Discussed daily Aspirin therapy. * Raffaele Romero MD - 12/08/2023 9:15 AM EDT Images from the original note were not included. Subjective Patient ID: Basil Carranza is a 38 y.o. female who presents [...] Discussed daily Aspirin therapy. documented in this encounterWestern [facility] Health [id number] History of Present illness Narrative* GUILLERMINA Lugo - 05/12/2023 1:40 PM EST Reason for Appointment: Patient ID: Basil Carranza [...] salpingectomy with ablation. Pt having some urinary urgencyand small amount of drainage from umbilical incision.Pt also states mild hives to abdomen where hibiclens was used. Small amount of diffuse uticaria noted. Otherwise, pt doing well. UA here appears normal, we will send for culture. Pt will be given script for keflex and medrol dose hernandez. Documented by GUILLERMINA Lugo on behalf of: GUILLERMINA Lugo documented in this encounterNOMS HealthcareEvaluation noteNo assessment information availableSelect Medical [facility] Work Phone: Evaluation note* Diagnosis Postoperative examination Follow-up examination, following unspecified surgery Dysuria documented in this encounter [facility] note* Diagnosis Annual physical exam- Primary Routine general medical examination at a health care facility Morbid obesity due to excess calories ([facility]) PCOS (polycystic ovarian syndrome) Polycystic ovaries Body mass index (BMI) 38.0-38.9, adult KATHY (generalized anxiety disorder) ([facility])- Primary Generalized anxiety disorder PCOS (polycystic ovarian syndrome) Polycystic ovaries Insulin resistance Other abnormal glucose Class 3 severe obesity due to excess calories with serious comorbidity and body mass index (BMI) of40.0 to 44.9 in adult ([facility]) documented in this encounter [facility] note* Diagnosis Annual physical exam- Primary Routine general medical examination at a health care facility Morbid obesity due to excess calories ([facility]) PCOS (polycystic ovarian syndrome) Polycystic ovaries Body mass index (BMI) 38.0-38.9, adult KATHY (generalized anxiety disorder) ([facility])- Primary Generalized anxiety disorder PCOS (polycystic ovarian syndrome) Polycystic ovaries Insulin resistance Other abnormal glucose Class 3 severe obesity due to excess calories with serious comorbidity and body mass index (BMI) of40.0 to 44.9 in adult ([facility]) KATHY (generalized anxiety disorder) ([facility]) Generalized anxiety disorder documented in this encounter [facility]* Diagnosis Annual physical exam- Primary Routine general medical examination at a health care facility Morbid obesity due to excess calories ([facility]) PCOS (polycystic ovarian syndrome) Polycystic ovaries Body mass index (BMI) 38.0-38.9, adult documented in this encounter [facility]* Diagnosis Annual physical exam- Primary Routine general medical examination at a health care facility Morbid obesity due to excess calories ([facility]) PCOS (polycystic ovarian syndrome) Polycystic ovaries Body mass index (BMI) 38.0-38.9, adult KATHY (generalized anxiety disorder)- Primary Generalized anxiety disorder PCOS (polycystic ovarian syndrome) Polycystic ovaries Insulin resistance Other abnormal glucose Class 3 severe obesity due to excess calories with serious comorbidity and body mass index (BMI) of40.0 to 44.9 in adult ([facility] Chronic pain of right knee- Primary documented in this encounter [facility]* Diagnosis Annual physical exam- Primary Routine general medical examination at a health care facility Morbid obesity due to excess calories ([facility]) PCOS (polycystic ovarian syndrome) Polycystic ovaries Body mass index (BMI) 38.0-38.9, adult KATHY (generalized anxiety disorder)- Primary Generalized anxiety disorder PCOS (polycystic ovarian syndrome) Polycystic ovaries Insulin resistance Other abnormal glucose Class 3 severe obesity due to excess calories with serious comorbidity and body mass index (BMI) of40.0 to 44.9 in adult ([facility] Well woman exam with routine gynecological exam Routine gynecological examination documented in this encounter [facility]* Diagnosis Annual physical exam- Primary Routine general medical examination at a health care facility Morbid obesity due to excess calories ([facility] PCOS (polycystic ovarian syndrome) Polycystic ovaries Body mass index (BMI) 38.0-38.9, adult KATHY (generalized anxiety disorder)- Primary Generalized anxiety disorder PCOS (polycystic ovarian syndrome) Polycystic ovaries Insulin resistance Other abnormal glucose Class 3 severe obesity due to excess calories with serious comorbidity and body mass index (BMI) of40.0 to 44.9 in adult ([facility] Poison teto dermatitis- Primary documented in this encounter [facility]* Diagnosis Annual physical exam- Primary Routine general medical examination at a health care facility Morbid obesity due to excess calories ([facility]) PCOS (polycystic ovarian syndrome) Polycystic ovaries Body mass index (BMI) 38.0-38.9, adult KATHY (generalized anxiety disorder)- Primary Generalized anxiety disorder PCOS (polycystic ovarian syndrome) Polycystic ovaries Insulin resistance Other abnormal glucose Class 3 severe obesity due to excess calories with serious comorbidity and body mass index (BMI) of40.0 to 44.9 in adult ([facility] Poison teto dermatitis documented in this encounter [facility]* Diagnosis Annual physical exam- Primary Routine general medical examination at a health care facility Morbid obesity due to excess calories ([facility] PCOS (polycystic ovarian syndrome) Polycystic ovaries Body mass index (BMI) 38.0-38.9, adult KATHY (generalized anxiety disorder)- Primary Generalized anxiety disorder PCOS (polycystic ovarian syndrome) Polycystic ovaries Insulin resistance Other abnormal glucose Class 3 severe obesity due to excess calories with serious comorbidity and body mass index (BMI) of40.0 to 44.9 in adult ([facility] Chronic pain of right knee- Primary documented in this encounter [facility]* Diagnosis Annual physical exam- Primary Routine general medical examination at a health care facility Morbid obesity due to excess calories ([facility] PCOS (polycystic ovarian syndrome) Polycystic ovaries Body mass index (BMI) 38.0-38.9, adult KATHY (generalized anxiety disorder)- Primary Generalized anxiety disorder PCOS (polycystic ovarian syndrome) Polycystic ovaries Insulin resistance Other abnormal glucose Class 3 severe obesity due to excess calories with serious comorbidity and body mass index (BMI) of40.0 to 44.9 in adult ([facility]) Pre-op evaluation Menorrhagia with regular cycle Abnormal uterine bleeding (AUB) Dysmenorrhea Dyspareunia in female Pelvic pain documented in this encounter [facility] Summary [...] section and content) DATE CREATED AUTHOR 08/06/2022 [facility] DATE CREATED AUTHOR AUTHOR'S ORGANIZ ATION 08/12/2022 [facility] DATE CREATED AUTHOR AUTHOR'S ORGANIZ ATION 05/11/2023 [facility] DATE CREATED AUTHOR AUTHOR'S ORGANIZ ATION 12/09/2023 [facility] DATE CREATED AUTHOR AUTHOR'S ORGANIZ ATION 02/06/2025 [facility] Care Teams (unrecognized sec tion and content) Team Status: Inactive Member Role Status Dates Adrienne Fernandez Attending Provider Active Start: 2023 End: May 06, 2023Team MemberRelationshipSpecialtyStart DateEnd Date Raffaele Romero MD PCP - Eycauxb72/4/23Team MemberRelationshipSpecialtyStart DateEnd Date Raffaele Romero MD [address] [place] [id number] [facility] - [facility] Raffaele Romero MD [address] [place] [address] PCP - [place] Odbkvstqre83/1/24Team MemberRelationshipSpecialtyStart DateEnd Date Raffaele Romero MD [address] [place] [address] PCP - GeneralFamily Medicine12/08/23 Raffaele Romero MD [address] [place] [address] PCP - [place] Tvixipncyh10/1/24Team MemberRelationshipSpecialtyStart DateEnd Date Raffaele Romero MD [address] [place] [address] PCP - GeneralFamily Medicine12/08/23Team MemberRelationshipSpecialtyStart DateEnd Date Raffaele Romero MD [address] [place] [address] PCP - GeneralFamily Medicine12/08/23Team MemberRelationshipSpecialtyStart DateEnd Date Raffaele Romero MD [address] [place] [address] PCP - GeneralFamily Medicine12/08/23Team MemberRelationshipSpecialtyStart DateEnd Date Raffaele Romero MD [address] [place] [address] PCP - GeneralFamily Medicine12/08/23Team MemberRelationshipSpecialtyStart DateEnd Date Raffaele Romero MD [address] [place] [address] PCP - GeneralFamily Medicine12/08/23Team MemberRelationshipSpecialtyStart DateEnd Date Raffaele Romero MD [address] [place] [address] PCP - GeneralFamily Medicine12/08/23Team MemberRelationshipSpecialtyStart DateEnd Date Raffaele Romero MD [address] [place] [address] PCP - GeneralFamily Medicine12/08/23Team MemberRelationshipSpecialtyStart DateEnd Date Raffaele Romero MD [address] [place] [address] PCP - GeneralFamily Medicine12/08/23Team MemberRelationshipSpecialtyStart DateEnd Date Raffaele Romero MD PCP - Ekildky80/4/239 Raffaele Romero MD PCP - GeneralFamily Medicine12/08/23 Raffaele Romero MD [address] [place] [address] PCP - [place] Hyqgkumora21///02/26Team MemberRelationshipSpecialtyStart Date End Date Raffaele Romero MD PCP - Ahhutip61/4/239 Raffaele Romero MD PCP - GeneralFamily Medicine12/08/23 Raffaele Romero MD [address] [place] [address] PCP - [place] Pnqqvyukfg10/1/244Team MemberRelationshipSpecialtyStart Date End Date Raffaele Romero MD PCP - [facility]12/08/23Team MemberRelationshipSpecialtyStart DateEnd Date Raffaele Romero MD PCP - [facility]12/08/23 Goals (unrecognized section and content) Goals may be documented in a n alternate section Reason for Visit (unrecogniz ed section and content) ReasonCommentsPost-op VisitReasonCommentsFollow-fv3TMoznnaSpgiskzmPpaebz Exam wellnessReasonCommentsWell Women VisitReasonCommentsPre-op Visit FOR RECORDS PERTAINING TO PATIENTS WHO [...] BE BASED ON THE PRIMARY CLINICAL RECORDS. [employer] [facility]. provides no warranty or guarantee of the accuracy or completeness of information in this document.
[2025-02-25 11:47] LABS: Hematocrit 43.4 % (36.0-48.0); Hemoglobin 14.7 g/dL (12.0-16.0); Immature Granulocytes Abs Auto 0.02 10^3/uL (0.00-0.03); Immature Granulocytes Pct Auto 0.3 % (0.0-0.5); Lymphocytes Absolute Auto 2.4 10^3/uL (1.2-3.8); Mean Corpuscular HGB Conc 33.9 g/dL (29.9-35.2); Mean Corpuscular Hemoglobin 30.1 pg (26.7-34.0); Mean Corpuscular Volume 88.9 fL (81.0-99.0); Platelet Count 235 10^3/uL (150-450); Red Blood Count 4.88 10^6/uL (4.20-5.40); White Blood Count 7.6 10^3/uL (4.0-11.0)
[2025-02-25 11:55] LABS: INR 0.98; Partial Thromboplastin Time 26.7 sec (22.3-36.2); Prothrombin Time 10.4 sec (9.0-11.6)
[2025-02-25 12:01] LABS: Alanine Aminotransferase 24 U/L (14-59); Albumin Globulin Ratio 1.0; Albumin Level 3.5 g/dL (3.4-5.0); Alkaline Phosphatase 94 U/L (46-116); Anion Gap 7.6; Aspartate Amino Transferase 15 U/L (15-37); Blood Urea Nitrogen 11.0 mg/dL (7.0-18.0); Calcium 9.0 mg/dL (8.5-10.1); Carbon Dioxide 30.3 mmol/L (21.0-32.0); Chloride 105 mmol/L (98-107); Estimated GFR (African America >60 (>=60 mL/min/1.73m^2); Estimated GFR (Non-African Ame >60 (>=60 mL/min/1.73m^2); Globulin 3.4 g/dL; Glucose 89 mg/dL (74-106); Potassium 3.9 mmol/L (3.5-5.1); Sodium 139 mmol/L (136-145); Total Protein 6.9 g/dL (6.4-8.2)
== END 2025-02-25 10:54 | disposition home or self-care (01) ==
LOC: PST 10:56
PROVIDERS: PCP Family Medicine; Visit Provider Obstetrics & Gynecology
DX: Z01.812 Encounter for preprocedural laboratory examination (principal); N92.0 Excessive and frequent menstruation with regular cycle; R10.30 Lower abdominal pain, unspecified; N94.6 Dysmenorrhea, unspecified; N93.9 Abnormal uterine and vaginal bleeding, unspecified; N94.10 Unspecified dyspareunia
CPT/HCPCS: 36415; 80048; 80076; 85025; 85610; 85730; 86850; 86900; 86901

== ENCOUNTER 2025-03-06 06:09 | Day surgery (SDC) | payer BC, SELFPAY ==
[2025-02-25 11:24] VITALS: BP 145/88; PULSE 59; TEMP 36.3; O2SAT 99; BMI 41.6
[2025-03-06] VITALS (16 sets, daily range): BP systolic 115–150; BP diastolic 73–107; PULSE 67–97; TEMP 36.2–36.8; O2SAT 88–98; BMI 41.1
--- OUTSIDE RECORDS SUMMARY | 2025-03-06 06:12 | XMS_ITS | CCD ---
Author Organization [facility] Providers Care Cath Lab Technologist Name Role Phone REQUEST, DR NONE LISTED [...] LITTLEJOHN Attending Unavailable Jim, Adrienne Attending Provider [phone] Adrienne Fernandez Attending Unavailable Jim, Adrienne Admitting Unavailable Raffaele Romero MD Primary Care Provider [phone] ADRIENNE FERNANDEZ Attending Unavailable MICHELLE TRUJILLO Attending Unavailable ADRIENNE FERNANDEZ Attending Unavailable RAFFAELE ROMERO Attending Unavailable Raffaele Romero MD Primary Care Provider Raffaele Romero MD Unavailable Raffaele Romero MD Primary Care Provider Raffaele Romero MD Primary Care Provider Raffaele Romero MD Unavailable ADRIENNE FERNANDEZ Attending Unavailable ADRIENNE FERNANDEZ Attending Unavailable RAFFAELE ROMERO Attending Unavailable Allergies Allergy ClassificationReported Allergen(s)Allergy TypeDate of OnsetReaction(s) Facility (1 source)predniSONEDrug Mlkacfi67-49-8853HhhUniversity [facility] Repository (1 source)rofecoxib; Translations: [Vioxx]Drug AllergyPromedica Flower [facility] Repository Medications Current Medications MedicationDrug Class(es)DatesSig (Normalized)Sig (Original)busPIRone hydrochloride 15 mg oral tablet (16 sources)Start: 03-30-2024 End: 78-11-4753njkg 1 tablet by mouth twice daily as needed for anxietybusPIRone (Buspar) 15 MG tablet Indications: KATHY (generalized anxiety disorder) TAKE 1 TABLET BY MOUTH 2 TIMES A DAY NEEDED (ANXIETY) 180 tablet 1 03/30/2024 09/20/2024 DiscontinuedStart: 03-08-2024 End: 95-76-1394pwcx 1 tablet by mouth twice daily as neededbusPIRone (Buspar) 7.5 MG tablet Indications: KATHY (generalized anxiety disorder) (CMS/HCC) Take 1 tablet (7.5 mg) by mouth 2 (two) times a day as needed (Anxiet) 60 tablet 2 03/08/2024 03/08/2024 Discontinued (Reorder)Start: 37-14-8971adux 1 tablet by mouth twice daily as neededbusPIRone (Buspar) 15 MG tablet Indications: KATHY (generalized anxiety disorder) (CMS/HCC) Take 1 tablet (15 mg) by mouth 2 (two) times a day as needed (Anxiet) 60 tablet 2 03/08/2024 Activecephalexin 500 mg oral capsule (2 sources)Cephalosporin AntibacterialStart: 05-12-2023 End: 15-19-9431bdjz 1 capsule by mouth in the morningcephalexin (Keflex) 500 MG capsule Indications: Postoperative examination Take 1 capsule (500 mg) by mouth in the morning and 1 capsule (500 mg) before bedtime. Do all this for 7 days. 14 capsule 0 05/12/2023 05/19/2023 Wmwdwe11 hr metFORMIN hydrochloride 500 mg extended release oral tablet (13 sources)BiguanideStart: 03-08-2024 End: 45-71-5865mekq 2 tablets by mouth every twenty-four hours at mealtime metFORMIN XR (Glucophage-XR) 500 MG 24 hr tablet Indications: PCOS (polycystic ovarian syndrome) Take 2 tablets (1,000 mg) by mouth in the evening. Take with meals Do not crush, chew, or split. 60 tablet 5 03/08/2024 09/20/2024 DiscontinuedStart: 12-08-2023 End: 58-55-6474kvcj 1 tablet by mouth every twenty-four hours at mealtime metFORMIN XR (Glucophage-XR) 500 MG 24 hr tablet Indications: PCOS (polycystic ovarian syndrome) Take 1 tablet (500 mg) by mouth in the evening. Take with meals Do not crush, chew, or split. 30 tablet 5 12/08/2023 03/08/2024 Discontinued (Reorder)sertraline 25 mg oral tablet (7 sources)Serotonin Reuptake InhibitorStart: 07-03-2024 End: 58-49-2162erbu 1 tablet by mouth once dailysertraline (Zoloft) 25 MG tablet Indications: KATHY (generalized anxiety disorder) TAKE 1 TABLET BY MOUTH EVERY DAY 90 tablet 1 07/03/2024 09/20/2024 DiscontinuedStart: 13-38-0136oaqh 1 tablet by mouth once dailysertraline (Zoloft) 25 MG tablet Indications: KATHY (generalized anxiety disorder) (CMS/HCC) Take 1 tablet (25 mg) by mouth Daily 30 tablet 3 03/08/2024 ActiveStart: 86-30-5812yzkm 1 tablet by mouth once daily sertraline (Zoloft) 25 MG tablet Indications: KATHY (generalized anxiety disorder) (CMS/HCC) Take 1 tablet (25 mg) by mouth Daily 30 tablet 3 03/08/2024 Active Start: 97-82-8009qrrh 1 tablet by mouth once dailysertraline (Zoloft) 25 MG tablet Indications: KATHY (generalized anxiety disorder) (CMS/HCC) Take 1 tablet (25 mg) by mouth Daily 30 tablet 3 03/08/2024 Active Completed/Discontinued Medications MedicationDrug Class(es)DatesSig (Normalized)Sig (Original)ethinyl estradiol 0.035 mg / norethindrone 0.75 mg oral tablet (2 sources)EstrogenStart: 05-02-2023 End: 29-01-4902jggf 1 tablet by mouth in the morningnorethindrone-ethinyl estradiol (Nortrel ) 0.5/0.75/1-35 MG-MCG tablet Indications: Encounter for surveillance of contraceptive pills Take 1 tablet by mouth in the morning. 28 tablet 11 05/02/2023 05/12/2023 Discontinued (Therapy completed) methylPREDNISolone (4 sources)CorticosteroidStart: 05-12-2023 End: 18-81-1130xjqrsfMRJXYBLiomxd (Medrol Dospak) 4 MG tablets Indications: Postoperative examination Day 1: 6 tablets Day 2: 5 tablets Day 3: 4 tablets Day 4: 3 tablets Day 5: 2 tablets Day 6: 1 tablet 21 tablet 05/12/2023 12/07/2023 DiscontinuedStart: 60-18-6255bmhvxaMBVHWQKvwazp (Medrol Dospak) 4 MG tablets Indications: Postoperative examination Day 1: 6 tablets Day 2: 5 tablets Day 3: 4 tablets Day 4: 3 tablets Day 5: 2 tablets Day 6: 1 tablet 21 tablet 0 05/12/2023 ActivepredniSONE 10 mg oral tablet (12 sources)Start: 10-01-2024 End: 63-51-7805hhkp 6 tablets by mouth once daily, then [...] 10/01/2024 02/05/2025 Discontinued (Therapy completed)Start: 09-19-2024 End: 27-39-1073bfzp 1 tablet by mouth once dailypredniSONE (Deltasone) 50 MG tablet Indications: Chronic pain of right knee Take 1 tablet (50 mg) by mouth Daily for 6 days 6 tablet 09/19/2024 10/01/2024 Discontinued Problems Active Problems Problem ClassificationProblemDateDocumented DateEpisodic/ChronicAllergic reactions (2 sources)Contact dermatitis due to poison teto; Translations: [Allergic contact dermatitis due to plants, except food]41-00-2976GblrmkkjNnibdxr disorders (19 sources)Generalized anxiety disorder; Translations: [Generalized anxiety disorder]Onset: 094887-99-0364JfzbyihBctkmdzzucraz symptoms and ill- defined conditions (2 sources)Dysuria; Translations: [Dysuria]97-86-2963MkuxkafjVpygpavco disorders (2 sources)Menorrhagia; Translations: [Excessive and frequent menstruation with regular cycle]98-67-9235HzvclklBsyua aftercare (2 sources)Surgical follow-up; Translations: [Encounter for follow-up examination after completed treatment for conditions other than malignant neoplasm]48-50-9890FjhqcwmpJgasd endocrine disorders (20 sources)Polycystic ovary syndrome; Translations: [Polycystic ovarian syndrome]Onset: 053883-63-0925HbynzokFnmzq female genital disorders (1 source)Abnormal uterine bleeding; Translations: [Abnormal uterine and vaginal bleeding, unspecified]76-44-1544RncxqfcNpuka female genital disorders (1 source)Pain in female genitalia on intercourse; Translations: [Unspecified dyspareunia]01-63-4290NqufzqdLumtw nutritional; endocrine; and metabolic disorders (20 sources)Insulin resistance; Translations: [Insulin resistance]Onset: 025307-82-3315BdidnqwQvwly nutritional; endocrine; and metabolic disorders (7 sources)Morbid obesity; Translations: [Morbid (severe) obesity due to excess calories]Onset: 580710-88-2873KvbzvvkXyuaw nutritional; endocrine; and metabolic disorders (18 sources)Severe obesity; Translations: [Class 3 severe obesity due to excess calories with serious comorbidity and body mass index (BMI) of 40.0 to 44.9 in adult ([facility])]Onset: 545842-85-4156GbcznsmLutal nutritional; endocrine; and metabolic disorders (2 sources)Body mass index 30+ - obesity; Translations: [Body mass index (BMI) 38.0-38.9, adult]22-97-9263SnmdjunUalybvmnqagx (3 sources)CONTACT W/AND (SUSP) EXPOS COVID-19; Translations: [CONTACT W/AND (SUSP) EXPOS COVID-19]Onset: 93-58-1429Zhirapozwnwm (1 source)Pain in pelvis; Translations: [Pelvic pain]58-78-5118Btizm infection (1 source)COVID-19; Translations: [COVID-19]Onset: 11-03-2021 Past or Other Problems Problem ClassificationProblemDateDocumented DateEpisodic/ChronicAbdominal pain (4 sources)Unspecified abdominal pain; Translations: [UNSPECIFIED ABDOMINAL PAIN]Onset: 69-02-0002OzdjehytTwgpysbiyhzba and screening for infectious disease (1 source)Encounter for screening for human papillomavirus (HPV); Translations: [ENC SCREENING HUMAN PAPILLOMAVIRUS]Onset: 40-53-6679DxfjrgibWvzwb non-traumatic joint disorders (15 sources)Pain in right knee; Translations: [Pain in joint, lower leg]Onset: 388192-45-9037JejnzxucPggpa screening for suspected conditions (not mental disorders or infectious disease) (4 sources)Encounter for screening for malignant neoplasm of cervix; Translations: [ENC SCREENING MALIG NEOPLASM CERV]Onset: 82-68-0686Tyofeujf Spondylosis; intervertebral disc disorders; other back problems (20 sources)Pain in the coccyx; Translations: [Sacrococcygeal disorders, not elsewhere classified]Onset: 433073-03-7824RbyoioluSmojyorakgpr (1 source)CONTACT W/AND (SUSP) EXPOS COVID-19; Translations: [CONTACT W/AND (SUSP) EXPOS COVID-19]Onset: 11-03-2021 Results Test NameValueInterpretationReference RangeFacilityIGP,APTIMA HPV,AGE GDLNon 16-89-5971MUH GDLN ACOG TESTINGNote.NOMS HealthcareComment on above:TESTS RESULT FLAG UNITS REF RANGE LAB Clinician Provided Cytology Information Source.............Cervix;Endocervix No. of containers..01 ThinPrep Vial Age Algo ACOG Aleida... 30-65 01 FLAG LEGEND: L-Low Normal,H-High Normal,LL-Alert Low,HH-Alert High <-Panic Low,>-Panic High,A-Abnormal,AA-Critical Abnormal Performed at: 01 =[address] [address] Abby Owen MD, HPV APTIMANegativeNegativeNOMS HealthcareComment on above:This nucleic acid amplification test detects fourteen high- risk HPV types (16,18,31,33,35,39,45,51,52,56,58,59,66,68) without differentiation. Performed at: =[address] [id number] Hydrogenation Operator: Abby Owen MD, Phone: [phone] Performed at: [address] [id number] Hydrogenation Operator: Abby Owen MD, Phone: [phone] IGP, APTIMA HPV, RFX 16/18,45Note.NOMS HealthcareComment on above:TESTS RESULT FLAG UNITS REF RANGE LAB DIAGNOSIS: 02 NEGATIVE FOR INTRAEPITHELIAL LESION OR MALIGNANCY. Specimen adequacy: 02 Satisfactory for evaluation. Endocervical and/or squamous metaplastic cells (endocervical component) are present. Performed by: Maria Ines Jimenez, General Practice ([facility]) . Note: Note 02 The Pap smear [...] High,A-Abnormal,AA-Critical Abnormal Performed at: 02 [address] [facility] [address] [address] Abby Owen MD, BRUSH-SPATULA CERVIX ENDOCERVIX [facility] HOSPITALNCNOSaint Francis Hospital & Health ServicesXR Knee - right 1 or 2 Viewson 06-19-[address] [address] XRay Report Signed Patient: BASIL CARRANZA MR#: [id number] : 1985 Acct:[id number] Age/Sex: 38 / F ADM Date: 09/21/24 Loc: RAD Attending Dr: Raffaele Romero M.D. Ordering Physician: Raffaele Romero M.D. Date of Service: 09/21/24 Procedure(s): XR knee RT 2V Accession Number(s): [id number] cc: Raffaele Romero M.D. [address] [address] Patient Name: BASIL CARRANZA MRN: [facility]:[id number] date: 1985 Sex: F Assigned Patient Location: [facility] Current Patient Location: RAD Accession/Order Number: [id number] Exam Date: 09/21/2024 16:05 Report Date: 09/21/2024 [...] Chaudhary M.D. 09/21/2024 4:06 PM Dictation Location: [place] [address] Electronically authenticated by: [id number] Y Date: 09/21/2024 16:06 Dictated By: Cody Chaudhary D.O. Signed By: 09/21/24 1608 DD/ 1606 TD/TT: [place] Upholsterer:TBHRadiology, Radiologist, MD - 09/21/2024 [place] [address] XRay Report Signed Patient: BASIL CARRANZA MR#: [id number] : 1985 Acct:[id number] Age/Sex: 38 / F ADM Date: 09/21/24 Loc: RAD Attending Dr: Raffaele Romero M.D. Ordering Physician: Raffaele Romero M.D. Date of Service: 09/21/24 Procedure(s): XR knee RT 2V Accession Number(s): [id number] cc: Raffaele Romero M.D. The [address] [address] Patient Name: BASIL CARRANZA MRN: [facility]:[id number] date: 1985 Sex: F Assigned Patient Location: [facility] Current Patient Location: RAD Accession/Order Number: [id number] Exam Date: 09/21/2024 16:05 Report Date: 09/21/2024 [...] Chaudhary M.D. 09/21/2024 4:06 PM Dictation Location: [place] [address] Electronically authenticated by: [id number] Y Date: 09/21/2024 16:06 Dictated By: Cody Chaudhary D.O. Signed By: 09/21/24 1608 DD/ 05 TD/TT: [place] Upholsterer: CATALINA HealthcareRadiology Study observation (narrative)NOMS HealthcareXR Knee - right 1 or 2 ViewsOrdered By: Radiologist Radiology on 85-57-1130CUBOOzarks Community Hospital Work Phone: all CBC WITH AUTO DIFFon 56-44-6884WFCHHPVZM ABSOLUTE AUTO0.0NOMS HealthcareBasophils/100 WBC (Bld)0.5 %0.2 - 2.0 %[facility] Eosinophils/100 WBC (Bld)1.9 %0.9 - 7.0 %[facility] HealthcareErythrocyte distribution width (RBC) [Ratio]11.8 %11.0 - 15.0 %NOM HealthcareHematocrit (Bld) [Volume fraction]43.6 %36.0 - 48.0 %[facility] HealthcareHemoglobin (Bld) [Mass/Vol]14.9 g/dL 12.0 - 16.0 g/dLOzarks Community HospitalIMMATURE GRANULOCYTES ABS AUTO0.01NOSaint Francis Hospital & [facility] Services Immature granulocytes/100 WBC (Bld)0.1 %0.0 - 0.5 %NOM HealthcareLYMPHOCYTES ABSOLUTE AUTO2.5NONY HealthcareLymphocytes/100 WBC (Bld)31.7 %20.5 - 60.0 %[facility] HospitalMCH (RBC) [Entitic mass]30.4 pg26.7 - 34.0 pgNOWashington University Medical CenterHC (RBC) [Mass/Vol]34.2 g/dL29.9 - 35.2 g/dLNOMS HealthcareMCV (RBC) [Entitic vol]89.0 fL 81.0 - 99.0 fLNOMS HealthcareMONOCYTES ABSOLUTE AUTO0.5N[facility] Monocytes/100 WBC (Bld)6.4 %1.7 - 12.0 %NOMS HealthcareNEUTROPHILS ABSOLUTE AUTO 4.6NOMS HealthcareNeutrophils/100 WBC (Bld)59.4 %43.0 - 75.0 %[facility] Platelet mean volume (Bld) [Entitic vol]10.8 fL9.5 - 13.5 fLNOMS HealthcareTBH EO #0.2NOMS HealthcareTBH NZF044ZVTP HealthcareTBH RBC4.90NOMS HealthcareTBH WBC 7.8NOMS HealthcareCLINISYNCNOMS HealthcareUrinalysis macro (dipstick) panel (U) on 67-82-6725Esnyjxakn, UANegativeNegative - 4(70) +++ mg/dLNOMS Healthcare Blood, [...] HealthcareUrobilinogen, UA0.20.2 - 12 mg/dLNOMS HealthcareNOMS HealthcareLon 01-51-6457SSifhpiyg: [id number] Received: 05/09/23 Status: STEVE Brower Num: [id number] Spec Type: Surgical Subm Dr: Adrienne Fernandez Tissues: A Fallopian Tube - Sterilization (SOTERO FT) Procedures: HE/3, Gross/Micro L2 Age/ Patient Sex Location Account Attending Physician Basil Carranza 37/F LABELL [id number] Adrienne Fernandez SPEC NUM: [id number] RECD: 05/09/23 STATUS: STEVE BROWER NUM: [id number] SANTINO: 05/06/[address]: Adrienne Fernandez ENTERED: 05/09/[address] [facility] DR: Christopher,Lab SPEC TYPE: Surgical DEPT: DESIRAE [...] tissue with a rubbery, rivera-white cut surface. Continuous W[employer] Pipe Mill Supervisor sections are submitted in 3 cassettes as follows: A1-A2 - Continuous W[employer] Pipe [employer] Supervisor fallopian tubes A3 - Detached tissue in its entirety Microscopic Description Three H E slides reviewed. The microscopic examination confirms the diagnosis. Specimen: [id number] Received: 05/09/23 Status: ASADenice Brower Num: [id number] Spec Type: Surgical Subm Dr: Adrienne Fernandez Tissues: A Fallopian Tube - Sterilization (SOTERO FT) Procedures: HE/3, Gross/Micro L2 Patient: Basil Carranza [id number] (Continued) Specimen: [id number] Received: 05/09/23 (Continued) Signed (signature on file) Patrick Post MD 05/10/237 Specimen: [id number] Received: 05/09/23 Status: STEVE Brower Num: [id number] Spec Type: Surgical Subm Dr: Adrienne Fernandez Tissues: A Fallopian Tube - Sterilization (SOTERO FT) Procedures: HE/3Shelli/Jt L2 Patient: MaryBasil [id number] (Continued) Specimen: [id number] Received: 05/09/23 (Continued) CPT Codes 85140 Specimen: [id number] Received: 05/09/23 Status: STEVE Brower Num: [id number] Spec Type: Surgical Subm Dr: Adrienne Fernandez Tissues: A Fallopian Tube - Sterilization (SOTERO FT) Procedures: HE/Shelli Montalvo/Jt L2 Patient: RushBasil green [id number] (Continued) Signed (signature on file) Patrick Post MD 05/10/[address] [place], [place] [address]ALL DEHYDROEPIANDROSTERONEon 41-07-8507FVWW, UDAQA975 ng/dL31 - 701 ng/dLNOMS HealthcareComment on above:This test was developed and its performance characteristics determined by [facility]. It has not been cleared or approved by the Food and Drug Administration. Performed at: [address] [id number] Hydrogenation Operator: Antwan Grant MD, Phone: [phone] CLINISYILNONY HealthcareALL DHEA SULFATEon 27-87-4182ISAZ-QAXGQYL078.0 ug/dL57.3 - 279.2 ug/dLNONY HealthcareALL FOLLICLE STIMULATING HORMONEon 00-69-0817PZC4.6. mIU/mLNOMS HealthcareComment on above:Adult Female Range Follicular phase 3.5 - 12.5 Ovulation phase 4.7 - 21.5 Luteal phase 1.7 - 7.7 Postmenopausal 25.8 - 134.8 Performed at: [address] [id number] Hydrogenation Operator: Liban Aponte PhD, Phone: [phone] ALL LUTEINIZING HORMONEon 90-96-2189FTEHTCJIJXJ HORMONE(LH)1.3. mIU/mLNOMS HealthcareComment on above:Adult Female Range Follicular phase 2.4 - 12.6 Ovulation phase 14.0 - 95.6 Luteal phase 1.0 - 11.4 Postmenopausal 7.7 - 58.5 No Panel Informationon 31-47-4850IXMLKEHHTYBMM HealthcareALL THYROID STIM HORMONEon 51-26-5030EDM Qn2.248 m[IU]/LNOMS HealthcareALL THYROXINE (T4) FREEon 97-85-6034Ljnr T4 [Mass/Vol]0.89 ng/dL0.76 - 1.46 ng/dLNONY HealthcareMLR HEMOGLOBIN A1Con 35-26-6828Chosmyq [Mass/Vol]108 mg/dLOzarks Community HospitalHbA1c (Bld) [Mass fraction]5.4 %4.5 - 6.2 %NOMS HealthcareComment on above:ADA RECOMMENDED LIMIT 4.0 - 6.0 ADA THERAPEUTIC TARGET < 7.0 ACTION SUGGESTED > 7.0 CLINISYMoccasin Bend Mental Health InstituteNo Panel Informationon 77-10-7200AXIRQIY[place] [address] Ultrasound Report Signed Patient: BASIL CARRANZA MR#: [id number] : 1985 Acct:[id number] Age/Sex: 37 / F ADM Date: 04/11/23 Loc: LAB Attending Dr: Adrienne Fernandez D.O. Ordering Physician: Adrienne Fernandez D.O. Date of Service: 04/11/23 Procedure(s): US pelvis w/ transvaginal Accession Number(s): [id number] cc: Adrienne Fernandez D.O.; Raffaele Romero M.D. [place] [address] Patient Name: BASIL CARRANZA MRN: [facility]:[id number] date: 1985 Sex: F Assigned Patient Location: LAB Current Patient Location: LAB Accession/Order Number: [id number] Exam Date: 04/11/2023 12:42 Report Date: 04/11/2023 [...] Signed By: 04/11/23 1319 DD/ 1317 TD/TT: [place] Upholsterer:TBHRadiology Study observation (narrative)SenionLabNo Panel InformationOrdered By: Radiologist Radiology on 04-11-2023 [facility] Work Phone: TBM PREG QUANT HCGon 36-95-2727NLK QUANTITATIVE<1 mIU/mLNOMS HealthcareComment on above:5-50 0.2-1 WEEK 50-500 1-2 WEEKS 100-5,000 2-3 WEEKS 500-10,000 3-4 WEEKS 1,000-50,000 4-5 WEEKS 10,000-100,000 5-6 WEEKS 15,000-200,000 6-8 WEEKS 10,000-100,000 2-3 MONTHS US PELVIS W/ TRANSVAGINALon 61-84-1594Riwjgxlnx, Radiologist, - 04/11/2023 [place] [address] Ultrasound Report Signed Patient: BASIL CARRANZA MR#: [id number] : 1985 Acct:[id number] Age/Sex: 37 / F ADM Date: 04/11/23 Loc: LAB Attending Dr: Adrienne Fernandez D.O. Ordering Physician: Adrienne Fernandez D.O. Date of Service: 04/11/23 Procedure(s): US pelvis w/ transvaginal Accession Number(s): [id number] cc: Adrienne Fernandez D.O.; Rfafaele Romero M.D. The [address] [address] Patient Name: BASIL CARRANZA MRN: [facility]:[id number] date: 1985 Sex: F Assigned Patient Location: LAB Current Patient Location: LAB Accession/Order Number: [id number] Exam Date: 04/11/2023 12:42 Report Date: 04/11/2023 [...] Signed By: 04/11/23 1319 DD/ 1317 TD/TT: [place] Upholsterer: CATALINA HealthcareRadiology, Radiologist, - 06/08/2023 [place] [address] Ultrasound Report Signed Patient: BASIL CARRANZA MR#: [id number] : 1985 Acct:[id number] Age/Sex: 37 / F ADM Date: 04/11/23 Loc: LAB Attending Dr: Adrienne Fernandez D.O. Ordering Physician: Adrienne Fernandez D.O. Date of Service: 04/11/23 Procedure(s): US pelvis w/ transvaginal Accession Number(s): [id number] cc: Adrienne Fernandze D.O.; Raffaele Romero M.D. The [address] [address] Patient Name: BASIL CARRANZA MRN: [id number]:[id number] date: 1985 Sex: F Assigned Patient Location: LAB Current Patient Location: LAB Accession/Order Number: [id number] Exam Date: 04/11/2023 12:42 Report Date: 04/11/2023 [...] polycystic ovarian morphology Electronically authenticated by: TOMASZ UMÑOZ Date: 04/11/2023 13:17 Dictated By: Tomasz Muñoz M.D. Signed By: 04/11/23 1319 DD/ 1317 TD/TT: [place] Upholsterer: CATALINA [facility] HospitalLab Reportson 23-32-9226Gwt Reports [id number]#1.00CD:127NormalPromedica Flower HospitalLab [id number]#1.00CD:127NormSheltering Arms HospitalCBC AUTO DIFFon 46-75-0250LYFP #0.0 103/ulNormal0.0-0.1The [facility]ike Medical CenterComment on above:Performed By: #### CBC #### [facility] [address] [place] [address] [address] Mikhail CooneyBasophils/100 WBC (Bld)0.4 %Normal0.2-2.0The [facility] Comment on above:Performed By: #### CBC #### [facility] [address] [place] [address] Dr. Mikhail Hammer #0.1 103/ulNormal0.0-0.7The [facility] Medical CenterComment on above: Performed By: #### CBC #### [facility] [address] [place] [address] Dr. Mikhail Valleosinophils/100 WBC (Bld)1.0 %Normal0.9-7.0The [facility] Comment on above:Performed By: #### CBC #### [facility] [address] [place] [address] Dr. Mikhail Vallerythrocyte distribution width (RBC) [Ratio]11.9 %Fkqigy59.0-15.0 The [facility] Medical CenterComment on above:Performed By: #### CBC #### [facility] [address] [place] [address] Dr. Mikhail CooneyHematocrit (Bld) [Volume fraction]43.0 %Jujelm90.0-48.0The [facility] Medical CenterComment on above:Performed By: #### CBC #### [facility] [address] [place] [address] Dr. Mikhail CooneyHemoglobin (Bld) [Mass/Vol]14.7 g/cRNkuyzp84.0-16.0The [facility] Medical CenterComment on above:Performed By: #### CBC #### [facility] [address] [place] [address] Dr. Mikhail Brooks #0.03 10e3/ulNormal0.00-0.03The [facility] Medical CenterComment on above:Performed By: #### CBC #### [facility] [address] [place] [address] Dr. Mikhail Brooks %0.3 %Normal0.0-0.5The [facility] Medical CenterComment on above: Performed By: #### CBC #### [facility] [address] [place] [address] Dr. Mikhail Rosario #2.4 103/ulNormal1.2-3.8The [facility] Medical CenterComment on above:Performed By: #### CBC #### [facility] [address] [place] [address] Dr. Mikhail Garzahocytes/100 WBC (Bld)24.4 %Zzrrdu58.5-60.0The [facility] Medical CenterComment on above:Performed By: #### CBC #### [facility] [address] [place] [address] Dr. Mikhail Humphrey DIFF REQNONormalThe [facility]ike Medical CenterComment on above: Performed By: #### CBC #### [facility] [address] [place] [address] Dr. Mikhail Alas (RBC) [Entitic mass]29.9 chArodbw67.7-34.0The [facility] Medical CenterComment on above:Performed By: #### CBC #### [facility] [address] [place] [address] Dr. Mikhail Drummond (RBC) [Mass/Vol]34.2 g/nUUeqplp37.9-35.2The [facility] on above:Performed By: #### CBC #### [facility] [address] [place] [address] Dr. Mikhail Camacho (RBC) [Entitic vol]87.4 cOYqoiej56.0-99.0The [facility] Medical CenterComfresenius medical care at [facility] on above:Performed By: #### CBC #### [facility] [address] [place] [address] Dr. Mikhail Mcrgath #0.6 103/ulNormal0.3-0.8The [facility] on above:Performed By: #### CBC #### [facility] [address] [place] [address] Dr. Mikhail Willsocytes/100 WBC (Bld)6.1 %Normal1.7-12.0The [facility] Comment on above:Performed By: #### CBC #### [facility] [address] [place] [address] Dr. Mikhail Lee #6.7 103/ulCritically high1.4-6.5The [facility] Comment on above:Performed By: #### CBC #### [facility] [address] [place] [address] Dr. Mikhail Garciautrophils/100 WBC (Bld)67.8 %Botpay75.0-75.0The [facility] CenterComment on above:Performed By: #### CBC #### [facility] [address] [place] [address] Dr. Mikhail Elenalet mean volume (Bld) [Entitic vol]11.2 fLNormal9.5-13.5The [facility] CenterComment on above:Performed By: #### CBC #### [facility] [address] [place] [address] Dr. Mikhail CooneyPLT288 103/trTfhvlh094-028Dex [facility] CenterComment on above: Performed By: #### CBC #### [facility] [address] [place] [address] Dr. Mikhail CooneyRBC4.92 106/ulNormal4.20-5.40The [facility] CenterComment on above:Performed By: #### CBC #### [facility] [address] [place] [address] Dr. Mikhail CooneyWBC9.8 103/ulNormal4.0-11.0The [facility] CenterComment on above: Performed By: #### CBC #### [facility] [address] [place] [address] Dr. Mikhail CooneyLIPID PROFILEon [id number]-HDL RATIO NORMSEE [facility] Medical CenterComment on above:Result Comment: 3.3 - 4.4 LOW RISK 4.4 - 7.1 AVERAGE RISK 7.1 - 11.0 MODERATE RISK >11.0 HIGH RISKPerformed By: #### LIPID, CMP, TSH, T4 #### [facility] [address] [address] [address] Mikhail CooneyCholesterol [Mass/Vol]212 mg/dLCritically high<=200The [facility] on above:Performed By: #### LIPID, CMP, TSH, T4 #### [facility] [address] [address] [address] Mikhail CooneyCholesterol in HDL [Mass/Vol]44 mg/dIQtlxtb49-03Bgl [facility] CenterComment on above:Performed By: #### LIPID, CMP, TSH, T4 #### [facility] [address] [address] [address] Mikhail CooneyCholesterol in LDL [Mass/Vol]144.8 mg/dLParkwood HospitalComment on above:Performed By: #### LIPID, CMP, TSH, T4 #### [facility] [address] [place] [address] Dr. Mikhail Whaley.total/Cholesterol in HDL [Mass ratio]4.8 {ratio} NormalThe [facility] CenterComment on above:Performed By: #### LIPID, CMP, TSH, T4 #### [facility] [address] [place] [address] Dr. Mikhail Levin NORMAL> or = 60 mg/dl - LOW CARDIOVASCULAR RISK <40 mg/dl - HIGH CARDIOVASCULAR RISKParkwood HospitalComment on above:Performed By: #### LIPID, CMP, TSH, T4 #### [facility] [address] [address] [address] Mikhail CooneyLDL CALC NORMALSEE BELOWNoCherrington HospitalComment on above:Result Comment: <100 mg/dl OPTIMAL 100 - 129 mg/dl NEAR OR ABOVE OPTIMAL 130 - 159 mg/dl BORDERLINE HIGH 160 - 189 mg/dl HIGH >190 mg/dl VERY HIGH Performed By: #### LIPID, CMP, TSH, T4 #### [facility] [address] [place] [address] Dr. Mikhail CooneyTriglyceride [Mass/Vol]116 mg/dLNormal<=150The [facility] Comment on above:Performed By: #### LIPID, CMP, TSH, T4 #### [facility] [address] [address] [address] Mikhail MensahLDL CALC23.2 mg/dLNormalThe [facility] CenterComment on above: Performed By: #### LIPID, CMP, TSH, T4 #### [facility] [address] [address] [address] Mikhail Ferrer 14(COMP METB)on [id number] [Mass/Vol]3.3 g/dL Critically low3.4-5.0The [facility] CenterComment on above:Performed By: #### LIPID, CMP, TSH, T4 #### [facility] [address] [address] [address] Mikhail CooneyAlbumin/Globulin [Mass ratio]0.7 {ratio}NormalThe [facility] CenterComment on above:Performed By: #### LIPID, CMP, TSH, T4 #### [facility] [address] [address] [address] Mikhail Becker [Catalytic activity/Vol]82 U/YGzztad08-725Nle [facility] Hospitalment on above:Performed By: #### LIPID, CMP, TSH, T4 #### [facility] [address] [place] [address] Dr. Mikhail Abel [Catalytic activity/Vol]32 U/HUndrpa39-03Alk [facility] CenterComment on above:Performed By: #### LIPID, CMP, TSH, T4 #### [facility] [address] [place] [address] Dr. Mikhail Hameed gap [Moles/Vol]9.1 mmol/LNormalUniversity Hospitals Elyria Medical CenterComment on above:Performed By: #### LIPID, CMP, TSH, T4 #### [facility] [address] [place] [address] Dr. Mikhail Fuentes [Catalytic activity/Vol]19 U/STbnwzg10-84Pkk [facility] CenterComment on above:Performed By: #### LIPID, CMP, TSH, T4 #### [facility] [address] [address] [address] Mikhail CooneyBilirubin [Mass/Vol]0.5 mg/dLNormal0.2-1.0The [facility] Comment on above:Performed By: #### LIPID, CMP, TSH, T4 #### [facility] [address] [place] [address] Dr. Mikhail CooneyCalcium [Mass/Vol]9.1 mg/dLNormal8.5-10.1The [facility] Comment on above:Performed By: #### LIPID, CMP, TSH, T4 #### [facility] [address] [place] [address] Dr. Mikhail CooneyChloride [Moles/Vol]104 mmol/EBjlwod24-672MwvUniversity Hospitals Elyria Medical Center Comment on above:Performed By: #### LIPID, CMP, TSH, T4 #### [facility] [address] [place] [address] Dr. Mikhail CooneyCO2 [Moles/Vol]27.6 mmol/NJnycvk27.0-32.0[facility] Comment on above:Performed By: #### LIPID, CMP, TSH, T4 #### [facility] [address] [place] [address] Dr. Mikhail CooneyCreatinine [Mass/Vol]1.01 mg/dLNormal0.55-1.02[facility]lyria Medical CenterComment on above:Performed By: #### LIPID, CMP, TSH, T4 #### [facility] [address] [place] [address] Dr. Mkihail ValleGFR-AF COSTA RICAN>60Normal>=60The [facility] CenterComment on above:Performed By: #### LIPID, CMP, TSH, T4 #### [facility] [address] [place] [address] Dr. Mikhail ValleGFR-NON AF COSTA RICAN>60Normal>=60The [facility] CenterComment on above:Performed By: #### LIPID, CMP, TSH, T4 #### [facility] [address] [place] [address] Dr. Mikhail CooneyGlobulin (S) [Mass/Vol]4.5 g/dLNormalThe Christopher HospitalComment on above:Performed By: #### LIPID, CMP, TSH, T4 #### [facility] [address] [address] [address] Mikhail CooneyGlucose [Mass/Vol]93 mg/tGByiuda68-290SnyUniversity Hospitals Elyria Medical Center Comment on above:Performed By: #### LIPID, CMP, TSH, T4 #### [facility] [address] [place] [address] Dr. Mikhail CooneyPotassium [Moles/Vol]3.7 mmol/LNormal3.5-5.1The [facility] Comment on above:Performed By: #### LIPID, CMP, TSH, T4 #### [facility] [address] [place] [address] Dr. Mikhail CooneyProtein [Mass/Vol]7.8 g/dLNormal6.4-8.2[facility] Comment on above:Performed By: #### LIPID, CMP, TSH, T4 #### [facility] [address] [place] [address] Dr. Mikhail CooneySodium [Moles/Vol]137 mmol/PSpxeno524-781WabUniversity Hospitals Elyria Medical Center Comment on above:Performed By: #### LIPID, CMP, TSH, T4 #### [facility] [address] [place] [address] Dr. Mikhail CooneyUrea nitrogen [Mass/Vol]13.0 mg/dLNormal7.0-18.0The [facility] CenterComment on above:Performed By: #### LIPID, CMP, TSH, T4 #### [facility] [address] [place] [address] Dr. Mikhail CooneyUrea nitrogen/Creatinine [Mass ratio]12.9 mg/mgNoCherrington HospitalComment on above:Performed By: #### LIPID, CMP, TSH, T4 #### [facility] [address] [place] [address] Dr. Mikhail CooneyT4on [id number] [Mass/Vol]13.20 ug/dLNormal4.80-13.90The [facility] HospitalComment on above:Performed By: #### LIPID, CMP, TSH, T4 #### [facility] [address] [place] [address] Dr. Mikhail Hollins 99-82-3860JTH8.723 uIU/mLNormal0.358-3.740University [facility]als Elyria Medical CenterComment on above:Performed By: #### LIPID, CMP, TSH, T4 #### [facility] [address] [place] [address] Dr. Mikhail Watson Referralon [id number] Referral [id number]#1.00CD:[address] [place] [address] AUTO DIFFon [id number] #0.0 103/ulNormal0.0-0.1The [facility] CenterComment on above:Performed By: #### CBC #### [facility] [address] [place] [address] Dr. Mikhail CooneyBasophils/100 WBC (Bld)0.4 %Normal0.2-2.0[facility] Comment on above:Performed By: #### CBC #### [facility] [address] [place] [address] Dr. Mikhail Hammer #0.1 103/ulNormal0.0-0.7The [facility] CenterComment on above: Performed By: #### CBC #### [facility] [address] [place] [address] Dr. Mikhail Valleosinophils/100 WBC (Bld)1.3 %Normal0.9-7.0[facility] Comment on above:Performed By: #### CBC #### [facility] [address] [place] [address] Dr. Mikhail Vallerythrocyte distribution width (RBC) [Ratio]11.9 %Oatpln00.0-15.0 The [facility] CenterComment on above:Performed By: #### CBC #### [facility] [address] [place] [address] Dr. Mikhail CooneyHematocrit (Bld) [Volume fraction]44.1 %Owvkxk38.0-48.0The [facility] CenterComment on above:Performed By: #### CBC #### [facility] [address] [place] [address] Dr. Mikhail CooneyHemoglobin (Bld) [Mass/Vol]14.9 g/aANmwohx09.0-16.0The [facility] CenterComment on above:Performed By: #### CBC #### [facility] [address] [place] [address] Dr. Mikhail Brooks #0.02 10e3/ulNormal0.00-0.03The [facility] CenterComment on above:Performed By: #### CBC #### [facility] [address] [place] [address] Dr. Mikhail Brooks %0.3 %Normal0.0-0.5The [facility] CenterComment on above: Performed By: #### CBC #### [facility] [address] [place] [address] Dr. Mikhail Rosario #2.4 103/ulNormal1.2-3.8The [facility] CenterComment on above:Performed By: #### CBC #### [facility] [address] [place] [address] Dr. Mikhail Beaversmphocytes/100 WBC (Bld)30.1 %Jfunbg19.5-60.0The [facility] CenterComment on above:Performed By: #### CBC #### [facility] [address] [place] [address] Dr. Mikhail WinterUAL DIFF REQNONormalThe [facility] CenterComment on above: Performed By: #### CBC #### [facility] [address] [place] [address] Dr. Mikhail Alas (RBC) [Entitic mass]29.6 nfKzohrq55.7-34.0The [facility] CenterComment on above:Performed By: #### CBC #### [facility] [address] [place] [address] Dr. Mikhail DrummondHC (RBC) [Mass/Vol]33.8 g/xBNkesue08.9-35.2The [facility] CenterComment on above:Performed By: #### CBC #### [facility] [address] [place] [address] Dr. Mikhail DrummondV (RBC) [Entitic vol]87.5 xRZbmopb57.0-99.0The [facility] CenterComment on above:Performed By: #### CBC #### [facility] [address] [place] [address] Dr. Mikhail Mcgrath #0.5 103/ulNormal0.3-0.8The [facility] CenterComment on above:Performed By: #### CBC #### [facility] [address] [place] [address] Dr. Mikhail Willsocytes/100 WBC (Bld)6.9 %Normal1.7-12.0The [facility] Comment on above:Performed By: #### CBC #### [facility] [address] [place] [address] Dr. Mikhail Lee #4.8 103/ulNormal1.4-6.5The [facility] CenterComment on above:Performed By: #### CBC #### [facility] [address] [place] [address] Dr. Mikhail Garciautrophils/100 WBC (Bld)61.0 %Nxpsvi11.0-75.0The [facility] CenterComment on above:Performed By: #### CBC #### [facility] [address] [place] [address] Dr. Mikhail Elenalet mean volume (Bld) [Entitic vol]11.7 fLNormal9.5-13.5The [facility] CenterComment on above:Performed By: #### CBC #### [facility] [address] [place] [address] Dr. Mikhail LópezT235 103/hlPmivgt978-259Qja [facility] CenterComment on above: Performed By: #### CBC #### [facility] [address] [address] [address] Mikhail CooneyRBC5.04 106/ulNormal4.20-5.40The [facility] CenterComment on above:Performed By: #### CBC #### [facility] [address] [place] [address] Dr. Mikhail CooneyWBC7.8 103/ulNormal4.0-11.0The [facility] CenterComment on above: Performed By: #### CBC #### [facility] [address] [place] [address] Dr. Mikhail CooneyLIPASEon 31-40-5507Xwcyoh [Catalytic activity/Vol]126.0 U/LNormal 73.0-393.0The [facility] CenterComment on above:Performed By: #### LIPA, CMP #### [facility] [address] [place] [address] Dr. Mikhail CooneyPROF 14(COMP METB)on 14-94-3885Wokigwi [Mass/Vol]3.2 g/dL Critically low3.4-5.0The [facility] CenterComment on above:Performed By: #### LIPA, CMP #### [facility] [address] [place] [address] Dr. Mikhail CooneyAlbumin/Globulin [Mass ratio]0.8 {ratio}NormalThe [facility] CenterComment on above:Performed By: #### LIPA, CMP #### [facility] [address] [place] [address] Dr. Mikhail CourtneyP [Catalytic activity/Vol]87 U/KXkhuua71-300Kwa [facility] CenterComment on above:Performed By: #### LIPA, CMP #### [facility] [address] [place] [address] Dr. Mikhail Abel [Catalytic activity/Vol]31 U/CLbznog70-05Rpb [facility] CenterComment on above:Performed By: #### LIPA, CMP #### [facility] [address] [place] [address] Dr. Mikhail Hameed gap [Moles/Vol]10.4 mmol/LNormalThe [facility] Comment on above:Performed By: #### LIPA, CMP #### [facility] [address] [address] [address] Mikhail CooneyAST [Catalytic activity/Vol]28 U/DEfwwss03-76Dfn [facility] CenterComment on above:Performed By: #### LIPA, CMP #### [facility] [address] [place] [address] Dr. Mikhail CooneyBilirubin [Mass/Vol]0.4 mg/dLNormal0.2-1.0The [facility] Comment on above:Performed By: #### LIPA, CMP #### [facility] [address] [place] [address] Dr. Mikhail CooneyCalcium [Mass/Vol]8.9 mg/dLNormal8.5-10.1The [facility] Comment on above:Performed By: #### LIPA, CMP #### [facility] [address] [place] [address] Dr. Mikhail CooneyChloride [Moles/Vol]104 mmol/RFkezjw74-507Ota [facility] Comment on above:Performed By: #### LIPA, CMP #### [facility] [address] [place] [address] Dr. Mikhail CooneyCO2 [Moles/Vol]29.0 mmol/OOpghbw17.0-32.0[facility] Comment on above:Performed By: #### LIPA, CMP #### [facility] [address] [place] [address] Dr. Mikhail CooneyCreatinine [Mass/Vol]0.81 mg/dLNormal0.55-1.02The [facility] CenterComment on above:Performed By: #### LIPA, CMP #### [facility] [address] [place] [address] Dr. Mikhail ValleGFR-AF COSTA RICAN>60Normal>=60The [facility] CenterComment on above:Performed By: #### LIPA, CMP #### [facility] [address] [place] [address] Dr. Mikhail ValleGFR-NON AF COSTA RICAN>60Normal>=60The [facility] CenterComment on above:Performed By: #### LIPA, CMP #### [facility] [address] [address] [address] Mikhail CooneyGlobulin (S) [Mass/Vol]4.0 g/dLNormMiddletown HospitalComment on above:Performed By: #### LIPA, CMP #### [facility] [address] [place] [address] Dr. Mikhail CooneyGlucose [Mass/Vol]100 mg/xHNyaugt74-081BylUniversity Hospitals Elyria Medical Center Comment on above:Performed By: #### LIPA, CMP #### [facility] [address] [place] [address] Dr. Mikhail CooneyPotassium [Moles/Vol]4.4 mmol/LNormal3.5-5.1[facility] Comment on above:Performed By: #### LIPA, CMP #### [facility] [address] [place] [address] Dr. Mikhail CooneyProtein [Mass/Vol]7.2 g/dLNormal6.4-8.2[facility] Comment on above:Performed By: #### LIPA, CMP #### [facility] [address] [place] [address] Dr. Mikhail CooneySodium [Moles/Vol]139 mmol/SDohugu611-287GlpUniversity Hospitals Elyria Medical Center Comment on above:Performed By: #### LIPA, CMP #### [facility] [address] [place] [address] Dr. Mikhail CooneyUrea nitrogen [Mass/Vol]9.0 mg/dLNormal7.0-18.0The [facility] CenterComment on above:Performed By: #### LIPA, CMP #### [facility] [address] [place] [address] Dr. Mikhail CooneyUrea nitrogen/Creatinine [Mass ratio]11.1 mg/mgNormMiddletown HospitalComment on above:Performed By: #### LIPA, CMP #### [facility] [address] [place] [address] Dr. Mikhail Copeland ACOG PANEL 2: 30 to 66on 03-09-2022..NormalW[facility]-Patterson [facility] on above:Result Comment: Performed at: WBPerformed By: #### CVDTBH #### [facility] [address] [place] [address] Dr. Mikhail Grant Gdln ACOG Oofhlcj25-59HbvuolQzeCherrington HospitalComment on above:Performed By: #### CVDTBH #### [facility] [address] [place] [address] Dr. Mikhail CooneyDIAGNOSIS:CommentPremier Health Atrium Medical Center on above: Result Comment: NEGATIVE FOR INTRAEPITHELIAL LESION OR MALIGNANCY. Performed at: WBPerformed By: #### CVDTBH #### [facility] [address] [place] [address] Dr. Mikhail CooneyHPDov AptimaNegativeNormalNegativeWright-Patterson Medical Center on above:Result Comment: This nucleic acid amplification test detects fourteen high-risk HPV types (16,18,31,33,35,39,45,51,52,56,58,59,66,68) without differentiation. Performed at: =GPerformed By: #### CVDTBH #### [facility] [address] [place] [address] Dr. Mikhail CooneyHPDov Genotype ReflexCommentPremier Health Atrium Medical Center on above:Result Comment: Criteria not met, HPV Genotype not performed. Performed at: WBPerformed By: #### CVDTBH #### [facility] [address] [place] [address] Dr. Mikhail CooneyMethodology:CommentPremier Health Atrium Medical Center on above: Result Comment: This liquid based ThinPrep(R) pap test was screened with the use of an image guided system. Performed at: WBPerformed By: #### CVDTBH #### [facility] [address] [place] [address] Dr. Mikhail CooneyNote:CommentPremier Health Atrium Medical Center on above:Result Comment: The Pap smear is a screening test designed to aid in the detection of premalignant and malignant conditions of the uterine cervix. It is not a diagnostic procedure and should not be used as the sole means of detecting cervical cancer. Both false-positive and false-negative reports do occur. . Performed at: WBPerformed By: #### CVDTBH #### [facility] [address] [place] [address] Dr. Mikhail CooneyPerformed by:CommentPremier Health Atrium Medical Center on above: Result Comment: Zeenat Contreras, Appellate Conferee (ASCP) Performed at: WBPerformed By: #### CVDTBH #### [facility] [address] [place] [address] Dr. Mikhail CooneySpecimen adequacy:[facility] on above:Result Comment: Satisfactory for evaluation. Endocervical and/or squamous metaplastic cells (endocervical component) are present. Performed at: WBPerformed By: #### CVDTBH #### [facility] [address] [place] [address] Dr. Mikhail CooneyASYMPTOMATIC COVID-19 ANTIGENon [id number] StatementSEE BELOW NormalThe [facility] on above:Result Comment: This test has not [...] is revoked sooner.Performed By: #### CVDAGA #### [facility] [address] [place] [address] Dr. Mikhail Fonseca-CoV-2 (COVID-19) RNA JORGE+probe Ql (Unsp spec)NegativeNormal NEGATIVEThe [facility] on above:Result Comment: Negative results are presumptive. They do not preclude infection and should not be used as the sole basis for treatment decisions. Additional confirmatory testing by a molecular method should be considered.Performed By: #### CVDAGA #### [facility] [address] [place], [place] [address] Dr. Mikhail CooneyCovid-19 PCR ([facility])on 27-02-8904JLLM-CoV-2 (COVID-19) RNA JORGE+probe Ql (Unsp spec)DetectedCritically abnormalNOT DETECTEDThe [facility] CenterComfresenius medical care [facility] on above:Result Comment: This test is not yet approved or cleared by the [place] FDA. When there are no FDA-approved or cleared tests available, and other criteria are met, FDA can make tests available under an emergency access mechanism called an Emergency Use Authorization (EUA). The EUA for this test is supported by the [employer] of Health and Human Service's declaration that [...] longer be used).Performed By: #### CVDTBH #### [facility] [address] [place], [place] [address] Dr. Mikhail Cooney Vital Signs Date TimeVital SignValuePerforming ZucdadbxtQsnenxjh82-63-6082 08:44-0500Body otjejr682.6 cmCorey Clark Labs DO Work Phone: [facility] HospitalGdbpqgprhw80-26-0441 08:44-0500Body mass index (BMI) [Ratio]41.32 kg/a2Syvqh [employer] Work Phone: [facility] HospitalBblplykvdh56-24-2266 08:44-0500Body cmagop273.12 kgCore [employer] Work Phone: [facility] HospitalJiauujbqpz69-38-7174 08:44-0500Diastolic blood jycfnvpr02 mm[Hg]Adrienne [employer] Work Phone: [facility] HospitalTrqslscitt45-39-2897 08:44-0500Systolic blood ytmfndhy841 mm[Hg]Adrienne Caldwello DO Work Phone: [facility] HospitalYzcxeanuoj93-75-5878 09:23-0400Body uggqtd415.6 cmCoreleslee Caldwello DO Work Phone: [facility] HospitalZkqecyrehn24-80-5381 09:23-0400Body mass index (BMI) [Ratio]41.4 kg/m2Rqmzg Jim DO Work Phone: [facility] HospitalDvfspfdjpz32-28-3201 09:23-0400Body .35 kgCoreleslee Fernandez DO Work Phone: [facility] HospitalRmwibnrpeu92-26-9168 09:23-0400Diastolic blood axuxjxqw622 mm[Hg]Adrienne Fernandez DO Work Phone: [facility] HospitalJlftxwhqqs36-72-8965 09:23-0400Systolic blood huxyzfxi498 mm[Hg]Adrienne Fernandez DO Work Phone: [facility] HospitalEmnoiqrsdo18-86-1955 09:22-0500Body yuhhhm838.6 cmRaffaele Romero MD Work Phone: [facility] HospitalXwfvbicnee35-77-4658 09:22-0500Body mass index (BMI) [Ratio]41.8 kg/m2Raffaele Romero MD Work Phone: [facility] HospitalIkxbjrvqnb44-56-2556 09:22-0500Body temperature 97.5 [degF]Raffaele Romero MD Work Phone: [facility] HospitalElpfxjrjfy89-35-8391 09:22-0500Body ybbrdz906.48 kgRaffaele Romero MD Work Phone: [facility] HospitalLevqwfyqwr88-76-9537 09:22-0500Diastolic blood gxhrdcyu15 mm[Hg]Raffaele Romero MD Work Phone: [facility] HospitalMivqgilhpr80-76-5288 09:22-0500Heart rate94 /min Raffaele Romero MD Work Phone: [facility] HospitalDqxddrzork39-37-7660 09:22-0500Respiratory rate22 /minRaffaele Romero MD Work Phone: [facility] HospitalCvacrehebd84-71-5212 09:22-2804RoZ3% (BldA) [Mass fraction]98 %Raffaele Romero MD Work Phone: [facility] HospitalUqngijzgqx53-07-1415 09:22-0500Systolic blood mm[Hg]Raffaele Romero MD Work Phone: [facility] HospitalSgckqnuvkg02-64-1898 09:50-0400Body wsynta759.6 cmRaffaele Romero MD Work Phone: [facility] HospitalMnscnrfcum45-39-1016 09:50-0400Body mass index (BMI) [Ratio]41.16 kg/m2Raffaele Romero MD Work Phone: [facility] HospitalWxbqrpusdu52-80-2092 09:50-0400Body temperature 97.81 [degF]Raffaele Romero MD Work Phone: [facility] HospitalKiggotuveh95-48-4573 09:50-0400Body uqmuyh250.67 kgRaffaele Romero MD Work Phone: [facility] HospitalCsruckbwqu46-00-4304 09:50-0400Diastolic blood wekgahze27 mm[Hg]Raffaele Romero MD Work Phone: [facility] HospitalColwcxpjqv27-51-8385 09:50-0400Heart rate49 /min Raffaele Romero MD Work Phone: [place] [address]Hdpbifidqo60-37-3147 09:50-0400Respiratory rate20 /minRaffaele Romero MD Work Phone: [facility] HospitalVyijoyxest19-90-3115 09:50-7271BzQ7% (BldA) [Mass fraction]97 %Raffaele Romero MD Work Phone: [facility] HospitalUywjjyipae37-54-8745 09:50-0400Systolic blood fofeiyfw487 mm[Hg]Raffaele Romero MD Work Phone: [facility] HospitalKiiwdlyygk75-77-7813 13:42-0500Body mass index (BMI) [Ratio]40.51 kg/m2Michelle Cassandra SARMIENTO Work Phone: no[facility] ServicesPmpcwkisas66-97-7307 13:42-0500Body .85 kgMichelle Cassandra SARMIENTO Work Phone: noSaint [facility] ServicesWpgmfvsohu38-55-1790 13:42-0500Diastolic blood mm[Hg]Michelle SARMIENTO Work Phone: noSaint [facility] ServicesXsrivgzqgr94-58-9000 13:42-0500Systolic blood mvsikxko073 mm[Hg]Michelle SARMIENTO Work Phone: [facility] Encounters Encounter DateEncounter TypeCare ProviderFacilityStart: 02-05-2025 End: 45-81-4614Yhfbkc flowsheetCorey Syntasia Work Phone: noms [facility] OBGYNStart: 02-05-2025 End: 00-43-6457Kugzcx flowsheetCorey Jim DO Work Phone: [facility] OBGYNStart: 02-05-2025 End: 77-48-7779Begjcc outpatient visit 15 minutesCorey Syntasia Work Phone: [facility]oms Christopher OBGYNComment on above:Pre-op evaluation; Menorrhagia with regular cycle; Abnormal uterine bleeding (AUB); Dysmenorrhea; Dyspareunia in female; Pelvic painStart: 02-05-2025 End: 78-09-6241Tkrqexaboiwda examination doneCorey Jim DO Work Phone: noMS HealthcareStart: 02-05-2025 End: 13-56-4077bfllcamodoILQIN FAZIONot AvailableStart: 10-01-2024 End: 68-33-1723KlzoopMayra Romero MD Work Phone: [facility] FMComment on above:Poison teto dermatitis (Primary Dx)Poison teto dermatitisStart: 09-21-2024 End: 91-98-6816Erflwhoup Result EncounterRaffaele Romero MD Work Phone: NOXK External Department UnsolicitedStart: 09-21-2024 End: 49-95-3839Yhorvwbfc Result EncounterRaffaele Romero MD Work Phone: NOOX External Department UnsolicitedStart: 09-20-2024 End: 34-51-1714Rbcgfl flowsheetCorey Jim DO Work Phone: NOSN BCP OBStart: 09-20-2024 End: 43-81-4751Uwocli flowsheetCorey Jim DO Work Phone: NOQA BCP OBStart: 09-20-2024 End: 08-92-1882Ukddlpkfh Result EncounterGeneric External Data ProviderNOMS External Department UnsolicitedStart: 09-20-2024 End: 00-94-2203hhzrdenllcXLHUU FAZIONot AvailableStart: 09-20-2024 End: 85-45-2514Efvktnm encounter procedureCorey Jim DO Work Phone: NOQE HealthcareStart: 09-20-2024 End: 35-31-9066Ykkfplyq preventive med est patient 18-39 yrsCorey Jim DO Work Phone: NOAB BCP OBComment on above:Well woman exam with routine gynecological examStart: 09-19-2024 End: 21-80-6485Tiyvhn OnlyRaffaele Romero MD Work Phone: NOMS CWM FMComment on above:Chronic pain of right knee (Primary Dx)Start: 03-08-2024 End: 54-20-8527Bgtpqz flowsPauly Romero MD Work Phone: NOMS CWM FMStart: 03-08-2024 End: 14-90-2594Igfzow Jacqueline Romero MD Work Phone: NOMS CWM FMStart: 03-08-2024 End: 15-62-2159Trawwgxeu encounterRaffaele Romero MD Work Phone: NOCG CWM FMStart: 03-08-2024 End: 24-14-1253Aitxmr outpatient visit 25 minutesRaffaele Romero MD Work Phone: noms CWM FMComment on above:KATHY (generalized anxiety disorder) (CMS/HCC) (Primary Dx); PCOS (polycystic ovarian syndrome); Insulin resistance; Class 3 severe obesity due to excess calories with serious comorbidity and body mass index (BMI) of40.0 to 44.9 in adult (CMS/HCC)Start: 03-08-2024 End: 94-39-0215ztkwgqtmbmKQJE NADERERNot AvailableStart: 12-13-2023 End: 20-65-2846Dzfwvoxzh Result EncounterRaffaele Romero MD Work Phone: noms External Department UnsolicitedStart: 12-13-2023 End: 08-09-0278Osqjlzcfd Result EncounterRaffaele Romero MD Work Phone: noms External Department UnsolicitedStart: 12-08-2023 End: 40-80-1676Hphbgb flowsPauly Romero MD Work Phone: noms CWM FMStart: 12-08-2023 End: 58-41-9893Bxmdtj Jacqueline Romero MD Work Phone: noms CWM FMStart: 12-08-2023 End: 81-16-7424Nvfbnqt encounter procedureRaffaele Romero MD Work Phone: noms HealthcareStart: 12-08-2023 End: 74-46-7019Oxadzrco preventive med est patient 18-39 yrsRaffaele Romero MD Work Phone: noms CWM FMComment on above:Annual physical exam (Primary Dx); Morbid obesity due to excess calories (CMS/HCC); PCOS (polycystic ovarian syndrome); Body mass index (BMI) 38.0-38.9, adultStart: 12-08-2023 End: 46-71-1317xvstgksnegFENS NADERERNot AvailableStart: 05-12-2023 End: 64-09-5498Domueq follow up visit related to original Aaron Trujillo GUILLERMINA Work Phone: NOMS BCP OBComment on above:Postoperative examination; DysuriaStart: 05-12-2023 End: 83-55-8535pdlvhnoosxIAT RAMEYRobin AvailableStart: 05-06-2023 End: 44-09-3592iqftvbtlezIhwtr FazioFacility:[facility] Start: 05-06-2023 End: 17-65-2419fcjhlxwtevRrzaq Jim Work Phone: [facility] Work Phone: Start: 05-06-2023 End: 89-71-6187Ixgzflcs ReferredCorey Jim Work Phone: [facility]-LAB Path Spec [facility] HospStart: 04-12-2023 End: 64-37-6172lreoovxdmaVGJUI FAZIONot AvailableStart: 04-11-2023 End: 61-39-9507Jwnbupypu Result EncounterGeneric External Data ProviderNOMS External Department UnsolicitedStart: 04-11-2023 End: 94-74-8622Cqzwtybld Result EncounterGeneric External Data ProviderNOMS External Department UnsolicitedStart: 03-07-2023 End: 02-46-3334qcdvjtriepHDGYF FAZIONot AvailableStart: 45-03-1755iisnyvakpc Moisés NILLFacility:[facility] [place]vueStart: 08-06-2022 End: 72-49-1885fkcmbgnbhgZL RYAN WOLF .Facility:E7Rnino: 20-94-0290zfwrcnwqis Moisés Garzon NILRadhaFacility: BellevueStart: 25-60-0043vonnimlgtgApizkgn NILL Facility: evueStart: 04-21-2022 End: 79-59-0725ekuengpdttIO NONE LISTED REQUESTFacility:B4Ddoas: 03-02-2022 End: 76-16-0938ayimmfieodHR ADRIENNE FERNANDEZ .Facility:X1Wugcn: 11-03-2021 End: 81-66-3203exqulmxwvzBHMYXSIF EBERLYFacility:L3Lgbqx: 10-29-2021 End: 15-31-7795qaiyfqjkxbOX NONE LISTED REQUESTFacility:M0Spaac: 08-11-2021 End: 45-80-8509xuelyqaslqBS NONE LISTED REQUESTFacility:H1 Procedures DateProcedureProcedure DetailPerforming ClinicianStart: 05-55-1982Crtsfykyri examination knee 1/2 Yoko Romero MD Work Phone: Start: 61-44-0558BWP,APTIMA HPV,AGE GDLNCorey Jim DO Work Phone: Start: 75-66-9356Nzvupuitutw observation [Identifier] in Cervix by Cyto stainRaffaele Romero MD Work Phone: Start: 10-78-0965CXN CBC WITH AUTO DIFFRaffaele Romero MD Work Phone: Start: 39-23-6789Sgoez dip stick/tablet rgnt non-auto w/o micrscpAmy Cassandra SARMIENTO Work Phone: Start: 16-24-7431AC PELVIS W/ TRANSVAGINALGeneric External Data ProviderStart: 60-54-1609PLB DEHYDROEPIANDROSTERONECorey Jim DO Work Phone: Start: 24-87-8234OZR DHEA SULFATECorey Jim DO Work Phone: Start: 17-95-0331TQB FOLLICLE STIMULATING HORMONECorey Jim DO Work Phone: Start: 01-79-8476WOK LUTEINIZING HORMONECorey Jim DO Work Phone: Start: 02-11-5849FAI THYROID STIM HORMONECorey Jim DO Work Phone: Start: 19-42-2511RTQ THYROXINE (T4) FREECorey Jim DO Work Phone: Start: 68-73-3250FUG HEMOGLOBIN Y2AVrdpy Jim DO Work Phone: Start: 92-08-5061AZK PREG QUANT HCGCorey Jim DO Work Phone: Start: 63-47-7658Uohaagkelzi observation [Identifier] in Cervix by Cyto stainMichelle SARMIENTO Work Phone: Plan of Treatment DateCare ActivityDetailAuthorStart: 46-09-7716Vfblullzg for malignant neoplasm of cervixPap SmearNOMS HealthcareStart: 96-61-6483Csfojttlu for malignant neoplasm of cervixNOMS HealthcareStart: 09-30-2025 End: 25-48-1189Tbvcqla encounter procedureNOMS BCP OBStart: 02-05-2025 End: 75-27-9163Mghxhnp encounter procedureNOMS BCP OBComment on above:Arrived Start: 10-22-3805Ytfrujpac vaccinationInfluenza Vaccine (#1)[facility] Start: 09-20-2024 End: 63-69-2304Oeqksub encounter yiixgnnwn33/19/2025 9:00 AM EDT [facility] [address] [phone] Adrienne Fernandez, DO [address] [place] [address] NOMS BCP OBStart: 09-19-2024 End: 38-49-5116RF Knee - right 1 or 2 ViewsXR knee 1 or 2 views right Imaging Routine Chronic pain of right knee Expected: 09/19/2024, Expires: 09/19/2025[facility] Work Phone: Comment on above:Expected: 09/19/2024, Expires: 09/19/2025Start: 05-09-2024 End: 32-65-8151Vuincgg encounter /05/2025 9:30 AM EST Office Visit [facility] [address] [place] [phone] Raffaele Romeor MD [address] [place] [phone] [facility] FAWN FMStart: 03-08-2024 End: 31-72-6240Sehzjry encounter hoognhkum48/05/2024 9:15 AM EST Office Visit [facility] [address] [place] [address] Raffaele Romero MD [address] [place] [address] NOMJeanette AUGUSTINE FMStart: 12-08-2023 End: 57-78-2516Sarwgdo encounter tpbdvmumu84/05/2024 9:15 AM EDT Office Visit [facility] [address] [place] [phone] Raffaele Romero MD [address] [place] [address] ArrivedAD[facility] FMComment on above:ArrivedStart: 84-66-8156Tizgcaxll vaccinationInfluenza Vaccine (#1)NOM[facility] HealthcareStart: 73-00-5659Ydtjliipp vaccinationInfluenza Vaccine (#1)[facility] HealthcareBacteria identified in Urine by CultureUrine culture Microbiology Routine Dysuria Ordered: 05/12/2023[facility] Work Phone: comment on above:Ordered: 05/12/2023ytology Cervical or vaginal smear or scraping studyPap Smear Pathology and Cytology Routine Well woman exam with routine gynecological exam Ordered: 09/20/2024[facility] Work Phone: comment on above:Ordered: 09/20/2024Human papilloma virus DNA [Presence] in Unspecified specimen by Probe with amplificationHPV DNA probe, amplified Microbiology Routine Well woman exam with routine gynecological exam Ordered: 09/20/2024[facility] HealthcareComment on above:Ordered: 09/20/2024 Immunizations Immunization DateImmunizationNotesCare VdmyheqdTeyxcdbm43-49-2257bqygnkvyx virus vaccine, unspecified formulationAbrazo [facility] William RALPH Work Phone: [facility] Payers DatePayer CategoryPayerPolicy [id number] [facility] [id number] [facility] [id number] 2022-Present [phone] [address] [place] [address] [id number] [id number] 2.0.1.976980.3.579.2.26943-06-3013Cconlfk3113018 2..1.083121.3.579.2.78465-58-7754Hxwswfm3155489 2..1.474881.3.579.2.20112-36-6896Hrpovdz0309721 2.0.1.134668.3.579.2.00454-42-9700Uipmvri83255750 2.0.1.248320.3.579.[id number] 2.0.1.649456.3.579.2.763719-57-0321Efvflbh2580175 2.0.1.577338.3.579.2.647907-76-6090Kinmyjf1318424 2.16.840.1.499660.3.579.2.158384-63-3880Cuphhmr059271 2..840.1.524765.3.579.2.875403-64-3227Nvgawum08000327 2.16.840.1.903809.3.579.2.096413-47-7240Svoxgpo54082026 2..840.1.482858.3.579.2.614768-42-7948Fgjtvxq3426596 2.16.840.1.109797.3.579.2.410785-44-7893Vsyf-[id number] [id number] 2.16.840.1.967103.3.579.2.154Yeidbjc6542992 2.0.1.544269.3.579.2.593 Social History DateTypeDetailFacilityTobacco smoking status NHISUnknown if ever smokedGerman Hospital Work Phone: Start: 44-68-6688Hvv Assigned At BirthFeBellevue HospitalTobacco smoking status NHISTobacco smoking consumption unknownNOMS HealthcareStart: 74-86-7470Lbh Assigned At BirthNot on fileNOMS HealthcareStart: 12-07-2023 End: 05-14-2178Ldryyc identityNot on fileNOMS HealthcareStart: 80-65-2880Tzqetfu smoking status NHISNever smoked tobaccoNOMS HealthcareStart: 59-98-0336Hvfbjtp use and exposureSmokeless tobacco non-userNOMS HealthcareStart: 12-07-2023 End: 47-85-5288Uxuavyk of Social functionNOMS HealthcareStart: 27-32-2483Vjl often do you need to have someone help you when you read instructions, pamphlets, or other written material from your doctor or pharmacy [SILS]Rarely NOMS HealthcareDo you belong to any clubs or organizations such as mu-ism groups, unions, fraternal or athletic groups, or [...] written material from your doctor or pharmacy [SILS]RarelyNONY Healthcare Functional Status HkqhPeuvkkyakgGcddlrMxwmliux35-44-4330Amraw score [AUDIT-C]0 12/07/2023 6:52 PM EDT [facility], [facility] ClinicsRygcekzjzi16-86-9583Mqb often do you have a drink containing alcohol?Never 12/07/2023 6:52 PM EDT [facility], Generic [facility] CenterVmuxhvaxfn10-75-0675Hidbzgnptq statusPatient does not drink 12/07/2023 6:52 PM EDT [employer], Generic Patient does not drinkOzarks Community HospitalMupdkhhpik06-73-3354Ucs often do you have 6 or more drinks on 1 occasion?Never 12/07/2023 6:52 PM EDT [facility], Generic [facility] Clinical Notes 05-12-2023 to 02-05-2025 Note Date & UrcbMvesPqixezia72-07-5492 History of Present illness Narrative* Abigail Paz - 02/05/2025 8:40 AM EST Reason for Appointment: Patient ID: Basil Carranza is a 39 y.o. female who presents for Pre-op Visit Patient presents today for Pre Op appointment. Patient is scheduled to undergo Da Zuleyka assisted Laparoscopic Hysterectomy, possible exploratory laparotomy, possible BSO, possible cystoscopy on 03/06/[address] Fernandez at [facility]. MEDICATIONS Current Outpatient Medications Medication Instructions busPIRone (Buspar) 7.5 MG tablet As needed ALLERGIES No Known Allergies PROBLEMS Active Ambulatory Problems Diagnosis Date Noted Insulin resistance 12/07/2023 PCOS (polycystic ovarian syndrome) 12/07/2023 Class 3 severe obesity due to excess calories with serious comorbidity and body mass index (BMI) of40.0 to 44.9 in adult ([facility]) 12/07/2023 Nontraumatic coccydynia 12/08/2023 Annual physical exam [...] nursing note reviewed. Exam conducted with a transmitter chief present. Vitals: Estimated body mass index is [...] reviewed, and patient is to proceed to [facility] OR. Follow Up: Patient is to follow up at 1 & 6 weeks post operative to assess proper healing and recovery from procedure. Documented by Monserrat Gallegos LPN on behalf of: Adrienne Fernandez DO documented in this encounterOzarks Community HospitalTevtreinhu05-25-6371 History of Present illness Narrative* GUILLERMINA Lugo [...] index (BMI) of40.0 to 44.9 in adult ([facility]) 12/07/2023 Nontraumatic coccydynia 12/08/2023 Annual physical exam [...] nursing note reviewed. Exam conducted with a transmitter chief present. Vitals: Estimated body mass index is [...] of: Adrienne Fernandez DO documented in this [facility]06-18-2025 Telephone encounter Note* Telephone Encounter - Raffaele Romero MD - 09/19/2024 3:03 PM EDT X-ray order in chart, please fax to hospital. [facility] HospitalKnllyksefw00-12-2609 Miscellaneous Notes* Telephone Encounter - Raffaele Romero MD - 09/19/2024 3:03 PM EDT X-ray order in chart, please fax to hospital. * Telephone Encounter - Saba Oglesby - 09/19/2024 9:29 AM EDT Basil Carranza has twisted her knee and is having knee pain. She would like an X-Ray order called into [facility]. Her number is [phone]. documented in this [facility]06-18-2025 Telephone encounter Note* Telephone Encounter - Saba Oglesby - 09/19/2024 9:29 AM EDT Basil Carranza has twisted her knee and is having knee pain. She would like an X-Ray order called into [facility]. Her number is [phone]. [facility] HospitalOpzitvhlca01-93-8314 Telephone encounter Note* Telephone Encounter - Raffaele Romero MD - 03/08/2024 12:04 PM EST New script sent. [facility] HospitalMtktxwbfpm86-28-1253 Miscellaneous Notes* Telephone Encounter - Raffaele Romero MD - 03/08/2024 12:04 PM EST New script sent. * Telephone Encounter - DUNIA EID - 03/08/2024 11:39 AM EST Patient called states insurance will not pay for 7.5 mg tablet, but will pay for a 15mg so she could cut it in half. clm documented in this encounterOzarks Community HospitalFfivsjoblz85-92-1281 Telephone encounter Note* Telephone Encounter - DUNIA EID - 03/08/2024 11:39 AM EST Patient called states insurance will not pay for 7.5 mg tablet, but will pay for a 15mg so she could cut it in half. clm [facility] HospitalNevogiztvz15-39-6651 History of Present illness Narrative* Raffaele Romero MD - 03/08/2024 10:12 AM ESTAssociated Problem(s): Insulin resistance Increase metformin * Raffaele Romero MD - 03/08/2024 10:11 AM ESTAssociated Problem(s): PCOS (polycystic ovarian syndrome) Increase metformin * Raffaele Romero MD - 03/08/2024 10:11 AM ESTAssociated Problem(s): KATHY (generalized anxiety disorder) ([facility]) Worsening symptoms and start zoloft. Warned will take 2-3 weeks to notice improvement in mood. Use buspar PRN. * Raffaele Romero MD - 03/08/2024 10:11 AM ESTAssociated Problem(s): Class 3 severe obesity due to excess calories with serious comorbidity and body mass index (BMI) of 40.0 to 44.9 in adult ([facility]) Discussed proper diet and regular aerobic exercise. [...] index (BMI) of40.0 to 44.9 in adult ([facility]) Discussed proper diet and regular aerobic exercise. Recommend Weight Watchers and need to limit calories and smaller portions. Need to increase activity and regular aerobic exercise several days a week for 30 minutes at a time. KATHY (generalized anxiety disorder) ([facility]) - Primary Worsening symptoms and start zoloft. Warned will take 2-3 weeks to notice improvement in mood. Use buspar PRN. Relevant Medications sertraline (Zoloft) 25 MG tablet busPIRone (Buspar) 7.5 MG tablet documented in this encounterOzarks Community HospitalTtljgthaag21-41-0625 History of Present illness Narrative* Raffaele Romero MD - 12/08/2023 10:08 AM EDTAssociated Problem(s): Morbid obesity due to excess calories ([facility]) Discussed proper diet and regular aerobic exercise. [...] Discussed daily Aspirin therapy. documented in this encounterOzarks Community HospitalKjyjzrtsur25-14-2102 History of Present illness Narrative* GUILLERMINA Lugo [...] in this encounterNOMS HealthcareEvaluation noteNo assessment information availableGerman Hospital Work Phone: Evaluation note* Diagnosis Postoperative examination Follow-up examination, following unspecified surgery Dysuria documented in this encounter NOMS HealthcareEvaluation note* Diagnosis Annual physical exam- Primary Routine general medical examination at a health care facility Morbid obesity due to excess calories ([facility]) PCOS (polycystic ovarian syndrome) Polycystic ovaries Body mass index (BMI) 38.0-38.9, adult KATHY (generalized anxiety disorder) ([facility])- Primary Generalized anxiety disorder PCOS (polycystic ovarian syndrome) Polycystic ovaries Insulin resistance Other abnormal glucose Class 3 severe obesity due to excess calories with serious comorbidity and body mass index (BMI) of40.0 to 44.9 in adult ([facility]) documented in this encounter NOMS HealthcareEvaluation note* Diagnosis Annual physical exam- Primary Routine general medical examination at a health care facility Morbid obesity due to excess calories ([facility]) PCOS (polycystic ovarian syndrome) Polycystic ovaries Body mass index (BMI) 38.0-38.9, adult KATHY (generalized anxiety disorder) ([facility])- Primary Generalized anxiety disorder PCOS (polycystic ovarian syndrome) Polycystic ovaries Insulin resistance Other abnormal glucose Class 3 severe obesity due to excess calories with serious comorbidity and body mass index (BMI) of40.0 to 44.9 in adult ([facility]) KATHY (generalized anxiety disorder) ([facility]) Generalized anxiety disorder documented in this encounter [facility] HealthcareEvaluation note* Diagnosis Annual physical exam- Primary Routine general medical examination at a health care facility Morbid obesity due to excess calories ([facility]) PCOS (polycystic ovarian syndrome) Polycystic ovaries Body mass index (BMI) 38.0-38.9, adult documented in this encounter [facility] HealthcareEvaluation note* Diagnosis Annual physical exam- Primary Routine general medical examination at a health care facility Morbid obesity due to excess calories ([facility]) PCOS (polycystic ovarian syndrome) Polycystic ovaries Body mass index (BMI) 38.0-38.9, adult KATHY (generalized anxiety disorder)- Primary Generalized anxiety disorder PCOS (polycystic ovarian syndrome) Polycystic ovaries Insulin resistance Other abnormal glucose Class 3 severe obesity due to excess calories with serious comorbidity and body mass index (BMI) of40.0 to 44.9 in adult ([facility] Chronic pain of right knee- Primary documented in this encounter N[facility]S HealthcareEvaluation note* Diagnosis Annual physical exam- Primary Routine general medical examination at a health care facility Morbid obesity due to excess calories ([facility]) PCOS (polycystic ovarian syndrome) Polycystic ovaries Body mass index (BMI) 38.0-38.9, adult KATHY (generalized anxiety disorder)- Primary Generalized anxiety disorder PCOS (polycystic ovarian syndrome) Polycystic ovaries Insulin resistance Other abnormal glucose Class 3 severe obesity due to excess calories with serious comorbidity and body mass index (BMI) of40.0 to 44.9 in adult ([facility]) Well woman exam with routine gynecological exam Routine gynecological examination documented in this encounter [facility] HealthcareEvaluation note* Diagnosis Annual physical exam- Primary Routine general medical examination at a health care facility Morbid obesity due to excess calories ([facility]) PCOS (polycystic ovarian syndrome) Polycystic ovaries Body mass index (BMI) 38.0-38.9, adult KATHY (generalized anxiety disorder)- Primary Generalized anxiety disorder PCOS (polycystic ovarian syndrome) Polycystic ovaries Insulin resistance Other abnormal glucose Class 3 severe obesity due to excess calories with serious comorbidity and body mass index (BMI) of40.0 to 44.9 in adult ([facility]) Poison teto dermatitis- Primary documented in this encounter [facility]S HealthcareEvaluation note* Diagnosis Annual physical exam- Primary Routine general medical examination at a health care facility Morbid obesity due to excess calories ([facility]) PCOS (polycystic ovarian syndrome) Polycystic ovaries Body mass index (BMI) 38.0-38.9, adult KATHY (generalized anxiety disorder)- Primary Generalized anxiety disorder PCOS (polycystic ovarian syndrome) Polycystic ovaries Insulin resistance Other abnormal glucose Class 3 severe obesity due to excess calories with serious comorbidity and body mass index (BMI) of40.0 to 44.9 in adult [place] Poison teto dermatitis documented in [facility]* Diagnosis Annual physical exam- Primary Routine general medical examination at a health care facility Morbid obesity due to excess calories [place] PCOS (polycystic ovarian syndrome) Polycystic ovaries Body mass index (BMI) 38.0-38.9, adult KATHY (generalized anxiety disorder)- Primary Generalized anxiety disorder PCOS (polycystic ovarian syndrome) Polycystic ovaries Insulin resistance Other abnormal glucose Class 3 severe obesity due to excess calories with serious comorbidity and body mass index (BMI) of40.0 to 44.9 in adult [place] Chronic pain of right knee- Primary documented in this encounter [facility]* Diagnosis Annual physical exam- Primary Routine general medical examination at a health care facility Morbid obesity due to excess calories ([facility] PCOS (polycystic ovarian syndrome) Polycystic ovaries Body mass index (BMI) 38.0-38.9, adult KATHY (generalized anxiety disorder)- Primary Generalized anxiety disorder PCOS (polycystic ovarian syndrome) Polycystic ovaries Insulin resistance Other abnormal glucose Class 3 severe obesity due to excess calories with serious comorbidity and body mass index (BMI) of40.0 to 44.9 in adult ([facility]) Pre-op evaluation Menorrhagia with regular cycle Abnormal [...] section and content) DATE CREATED AUTHOR 08/06/2022 [facility] DATE CREATED AUTHOR AUTHOR'S ORGANIZ ATION 08/12/2022 [facility] DATE CREATED AUTHOR AUTHOR'S ORGANIZ ATION 05/11/2023 [facility] DATE CREATED AUTHOR AUTHOR'S ORGANIZ ATION 12/09/2023 [facility] DATE CREATED AUTHOR AUTHOR'S ORGANIZ ATION 02/06/2025 [facility] Care Teams (unrecognized sec tion and content) Team Status: Inactive Member Role Status Dates Adrienne Fernandez Attending Provider Active Start: 2023 End: May 06, 2023Team MemberRelationshipSpecialtyStart DateEnd Date Raffaele Romero MD PCP - Pcbfnkk93/4/23Team MemberRelationshipSpecialtyStart DateEnd Date Raffaele Romero MD [address] [place] [address] [facility] - [facility] Raffaele Romero MD [address] [place] [address] PCP - [place] Erkacqebve68/1/24Team MemberRelationshipSpecialtyStart DateEnd Date Raffaele Romero MD [address] [place] [address] PCP - GeneralFamily Medicine12/08/23 Raffaele Romero MD [address] [place] [address] PCP - [place] Wnqggoiwjg00/1/24Team MemberRelationshipSpecialtyStart DateEnd Date Raffaele Romero MD [address] [place] [address] PCP - GeneralFamily Medicine12/08/23Team MemberRelationshipSpecialtyStart DateEnd Date Raffaele Romero MD [address] [place] [address] PCP - GeneralFamily Medicine12/08/23Team MemberRelationshipSpecialtyStart DateEnd Date Raffaele Romero MD [address] [place] [address] PCP - GeneralFamily Medicine12/08/23Team MemberRelationshipSpecialtyStart DateEnd Date Raffaele Romero MD [address] [place] [address] PCP - GeneralFamily Medicine12/08/23Team MemberRelationshipSpecialtyStart DateEnd Date Raffaele Romero MD [address] [place] [address] PCP - GeneralFamily Medicine12/08/23Team MemberRelationshipSpecialtyStart DateEnd Date Raffaele Romero MD [address] [place] [address] PCP - GeneralFamily Medicine12/08/23Team MemberRelationshipSpecialtyStart DateEnd Date Raffaele Romero MD [address] [place] [address] PCP - GeneralFamily Medicine12/08/23Team MemberRelationshipSpecialtyStart DateEnd Date Raffaele Romero MD [address] [place] [address] PCP - GeneralFamily Medicine12/08/23Team MemberRelationshipSpecialtyStart DateEnd Date Raffaele Romero MD PCP - Vpyvorv95/4/239 Raffaele Romero MD PCP - GeneralFamily Medicine12/08/23 Raffaele Romero MD [address] [place] [address] PCP - [place] Wcjlazecki64///02/26Team MemberRelationshipSpecialtyStart Date End Date Raffaele Romero MD PCP - Cjjecja72/4/239 Raffaele Romero MD PCP - GeneralFamily Medicine12/08/23 Raffaele Romero MD [address] [place] [address] PCP - [place] Iqgyynrdhq20/1/244Team MemberRelationshipSpecialtyStart Date End Date Raffaele Romero MD PCP - [facility]12/08/23Team MemberRelationshipSpecialtyStart DateEnd Date Raffaele Romero MD PCP - [facility]12/08/23 Goals (unrecognized section and content) Goals may be documented in a n alternate section Reason for Visit (unrecogniz ed section and content) ReasonCommentsPost-op VisitReasonCommentsFollow-ql5LUmpvazGvrrmyruUtkjcp Exam wellnessReasonCommentsWell Women VisitReasonCommentsPre-op Visit FOR RECORDS [...] BE BASED ON THE PRIMARY CLINICAL RECORDS. [facility]. provides no warranty or guarantee of the accuracy or completeness of information in this document.
--- OUTSIDE RECORDS SUMMARY | 2025-03-06 06:13 | XMS_ITS | Encounter Summary ---
Author Organization [facility] Address [address] [place] [address] Care Team Providers Care Brazer Induction Name Role Phone Raffaele Thomas MD Primary Care Provider [phone] Encounter Details DateTypeDepartmentCare Team (Latest Contact Info)Jhkwjfqnhgp29/24/2025linisync Result Encounter [facility]OMS External Department Unsolicited Mitch Fernandez, DO [address] [place], [place] [id number] Social History Tobacco UseTypesPacks/DayYears UsedDateSmoking Tobacco: NeverSmokeless Tobacco: [id number] Health LiteracyAnswerDate RecordedHow often do you need to have someone help you when you read instructions, pamphlets, or other written material from your doctor or pharmacy?Flujvp8712/07/2023Social Connection and Isolation PanelAnswerDate RecordedIn a typical week, how many times do you talk on the phone with family, friends, or neighbors?More than three times a week 12/07/2023How often do you get together with friends or relatives?Once a week 12/07/2023How often do you attend zoroastrianism or roman catholic services?More than 4 times per year4Do you belong to any clubs or organizations such as zoroastrianism groups, unions, fraternal or athletic groups, or school groups?Yes12/07/2023How often do you attend meetings of the clubs or organizations you belong to?More than 4 times per year4Are you , , , , never , or living with a partner?Anzcfpdww40/04/2024UDIT-CAnswerDate RecordedQ1: How often do you have a drink containing alcohol?Never12/07/2023Q2: How many drinks containing alcohol do you have on a typical day when you are drinking?Patient does not drink12/07/2023Q3: How often do you have six or more drinks on one occasion?Never12/07/2023Overall Financial Resource Strain (CARDIA) AnswerDate RecordedHow hard is it for you to pay for the very basics like food, housing, medical care, and heating?Not very hard12/07/2023[facility] [place] of Occupational Health - Occupational Stress QuestionnaireAnswerDate [...] before you got the money to buymore.Never true12/07/2023Within the past 12 months, the food you [...] were you homeless or living in a [place] health [place] facility (including now)?No4CommentsNoSex and Gender Information ValueDate RecordedSex Assigned at BirthNot on fileLegal YqmIfdbqn55/15/2023 7:06 PM EDTGender IdentityNot on fileSexual OrientationNot on filedocumented as of this encounter Plan of Treatment DateTypeDepartmentCare Team (Latest Contact Info)Tfjlqgllsjd37/29/2026 10:00 AM EDTOffice Visit [facility] [address] [place] [address] Mitch Fernandez, [address] [place] [address] documented as of this encounter Procedures Procedure NamePriorityDate/TimeAssociated DiagnosisCommentsSRMCOH PROTHROMBIN TIME INR W/O AOIHUlgpjdi52/24/2025 11:20 AM EST HP LIVER KREUYAblpofc53/24/2025 11:20 AM EST CCF ELAVLmgjjwo47/24/2025 11:20 AM EST ALL TYPE AND PVRHFQZfdzwmk28/24/2025 11:20 AM EST ALL CBC WITH AUTO SOGBRkfaleo91/24/2025 11:20 AM EST ALL BASIC METABOLIC CAOQIPtzwzik90/24/2025 11:20 AM EST documented in this encounter Results * ALL TYPE AND SCREEN (02/25/2025 11:20 AM EST)ComponentValueRef RangeTest MethodAnalysis TimePerformed AtPathologist SignatureBLOOD TYPEO PositiveTBH ANTIBODY SCREENNEGATIVETBHSpecimen (Source)Anatomical Location / Laterality Collection Method / VolumeCollection TimeReceived Time02/25/2025 11:20 AM EST 02/25/2025 11:25 AM EST Narrative CLINISYNC - 02/25/2025 1:43 PM EST [facility] , ?? Authorizing ProviderResult TypeResult StatusCorey Jim DOCLINISYNCFinal Result Performing OrganizationAddressCity/State/ZIP CodePhone Number [facility] * CCF APTT (02/25/2025 11:20 AM EST)ComponentValueRef RangeTest MethodAnalysis TimePerformed AtPathologist SignaturePARTIAL THROMBOPLASTIN TIME26.722.3 - 36.2 secTBHSpecimen (Source)Anatomical Location / LateralityCollection Method / VolumeCollection TimeReceived Time02/25/2025 11:20 AM EST02/25/2025 11:25 AM EST Narrative CLINISYNC - 02/25/2025 12:22 PM EST Authorizing ProviderResult TypeResult StatusCorey Jim DOCLINISYNCFinal Result Performing OrganizationAddressCity/State/ZIP CodePhone Number [facility] * SRMCOH PROTHROMBIN TIME INR W/O COUM (02/25/2025 11:20 AM EST)ComponentValue Ref RangeTest MethodAnalysis TimePerformed AtPathologist SignaturePROTHROMBIN TIME10.49.0 - 11.6 secTBHTBH INR0.98TBHComment: DESIRED INR: 2.0-3.0 CONDITIONS NOT LISTED BELOW 2.5-3.5 FOR PROSTHETIC HEART VALVE REPLACEMENT 2.5-3.5 RECURRENT THROMBOSIS Specimen (Source)Anatomical Location / LateralityCollection Method / Volume Collection TimeReceived Time02/25/2025 11:20 AM EST02/25/2025 11:25 AM EST Narrative CLINISYNC - 02/25/2025 12:22 PM EST Authorizing ProviderResult TypeResult StatusCorey Jim DOCLINISYNCFinal Result Performing OrganizationAddressCity/State/ZIP CodePhone Number [facility] * ALL BASIC METABOLIC PANEL (02/25/2025 11:20 AM EST)ComponentValueRef RangeTest MethodAnalysis TimePerformed AtPathologist ThbabnxyvEFDXLB840286 - 145 mmol/L TBHPOTASSIUM3.93.5 - 5.1 mmol/ZJMAAYXLOAGM45433 - 107 mmol/LTBHCARBON DIOXIDE 30.321.0 - 32.0 mmol/LTBHANION GAP7.1ZEKREVHHXJ6720 - 106 mg/dLTBHBLOOD UREA UXXWSKDE06.07.0 - 18.0 mg/dLTBHCREATININE0.720.55 - 1.02 mg/dLTBHTBH EGFR-AF HUNGARIAN>60>=60 mL/min/1.73m 2TBHTBH EGFR-NON AF HUNGARIAN>60>=60 mL/min/1.73m 2TBHBUN CREATININE RATIO15.5CFQHDIWIRG1.08.5 - 10.1 mg/dLTBHSpecimen (Source) Anatomical Location / LateralityCollection Method / VolumeCollection Time Received Time02/25/2025 11:20 AM EST02/25/2025 11:25 AM EST Narrative CLINISYNC - 02/25/2025 12:02 PM EST Authorizing ProviderResult TypeResult StatusCorey Jim DOCLINISYNCFinal Result Performing OrganizationAddressCity/State/ZIP CodePhone Number [facility] * [facility] LIVER PANEL (02/25/2025 11:20 AM EST)ComponentValueRef RangeTest Method Analysis TimePerformed AtPathologist SignatureBILIRUBIN TOTAL0.30.2 - 1.0 mg/dLTBHBILIRUBIN DIRECT0.10.0 - 0.2 mg/dLTBHASPARTATE AMINO SFKRRNYWYJG1090 - 37 U/LTBHALANINE TTQQFYRJSXVNHGEK4035 - 59 U/LTBHALKALINE DUVPCEDVWPK2822 - 116 U/LTBHTOTAL PROTEIN6.96.4 - 8.2 g/dLTBHALBUMIN LEVEL3.53.4 - 5.0 g/dLTBH GLOBULIN3.4g/dLTBHALBUMIN GLOBULIN RATIO1.0TBHSpecimen (Source)Anatomical Location / LateralityCollection Method / VolumeCollection TimeReceived Time 02/25/2025 11:20 AM EST02/25/2025 11:25 AM EST Narrative CLINISYNC - 02/25/2025 12:02 PM EST Authorizing ProviderResult TypeResult StatusCorey Jim DOCLINISYNCFinal Result Performing OrganizationAddressCity/State/ZIP CodePhone Number [facility] * ALL CBC WITH AUTO DIFF (02/25/2025 11:20 AM EST)ComponentValueRef RangeTest MethodAnalysis TimePerformed AtPathologist SignatureTBH WBC7.64.0 - 11.0 10 3/uLTBHTBH RBC4.884.20 - 5.40 10 6/uLTBHTBH HGB14.712.0 - 16.0 g/dLTBHTBH HCT 43.436.0 - 48.0 %TBHTBH MCV88.981.0 - 99.0 fLTBHTBH MCH30.126.7 - 34.0 pgTBH TBH MCHC33.929.9 - 35.2 g/dLTBHTBH RDW11.811.0 - 15.0 %TBHTBH RBT667360 - 450 10 3/uLTBHTBH MPV10.99.5 - 13.5 fLTBHNEUTROPHILS PERCENT AUTO58.843.0 - 75.0 % TBHLYMPHOCYTES PERCENT AUTO31.020.5 - 60.0 %TBHMONOCYTES PERCENT AUTO8.11.7 - 12.0 %TBHTBH EO %1.30.9 - 7.0 %TBHBASOPHILS PERCENT AUTO0.50.2 - 2.0 %TBH IMMATURE GRANULOCYTES PCT AUTO0.30.0 - 0.5 %TBHNEUTROPHILS ABSOLUTE AUTO4.51.4 - 6.5 10 3/uLTBHLYMPHOCYTES ABSOLUTE AUTO2.41.2 - 3.8 10 3/uLTBHMONOCYTES ABSOLUTE AUTO0.60.3 - 0.8 10 3/uLTBHTBH EO #0.10.0 - 0.7 10 3/uLTBHBASOPHILS ABSOLUTE AUTO0.00.0 - 0.1 10 3/uLTBHIMMATURE GRANULOCYTES ABS AUTO0.020.00 - 0.03 10 3/uLTBHSpecimen (Source)Anatomical Location / LateralityCollection Method / VolumeCollection TimeReceived Time02/25/2025 11:20 AM EST02/25/2025 11:25 AM EST Narrative CLINISYNC - 02/25/2025 11:50 AM EST Authorizing ProviderResult TypeResult StatusCorey Jim DOCLINISYNCFinal Result Performing OrganizationAddressCity/State/ZIP CodePhone Number [facility] TBH documented in this encounter Visit Diagnoses Not on filedocumented in this encounter Care Teams Team MemberRelationshipSpecialtyStart DateEnd Date Raffaele Thomas MD [address] [place] [address] [facility]23documented as of this encounter
--- OUTSIDE RECORDS SUMMARY | 2025-03-06 06:13 | XMS_ITS | Clinical Summary ---
Author Organization [employer] [facility] tem Address [id number] [address] [place] [address] Care Team Providers Care Merchandise For Resale Purchasing Agent Name Role Phone No Pcp, No Pcp Primary Care Provider Unavailabl e Social History Tobacco UseTypesPacks/DayYears UsedDateSmoking Tobacco: Never AssessedChildcare AnswerDate KpkajlmsAobfabpybXorsqam41/12/2019EmploymentAnswerDate Recorded MrwynmomfyUxyygta27/12/2019Purpose - LifeAnswerDate RecordedPurpose and direction in gieuBdedhyv53/11/2021CommentsUnknownSex and Gender InformationValueDate RecordedSex Assigned at BirthNot on fileLegal SexFemale 02/14/2015 12:10 AM ESTGender IdentityNot on fileSexual OrientationNot on file Plan of Treatment Not on file Medical Devices Not on file Care Teams Team MemberRelationshipSpecialtyStart DateEnd Date No Pcp, [place] [address] [facility]
--- OUTSIDE RECORDS SUMMARY | 2025-03-06 06:13 | XMS_ITS | Clinical Summary ---
Author Organization [facility] Address [address] [place] [address] Care Team Providers Care Diesel Truck Technician Name Role Phone Raffaele Thomas MD Primary Care Provider [phone] Allergies No known active allergies Medications MedicationSigDispense [...] improvement in mood. Use buspar PRN. Nontraumatic yzglowxhax28/05/2024nnual physical exam12/08/2023 Assessment & Plan (12/08/2023 10:07 AM EDT): Due for labs. Discussed proper diet and regular aerobic exercise. Need aerobic exercise 5-6 days a week for 30 minutes at a time. Smaller portions and limit total calories. Colonoscopy after age 45. Tetanus every 10 years. Advised not to smoke. Discussed daily Aspirin therapy. Insulin uyycslqmqt46/04/2024 Assessment & Plan (03/08/2024 10:12 AM EST): [...] 30 minutes at a time. Encounters DateTypeDepartmentCare BayyLpwmojdimds31/24/2025Clinisync Result Encounter [facility] External Department Unsolicited Mitch Fernandez DO 02/05/2025 8:40 AM [place] [address] Mitch Fernandez DO Pre-op evaluation; Menorrhagia with regular cycle; Abnormal uterine bleeding (AUB); Dysmenorrhea; Dyspareunia in female; Pelvic pain5[place] [address] Mitch Fernandez DO 02/04/2025Travelfrom Last 3 Months Social History Tobacco UseTypesPacks/DayYears UsedDateSmoking Tobacco: NeverSmokeless Tobacco: Never Tobacco Cessation:Counseling Given: Not Answered [id number] Health LiteracyAnswerDate RecordedHow often do you need to have someone help you when you read instructions, pamphlets, or other written material from your doctor or pharmacy?Vbrecx4112/07/2023Social Connection and Isolation Panel AnswerDate RecordedIn a typical week, how many times do you talk on the phone with family, friends, or neighbors?More than three times a week12/07/2023How often do you get together with friends or relatives?Once a week12/07/2023How often do you attend worship or voodoo services?More than 4 times per year 12/07/2023o you belong to any clubs or organizations such as worship groups, unions, fraternal or athletic groups, or school groups?Yes12/07/2023How often do you attend meetings of the clubs or organizations you belong to?More than 4 times per year12/07/2023re you , , , , never , or living with a partner?Sdawqcphc23/04/2024UDIT-CAnswerDate Recorded Q1: How often do you have [...] food, housing, medical care, and heating?Not very hard12/07/2023[facility] [place] of Occupational Health - Occupational Stress QuestionnaireAnswerDate [...] were you homeless or living in a [facility] (including now)?No12/07/2023CommentsNoSex and Gender Information ValueDate RecordedSex Assigned at BirthNot on fileLegal GieLkdpgg55/15/2023 7:06 PM EDTGender IdentityNot on fileSexual OrientationNot on file Last Filed Vital Signs Vital SignReadingTime TakenCommentsBlood Dzbjkvzg224/7802/05/2025 8:44 AM EST Fovpx335303/08/2024 9:22 AM AZHBsgatqexkza50.4 ??C (97.5 ??F)03/08/2024 9:22 AM ESTRespiratory Qzyi695705/09/2023 9:22 AM ESTOxygen Ujnigcxtus23%03/08/2024 9:22 AM ESTInhaled Oxygen Concentration--Xzedkg777 kg (256 lb)02/05/2025 8:44 AM EST Uvieff833.6 cm (5' 6 )02/05/2025 8:44 AM ESTBody Mass Index41.32104/07/2024 8:44 AM EST Plan of Treatment DateTypeDepartmentCare Team (Latest Contact Info)Mpyznenfmen57/29/2026 10:00 AM EDTOffice Visit [facility] OBOlya [address] [place] [address] [place] [address] Mitch Fernandez, [address] [place] [id number] Procedures Procedure NamePriorityDate/TimeAssociated DiagnosisCommentsALL TYPE AND SCREEN Xosagxz0402/25/2025 11:20 AM EST CCF JXXXTxeqkvq95/24/2025 11:20 AM EST SRMCOH PROTHROMBIN TIME INR W/O UTZEDtnbout34/24/2025 11:20 AM EST ALL BASIC METABOLIC QDXESIjaywre85/24/2025 11:20 AM EST HMHP LIVER DISOYSjsiqow63/24/2025 11:20 AM EST ALL CBC WITH AUTO YEJZGhtzhps95/24/2025 11:20 AM EST from Last 3 Months Results * SRMCOH PROTHROMBIN TIME INR W/O COUM [...] DOCLINISYNCFinal Result Performing OrganizationAddressCity/State/ZIP CodePhone Number [facility]IN[facility]NC TB * HP LIVER PANEL (02/25/2025 11:20 AM EST)ComponentValueRef RangeTest Method Analysis TimePerformed AtPathologist SignatureBILIRUBIN TOTAL0.30.2 - 1.0 mg/dLTBHBILIRUBIN DIRECT0.10.0 - 0.2 mg/dLTBHASPARTATE AMINO GXEVRRYGYOK1742 - 37 U/LTBHALANINE XXOSAGEZWJDAKOYN1926 - 59 U/LTBHALKALINE IUNPRTLETUM5022 - 116 U/LTBHTOTAL PROTEIN6.96.4 - 8.2 g/dLTBHALBUMIN LEVEL3.53.4 - 5.0 g/dLTBH GLOBULIN3.4g/dLTBHALBUMIN GLOBULIN RATIO1.0TBHSpecimen (Source)Anatomical Location / LateralityCollection Method / VolumeCollection TimeReceived Time 02/25/2025 11:20 AM EST02/25/2025 11:25 AM EST Narrative CLINISYNC - 02/25/2025 12:02 PM EST Authorizing ProviderResult TypeResult StatusCorey Jim DOCLINISYNCFinal Result Performing OrganizationAddressCity/State/ZIP CodePhone Number [facility] * CCF APTT (02/25/2025 11:20 AM EST)ComponentValueRef RangeTest MethodAnalysis TimePerformed AtPathologist SignaturePARTIAL THROMBOPLASTIN TIME26.722.3 - 36.2 secTBHSpecimen (Source)Anatomical Location / LateralityCollection Method / VolumeCollection TimeReceived Time02/25/2025 11:20 AM EST02/25/2025 11:25 AM EST Narrative CLINISYNC - 02/25/2025 12:22 PM EST Authorizing ProviderResult TypeResult StatusCorey Jim DOCLINISYNCFinal Result Performing OrganizationAddressCity/State/ZIP CodePhone Number [facility] * ALL TYPE AND SCREEN (02/25/2025 11:20 AM EST)ComponentValueRef RangeTest MethodAnalysis TimePerformed AtPathologist SignatureBLOOD TYPEO PositiveTBH ANTIBODY SCREENNEGATIVETBHSpecimen (Source)Anatomical Location / Laterality Collection Method / VolumeCollection TimeReceived Time02/25/2025 11:20 AM EST 02/25/2025 11:25 AM EST Narrative CLINISYNC - 02/25/2025 1:43 PM EST [facility] , ?? Authorizing ProviderResult TypeResult StatusCorey Jim DOCLINISYNCFinal Result Performing OrganizationAddressCity/State/ZIP CodePhone Number [facility] TBH * ALL CBC WITH AUTO DIFF (02/25/2025 11:20 AM EST)ComponentValueRef RangeTest MethodAnalysis TimePerformed AtPathologist SignatureTBH WBC7.64.0 - 11.0 10 3/uLTBHTBH RBC4.884.20 - 5.40 10 6/uLTBHTBH HGB14.712.0 - 16.0 g/dLTBHTBH HCT 43.436.0 - 48.0 %TBHTBH MCV88.981.0 - 99.0 fLTBHTBH MCH30.126.7 - 34.0 pgTBH TBH MCHC33.929.9 - 35.2 g/dLTBHTBH RDW11.811.0 - 15.0 %TBHTBH GXW561358 - 450 10 3/uLTBHTBH MPV10.99.5 - 13.5 [...] Result Performing OrganizationAddressCity/State/ZIP CodePhone Number [facility] * ALL BASIC METABOLIC PANEL (02/25/2025 11:20 AM EST)ComponentValueRef RangeTest MethodAnalysis TimePerformed AtPathologist WfssuilwpXABQRY494062 - 145 mmol/L TBHPOTASSIUM3.93.5 - 5.1 mmol/QFQFOZCLVDGF67181 - 107 mmol/LTBHCARBON DIOXIDE 30.321.0 - 32.0 mmol/LTBHANION GAP7.2OTFSLXUNZT0061 - 106 mg/dLTBHBLOOD UREA FOUJYWFK68.07.0 - 18.0 mg/dLTBHCREATININE0.720.55 - 1.02 mg/dLTBHTBH EGFR-AF BERMUDIAN>60>=60 mL/min/1.73m 2TBHTBH EGFR-NON AF BERMUDIAN>60>=60 mL/min/1.73m 2TBHBUN CREATININE RATIO15.6LMQYQELEGX3.08.5 - 10.1 mg/dLTBHSpecimen (Source) Anatomical Location / LateralityCollection Method / VolumeCollection Time Received Time02/25/2025 11:20 AM EST02/25/2025 11:25 AM EST Narrative CLINISYNC - 02/25/2025 12:02 PM EST Authorizing ProviderResult TypeResult StatusCorey Jim DOCLINISYNCFinal Result Performing OrganizationAddressCity/State/ZIP CodePhone Number [facility] from Last 3 Months Insurance Care Teams Team MemberRelationshipSpecialtyStart DateEnd Date Raffaele Thomas MD [address] [place] [address] PCP - GeneralFamily Medicine12/08/23
[2025-03-06 06:19] LABS: Hematocrit 43.6 % (36.0-48.0); Hemoglobin 15.1 g/dL (12.0-16.0); Immature Granulocytes Abs Auto 0.02 10^3/uL (0.00-0.03); Immature Granulocytes Pct Auto 0.3 % (0.0-0.5); Lymphocytes Absolute Auto 1.7 10^3/uL (1.2-3.8); Mean Corpuscular HGB Conc 34.6 g/dL (29.9-35.2); Mean Corpuscular Hemoglobin 30.6 pg (26.7-34.0); Mean Corpuscular Volume 88.3 fL (81.0-99.0); Platelet Count 194 10^3/uL (150-450); Red Blood Count 4.94 10^6/uL (4.20-5.40); White Blood Count 7.2 10^3/uL (4.0-11.0)
[2025-03-06] MEDS: CEFAZOLIN SODIUM 2 GM/50 ML D5W PREMIX IV (07:45)
--- NOTE | 2025-03-06 09:31 | P.ON_ITS ---
Brief Operative Note Date of procedure: 03/06/25 Pre-op diagnosis general: menorrhagia, failed ablation, dysmenorrhea, pelvic p ain Post-op diagnosis: same as pre-op Procedure: NAME OF PROCEDURE: ? Robotic assisted laparoscopic hysterectomy with cystoscopy PROCEDURE:? The patient was taken back to the operating room, where she was prepped and draped in the normal sterile fashion after being placed in the dorsal lithotomy position.? Patient?s anesthesia was found to be adequate.? Surgical timeout was performed using two patient identifiers.? SCDs were on and in place.? Two grams of Ancef were given prior to the surgery.? Sterile Elias catheter was inserted.? Standard size VCare was secured to the uterine cervix and the surgeon changed gloves.? Attention then was turned to the patient's abdomen, where a supraumbilical incision was then made.? Two S retractors were used to identify the patient?s fascia.? The fascia was then tented up using Papi clamps and the patient?s fascia was incised sharply.? Patient?s abdomen was identified and entered bluntly.? The patient had the trocar placed and a pneumoperitoneum was obtained.? Approximately 4 liters of CO2 gas was used.? The camera was then placed through the trocar.? At this time, two robot trocars were placed in the patient?s left and right side, two hand widths from the midline, and this was placed under direct visualization.? Please note absent tubes were seen. The uterine ovarian ligament was identified and transected and ligated using the vessel sealer? The vessel sealer was carried down serially to the broad ligament, to the area of the bladder flap, which was then created anteriorly, and the uterine arteries were skeletonized and sealed using the vessel sealer.? The colpotomy was made using the monopolar cautery on cut, and this was carried circumferentially, posteriorly to anteriorly, until the uterus was amputated.? The specimen was then removed intact through the vagina, without difficulty.? The vagina was then closed using two running V-Loc in a non-lock fashion.? The robot was undocked.? The abdomen was desufflated.? The skin defects were closed using 4-0 Vicryl.? Please note, the fascia was closed using 0 Vicryl.? Sponge, lap and needle counts were correct x2.? Patient was taken to recovery room in stable condition.? The patient was awakened by Anesthesia first.? Patient tolerated procedure well.?? Anesthesia: LEN Surgeon: Mitch Fernandez Freight Handler: Miley Man Estimated blood loss (mL): 100 Pathology: other (uterus and cervix) Condition: stable Disposition: PACU Urinary Catheter Management Urinary Catheter Management Urethral: Cath placed during this visit: no
[2025-03-06] MEDS: DOCUSATE SODIUM 100 MG CAPSULE PO (12:04)
[2025-03-06] MEDS: SIMETHICONE 80 MG TAB.CHEW PO (12:05)
[2025-03-06] MEDS: IBUPROFEN 400 MG TABLET 800 MG PO (14:34)
[2025-03-06] MEDS: CEFAZOLIN SODIUM/DEXTROSE,ISO 2 GM/50 ML PIGGYBACK IV (14:35)
[2025-03-06 15:25] LABS: Hematocrit 41.1 % (36.0-48.0); Hemoglobin 14.1 g/dL (12.0-16.0); Mean Corpuscular HGB Conc 34.3 g/dL (29.9-35.2); Mean Corpuscular Hemoglobin 30.4 pg (26.7-34.0); Mean Corpuscular Volume 88.6 fL (81.0-99.0); Platelet Count 182 10^3/uL (150-450); Red Blood Count 4.64 10^6/uL (4.20-5.40); White Blood Count 7.5 10^3/uL (4.0-11.0)
[2025-03-06 16:05] LABS: Atypical Lymphocytes % Manual 1.0 %; Atypical Lymphocytes Abs Man 0.07; Basophils Abs Manual 0.00 10^3/uL (0.00-0.10); Basophils Percent Manual 0.0 % (0.2-2.0); Eosinophils Absolute Manual 0.00 10^3/uL (0.00-0.70); Eosinophils Percent Manual 0.0 % (0.9-7.0); Lymphocytes Absolute Manual 0.67 10^3/uL (1.20-3.80); Lymphocytes Percent Manual 9.0 % (20.5-60.0); Monocytes Absolute Manual 0.00 10^3/uL (0.30-0.80); Monocytes Percent Manual 0.0 % (1.7-12.0); Segmented Neut Absolute Manual 6.75 10^3/uL (1.4-6.5); Segmented Neutrophils % Manual 90.0 (43.0-75.0)
== END 2025-03-06 16:10 | disposition home or self-care (01) ==
LOC: SURGOUT 08:28 → MS 11:19
PROVIDERS: PCP Family Medicine; Visit Provider Obstetrics & Gynecology
PROC: (CPT 00840; principal; 2025-03-06 07:30)
DX: N92.0 Excessive and frequent menstruation with regular cycle (principal); R10.20 Pelvic and perineal pain unspecified side; N93.9 Abnormal uterine and vaginal bleeding, unspecified; N94.6 Dysmenorrhea, unspecified; N94.10 Unspecified dyspareunia; N80.00 Endometriosis of the uterus, unspecified; Z90.79 Acquired absence of other genital organ(s); K21.9 Gastro-esophageal reflux disease without esophagitis
CPT/HCPCS: 00840; 58570; 36415; 84702; 85007; 85025; 85027; 88307; 94667; J0131; J0690; J1100; J1171; J1200; J1885; J2250; J2405; J2704